=== PATIENT | female | born 1935 | race Caucasian/White ===

== ENCOUNTER 2020-10-15 07:26 | Outpatient (CLI) | payer MEDICARE, SELFPAY ==
--- NOTE | ~2020-10-15 | CT_ITS ---
EXAMINATION: CT abdomen pelvis w con DATE: 10/15/2020 08:15 INDICATION: Inflammatory bowel disease. TECHNIQUE: Computed tomography (CT) of the abdomen and pelvis was performed with 100 mL Omnipaque 350 intravenous contrast. Automated exposure control and iterative reconstruction technique were employe d. The dose-length product was 161.81 mGy-cm. COMPARISON: None. FINDINGS: The visualized portions of the lung bases demonstrate mild atelectasis. A calcified left niecy ng nodule is consistent with old granulomatous disease. No pleural effusion. The heart size is normal . No pericardial effusion. Calcifications in the liver and spleen are consistent with old granulomato us disease. The gallbladder, pancreas, adrenal glands, and kidneys are normal. There is a 4.8 cm cyst in left adnexa. There is wall thickening of the rectosigmoid with gas-filled fistula to the presacra l region. There is a large stool in the colon proximal to the area of rectosigmoid bowel wall thicken ing. There are no dilated loops of bowel. The appendix is not visualized. There are no pathologically enlarged lymph nodes. There is no free intraperitoneal fluid. There is a right hip arthroplasty. The re is severe lumbar spondylosis. IMPRESSION: 1. Wall thickening of the rectosigmoid with gas-filled fistula to the presacral region, likely chroni c diverticulitis. The large volume of stool in the more proximal colon suggests a stricture in the re ctosigmoid. 2. 4.8 cm cyst in the left adnexa, likely benign. Pelvis ultrasound is recommended in one year. Reviewed, dictated and finalized at location B. IMPRESSION: 1. 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 The large volume of stool in the more p roximal colon suggests a stricture in the rectosigmoid. 2. 4.8 cm cyst in the left adnexa, likely benign. Pelvis ultrasound is recommen ded in one year.
[2020-10-15 08:08] LABS: Estimated Glomerular Filt Rate 60
== END 2020-10-15 07:27 | disposition home or self-care (01) ==
PROVIDERS: PCP Internal Medicine; Visit Provider Internal Medicine
DX: K52.9 Noninfective gastroenteritis and colitis, unspecified (principal)
CPT/HCPCS: 74177; Q9967

== ENCOUNTER 2020-11-15 01:31 | Day surgery (SDC) | payer MEDICARE, SELFPAY ==
[2020-11-08 11:08] VITALS: BMI 19.3
--- NOTE | 2020-11-15 11:44 | WPDANESEPPF ---
Anes - Initial Pre Proc Eval Procedure: Operation Date: 11/15/20 13:00 Proposed Procedures p Esophagogastroduodenoscopy & Screening Colonoscopy - Gilbert Hickey MD Date/Time: 11/15/20 11:44 Surgeon: Gilbert Hickey MD Pre Op Diagnosis: abnormal CT, Anemia Patient Data Age: 85 Gender: F Height: 1.5 m Weight: 43.5 kg Allergies Allergy/AdvReac Type Severity Reaction Status Date / Time No Known Allergies Allergy Unknown Verified 11/08/20 11:09 Home Medications Medication Instructions Recorded Confirmed Type aspirin 81 mg tablet,delayed 81 mg PO DAILY 10/25/20 11/08/20 History release bltlyehavgb-vlkegwsajbz-aeutom 500 2 tablet PO DAILY 10/25/20 11/08/20 History mg-400 mg-80 mg tablet vit C 250 mg-vit E 90 mg-zinc 40 1 tablet PO BID 10/25/20 11/08/20 History mg-copper 1 jf-edrzdg-bkonxo capsule Calcium 600 + D(3) 2 cap PO DAILY 11/08/20 11/08/20 History rynhpcgf-zyx-gunq-FA-lutein 1 tablet PO DAILY 11/08/20 11/08/20 History [Centrum [place] Women] Patient hx anesthesia problems: none Family hx anesthesia problems: none PMFSH Past Medical History Medical History (Updated 10/25/20 @ 14:37 by Spring Crocker APN-C) Anemia Diarrhea Family History Family History (Updated 09/01/16 @ 08:34 by DOCTOR UNKNOWN) Mother Acute myocardial infarction Other Cerebrovascular accident Diabetes mellitus Family history of cardiovascular disease Social History Social History Smoking status: Never smoker Alcohol intake: never Substance use: never Substance use type: does not use Living arrangements: alone Spiritual care concerns: No Anes - Eval Final PreProcedure Day of Procedure 11/15/20 11:44 Patient weight: normal Heart: regular rate and rhythm Lungs: clear to auscultation Airway: Mallampati scale class II Neurological: alert and oriented Last oral intake: >/= 8 hours ASA classification: II Emergent: no Anesthetic plan: proceed Anesthesia type and monitoring: general GIVS and standard monitoring Informed Consent: The patient's anesthetic plan and its attendant risks and benefits were discussed with the patient/family/POA. Questions were solicited and answers provided to the satisfaction of the patient/family/POA.
[2020-11-15] MEDS: LACTATED RINGERS 1,000 ML 150 ML IV CONT (12:07)
[2020-11-15 12:10] VITALS: BP 131/65; PULSE 90; RESP 16; TEMP 37.2; O2SAT 99
--- NOTE | 2020-11-15 12:12 | WPDHPUPDATE1 ---
History and Physical Update Update Date/Time: 11/15/20 12:12 History and Physical has been reviewed, including an updated exam of the patient. There are NO changes in the patient's condition. Risks, benefits, and alternatives have been discussed and questions answered. Patient agrees to proceed with procedure.
[2020-11-15] MEDS: BENZOCAINE (*SP) 60 ML SPRAY CAN (HURRICAINE) 1 SPRAY MUCOUS MEM (12:19)
[2020-11-15 12:57] VITALS: BP 112/55; PULSE 72; RESP 20; O2SAT 100
[2020-11-15 13:07] VITALS: BP 115/54; PULSE 70; RESP 14; O2SAT 100
[2020-11-15 13:17] VITALS: BP 138/66; PULSE 77; RESP 24; O2SAT 100
--- NOTE | 2020-11-15 13:49 | SUR.PHASEII ---
pt went to restroom prior to discharge. pt dresssed in the bathroom and iv dc'd once pt brought back to room. discharge teaching done with pt and son. verbalized understanding/
== END 2020-11-15 13:43 | disposition home or self-care (01) ==
PROVIDERS: PCP Internal Medicine; Visit Provider Internal Medicine Gastroenterology
PROC: 0DJ08ZZ Inspection of Upper Intestinal Tract, Via Natural or Artificial Opening Endoscopic (ICD-10-PCS; CPT 43235; principal; 2020-11-15 13:00)
DX: D50.0 Iron deficiency anemia secondary to blood loss (chronic) (principal); K22.10 Ulcer of esophagus without bleeding; K44.9 Diaphragmatic hernia without obstruction or gangrene; K29.50 Unspecified chronic gastritis without bleeding; K51.90 Ulcerative colitis, unspecified, without complications; K57.30 Diverticulosis of large intestine without perforation or abscess without bleeding; K56.699 Other intestinal obstruction unspecified as to partial versus complete obstruction
CPT/HCPCS: 43239; 45380; 45381; 88305; J2704; J7120

== ENCOUNTER 2020-11-19 09:37 | Outpatient (CLI) | payer MEDICARE, SELFPAY ==
[2020-11-19 10:21] LABS: Hematocrit 36.6 % (37.0-47.0); Hemoglobin 11.2 g/dL (12.0-15.0); Mean Corpuscular HGB Conc 30.6 g/dl (32-36); Mean Corpuscular Hemoglobin 25.7 pg (26-34); Mean Corpuscular Volume 84.1 fl (80-100); Mean Platelet Volume 9.3 fl (7.4-10.4); Platelet Count Result 303 k/mm3 (150-375); Red Blood Count 4.35 M/mm3 (4.2-5.4); Red Cell Distribution Width 17.1 % (11.5-14.5); White Blood Count 9.5 K/mm3 (4.5-10.0)
[2020-11-19 11:08] LABS: Alanine Aminotransferase 24 U/L (4-35); Albumin Level 3.5 g/dL (3.5-5.1); Alkaline Phosphatase 122 U/L (38-126); Anion Gap 5 mmol/L (8-16); Aspartate Amino Transferase 39 U/L (14-36); Bilirubin,Total 0.5 mg/dL (0.2-1.3); Blood Urea Nitrogen 7 mg/dL (7-17); CRP 4.2 mg/dL (<1.0); Calcium 8.4 mg/dL (8.4-10.2); Carbon Dioxide 37 mmol/L (22-30); Chloride 98 mmol/L (98-107); Estimated Glomerular Filt Rate > 60; Glucose 99 mg/dL (65-110); Potassium 2.7 mmol/L (3.4-5.0); Sodium 140 mmol/L (137-145)
[2020-11-19 11:45] LABS: Erythrocyte Sedimentation Rate 39 mm/hr (0-20)
== END 2020-11-19 09:38 | disposition home or self-care (01) ==
LOC: ANHLAB 09:48
PROVIDERS: PCP Internal Medicine; Visit Provider Internal Medicine Gastroenterology
DX: R93.3 Abnormal findings on diagnostic imaging of other parts of digestive tract (principal); K56.699 Other intestinal obstruction unspecified as to partial versus complete obstruction; R19.7 Diarrhea, unspecified; K51.90 Ulcerative colitis, unspecified, without complications
CPT/HCPCS: 36415; 80053; 85027; 85652; 86140

== ENCOUNTER 2020-11-19 18:38 | Emergency (ER) | payer MEDICARE, SELFPAY ==
[2020-11-19 19:03] VITALS: BP 141/70; PULSE 98; RESP 18; TEMP 37.3; O2SAT 100
[2020-11-19 21:00] LABS: Potassium 2.9 mmol/L (3.4-5.0)
--- NOTE | 2020-11-19 22:02 | ED.RECABL ---
HPI - Recheck/Abnormal Lab/Rx General Chief Complaint: Recheck/Abnormal Lab/Rx Stated Complaint: here for iv potassium Time Seen by Provider: 11/19/20 21:56 Source: patient Mode of arrival: ambulatory Limitations: no limitations History of Present Illness HPI narrative: Patient is an 85-year-old female sent by her doctor due to low potassium level. Patient's son states that her doctor told her that she needed potassium. Patient is asymptomatic at this time but states that she does have diarrhea which is nothing new it is due to her colitis and has a machine splitter that she follows up with. Patient denies any chest pain, shortness of breath, abdominal pain, nausea, vomiting, urinary symptoms, fever or chills Related Data Home Medications Medication Instructions Recorded Confirmed aspirin 81 mg tablet,delayed 81 mg PO DAILY 10/25/20 11/19/20 release ichezrhsyvf-urvwdaliiun-mioaah 500 2 tablet PO DAILY 10/25/20 11/19/20 mg-400 mg-80 mg tablet vit C 250 mg-vit E 90 mg-zinc 40 1 tablet PO BID 10/25/20 11/19/20 mg-copper 1 hc-buizhj-sypklx capsule Calcium 600 + D(3) 2 cap PO DAILY 11/08/20 11/19/20 vgnunejj-jjr-swqk-FA-lutein 1 tablet PO DAILY 11/08/20 11/19/20 [Centrum [place] Women] Allergies Allergy/AdvReac Type Severity Reaction Status Date / Time No Known Allergies Allergy Unknown Verified 11/19/20 22:07 Review of Systems Review of Systems: All systems reviewed & are unremarkable except as noted in HPI and below Constitutional: Constitutional: Denies body ache(s), Denies chills, Denies excessive sweating, Denies fatigue, Denies fever(s), Denies headache(s), Denies lethargy, Denies malaise, Denies weakness and Denies weight loss Eyes: Eyes: Denies blurry vision, Denies change in vision and Denies loss of vision ENT: Denies dizziness, Denies ear discharge, Denies headache(s), Denies lip swelling, Denies epistaxis, Denies nasal congestion, Denies neck pain, Denies throat swelling and Denies tongue swelling Cardiovascular: Cardiovascular: Denies chest pain, Denies chest pain at rest, Denies chest pain with activity, Denies diaphoresis, Denies rapid heart rate, Denies edema, Denies irregular heart rhythm, Denies lightheadedness, Denies palpitations, Denies dyspnea and Denies dyspnea on exertion Respiratory: Respiratory: Denies chest congestion, Denies cough, Denies hemoptysis, Denies dyspnea and Denies dyspnea on exertion Gastrointestinal: Gastrointestinal: Denies abdominal pain, Denies melena, Denies hematochezia, Denies diarrhea, Denies nausea, Denies vomiting and Denies hematemesis Musculoskeletal: Musculoskeletal: Denies abnormal gait, Denies deformity, Denies joint swelling, Denies limited range of motion, Denies neck pain and Denies numbness Neurologic: Denies Abnormal speech present, Denies abnormal gait, Denies confusion, Denies dizziness, Denies headache(s), Denies focal weakness, Denies loss of vision, Denies numbness, Denies Other visual disturbances, Denies Sensory deficit (Neuro) and Denies weakness Psychiatric: Psychiatric: Denies confusion, Denies depression, Denies auditory hallucinations, Denies homicidal ideation and Denies suicidal ideation Endocrine: Endocrine: Denies cold intolerance, Denies excessive sweating, Denies fatigue, Denies heat intolerance and Denies palpitations Hematologic/Lymphatic: Hematologic/Lymphatic: Denies easy bleeding and Denies easy bruising Allergic/Immunologic: Allergic/Immunologic: Denies lip swelling, Denies throat swelling and Denies tongue swelling PMFSH Past Medical History Medical History Abnormal CT scan, sigmoid colon Anemia Diarrhea 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
[2020-11-19 22:03] VITALS: BP 151/70; PULSE 88; RESP 20; O2SAT 97
[2020-11-19] MEDS: POTASSIUM CHLORIDE 20 MEQ PACKET (FOR LIQUID) 40 MEQ PO (22:38)
[2020-11-19 23:06] VITALS: BP 157/70; PULSE 87; RESP 18; O2SAT 99
== END 2020-11-19 23:10 | disposition home or self-care (01) ==
PROVIDERS: Emergency Medicine; Emergency Provider Emergency Medicine; PCP Internal Medicine
DX: E87.6 Hypokalemia (principal); Z79.82 Long term (current) use of aspirin; Z86.2 Personal history of diseases of the blood and blood-forming organs and certain disorders involving the immune mechanism
CPT/HCPCS: 36415; 80053; 84132; 85027; 85652; 86140; 99283; A9270

== ENCOUNTER 2021-01-06 08:08 | Outpatient (CLI) | payer MEDICARE, SELFPAY ==
--- NOTE | ~2021-01-06 | XR_ITS ---
BARIUM ENEMA-AIR CONTRAST INDICATION: Intestinal obstruction. TECHNIQUE: Examination of the colon utilizing air-contrast barium enema technique. COMPARISON: CT dated 10/15/2020 FINDINGS: Examination is limited due to retrograde obstruction to flow of contrast at the sigmoid col on. There is narrowing of the sigmoid colon with possible fistula formation, suspicious for neoplasm. Abnormal accumulation of contrast along the posterior superior margin of the sigmoid colon extending towards the sacrum, suspicious for fistula. IMPRESSION: 1:Limited study due to obstruction of retrograde flow of contrast. There is irregular narrowing of th e sigmoid colon, suspicious for neoplasm. There is abnormal extraluminal accumulation of contrast dis sylvia to the narrowing, suspicious for fistula. The more proximal colon is not evaluated. Reviewed, dictated and finalized at location A. T DISTILLER IMPRESSION: 1:Limited study due to obstruction of retrograde flow of contrast. There is irr egular narrowing of the sigmoid colon, suspicious for neoplasm. There is abnorm al extraluminal accumulation of contrast distal to the narrowing, suspicious fo r fistula. The more proximal colon is not evaluated.
== END 2021-01-06 08:09 | disposition home or self-care (01) ==
LOC: ANHIMG 08:09
PROVIDERS: PCP Internal Medicine; Visit Provider Surgery
DX: K56.699 Other intestinal obstruction unspecified as to partial versus complete obstruction (principal); K51.90 Ulcerative colitis, unspecified, without complications
CPT/HCPCS: 74280

== ENCOUNTER 2021-02-24 18:40 | Inpatient (IN) | payer MEDICARE, SELFPAY ==
--- NOTE | ~2021-02-24 | XR_ITS ---
EXAMINATION: XR chest PICC line DATE: 02/25/2021 10:19 INDICATION: Central line placement. TECHNIQUE: A single frontal view of the chest was obtained. COMPARISON: Chest single view at 4:56 AM FINDINGS: There is mild scarring at the lung apices. There is a diffuse interstitial pattern in the l ungs. Calcified left lung nodules are consistent with old granulomatous disease. There are airspace o pacities in the mid and lower lung zones with a perihilar and left basilar predominance. There are sm all pleural effusions. No pneumothorax. The heart size is normal. The endotracheal tube tip is 2.6 cm above the martínez. The nasogastric tube tip is beyond the inferior margin of the radiograph, but at l east to the stomach. A left upper extremity peripherally inserted central venous catheter (PICC) is seen with tip at the superior cavoatrial junction. Surgical surgical drains overlie the abdomen. Left -sided retroperitoneal gas is again seen. IMPRESSION: 1. PICC tip at superior cavoatrial junction. 2. Diffuse lung disease with worsening at left lung base, consistent with mild pulmonary edema and at electasis versus pneumonia. Reviewed, dictated and finalized at location A. ENTARY EDUCATION TEACHER IMPRESSION: 1. PICC tip at superior cavoatrial junction. 2. Diffuse lung disease with worsening at left lung base, consistent with mild pulmonary edema and atelectasis versus pneumonia.
--- NOTE | ~2021-02-24 | XR_ITS ---
EXAMINATION: XR chest 1V portable EXAM DATE: 02/27/2021 06:08 INDICATION: Diffuse lung disease. TECHNIQUE: Portable AP frontal chest x-ray was obtained. Comparison is made to prior examination from 02/26/2021. FINDINGS: Previously seen left-sided PICC line no longer identified. Layering pleural effusions diffi cult to quantify. Adjacent atelectasis and superimposed edema or pneumonia. There is no pneumothorax suspected. The cardiomediastinal silhouette is prominent but magnified on this AP technique. The bone s are osteopenic. There are bony degenerative changes. IMPRESSION: 1. Layering pleural effusions and adjacent acute airspace disease unchanged. Reviewed, dictated and finalized at location A. ASE AND INSECT CONTROL BOSS
--- NOTE | ~2021-02-24 | CT_ITS ---
EXAMINATION: CT abdomen pelvis w con INDICATION: Left lower quadrant pain, history of ulcerative colitis TECHNIQUE: Computed tomographic images of the abdomen and pelvis were obtained after the administrati on of 100 cc of Omnipaque 350 intravenous contrast. The dose-length product (DLP) was 211.91 mGy-cm. Automated exposure control and iterative reconstruction technique were employed. COMPARISON: 10/15/2020 FINDINGS: Minimal dependent atelectasis is present in the lung bases. The heart size is normal. Punct ate calcifications in otherwise normal appearing liver and spleen likely represent healed granulomato us disease. The gallbladder is distended. The adrenal glands are unremarkable. There is a 7 mm cystic lesion in the body of the pancreas. The kidneys are unremarkable. Again noted is a 4.6 cm cystic les ion of the right adnexa. There is wall thickening of the rectosigmoid colon with a gas-filled fistula to the presacral region again seen. There has been interval development of an approximately 7.6 x 5.7 cm left retroperitoneal abscess which at least partially involves the left iliopsoas muscle. Gas tracks superiorly along the iliopsoas muscle and under the left hemidiaphragm as well as inferiorly into the left proximal thigh as well as into the lateral aspect of the left pelvis. There are changes of right total hip arthropl asty. Severe lumbar spondylosis is noted. IMPRESSION: 1. Left retroperitoneal abscess involving the iliopsoas muscle and tracking into the lateral aspect o f the left pelvis. Coexisting fecal contamination is a consideration. Surgical evaluation is recommen ded. 2. 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 These findings and recommendations were discussed with Dr. Gurpreet Palencia MD in the Emergency Dep artment at 0022 hours on 02/25/2021. 3. Cystic lesion in the body of the pancreas. The differential diagnosis includes pseudocyst, intradu ctal papillary mucinous neoplasm (IPMN), mucinous cystic neoplasm (MCN), and the less common serous c ystadenoma and neuroendocrine tumor. Correlate for history of pancreatitis. Follow-up pancreas protoc ol CT or MRI in two years is recommended. Reviewed, dictated and finalized at location F. IFIED FAMILY MEDIATOR IMPRESSION: 1. Left retroperitoneal abscess involving the iliopsoas muscle and tracking int o the lateral aspect of the left pelvis. Coexisting fecal contamination is a co nsideration. Surgical evaluation is recommended. 2. 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 These findings and recommendations were discussed with Violet Dia in the Emergency Department at 0022 hours on 02/25/2021. 3. Cystic lesion in the body of the pancreas. The differential diagnosis includ es pseudocyst, intraductal papillary mucinous neoplasm (IPMN), mucinous cystic neoplasm (MCN), and the less common serous cystadenoma and neuroendocrine tumor . Correlate for history of pancreatitis. Follow-up pancreas protocol CT or MRI in two years is recommended.
--- NOTE | ~2021-02-24 | US_ITS ---
EXAMINATION: US renal BI DATE: 02/28/2021 16:21 INDICATION: Elevated creatinine TECHNIQUE: Multiple ultrasound grayscale images of the kidneys were obtained. COMPARISON: CT abdomen and pelvis dated 02/24/2021 FINDINGS: The right kidney measures 9.1 x 3.8 x 3.1 cm. The left kidney measures 8.9 x 3.7 x 3.9 cm. The kidney s demonstrate normal echogenicity. There is no hydronephrosis in either kidney. No stones identified . The bladder is normal. IMPRESSION: 1. Normal kidneys without hydronephrosis. Reviewed, dictated and finalized at location B. STOP ATTACHER
--- NOTE | ~2021-02-24 | XR_ITS ---
EXAMINATION: XR chest 1V portable EXAM DATE: 03/09/2021 12:00 INDICATION: Shortness of breath. TECHNIQUE: Portable AP frontal chest x-ray was obtained. Comparison is made to prior examination from 03/06/2021. FINDINGS: Small to moderate bilateral subpulmonic pleural effusions with adjacent atelectasis, mild i mprovement compared to prior studies. Lungs are otherwise hyperinflated. No pneumothorax. Mild cardio megaly. There are mild bony degenerative changes. IMPRESSION: Improving small to moderate subpulmonic pleural effusions and adjacent atelectasis. Reviewed, dictated and finalized at location A. ATOR COATING FURNACE IMPRESSION: Improving small to moderate subpulmonic pleural effusions and adjac ent atelectasis.
--- NOTE | ~2021-02-24 | XR_ITS ---
XR chest 1V portable DATE: 03/01/2021 06:11 INDICATION: Intubation TECHNIQUE: Portable AP chest on 03/01/2021 at 0535 hours COMPARISON: 03/17/2021 portable AP chest at 0505 hours FINDINGS: No endotracheal tube is evident. There is persistent pulmonary vascular congestion, moderate bilateral pleural effusions and bilateral central and particularly lower lung zone infiltrates with left retrocardiac lower lobe air bronchogr ams. Diffuse osteopenia. IMPRESSION: Persistent congestive changes and bilateral pulmonary infiltrates involving particularly the lower lobes, bilateral pleural effusions; little interval change since 02/28/2021. Congestive changes are suspected. Pneumonia is not excluded. Reviewed, dictated and finalized at location A. ING BOAT MATE IMPRESSION: Persistent congestive changes and bilateral pulmonary infiltrates i nvolving particularly the lower lobes, bilateral pleural effusions; little inte rval change since 02/28/2021. Congestive changes are suspected. Pneumonia is not excluded.
--- NOTE | ~2021-02-24 | XR_ITS ---
XR chest 1V portable DATE: 02/28/2021 06:21 INDICATION: Intubation. Diffuse lung disease. TECHNIQUE: Portable upright AP chest on 02/28/2021 at 0505 hours COMPARISON: 02/27/2021 portable AP chest at 0510 hours FINDINGS: ET tube is not visualized within the field of view which extends up to T1. No central lines are noted. Cardiomegaly, aortic calcification, pulmonary vascular congestion and redistribution and suggestion o f bilateral mild pleural effusions in addition to some infiltrates in the central and lower lung zone s, suggesting congestive heart failure and pulmonary edema. Pneumonia is not excluded. Diffuse osteopenia. IMPRESSION: Congestive changes, with suggestion of mild improvement since 02/27/2021 Reviewed, dictated and finalized at location A. TOBACCO BULKER IMPRESSION: Congestive changes, with suggestion of mild improvement since 022
--- NOTE | ~2021-02-24 | XR_ITS ---
EXAMINATION: XR chest ET placement DATE: 02/25/2021 05:51 INDICATION: Intubation. TECHNIQUE: A single frontal view of the chest was obtained. COMPARISON: CT abdomen and pelvis 02/24/2021 FINDINGS: There is a diffuse interstitial pattern in the lungs. There is mild scarring at the lung ap ices. Calcified left lung nodules are consistent with old granulomatous disease. There are airspace o pacities in all right lung zones and left mid and lower lung zones. No pleural effusion or pneumothor ax. The heart size is normal. Endotracheal tube tip is 2.6 cm above the martínez. The nasogastric tube tip is beyond the inferior margin of the radiograph, but at least to the stomach. Again seen is gas i n the left retroperitoneum. IMPRESSION: 1. Diffuse lung disease, consistent with pulmonary edema versus pneumonia. 2. Left-sided retroperitoneal gas again seen. Reviewed, dictated and finalized at location A. ISSIONS COORDINATOR
--- NOTE | ~2021-02-24 | CT_ITS ---
EXAMINATION: CT guide absc cath placement DATE: 03/02/2021 14:18 INDICATION: Left abdominal abscess. TECHNIQUE: The procedure including the risks, benefits, and alternatives was discussed with the patie nt. Risks discussed included bleeding and infection. The patient understood the risks and benefits an d agreed to proceed. The skin overlying the abdomen was prepped and draped in usual sterile fashion. Anesthetic was administered with 1% lidocaine subcutaneously. An 18 gauge trochar needle was inserte d into the left abdominal abscess with CT guidance. The needle was exchanged over a wire for 6 Chilean , 8 Chilean, and 10 Chilean dilators and then for a 12 Chilean pigtail catheter. The catheter was stitch ed to the skin, and a sterile dressing was applied. The mA was adjusted according to patient size. It erative reconstruction technique was employed. The dose-length product was 181.15 mGy-cm. There were no immediate complications. FINDINGS: CT images demonstrate the catheter within the left abdominal abscess. 10 mL fluid was aspir ated for testing. IMPRESSION: 1. Successful CT-guided left abdominal abscess drainage. 2. 10 mL opaque red-barrera fluid was sent for aerobic and anaerobic cultures. Reviewed, dictated and finalized at location A. WARE PROJECT LEAD
--- NOTE | ~2021-02-24 | XR_ITS ---
EXAMINATION: XR chest 1V portable DATE: 02/26/2021 07:11 INDICATION: Diffuse lung disease. TECHNIQUE: A single frontal view of the chest was obtained. COMPARISON: Chest single view 02/25/2021, CT abdomen and pelvis 02/24/2021 FINDINGS: The patient is rotated to her right. There is mild scarring at the lung apices. A calcified left lung nodule and calcified left hilar lymph nodes are consistent with old granulomatous disease. There is a diffuse interstitial pattern in the lungs. There are airspace opacities in the mid and lo wer lung zones with a perihilar and basilar predominance. There are small pleural effusions. No pneum othorax. The heart size is normal. A left upper extremity peripherally inserted central venous cathet er (PICC) is seen with tip at the superior cavoatrial junction. The nasogastric tube tip is beyond th e inferior margin of the radiograph, but at least to the stomach. A surgical drain overlies right abd omen. IMPRESSION: 1. Stable diffuse lung disease, likely a combination of pulmonary edema and either lower lung atelect asis or pneumonia. 2. Small pleural effusions. Reviewed, dictated and finalized at location A. TENANCE GROUNDMAN IMPRESSION: 1. Stable diffuse lung disease, likely a combination of pulmonary edema and eit her lower lung atelectasis or pneumonia. 2. Small pleural effusions.
--- NOTE | ~2021-02-24 | XR_ITS ---
EXAMINATION: XR chest 1V portable INDICATION: Increased oxygen needs TECHNIQUE: Portable AP chest at 1648 hours COMPARISON: 03/01/2021 FINDINGS: Small pleural effusions persist with slight decrease. There are persistent opacities throug hout all lung zones without significant change. No pneumothorax is identified. The cardiomediastinal silhouette is stable. IMPRESSION: 1. Diffuse lung disease, consistent with pneumonia and/or pulmonary edema and/or atelectasis. 2. Small pleural effusions with slight decrease. Reviewed, dictated and finalized at location F. NIC LAB WORKER IMPRESSION: 1. Diffuse lung disease, consistent with pneumonia and/or pulmonary edema and/o r atelectasis. 2. Small pleural effusions with slight decrease.
--- NOTE | ~2021-02-24 | CT_ITS ---
EXAMINATION: CT abdomen pelvis wo con DATE: 03/01/2021 11:34 INDICATION: Perforated sigmoid colon post end colostomy and Toth's formation. TECHNIQUE: Computed tomography (CT) of the abdomen and pelvis was performed without intravenous contr ast. Automated exposure control and iterative reconstruction technique were employed. The dose-length product was 238.67 mGy-cm. COMPARISON: 02/24/2021 FINDINGS: Small left and incompletely visualized small to moderate right pleural effusions with collapse of the bilateral lower lobes. No evident pneumonia or pulmonary edema. 7 mm right upper lobe nodule. Heart size is normal. No pericardial effusion. Thoracic aorta is normal in caliber. Dependently layering hi gh attenuation consistent with vicariously excreted contrast in the dependent aspect of the otherwise normal gallbladder. Liver, pancreas, bilateral adrenal glands and kidneys are normal. Splenic calcif ications consistent with old granulomatous disease. Postoperative changes of prior partial colectomy with suture line along the end of a Toth's pouch in the pelvis and with a left lower quadrant and ostomy. The cecum appears to remain in the right low er quadrant however the course of the more distal remaining colon is unable to be distinguished from the small bowel loops. No dilated loops of bowel to suggest obstruction. Surgical drain within the de ep pelvis. A subjective decrease in size of a mixed attenuation gas and fluid collection at the left iliopsoas muscle. This includes a poorly defined approximately 3.3 x 3.1 x 2.2 cm region of increased attenuation suggesting hematoma. There also appears to be a small amount of more homogeneous intrape ritoneal fluid at the left paracolic gutter. No free intraperitoneal gas. Mederos catheter in the bladd er. Partially visualized right total hip arthroplasty. Moderate left hip osteoarthritis with subarticular cystic change at the anterior acetabulum. Severe lumbar spondylosis with 8 mm anterolisthesis L4 on L5 and 6 mm anterolisthesis L5 on S1. Additional severe lower thoracic spondylosis with 3 to 4 mm ret rolisthesis T9 and T10, T10 and T11 and T11 and T12. Chronic anterior wedging, mild at T8 and minimal at T9-T11. Extensive body wall edema most prominent at the flanks and posterior to the lumbar spine and sacrum. IMPRESSION: 1. Postoperative change of interval partial colectomy with Toth's pouch and left lower quadrant en d ostomy, likely colostomy although the small bowel and remaining large bowel are unable to be clearl y distinguished. 2. Subjective decreased in size suggesting interval surgical decompression of a region of small amoun t of gas and mixed attenuation fluid within the left iliopsoas muscle which was previously concerning for abscess and likely also including small amount of hemorrhage accounting for the region of increa sed attenuation. 3. Small amount of likely free fluid extending along the likely colectomy bed at the left paracolic g utter. 4. Small left and dntwc-va-cuvdajss right pleural effusions with collapse of the bilateral lower lobe s. Reviewed, dictated and finalized at location B. SCREW MAN IMPRESSION: 1. Postoperative change of interval partial colectomy with Toth's pouch and left lower quadrant end ostomy, likely colostomy although the small bowel and r emaining large bowel are unable to be clearly distinguished. 2. Subjective decreased in size suggesting interval surgical decompression of a region of small amount of gas and mixed attenuation fluid within the left ilio psoas muscle which was previously concerning for abscess and likely also includ ing small amount of hemorrhage accounting for the region of increased attenuati on. 3. Small amount of likely free fluid extending along the like
[2021-02-24 19:11] VITALS: BP 148/69; PULSE 62; RESP 16; TEMP 37.1; O2SAT 96
[2021-02-24] MEDS: ONDANSETRON INJ 4 MG/2 ML VIAL IV PUSH (22:52)
[2021-02-24 22:57] VITALS: BP 74/46; PULSE 111; RESP 18; O2SAT 98
[2021-02-24 23:03] LABS: Basophils Percent Auto 0.1 % (0.2-1.2); Eosinophils Absolute Auto 0.1 K/mm3 (0-0.3); Eosinophils Percent Auto 0.3 % (0-4.4); Hematocrit 29.9 % (37.0-47.0); Hemoglobin 9.9 g/dL (12.0-15.0); Immature Granulocyte Absolute 1.83 K/mm3 (0.00-0.031); Immature Granulocyte Percent A 5.7 % (0-0.5); Lymphocytes Absolute Auto 0.64 K/mm3 (0.9-3.2); Mean Corpuscular HGB Conc 33.1 g/dl (32-36); Mean Corpuscular Hemoglobin 27.5 pg (26-34); Mean Corpuscular Volume 83.1 fl (80-100); Mean Platelet Volume 9.7 fl (7.4-10.4); Monocytes Absolute Auto 0.3 K/mm3 (0.1-0.6); Neutrophils Percent Auto 90.9 % (45.5-73.1); Platelet Count Result 333 k/mm3 (150-375); Red Cell Distribution Width 14.7 % (11.5-14.5); White Blood Count 31.9 K/mm3 (4.5-10.0)
[2021-02-24 23:32] LABS: Alanine Aminotransferase 43 U/L (4-35); Albumin Level 3.2 g/dL (3.5-5.1); Alkaline Phosphatase 344 U/L (38-126); Anion Gap 15 mmol/L (8-16); Aspartate Amino Transferase 112 U/L (14-36); Blood Urea Nitrogen 28 mg/dL (7-17); Calcium 8.6 mg/dL (8.4-10.2); Carbon Dioxide 16 mmol/L (22-30); Chloride 101 mmol/L (98-107); Estimated Glomerular Filt Rate 39; Glucose 158 mg/dL (65-110); Lipase 87 U/L (23-300); Potassium 4.2 mmol/L (3.4-5.0); Sodium 132 mmol/L (137-145)
[2021-02-25] VITALS (31 sets, daily range): BP systolic 76–124; BP diastolic 30–55; PULSE 72–105; RESP 14–27; TEMP 36.2–36.7; O2SAT 90–100; BMI 22.1; BMI 22.7
--- NOTE | 2021-02-25 00:31 | ED.ABDPAIN ---
HPI - Abdominal Pain General Chief Complaint: Abdominal Pain Stated Complaint: left groin pain Time Seen by Provider: 02/24/21 22:33 History of Present Illness HPI narrative: Patient is an 86-year-old female who presents ER with pain in her left groin. She been having some lower abdominal/suprapubic discomfort over the last 3 to 4 days. She contacted her PCP who wrote a prescription for Bactrim DS to cover a possible UTI. Patient has history of ulcerative colitis and has known colonic fistula and stricture. She is taking mesalamine. She is being followed by Dr. Macdonald and Dr. Mendoza. Patient has been incontinent of stool. Son notes patient had some blood in her stool earlier in the day. Related Data Home Medications Medication Instructions Recorded Confirmed nydbxuocsji-epnxxqlptma-imfhra 500 2 tablet PO DAILY 10/25/20 02/25/21 mg-400 mg-80 mg tablet jityzlgb-aqo-mnpk-FA-lutein 1 tablet PO DAILY 11/08/20 02/25/21 [Centrum Silver Women] aspirin [Adult Aspirin] 81 mg PO DAILY 02/25/21 02/25/21 ergocalciferol (vitamin D2) 1,250 mcg PO WEEKLY 02/25/21 02/25/21 Allergies Allergy/AdvReac Type Severity Reaction Status Date / Time No Known Allergies Allergy Unknown Verified 02/24/21 19:15 Review of Systems Review of Systems: All systems reviewed & are unremarkable except as noted in HPI and below Constitutional: Constitutional: Denies chills, Reports fatigue, Denies fever(s) and Reports weakness ENT: Denies nasal congestion and Denies sore throat Gastrointestinal: Gastrointestinal: Reports abdominal pain, Reports diarrhea, Denies nausea and Denies vomiting Genitourinary: Genitourinary: Denies nocturia, Denies dysuria and Denies flank pain [facility] Past Medical History Medical History Abnormal CT scan, sigmoid colon Anemia Diarrhea Erosive esophagitis Hypokalemia 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 HEAD: Normocephalic, atraumatic. EYES: PERRL and EOMI. ENT: Mucous membranes moist. CHEST: Clear to auscultation. No respiratory distress. HEART: Tachycardic and regular. Normal peripheral pulses. ABDOMEN: Soft, nontender, nondistended, normal active bowel sounds, heme-negative stool on ARMEN. EXTREMITIES: Normal range of motion. No edema. SKIN: Warm, dry, no rash. NEURO: Alert and oriented x3. PSYCH: Normal mood and affect. Course Reevaluation(s) Reevaluation #1: I have been on the phone with both radiology and general surgery. I had a long discussion with the patient and her son about the risks and benefits of surgery. They fully understand that no surgery equals 100% chance of for the patient. After discussing with the surgeon they have been educated that she has a 50% chance of with the surgery, she would end up with a permanent colostomy bag, she would have multiple drains, and if she made it out of the hospital would likely be in a intermediate/rehabilitation to start. After this education they have opted to have the surgery. The household appliance mechanic has been contacted. The OR team is being called in. Patient's blood pressure is in the mid 80s. We will continue to fluid bolus the patient. Zosyn has been ordered for antibiotic coverage. Date: 02/25/21 Time: 01:03 Vital Signs Vital signs: Vital Signs Temperature 98.8 F 02/24/21 19:11 Pulse Rate 62 02/24/21 19:11 Respiratory Rate 16 02/24/21 19:11 Blood Pressure 148/69 H
--- NOTE | 2021-02-25 01:36 | PM.IMHP ---
H&P: HPI History of Present Illness Date/Time: 02/25/21 01:36 Pt is a 86 y/o F presenting to ED c/o worsening lower abd/suprapubic pain c radiation to L groin. Pt reports sx persistent for last few days and no improvement despite being started on oral abx. Pt also reports decreased appetite and increased weakness although she reports no N/V and normal bowel fxn. Pt c known UC and stricture in distal sigmoid, also known fistula to presacral space. Pt seen emergently in ED due to HD instability, sepsis. Chief Complaint: colonic perforation, sepsis Review of Systems Constitutional: Constitutional: Reports anorexia, Reports chills, Reports fatigue, Reports fever(s), Denies increased appetite, Reports lethargy, Reports malaise, Reports poor appetite, Reports weakness, Denies weight gain and Denies weight loss Eyes: Eyes: Reports no additional eye complaints ENT: Reports system reviewed and no additional complaints, except as documented Cardiovascular: Cardiovascular: Reports no additional cardiovascular complaints Respiratory: Respiratory: Reports no additional respiratory complaints Gastrointestinal: Gastrointestinal: Reports as per HPI, Reports abdominal pain and Reports bloating Genitourinary: Genitourinary: Reports no additional female genitourinary complaints Musculoskeletal: Musculoskeletal: Reports no additional musculoskeletal complaints Integumentary/Breasts: Skin/Breast: Reports system reviewed and no additional complaints, except as docu Neurologic: Reports system reviewed and no additional complaints, except as documented Psychiatric: Psychiatric: Reports no additional psychiatric complaints Endocrine: Endocrine: Reports no additional endocrine complaints Hematologic/Lymphatic: Hematologic/Lymphatic: Reports no additional hematologic/lymphatic complaints Allergic/Immunologic: Allergic/Immunologic: Reports no additional allergic/immunologic complaints [facility] Past Medical History Medical History Abnormal CT scan, sigmoid colon Anemia Diarrhea Erosive esophagitis Hypokalemia 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 disease Social History Social History Alcohol intake: never Substance use: never Substance use type: does not use Spiritual care concerns: No Comments pt denies any previous abdominal surgeries Meds Home Medications and Allergies Home Medications Medication Instructions Recorded Confirmed Type aspirin 81 mg tablet,delayed 81 mg PO DAILY 10/25/20 11/19/20 History release zweufzpjuep-tzlxrivqsvi-aegcbo 500 2 tablet PO DAILY 10/25/20 11/19/20 History mg-400 mg-80 mg tablet vit C 250 mg-vit E 90 mg-zinc 40 1 tablet PO BID 10/25/20 11/19/20 History mg-copper 1 wn-axywjx-gkjhfu capsule Calcium 600 + D(3) 2 cap PO DAILY 11/08/20 11/19/20 History vkiqwoem-nch-wzmv-FA-lutein 1 tablet PO DAILY 11/08/20 11/19/20 History [Centrum Silver Women] omeprazole 20 mg capsule,delayed 20 mg PO BID #60 cap 11/15/20 11/19/20 Rx release mesalamine 1.2 gram tablet,delayed 3.6 g PO DAILY 30 Days #90 tablet 11/18/20 11/19/20 Rx release potassium chloride [K-Tab] 20 meq PO DAILY #3 tablet 11/19/20 Rx Allergies Allergy/AdvReac Type Severity Reaction Status Date / Time No Known Allergies Allergy Unknown Verified 02/24/21 19:15 Vital Signs Vital Signs - 24 hr 02/24/21 19:11 02/24/21 22:57 02/25/21 00:12 Temperature 37.1 C Pulse Rate 62 111 H 105 H Respiratory Rate 16 18 Blood Pressure 148/69 H 74/46 L 83/48 L Pulse Oximetry 96 98 02/25/21 01:15 Temperature Pulse Rate 98 Respiratory Rate Blood Pressure 101/46 L Pulse Ox
--- NOTE | 2021-02-25 01:55 | WPDANESEPP ---
Anes - Eval Pre Procedure Procedure: Operation Date: 02/25/21 02:30 Proposed Procedures p Exploratory Laparotomy, Pos Bowel Resec - Domi West MD Date/Time: 02/25/21 01:55 Pre Op Diagnosis: left groin pain Patient Data Age: 86 Gender: F Height: 1.47 m Weight: 39.01 kg Last Vital Signs Temp 37.1 C 02/24/21 19:11 Pulse 72 02/25/21 01:44 Resp 18 02/25/21 01:44 BP 76/43 L 02/25/21 01:44 Pulse Ox 96 02/25/21 01:44 Allergies Allergy/AdvReac Type Severity Reaction Status Date / Time No Known Allergies Allergy Unknown Verified 02/24/21 19:15 Home Medications Medication Instructions Recorded Confirmed Type aspirin 81 mg tablet,delayed 81 mg PO DAILY 10/25/20 11/19/20 History release qlydafxvifw-fwlfhpeprii-hbekhc 500 2 tablet PO DAILY 10/25/20 11/19/20 History mg-400 mg-80 mg tablet vit C 250 mg-vit E 90 mg-zinc 40 1 tablet PO BID 10/25/20 11/19/20 History mg-copper 1 rn-yqasnu-quulkq capsule Calcium 600 + D(3) 2 cap PO DAILY 11/08/20 11/19/20 History zunwwhwk-kws-dpeh-FA-lutein 1 tablet PO DAILY 11/08/20 11/19/20 History [Centrum Silver Women] omeprazole 20 mg capsule,delayed 20 mg PO BID #60 cap 11/15/20 11/19/20 Rx release mesalamine 1.2 gram tablet,delayed 3.6 g PO DAILY 30 Days #90 tablet 11/18/20 11/19/20 Rx release potassium chloride [K-Tab] 20 meq PO DAILY #3 tablet 11/19/20 Rx Laboratory Tests 02/24/21 02/24/21 02/24/21 22:49 22:49 22:58 WBC 31.9 K/mm3 H K/mm3 (4.5-10.0) RBC 3.60 M/mm3 L M/mm3 (4.2-5.4) Hgb 9.9 g/dL L g/dL (12.0-15.0) Hct 29.9 % L % (37.0-47.0) MCV 83.1 fl fl (80-100) MCH 27.5 pg pg (26-34) MCHC 33.1 g/dl g/dl (32-36) RDW 14.7 % H % (11.5-14.5) Plt Count 333 k/mm3 k/mm3 (150-375) MPV 9.7 fl fl (7.4-10.4) Immature Gran % (Auto) 5.7 % H % (0-0.5) Neut % (Auto) 90.9 % H % (45.5-73.1) Lymph % (Auto) 2.0 % L % (18.3-44.2) [place] % (Auto) 1.0 % L % (2.6-8.5) Eos % (Auto) 0.3 % % (0-4.4) Baso % (Auto) 0.1 % L % (0.2-1.2) Lymph # (Auto) 0.64 K/mm3 L K/mm3 (0.9-3.2) [place] # (Auto) 0.3 K/mm3 K/mm3 (0.1-0.6) Eos # (Auto) 0.1 K/mm3 K/mm3 (0-0.3) Baso # (Auto) 0.0 K/mm3 K/mm3 (0.0-0.1) Abs Immat Gran (auto) 1.83 K/mm3 H K/mm3 (0.00-0.031) Absolute Neuts (auto) 29.0 K/mm3 H K/mm3 (1.3-6.7) Absolute Nucleated RBC 0.0 K/mm3 K/mm3 (0.0-0.012) Nucleated RBC % 0.0 % % (0.0-0.2) Sodium 132 mmol/L L mmol/L (137-145) Potassium 4.2 mmol/L mmol/L (3.4-5.0) Chloride 101 mmol/L mmol/L (98-107) Carbon Dioxide 16 mmol/L L mmol/L (22-30) Anion Gap 15 mmol/L mmol/L (8-16) BUN 28 mg/dL H D mg/dL (7-17) Creatinine 1.30 mg/dL H mg/dL (0.7-1.0) Estim Creat Clear Calc Not Reportable Estimated GFR 39 L (59 - ) Glucose 158 mg/dL H mg/dL (65-110) Lactic Acid 4.0 mmol/L H mmol/L (0.7-2.1) Calcium 8.6 mg/dL mg/dL (8.4-10.2) Total Bilirubin 1.0 mg/dL mg/dL (0.2-1.3) AST 112 U/L H U/L (14-36) ALT 43 U/L H U/L (4-35) Alkaline Phosphatase 344 U/L H U/L (38-126) Total Protein 6.0 g/dL L g/dL (6.3-8.2) Albumin 3.2 g/dL L g/dL (3.5-5.1) Lipase 87 U/L U/L (23-300) Patient hx anesthesia problems: none Family hx anesthesia problems: none Results Review: All pre-operative results and documents have been reviewed as part of the pre-operative evaluation. [facility] Past Medical History Medical History Abnormal CT scan, sigmoid colon Anemia Diarrhea Erosive esophagitis Hypokalemia Stricture of colon determined by endoscop
--- NOTE | 2021-02-25 02:02 | WPDANESEFPP ---
Anes - Eval Final PreProcedure Day of Procedure 02/25/21 02:02 Patient weight: thin Heart: regular rate and rhythm Lungs: clear to auscultation Airway: Mallampati scale class II Neurological: alert and oriented Last oral intake: >/= 8 hours ASA classification: III Emergent: yes Anesthetic plan: proceed Anesthesia type and monitoring: general ETT and standard monitoring Other findings: potential a-line and central line Results Review: All pre-operative results and documents have been reviewed as part of the pre-operative evaluation. Informed Consent: The patient's anesthetic plan and its attendant risks and benefits were discussed with the patient/family/POA. Questions were solicited and answers provided to the satisfaction of the patient/family/POA.
[2021-02-25 02:24] LABS: Reflex Lactic Acid Yes or No Add Lactic
--- NOTE | 2021-02-25 04:03 | W.PM.PROC2 ---
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 Imaging was confirmatory of perforation and large abscess in retroperitoneum Findings perforation of distal sigmoid colon into presacral space/retroperitoneum with large retroperitoneal abscess, colovesical fistula Description of Procedure The patient was taken to the operating room and placed in the supine position. After adequate induction of general anesthesia, the patient was prepped and draped in normal sterile fashion. A Mederos was placed and there was noted to be feculent material in the urine. A time-out was then done to verify the patient's identity, as well as the procedure being performed. I began by making a generous midline incision, this was carried down into the peritoneal cavity. Upon entering the peritoneum, there was a moderate amount of feculent fluid encountered. I began my dissection by taking down the adhesions of the small intestine to the pelvis. The small intestine was noted to be unremarkable. I was able to visualize the cecum, which was also noted to be unremarkable. The transverse colon was also examined and noted to be normal. Upon examining the left colon, there was noted to be dense adhesion of the distal sigmoid colon, upper rectum. Upon dissecting in this area, there was noted be a colovesical fistula anteriorly. I was able to take this down sharply area on the side of the colon. The tract to the bladder was noted to be small. I closed this small defect with an interrupted 3-0 Vicryl stitch. I then continued my dissection of the sigmoid colon and in the same area there was noted to be stricture. Just distal to the stricture was an area of perforation. The perforation was largely posterior and into a presacral fistula. I was able to finally dissect this area off the presacral space. Then was able to gain access distal to the perforation. I created a mesenteric window at this area of distal sigmoid colon and transected the colon with a contour staple. I did dominguez the rectal stump with 1 PDS suture. I then took down the mesenteric attachments with the LigaSure device. I then transected the sigmoid colon proximally with a 75 SCARLETT stapler. This area of transection was approximately 10 cm from the stricture. The specimen was then sent to pathology for further review. I then gained access into the retroperitoneal space and a large abscess was encountered. I subsequently drained the abscess. There was noted to be a moderate amount of feculent material within the abscess. I then prepared the proximal sigmoid colon for ostomy. Given the patient's body habitus, I did mobilize the splenic flexure to gain length for ostomy creation. Once this was done, the anticipated ostomy site was noted to easily reach and be tension-free. I then created a ostomy site in the left mid abdomen. This was done by taking a disc of skin and subcutaneous tissue and opening of the fascia both anterior and posterior to the rectus muscle. The proximal colon was then brought through this site. I then left a 15 American ASTRID drain coming out through the right lower quadrant in the presacral space. The abdomen was then copiously washed out and no other pathology was encountered. I then closed the fascia with an 0 looped PDS suture. The skin was closed with skin stapl
--- NOTE | 2021-02-25 04:15 | ADMGEN ---
This patient, Eli Duarte, was admitted to Intensive Care Unit-9. Patient/family oriented to hospital policies and general routines including ID bracelet, bed and alarms, visiting hours, pain management, procedures, bathroom and other care routines, personal items, smoking policy, room service/diet, and visiting hours. Information on how to activate the Rapid Response Team has been discussed. Patient/Family are encouraged to report perceived risks to care and to ask questions if they do not understand what they are told or what they should do. brought from or on vent
[2021-02-25] MEDS: SODIUM CHLORIDE 0.9% IV 1,000 ML 100 ML IV CONT (05:44)
[2021-02-25 06:39] LABS: Alveolar/Arterial O2 Gradient 187.8 mmHg; Base Excess ABG -13.1 mEq/l (+/-2.0); Carboxyhemoglobin 0.4 % THb (0-2.0); Fractional Inspired Oxygen 50 %; HCO3 ABG 16.2 mEq/l (22.0-26.0); Methemoglobin ABG 0.3 %THb (0-1.5); Oxygen Content ABG 11.8 %vol (16.0-22.0); Oxygen Saturation ABG 95.6 % (95.0-100.0); Oxyhemoglobin 93.4 % THb (90.0-100.0); PCO2 ABG 55.1 mmHg (35.0-45.0); PO2 ABG 106.7 mmHg (80.0-100.0); PO2 FiO2 Ratio Arterial Blood 2.13 %; Reduced Hemoglobin 5.9 %THb (0-5.0); Total Hemoglobin 8.8 g/dL (12.0-18.0)
[2021-02-25 06:41] LABS: Modified Allen's Test Unable to perform; Site Drawn RIGHT RADIAL; pH ABG 7.087 (7.350-7.450)
[2021-02-25 06:42] LABS: Arterial Blood Gas PEEP 5 cmH2O; Arterial Blood Gas Tidal Volume 300 ml; Arterial Blood Gas Vent Mode CMV; Arterial Blood Gas Ventilator rate 16 /MIN; Device VENTILATOR
[2021-02-25] MEDS: ENOXAPARIN 30 MG/0.3 ML SYRINGE SUB-Q (08:26)
[2021-02-25] MEDS: PANTOPRAZOLE 40 MG TABLET PO (08:26)
[2021-02-25 08:47] LABS: Lactic Acid 4.1 mmol/L (0.7-2.1)
[2021-02-25 08:54] LABS: Add Urine Microscopic? YES; Appearance Urine Cloudy (Clear); Bacteria Urine Trace /hpf; Bilirubin Urine Negative (Negative); Blood Urine 3+ (Negative); Color Urine Yellow (Yellow); Glucose Urine UA Negative (Negative); Ketones Urine Negative (Negative); Leukocyte Esterase Ur 2+ LEU/UL (Negative); Mucus Urine Rare /lpf; Nitrate Urine Negative (Negative); Protein Urine 2+ mg/dL (Negative); RBC Urine >75 /hpf (0-2); Squamous Epithelial Cell Urine Rare /hpf (Few); Urobilinogen Urine Negative mg/dL (<2.0); WBC Clumps Urine Present /HPF; WBC Urine 51-75 /hpf
[2021-02-25] MEDS: SODIUM BICARBONATE 8.4% 50 MEQ/50 ML SYRINGE 100 MEQ IV PUSH (08:59)
[2021-02-25] MEDS: hetaSTARCH 6%/NACL 500 ML 250 ML IV CONT (09:00)
[2021-02-25 09:03] LABS: Specific Grav Ur 1.034 (1.001-1.035)
[2021-02-25 09:22] LABS: Phosphorus 6.2 mg/dL (2.5-4.5)
[2021-02-25] MEDS: FENTANYL 2,500MCG/NS250ML(*CRX 2,500 MCG/250 ML BAG IV CONT (09:22)
[2021-02-25] MEDS: LIDOCAINE HCL 1% PF INJ 5 ML VIAL INFILTRATE (09:30)
[2021-02-25 09:37] LABS: Alanine Aminotransferase 83 U/L (4-35); Albumin Level 2.1 g/dL (3.5-5.1); Alkaline Phosphatase 180 U/L (38-126); Anion Gap 12 mmol/L (8-16); Aspartate Amino Transferase 269 U/L (14-36); Bilirubin,Total 0.5 mg/dL (0.2-1.3); Blood Urea Nitrogen 25 mg/dL (7-17); Calcium 7.4 mg/dL (8.4-10.2); Carbon Dioxide 15 mmol/L (22-30); Chloride 109 mmol/L (98-107); Estimated Glomerular Filt Rate 47; Glucose 235 mg/dL (65-110); Magnesium 2.2 mg/dL (1.6-2.3); Potassium 4.8 mmol/L (3.4-5.0); Sodium 136 mmol/L (137-145)
[2021-02-25 09:50] LABS: Creatine Kinase 4369 U/L (30-135)
[2021-02-25 10:13] LABS: Hemoglobin 8.3 g/dL (12.0-15.0); Mean Corpuscular HGB Conc 31.9 g/dl (32-36); Mean Corpuscular Hemoglobin 27.5 pg (26-34); Mean Corpuscular Volume 86.1 fl (80-100); Mean Platelet Volume 9.9 fl (7.4-10.4); Platelet Count Result 354 k/mm3 (150-375); Red Blood Count 3.02 M/mm3 (4.2-5.4); Red Cell Distribution Width 14.8 % (11.5-14.5); White Blood Count 40.4 K/mm3 (4.5-10.0)
[2021-02-25] MEDS: MINERAL OIL/WHITE PETROLATUM OINTMENT 1 APPLIC EACH EYE ×2 (10:19→22:26)
[2021-02-25 10:33] LABS: Band Neutrophils Percent 11 % (0-6); Lymphocytes Absolute Manual 1.61 K/mm3 (1.1-4.5); Monocytes Percent Manual 1 % (3-9); Neutrophils Absolute Manual 38.38 K/mm3 (1.7-7.2); Neutrophils Percent Manual 84 % (46-73); Total Cells Counted 100
[2021-02-25 10:34] LABS: Hypochromasia 1+ (NORMAL)
[2021-02-25] MEDS: SODIUM BICARBONATE 8.4% 150 MEQ in DEXTROSE 5% 1,000 ML 950 ML 100 MEQ IV CONT ×2 (10:39→22:26)
[2021-02-25] MEDS: fentaNYL CITRATE INJ (*CRX) 100 MCG/2 ML VIAL 25 MCG IV PUSH (10:51)
[2021-02-25 10:53] LABS: Alveolar/Arterial O2 Gradient 135.9 mmHg; Fractional Inspired Oxygen 40 %; Oxygen Content ABG 11.6 %vol (16.0-22.0); Oxygen Saturation ABG 98.5 % (95.0-100.0); Oxyhemoglobin 96.4 % THb (90.0-100.0); PCO2 ABG 30.6 mmHg (35.0-45.0); PO2 ABG 114.1 mmHg (80.0-100.0); PO2 FiO2 Ratio Arterial Blood 2.85 %; Total Hemoglobin 8.4 g/dL (12.0-18.0); pH ABG 7.493 (7.350-7.450)
[2021-02-25 10:55] LABS: Site Drawn ARTLINE
[2021-02-25 10:56] LABS: Arterial Blood Gas PEEP 5 cmH2O; Arterial Blood Gas Vent Mode CMV; Arterial Blood Gas Ventilator rate 20 /MIN; Device VENTILATOR
[2021-02-25 10:57] LABS: Arterial Blood Gas Tidal Volume 330 ml
--- NOTE | 2021-02-25 11:22 | WPDCNINT ---
Assessment and Plan Assessment and plan (1) Acute respiratory failure: Code(s): J96.00 - Acute respiratory failure, unspecified whether with hypoxia or hypercapnia Status: Acute Assessment and Plan: Acute respiratory failure likely related to postoperative. -initial ABGs show significant respiratory and metabolic acidosis -ventilator was adjusted with repeat ABGs much improved. -placed patient on pressure support ventilation 09/30, will evaluate for extubation. (2) Colon perforation: Code(s): K63.1 - Perforation of intestine (nontraumatic) Status: Acute Assessment and Plan: 02/25/2021 status post ex lap with extensive lysis of adhesions, takedown of colovesical and colosacral fistula, sigmoid colon resection, repair of colovesical fistula, history of retroperitoneal abscess, mobilization of splenic flexure and creation of end colostomy -surgery following the patient -switched IV fluids to bicarb infusion -continue Zosyn -pain control with p.r.n. fentanyl (3) Intra-abdominal abscess: Code(s): K65.1 - Peritoneal abscess Status: Acute Assessment and Plan: As above (4) Sepsis: Code(s): A41.9 - Sepsis, unspecified organism Status: Acute Assessment and Plan: Blood pressures have been borderline, patient has received 3 L in the OR -will give additional Hespan this morning and started on albumin 6 hours -patient is acidotic, was given 2 amps of bicarb and started on bicarb infusion -will give additional IV fluid bolus, and started on pressors affect are maintain mean arterial pressures > 65 mmHg -continue Zosyn -cultures have obtained (5) DVT prophylaxis: Code(s): Z29.9 - Encounter for prophylactic measures, unspecified Status: Acute Assessment and Plan: Lovenox Additional Plan Code status: Full code Critical care time spent: 44 minutes This dictation may have been done utilizing a voice recognition system. Attempts have been made to correct errors. However, there may be uncorrected grammatical, spelling, and recognition errors present. Due to a high probability of clinically significant, life threatening deterioration, the patient required my highest level of preparedness to intervene emergently and I personally spent this critical care time directly and personally managing the patient. This critical care time included obtaining a history; examining the patient; pulse oximetry; ordering and review of studies; arranging urgent treatment with development of a management plan; evaluation of patient's response to treatment; frequent reassessment; and discussions with other providers. It was exclusive of separately billable procedures and treating other patients and teaching time. Please see Assessment and Plan section and the rest of the note for further information on patient assessment and treatment Input Output Clerk Consult Note Consult date: 02/25/21 Time Seen: 06:56 Reason for consult: Postop respiratory failure, status post ex lap with extensive lysis of adhesions, takedown of colovesical and colosacral fistula, sigmoid colon resection, repair of colovesical fistula, history of retroperitoneal abscess, mobilization of splenic flexure and creation of end colostomy HPI: Eli Duarte is a 86 year old female with significant past medical history of ulcerative colitis, colonic stricture, erosive esophagitis, hypokalemia anemia, history of diarrhea presented the ED on 02/25/2021 in the early hours with complains of lower abdominal/suprapubic pain with radiation to left groin. Patient reported that her symptoms are persistent for the last few days with no improvement even after being started on oral antibiotics. Patient reports that she has decreased appetite and increased weakness though she did not report any nausea, vomiting. She had normal bowel function. CT scan of the abdomen and pelvis in the ER showed 1. Left retroperitoneal abscess involving the i
[2021-02-25] MEDS: LACTATED RINGERS 500 ML 999 ML IV CONT (11:48)
[2021-02-25] MEDS: ALBUMIN HUMAN 25% 25 GM/100 ML 100 ML IVPB ×2 (11:49→17:09)
--- NOTE | 2021-02-25 12:08 | PC.NURSE ---
Fentanyl gtt. Paused at 1120 for ventilator weaning trial per MD orders.
[2021-02-25] MEDS: NOREPINEPHRINE 8 MG/D5W 250 ML 8 MG/250 ML BAG 9.38 MG IV CONT (12:59)
[2021-02-25 13:15] LABS: Alveolar/Arterial O2 Gradient 92.7 mmHg; Base Excess ABG -1.8 mEq/l (+/-2.0); Fractional Inspired Oxygen 40 %; HCO3 ABG 20.6 mEq/l (22.0-26.0); Oxygen Content ABG 8.7 %vol (16.0-22.0); Oxygen Saturation ABG 99.3 % (95.0-100.0); Oxyhemoglobin 96.8 % THb (90.0-100.0); PCO2 ABG 25.2 mmHg (35.0-45.0); PO2 ABG 163.5 mmHg (80.0-100.0); PO2 FiO2 Ratio Arterial Blood 4.09 %
[2021-02-25 13:17] LABS: Device VENTILATOR; Site Drawn ARTLINE; Total Hemoglobin 6.1 g/dL (12.0-18.0); pH ABG 7.531 (7.350-7.450)
[2021-02-25 13:19] LABS: Arterial Blood Gas PEEP 5 cmH2O; Arterial Blood Gas Pressure Support 8 cmH2O; Arterial Blood Gas Vent Mode SPONTANEOUS
[2021-02-25 13:31] LABS: Mean Corpuscular Hemoglobin 27.4 pg (26-34); Mean Platelet Volume 9.6 fl (7.4-10.4); Platelet Count Result 229 k/mm3 (150-375); Red Blood Count 2.23 M/mm3 (4.2-5.4); Red Cell Distribution Width 14.7 % (11.5-14.5); White Blood Count 24.3 K/mm3 (4.5-10.0)
[2021-02-25 13:53] LABS: Hemoglobin 6.1 g/dL (12.0-15.0)
[2021-02-25 13:54] LABS: Hematocrit 18.5 % (37.0-47.0)
[2021-02-25] MEDS: CENTRAL LINE FLUSH 10 ML IV PUSH ×2 (14:44→22:27)
[2021-02-25 14:53] LABS: INR 1.6
[2021-02-25 14:54] LABS: Partial Thromboplastin Time 43.4 SECONDS (22.3-36.8)
[2021-02-25] MEDS: SODIUM CHLORIDE 0.9% IV 250 ML 30 ML IV CONT ×2 (17:03→20:00)
[2021-02-25] MEDS: PANTOPRAZOLE SODIUM IV 40 MG VIAL IV PUSH (22:26)
[2021-02-26] VITALS (30 sets, daily range): BP systolic 84–129; BP diastolic 34–70; PULSE 91–119; RESP 9–33; TEMP 36.3–36.8; O2SAT 86–97
[2021-02-26] MEDS: ALBUMIN HUMAN 25% 25 GM/100 ML 100 ML IVPB ×4 (00:10→17:59)
[2021-02-26 00:55] LABS: Hematocrit 27.2 % (37.0-47.0); Hemoglobin 9.3 g/dL (12.0-15.0)
[2021-02-26] MEDS: NOREPINEPHRINE 8 MG/D5W 250 ML 8 MG/250 ML BAG 20.63 MG IV CONT (01:43)
[2021-02-26] MEDS: CENTRAL LINE FLUSH 10 ML IV PUSH (06:08)
[2021-02-26 06:30] LABS: Hematocrit 25.8 % (37.0-47.0); Hemoglobin 8.8 g/dL (12.0-15.0); Mean Corpuscular HGB Conc 34.1 g/dl (32-36); Mean Corpuscular Hemoglobin 28.3 pg (26-34); Mean Platelet Volume 9.7 fl (7.4-10.4); Platelet Count Result 205 k/mm3 (150-375); Red Blood Count 3.11 M/mm3 (4.2-5.4); Red Cell Distribution Width 14.7 % (11.5-14.5)
[2021-02-26 06:42] LABS: INR 1.4; Prothrombin Time 16.8 Seconds (11.1-14.7)
[2021-02-26 06:45] LABS: Alanine Aminotransferase 76 U/L (4-35); Albumin Level 3.1 g/dL (3.5-5.1); Alkaline Phosphatase 100 U/L (38-126); Anion Gap 7 mmol/L (8-16); Aspartate Amino Transferase 202 U/L (14-36); Bilirubin,Total 0.7 mg/dL (0.2-1.3); Blood Urea Nitrogen 23 mg/dL (7-17); Calcium 7.1 mg/dL (8.4-10.2); Carbon Dioxide 30 mmol/L (22-30); Chloride 101 mmol/L (98-107); Estimated Glomerular Filt Rate 53; Glucose 229 mg/dL (65-110); Phosphorus 2.4 mg/dL (2.5-4.5); Potassium 3.2 mmol/L (3.4-5.0); Sodium 138 mmol/L (137-145)
[2021-02-26 06:49] LABS: Lactic Acid Reflex 2.4 mmol/L (0.7-2.1)
[2021-02-26 06:53] LABS: Prealbumin 6.5 mg/dL (17.6-36.0)
[2021-02-26 07:14] LABS: Band Neutrophils Percent 6 % (0-6); Hypochromasia 2+ (NORMAL); Lymphocytes Absolute Manual 1.26 K/mm3 (1.1-4.5); Neutrophils Absolute Manual 16.74 K/mm3 (1.7-7.2); Neutrophils Percent Manual 87 % (46-73); Platelet Estimate Adequate (Adequate); Total Cells Counted 100
[2021-02-26 07:19] LABS: Alveolar/Arterial O2 Gradient 184.6 mmHg; Base Excess ABG 1.4 mEq/l (+/-2.0); Carboxyhemoglobin 0.4 % THb (0-2.0); Fractional Inspired Oxygen 40 %; HCO3 ABG 23.9 mEq/l (22.0-26.0); Methemoglobin ABG 0.3 %THb (0-1.5); Oxygen Content ABG 10.9 %vol (16.0-22.0); Oxygen Saturation ABG 95.4 % (95.0-100.0); Oxyhemoglobin 91.6 % THb (90.0-100.0); PCO2 ABG 29.2 mmHg (35.0-45.0); PO2 FiO2 Ratio Arterial Blood 1.67 %; Reduced Hemoglobin 7.7 %THb (0-5.0); Total Hemoglobin 8.4 g/dL (12.0-18.0)
[2021-02-26 07:21] LABS: Device NASAL CANNULA; Site Drawn ARTLINE
--- NOTE | 2021-02-26 07:50 | WPDANESPN ---
Anes - Prog Note Post-Op Date/Time: 02/26/21 07:50 Cardiovascular status: other Respiratory status: other Airway patency: other Mental status: other Post-Op hydration status: other Vital Signs: Last Vital Signs Temp 36.7 C 02/26/21 06:30 Pulse 94 02/26/21 06:30 Resp 27 H 02/26/21 06:30 BP 97/38 L 02/26/21 06:30 Pulse Ox 92 02/26/21 06:30 Pain Score (VAS): na I/O: Intake & Output 02/25/21 02/25/21 02/26/21 15:59 23:59 07:59 Intake Total 1455 2030 845 Output Total 685 570 Balance 1455 1345 275 Laboratory Tests 02/26/21 06:24 02/26/21 06:24 02/25/21 02/25/21 02/25/21 08:14 08:14 08:35 WBC RBC Hgb Hct MCV MCH MCHC RDW Plt Count MPV Immature Gran % (Auto) Neut % (Auto) Lymph % (Auto) Churchill % (Auto) Eos % (Auto) Baso % (Auto) Lymph # (Auto) Churchill # (Auto) Eos # (Auto) Baso # (Auto) Abs Immat Gran (auto) Absolute Neuts (auto) Absolute Nucleated RBC Total Counted Neutrophils % (Manual) Band Neutrophils % Lymphocytes % (Manual) Monocytes % (Manual) Nucleated RBC % Abs Neuts (Manual) Abs Lymphs (Manual) Abs Monocytes (Manual) Platelet Estimate Hypochromasia PT INR APTT Puncture Site ABG pH ABG pCO2 ABG pO2 ABG PO2/FiO2 Ratio ABG HCO3 ABG O2 Saturation ABG O2 Content ABG Base Excess A-a Gradient Oxyhemoglobin Carboxyhemoglobin Methemoglobin Reduced Hemoglobin Total Hemoglobin O2 Delivery Device O2 Liters/Min Minute Volume Vent Rate Vent Mode FiO2 Tidal Volume PEEP Peak Inspir Pressure Pressure Support Sodium 136 L Potassium 4.8 Chloride 109 H Carbon Dioxide 15 L Anion Gap 12 BUN 25 H Creatinine 1.10 H Estim Creat Clear Calc Not Reportable Estimated GFR 47 L Glucose 235 H Lactic Acid 4.1 H* Calcium 7.4 L Phosphorus Magnesium 2.2 Total Bilirubin 0.5 AST 269 H ALT 83 H Alkaline Phosphatase 180 H Total Creatine Kinase 4369 H Total Protein 4.0 L Albumin 2.1 L Prealbumin Urine Color Yellow Urine Appearance Cloudy H Urine pH 5.0 Ur Specific Herod 1.034 Urine Protein 2+ H Urine Glucose (UA) Negative Urine Ketones Negative Ur Blood (Man) 3+ H Urine Nitrate Negative Urine Bilirubin Negative Urine Urobilinogen Negative Leukocyte Esterase Rfl 2+ H Urine RBC >75 H Urine WBC 51-75 H Urine WBC Clumps Present H Ur Squamous Epith Cells Rare Urine Bacteria Trace Urine Mucus Rare Blood Type Antibody Screen Crossmatch 02/25/21 02/25/21 02/25/21 08:57 09:06 10:36 WBC 40.4 H RBC 3.02 L Hgb 8.3 L Hct 26.0 L MCV 86.1 MCH 27.5 MCHC 31.9 L RDW 14.8 H Plt Count 354 MPV 9.9 Immature Gran % (Auto) Not Reportable Neut % (Auto) Not Reportable Lymph % (Auto) Not Reportable Churchill % (Auto) Not Reportable Eos % (Auto) Not Reportable Baso % (Auto) Not Reportable Lymph # (Auto) Not Reportable Churchill # (Auto) Not Reportable Eos # (Auto) Not Reportable Baso # (Auto) Not Reportable Abs Immat Gran (auto) Not Reportable Absolute Neuts (auto) Not Reportable Absolute Nucleated RBC Not Reportable Total Counted 100 Neutrophils % (Manual) 84 H Band Neutrophils % 11 H Lymphocytes % (Manual) 4.0 L Monocytes % (Manual) 1 L Nucleated RBC % Not Reportable Abs Neuts (Manual) 38.38 H Abs Lymphs (Manual) 1.61 Abs Monocytes (Manual) 0.40 Platelet Estimate Slightly increased Hypochromasia 1+ PT INR APTT Puncture Site Artline ABG pH 7.493 H ABG pCO2 30.6 L ABG pO2 114.1 H ABG PO2/FiO2 Ratio 2.85 ABG HCO3 23.0 ABG O2 Saturation 98.5 ABG O2 Content 11.6 L ABG Base Excess 0.0 A-a Gradient 135.9 Oxyhemoglobin 96.4 Carbo
[2021-02-26] MEDS: FUROSEMIDE INJ 40 MG/4 ML VIAL 20 MG IV PUSH ×2 (09:22→12:41)
[2021-02-26] MEDS: PANTOPRAZOLE SODIUM IV 40 MG VIAL IV PUSH ×2 (09:22→20:36)
[2021-02-26 09:28] LABS: Reflex Lactic Acid Yes or No Add Lactic
[2021-02-26] MEDS: KCL 40 MEQ/WATER 100 ML 100 ML 25 ML IVPB (09:45)
[2021-02-26] MEDS: CALCIUM GLUC 2,000 MG/NS 100ML 2,000 MG/100 ML BAG 100 MG IVPB (09:45)
--- NOTE | 2021-02-26 10:27 | PM.PNGS ---
Progress Note: A&P Assessment and Plan (1) Colon perforation: Onset Date: ~01/2021 Code(s): K63.1 - Perforation of intestine (nontraumatic) Status: Acute Assessment and Plan: Postop day #1. Status post Tamara's procedure. Patient progressing well. Required 2 units of pRBCs and two units of fresh frozen plasma last evening but bleeding seems to be settled at this time. We also held the patient's Lovenox after she received some yesterday morning. Will hold again today after discussion with Dr. Johnson. Patient having very little out her NG tube so will start clamping routine on that and see if she can tolerate some liquids for 2 hours out of every 4. Pre-albumin quite low at 6 today. We will discuss with Dr. Johnson about possible TPN if there is adequate IV access. (pt has a Picc, but all lumens may be in use). Patient down to only 2 mics on the Levophed having been at 10 prior to the transfusions yesterday. Continuing IV antibiotics with Zosyn for her sepsis. Ostomy seems to be pink and looks like it may be starting to have a little output. Patient does have some bowel sounds. ASTRID drain is serosanguineous in nature and nurses need to pay attention and empty it appropriately as it was completely full when I entered the room today. (2) Anemia: Qualifiers: Anemia type: iron deficiency Iron deficiency anemia type: unspecified iron deficiency Qualified Code(s): D50.9 - Iron deficiency anemia, unspecified Code(s): D64.9 - Anemia, unspecified Status: Acute (3) DVT prophylaxis: Code(s): Z29.9 - Encounter for prophylactic measures, unspecified Status: Acute (4) Sepsis: Code(s): A41.9 - Sepsis, unspecified organism Status: Acute (5) Intra-abdominal abscess: Code(s): K65.1 - Peritoneal abscess Status: Acute (6) Erosive esophagitis: Code(s): K22.10 - Ulcer of esophagus without bleeding Status: Acute (7) Ulcerative colitis: Code(s): K51.90 - Ulcerative colitis, unspecified, without complications Status: Acute Subjective Subjective Date/Time Seen: 02/26/21 10:27 Post Op day: 1 Patient reports: no new complaints, feels better and pain is less Interval history: Patient is sitting up in bed on 2 L of oxygen and answering questions for her nurse. She is also asking questions appropriately regarding her ostomy. Review of Systems Review of Systems: All systems reviewed & are unremarkable except as noted in HPI and below Constitutional: Constitutional: Reports as per HPI, Denies chills and Denies fever(s) Cardiovascular: Cardiovascular: Denies chest pain and Denies dyspnea Respiratory: Respiratory: Reports no additional respiratory complaints and Denies dyspnea Gastrointestinal: Gastrointestinal: Reports as per HPI and Denies bloating Musculoskeletal: Musculoskeletal: Reports no additional musculoskeletal complaints Exam Const: General: cooperative, comfortable, alert and awake Orientation/consciousness: patient oriented x3 HENMT: Head: normal to inspection Mouth: Yes dry mucous membranes Eyes: Sclera: sclerae normal Pupils: Equal, round and reactive pupils present Neck: Neck: normal visual inspection and no JVD Chest: Chest palpation & inspection: normal inspection of the chest Resp: Effort & Inspection: normal respiratory effort Auscultation: diminished lung sounds (At bases bilateral) bilateral Cardio: Jugular venous distension: no JVD Rate: regular rate GI: Inspection: incision (Clean and dry with eugenia intact. Mild serosanguineous drainage on gauze) Other: Dressing on midline incision changed with nurse today. We will switch to folded thin 4x4s and some tape just medial to the site of her ostomy. Ostomy bag seems to be well adhered at this time. Ostomy pink, viable and perhaps with a small amount of liquid stool coming from it this morning Urinary Catheter: Urinary Catheter: patent and d
[2021-02-26 10:49] LABS: Lactic Acid 2.2 mmol/L (0.7-2.1)
--- NOTE | 2021-02-26 12:28 | PC.NURSE ---
at 1200, patient found taking non-rebreather off and trying to pull out her nasogastric tube. Patient safety re-educated to patient.
--- NOTE | 2021-02-26 13:29 | PC.NURSE ---
At 1315 patient found with blood on gown. She is alert only to self at this time. Patient removed one peripheral IV access, PICC line, NG tube, and non-rebreather. Patient was found trying to pull out arterial line. Physician notified and new orders placed. Patient reoriented and safety education given.
--- NOTE | 2021-02-26 13:38 | WPDINTPN ---
Progress Note: A&P Assessment and Plan (1) Acute respiratory failure: Code(s): J96.00 - Acute respiratory failure, unspecified whether with hypoxia or hypercapnia Status: Acute Assessment and Plan: Acute respiratory failure likely related to postoperative. 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 fentanyl (3) Intra-abdominal abscess: Code(s): K65.1 - Peritoneal abscess Status: Acute Assessment and Plan: As above (4) Sepsis: Code(s): A41.9 - Sepsis, unspecified organism Status: Acute Assessment and Plan: Blood pressures have been borderline, patient has received 3 L in the OR -patient is received adequate amount of IV fluids since admission, packed RBCs and FFP. -lactic acid is improved -WBC count is improving -will discontinue bicarb infusion 02/26/21 -continue Zosyn (02/25) -02/25/2021: Blood cultures negative x2, preliminary result -02/25/2021: Urine culture pending (5) DVT prophylaxis: Code(s): Z29.9 - Encounter for prophylactic measures, unspecified Status: Acute Assessment and Plan: Hold Lovenox for today, discussed with surgery, if blood counts are stable on 02/27/2019 to will restart Lovenox Additional Plan Discuss with surgery Code status: Full code Critical care time spent: 32 minutes This dictation may have been done utilizing a voice recognition system. Attempts have been made to correct errors. However, there may be uncorrected grammatical, spelling, and recognition errors present. Due to a high probability of clinically significant, life threatening deterioration, the patient required my highest level of preparedness to intervene emergently and I personally spent this critical care time directly and personally managing the patient. This critical care time included obtaining a history; examining the patient; pulse oximetry; ordering and review of studies; arranging urgent treatment with development of a management plan; evaluation of patient's response to treatment; frequent reassessment; and discussions with other providers. It was exclusive of separately billable procedures and treating other patients and teaching time. 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 Patient remains on Levophed at 2 mcg/min. Urine output has been adequate, patient received 2 units of packed RBCs and 2 units of FFP on 02/25. Lactic acid is 2.4 this morning, LFTs trending down, creatinine has improved to 1.0. CBC counts at trending down. Hemoglobin is stable at 8.8. INR is 1.4. ASTRID drain with serosanguineous drainage. Patient denies any shortness of breath, chest pain, nausea, vo
[2021-02-26] MEDS: KCL 20 MEQ/SW 100 ML 100 ML 50 MEQ IVPB (14:16)
[2021-02-26 18:32] LABS: Hematocrit 26.9 % (37.0-47.0); Hemoglobin 9.1 g/dL (12.0-15.0)
[2021-02-26] MEDS: dexmedeTOMIDine 400 MCG/100 ML 400 MCG/100 ML BAG 5.31 MCG IV CONT (20:34)
[2021-02-27] VITALS (17 sets, daily range): BP systolic 96–148; BP diastolic 39–82; PULSE 80–102; RESP 17–34; TEMP 36.4–36.6; O2SAT 91–98
[2021-02-27] MEDS: ALBUMIN HUMAN 25% 25 GM/100 ML 100 ML IVPB ×2 (00:51→06:08)
[2021-02-27 04:16] LABS: Basophils Absolute Auto 0.1 K/mm3 (0.0-0.1); Basophils Percent Auto 0.7 % (0.2-1.2); Hematocrit 24.7 % (37.0-47.0); Hemoglobin 8.2 g/dL (12.0-15.0); Immature Granulocyte Absolute 0.26 K/mm3 (0.00-0.031); Immature Granulocyte Percent A 1.7 % (0-0.5); Lymphocytes Absolute Auto 1.18 K/mm3 (0.9-3.2); Lymphocytes Percent Auto 7.7 % (18.3-44.2); Mean Corpuscular HGB Conc 33.2 g/dl (32-36); Mean Corpuscular Hemoglobin 28.2 pg (26-34); Mean Corpuscular Volume 84.9 fl (80-100); Mean Platelet Volume 10.1 fl (7.4-10.4); Monocytes Absolute Auto 0.3 K/mm3 (0.1-0.6); Monocytes Percent Auto 1.6 % (2.6-8.5); Neutrophils Absolute Auto 13.5 K/mm3 (1.3-6.7); Neutrophils Percent Auto 88.3 % (45.5-73.1); Platelet Count Result 136 k/mm3 (150-375); Red Blood Count 2.91 M/mm3 (4.2-5.4); White Blood Count 15.3 K/mm3 (4.5-10.0)
[2021-02-27 04:30] LABS: Alanine Aminotransferase 87 U/L (4-35); Albumin Level 3.9 g/dL (3.5-5.1); Alkaline Phosphatase 164 U/L (38-126); Anion Gap 17 mmol/L (8-16); Aspartate Amino Transferase 188 U/L (14-36); Bilirubin,Total 1.3 mg/dL (0.2-1.3); Blood Urea Nitrogen 33 mg/dL (7-17); Calcium 8.2 mg/dL (8.4-10.2); Carbon Dioxide 23 mmol/L (22-30); Chloride 101 mmol/L (98-107); Estimated Glomerular Filt Rate 31; Glucose 177 mg/dL (65-110); Potassium 4.1 mmol/L (3.4-5.0); Sodium 141 mmol/L (137-145)
[2021-02-27 04:46] LABS: Hypochromasia 1+ (NORMAL); Platelet Estimate Adequate (Adequate)
[2021-02-27] MEDS: PANTOPRAZOLE SODIUM IV 40 MG VIAL IV PUSH ×2 (08:21→22:53)
[2021-02-27] MEDS: BUMETANIDE INJ 1 MG/4 ML VIAL IV PUSH (09:09)
[2021-02-27 09:22] LABS: Alveolar/Arterial O2 Gradient 605.2 mmHg; Base Excess ABG 0.1 mEq/l (+/-2.0); Fractional Inspired Oxygen 100 %; HCO3 ABG 22.5 mEq/l (22.0-26.0); Oxyhemoglobin 93.5 % THb (90.0-100.0); PO2 ABG 79.8 mmHg (80.0-100.0); Total Hemoglobin 8.3 g/dL (12.0-18.0)
[2021-02-27 09:23] LABS: Device NON-REBREATHER MASK; Modified Allen's Test Pass; Site Drawn LEFT RADIAL; pH ABG 7.523 (7.350-7.450)
--- NOTE | 2021-02-27 11:19 | PM.PNGS ---
Progress Note: A&P Assessment and Plan (1) Colon perforation: Onset Date: ~01/2021 Code(s): K63.1 - Perforation of intestine (nontraumatic) Status: Acute Assessment and Plan: Postop day #2. Status post Tamara's procedure. Patient progressing well. Required 2 units of pRBCs and two units of fresh frozen plasma on 02/25, but bleeding seems to be settled at this time. We also held the patient's Lovenox after she received some in AM. Patient off pressors for now on some Precedex because of her confusion last night. Continuing IV antibiotics with Zosyn for her sepsis. Ostomy seems to be pink and looks like it may be starting to have good output. Patient does have some bowel sounds. ASTRID drain is serosanguineous in nature and nurses need to pay attention and empty it appropriately as it was completely full when I entered the room today. (2) Anemia: Qualifiers: Anemia type: iron deficiency Iron deficiency anemia type: unspecified iron deficiency Qualified Code(s): D50.9 - Iron deficiency anemia, unspecified Code(s): D64.9 - Anemia, unspecified Status: Acute Assessment and Plan: Stable at approximately 8.2 today (3) DVT prophylaxis: Code(s): Z29.9 - Encounter for prophylactic measures, unspecified Status: Acute Assessment and Plan: Using SCD hose. (4) Sepsis: Code(s): A41.9 - Sepsis, unspecified organism Status: Acute Assessment and Plan: Seems to be controlled at this time white count back to 15,000 (5) Intra-abdominal abscess: Code(s): K65.1 - Peritoneal abscess Status: Acute Assessment and Plan: Now drained after surgery with serosanguineous not to cloudy drainage from ASTRID on the right. (6) Erosive esophagitis: Code(s): K22.10 - Ulcer of esophagus without bleeding Status: Acute Assessment and Plan: On b.i.d. IV pantoprazole. May change this to oral tomorrow if does well with liquids. (7) Ulcerative colitis: Code(s): K51.90 - Ulcerative colitis, unspecified, without complications Status: Acute Subjective Subjective Date/Time Seen: 02/27/21 11:19 Post Op day: 2 (Status post Tamara's procedure with takedown of colovesical fistula and drainage of abscess) Patient reports: tolerating liquids well, flatus and bowel movement (Significant brown semi solid stool in ostomy bag) Review of Systems Review of Systems: All systems reviewed & are unremarkable except as noted in HPI and below ENT: Reports system reviewed and no additional complaints, except as documented Cardiovascular: Cardiovascular: Reports no additional cardiovascular complaints, Denies chest pain and Denies dyspnea Respiratory: Respiratory: Reports no additional respiratory complaints, Reports no additional respiratory complaints and Denies dyspnea Gastrointestinal: Gastrointestinal: Denies abdominal pain Comments: States that she is very thirsty Genitourinary: Genitourinary: Reports no additional female genitourinary complaints Musculoskeletal: Musculoskeletal: Reports no additional musculoskeletal complaints Integumentary/Breasts: Skin/Breast: Reports system reviewed and no additional complaints, except as docu Neurologic: Reports system reviewed and no additional complaints, except as documented and Reports weakness Psychiatric: Comments: Nurses report that she had some element of Sun-downers yesterday and pulled out her PICC line and NG tube in the evening. Endocrine: Endocrine: Reports no additional endocrine complaints and Reports fatigue Hematologic/Lymphatic: Hematologic/Lymphatic: Reports no additional hematologic/lymphatic complaints Allergic/Immunologic: Allergic/Immunologic: Reports no additional allergic/immunologic complaints Exam Const: General: cooperative, comfortable, alert, awake, acute distress severe, ill appearing and uncomfortable Nutritional Appearance: underweight Orientati
--- NOTE | 2021-02-27 11:29 | WPDINTPN ---
Progress Note: A&P Assessment and Plan (1) Acute respiratory failure: Code(s): J96.00 - Acute respiratory failure, unspecified whether with hypoxia or hypercapnia Status: Acute Assessment and Plan: Acute respiratory failure likely related to postoperative. -extubated on 02/25 -continue stool be on 15 L non-rebreather mask. -chest x-ray shows pulmonary vascular congestion/pleural effusion. Will give additional dose of diuretic. Will also check bladder scan -incentive spirometry -up to chair (2) Colon perforation: Onset Date: ~01/2021 Code(s): K63.1 - Perforation of intestine (nontraumatic) Status: Acute Assessment and Plan: 02/25/2021 status post ex lap with extensive lysis of adhesions, takedown of colovesical and colosacral fistula, sigmoid colon resection, repair of colovesical fistula, history of retroperitoneal abscess, mobilization of splenic flexure and creation of end colostomy -surgery following the patient -continue Zosyn -pain control with p.r.n. fentanyl -patient was started on clear liquid diet per surgery (3) Intra-abdominal abscess: Code(s): K65.1 - Peritoneal abscess Status: Acute Assessment and Plan: As above (4) Sepsis: Code(s): A41.9 - Sepsis, unspecified organism Status: Acute Assessment and Plan: Blood pressures have been borderline, patient has received 3 L in the OR -patient is received adequate amount of IV fluids since admission, packed RBCs and FFP. -lactic acid is improved -WBC count is improving -will discontinue bicarb infusion 02/26/21 -continue Zosyn (02/25) -02/25/2021: Blood cultures negative x2, preliminary result -02/25/2021: Urine culture pending (5) DVT prophylaxis: Code(s): Z29.9 - Encounter for prophylactic measures, unspecified Status: Acute Assessment and Plan: Discussed with surgery, will restart Lovenox today 02/27/2021 Additional Plan Discuss with surgery Code status: Full code Critical care time spent: 32 minutes This dictation may have been done utilizing a voice recognition system. Attempts have been made to correct errors. However, there may be uncorrected grammatical, spelling, and recognition errors present. Due to a high probability of clinically significant, life threatening deterioration, the patient required my highest level of preparedness to intervene emergently and I personally spent this critical care time directly and personally managing the patient. This critical care time included obtaining a history; examining the patient; pulse oximetry; ordering and review of studies; arranging urgent treatment with development of a management plan; evaluation of patient's response to treatment; frequent reassessment; and discussions with other providers. It was exclusive of separately billable procedures and treating other patients and teaching time. Please see Assessment and Plan section and the rest of the note for further information on patient assessment and treatment Subjective Date/time seen: 02/27/21 11:29 Interval history: Reason for consult: 02/25 - Postop respiratory failure, status post ex lap with extensive lysis of adhesions, takedown of colovesical and colosacral fistula, sigmoid colon resection, repair of colovesical fistula, history of retroperitoneal abscess, mobilization of splenic flexure and creation of end colostomy -extubated 02/2502/27/2021: Patient is confused this morning and yesterday and pulled out her NG tube, PICC line, another IV line. Patient was started on Precedex infusion, as more, but she still having some confusion and owning. Urine output has been low, chest x-ray shows more pulmonary edema versus pleural effusion. Patient is off pressors. Currently on 15 L non-rebreather with adequate O2 sats. ABGs for adequate. ASTRID with serosanguineous drainage. Hemoglobin is stable. White blood cell count is trending down. Patient denies any shortne
--- NOTE | 2021-02-27 14:48 | PC.NURSE ---
Patient Bladder scanned for poor urinary output and suspected retention. Mederos catheter in place. Only 35 mls of urine scanned.
[2021-02-28] VITALS (16 sets, daily range): BP systolic 106–139; BP diastolic 44–96; PULSE 85–106; RESP 18–26; TEMP 36.1–36.6; O2SAT 93–99
[2021-02-28 04:49] LABS: Basophils Percent Auto 0.2 % (0.2-1.2); Eosinophils Percent Auto 0.1 % (0-4.4); Hematocrit 24.6 % (37.0-47.0); Hemoglobin 8.1 g/dL (12.0-15.0); Immature Granulocyte Absolute 0.39 K/mm3 (0.00-0.031); Immature Granulocyte Percent A 1.8 % (0-0.5); Immature Platelet Fraction Pct 9.9 % (0.9-11.2); Lymphocytes Absolute Auto 1.49 K/mm3 (0.9-3.2); Mean Corpuscular HGB Conc 32.9 g/dl (32-36); Mean Corpuscular Hemoglobin 27.5 pg (26-34); Mean Corpuscular Volume 83.4 fl (80-100); Mean Platelet Volume 11.5 fl (7.4-10.4); Monocytes Absolute Auto 0.3 K/mm3 (0.1-0.6); Monocytes Percent Auto 1.6 % (2.6-8.5); Neutrophils Absolute Auto 19.1 K/mm3 (1.3-6.7); Neutrophils Percent Auto 89.3 % (45.5-73.1); Platelet Count Result 126 k/mm3 (150-375); Red Blood Count 2.95 M/mm3 (4.2-5.4); Red Cell Distribution Width 15.3 % (11.5-14.5); White Blood Count 21.4 K/mm3 (4.5-10.0)
[2021-02-28 05:50] LABS: Alanine Aminotransferase 132 U/L (4-35); Albumin Level 3.6 g/dL (3.5-5.1); Alkaline Phosphatase 343 U/L (38-126); Anion Gap 13 mmol/L (8-16); Aspartate Amino Transferase 224 U/L (14-36); Bilirubin,Total 1.4 mg/dL (0.2-1.3); Blood Urea Nitrogen 56 mg/dL (7-17); Calcium 8.4 mg/dL (8.4-10.2); Carbon Dioxide 27 mmol/L (22-30); Chloride 101 mmol/L (98-107); Estimated Glomerular Filt Rate 21; Glucose 157 mg/dL (65-110); Magnesium 2.3 mg/dL (1.6-2.3); Phosphorus 3.3 mg/dL (2.5-4.5); Potassium 4.1 mmol/L (3.4-5.0); Sodium 141 mmol/L (137-145)
[2021-02-28] MEDS: PANTOPRAZOLE SODIUM IV 40 MG VIAL IV PUSH ×2 (09:57→20:25)
[2021-02-28] MEDS: ENOXAPARIN 30 MG/0.3 ML SYRINGE SUB-Q (09:57)
--- NOTE | 2021-02-28 12:18 | PCFNICU ---
ICU Rounding Note: Pt current nutrition is Clear liquids. Nutrition recommendation: advancing diet as tolerated Last recorded weight is 50.2 kg. Bowel Motility:colostomy Labs Reviewed:Hgb 8.1, Hct 24.6,BUN 56, Cr 2.2,Mg 1.4 Meds Noted:Protonix, Zosyn, Lovenox Skin: WNL Additional Notes: Patient was extubated on 02/25. Diet order has advanced to clear liquids with ensure surgery BID and tolerating. Recommend advancing diet as tolerated per MD orders. Monitoring: every 3 days.
--- NOTE | 2021-02-28 12:37 | PC.NURSE ---
This patient, Eli Duarte, was received from ICU-9] on 02/28/21 at 1203. Patient/family oriented to unit policies and routines. Report received from LIUDMILA Dejesus @ [phone]
--- NOTE | 2021-02-28 13:33 | WPDINTPN ---
Progress Note: A&P Assessment and Plan (1) Acute respiratory failure: Code(s): J96.00 - Acute respiratory failure, unspecified whether with hypoxia or hypercapnia Status: Acute Assessment and Plan: Acute respiratory failure likely related to postoperative. -extubated on 02/25 -continue stool be on 15 L via nasal cannula -chest x-ray shows pulmonary vascular congestion/pleural effusion. Patient has not been responding to Lasix -incentive spirometry -up to chair (2) Colon perforation: Onset Date: ~01/2021 Code(s): K63.1 - Perforation of intestine (nontraumatic) Status: Acute Assessment and Plan: 02/25/2021 status post ex lap with extensive lysis of adhesions, takedown of colovesical and colosacral fistula, sigmoid colon resection, repair of colovesical fistula, history of retroperitoneal abscess, mobilization of splenic flexure and creation of end colostomy -surgery following the patient -continue Zosyn -pain control with p.r.n. fentanyl -patient was started on clear liquid diet per surgery (3) Intra-abdominal abscess: Code(s): K65.1 - Peritoneal abscess Status: Acute Assessment and Plan: As above (4) Sepsis: Code(s): A41.9 - Sepsis, unspecified organism Status: Acute Assessment and Plan: Blood pressures have been borderline, patient has received 3 L in the OR -patient is received adequate amount of IV fluids since admission, packed RBCs and FFP. -lactic acid is improved -WBC count is improving -will discontinue bicarb infusion 02/26/21 -continue Zosyn (02/25) -02/25/2021: Blood cultures negative x2, preliminary result -02/25/2021: Urine culture pending (5) DVT prophylaxis: Code(s): Z29.9 - Encounter for prophylactic measures, unspecified Status: Acute Assessment and Plan: Discussed with surgery, will restart Lovenox today 02/27/2021 (6) Acute kidney injury: Code(s): N17.9 - Acute kidney failure, unspecified Status: Acute Assessment and Plan: Acute kidney injury likely related to hypotension, shock. -low urine output, worsening creatinine -nephrology has been consulted Additional Plan Discussed with surgery Code status: Full code Critical care time spent: 32 minutes This dictation may have been done utilizing a voice recognition system. Attempts have been made to correct errors. However, there may be uncorrected grammatical, spelling, and recognition errors present. Due to a high probability of clinically significant, life threatening deterioration, the patient required my highest level of preparedness to intervene emergently and I personally spent this critical care time directly and personally managing the patient. This critical care time included obtaining a history; examining the patient; pulse oximetry; ordering and review of studies; arranging urgent treatment with development of a management plan; evaluation of patient's response to treatment; frequent reassessment; and discussions with other providers. It was exclusive of separately billable procedures and treating other patients and teaching time. Please see Assessment and Plan section and the rest of the note for further information on patient assessment and treatment Subjective Date/time seen: 02/28/21 13:33 Interval history: Reason for consult: 02/25 - Postop respiratory failure, status post ex lap with extensive lysis of adhesions, takedown of colovesical and colosacral fistula, sigmoid colon resection, repair of colovesical fistula, history of retroperitoneal abscess, mobilization of splenic flexure and creation of end colostomy -extubated 02/2502/28/2021: Patient is more awake, alert, cooperative. Off Precedex infusion. Remains on 15 L oxygen via nasal cannula. Urine output is low, worsening creatinine. , chest x-ray shows more pulmonary edema versus pleural effusion. Patient is off pressors. ASTRID with serosanguineous drainage. Hemoglob
--- NOTE | 2021-02-28 13:54 | PM.CNNEP ---
Assessment and Plan Assessment and plan (1) Acute kidney injury: Code(s): N17.9 - Acute kidney failure, unspecified Status: Acute Assessment and Plan: Eli has acute kidney injury. Most likely this is related to her low blood pressure, and sepsis. it could be pre renal azotemia because of 3rd spacing due to the GI process , sepsis, low blood pressure.. this could also be ATN. Obstruction is always a possibility. Will check a renal ultrasound. rhabdomyolysis is unlikely but will check a CPK. Allergic interstitial nephritis, and glomerulonephritis are unlikely in this clinical scenario. Will check urine electrolytes, CK, and a renal ultrasound. The patient looks relatively euvolemic. She is taking clear liquids in. Will hold off on hydration for now and see how her creatinine is tomorrow. (2) Sepsis: Code(s): A41.9 - Sepsis, unspecified organism Status: Acute Assessment and Plan: She is on antibiotics blood and urine cultures are negative so far. (3) Colon perforation: Onset Date: ~01/2021 Code(s): K63.1 - Perforation of intestine (nontraumatic) Status: Acute Assessment and Plan: She had surgery (4) Anemia: Qualifiers: Anemia type: iron deficiency Iron deficiency anemia type: unspecified iron deficiency Qualified Code(s): D50.9 - Iron deficiency anemia, unspecified Code(s): D64.9 - Anemia, unspecified Status: Acute Assessment and Plan: hemoglobin seems to be stabilizing. Will follow this along. Consider EPO if it drops any more History of Present Illness Reason for Consult Consult date: 02/28/21 Chief Complaint Chief complaint: left groin pain History of Present Illness Narrative: Eli is a very pleasant 86-year-old lady who has multiple medical problems including vitamin-D deficiency, GERD. She came to the hospital for abdominal pain on . She was found to have a ruptured colon. She was emergently taken to the operating room and had laparotomy. she ended up with a colostomy. She had low blood pressure and septic syndrome. She was quite ill early on in the ICU. She has improved gradually. she was transferred out to the floor today. She is on clear liquid diet right now and tolerating it well. Her creatinine as an outpatient ranges from 0.8 to 1.06. On admission it was 1.3. It improved by the next day to 1.0 but then in the last couple of days it is risen to 1.6 and now 2.2. So renal consultation was requested she did have low blood pressure early on. This has improved. In the emergency room she had a CT scan with contrast. This was done on 02/24 in the evening. She does not take nonsteroidal anti-inflammatory agents at home. She has not had any nephrotoxic medications. Hemodynamically she is improved. Review of Systems Constitutional: Constitutional: Reports no additional constitutional complaints Eyes: Eyes: Reports no additional eye complaints ENT: Reports system reviewed and no additional complaints, except as documented Cardiovascular: Cardiovascular: Reports no additional cardiovascular complaints Respiratory: Respiratory: Reports no additional respiratory complaints Gastrointestinal: Gastrointestinal: Reports no additional gastrointestinal complaints Genitourinary: Genitourinary: Reports no additional female genitourinary complaints Musculoskeletal: Musculoskeletal: Reports no additional musculoskeletal complaints Integumentary/Breasts: Skin/Breast: Reports system reviewed and no additional complaints, except as docu Neurologic: Reports system reviewed and no additional complaints, except as documented Psychiatric: Psychiatric: Reports no additional psychiatric complaints Endocrine: Endocrine: Reports no additional endocrine complaints [facility] Past Medical History Medical History A
[2021-02-28 16:18] LABS: Creatinine Urine 77.4 mg/dL; Total Protein Urine Random 89 mg/dL; Ur Ttl Prot Creatinine Ratio 1.15 mg/mg (0-0.20)
[2021-02-28 16:21] LABS: Sodium Urine Random 15 meq/L
[2021-02-28 17:03] LABS: Creatine Kinase 593 U/L (30-135)
--- NOTE | 2021-02-28 20:11 | PM.PNGS ---
Progress Note: A&P Assessment and Plan (1) Colon perforation: Onset Date: ~01/2021 Code(s): K63.1 - Perforation of intestine (nontraumatic) Status: Acute Assessment and Plan: Postop day #3. Status post Tamara's procedure. Patient progressing fairly well. Required 2 units of pRBCs and two units of fresh frozen plasma on 02/25, but bleeding seems to be settled at this time. (Hb stable at about 8.1 last 2 days). We also held the patient's Lovenox after she received some in [facility] POD #1. Patient off pressors, but for now on some Precedex because of her confusion. Continuing IV antibiotics with Zosyn for her sepsis. ( blood in urine cultures negative so far) Ostomy seems to be pink and looks like it may be starting to have good output. Patient does have some bowel sounds. ASTRID drain is serosanguineous in nature and someone increased over the last 24 hours would expect that. Started the patient on clear liquids yesterday and now will allow them to advance her as nursing sees fit up to a soft diet. Nurse reported to me today that she did drink a surgery Ensure when provided early this morning. (2) Anemia: Qualifiers: Anemia type: iron deficiency Iron deficiency anemia type: unspecified iron deficiency Qualified Code(s): D50.9 - Iron deficiency anemia, unspecified Code(s): D64.9 - Anemia, unspecified Status: Acute Assessment and Plan: Stable at approximately 8.1 today (3) DVT prophylaxis: Code(s): Z29.9 - Encounter for prophylactic measures, unspecified Status: Acute Assessment and Plan: Using SCD hose. Lovenox resumed this morning since to hemoglobin stable. Plt. count down to 126K so will need to watch this and if falls below 100,000 may need testing and to hold Lovenox again. (4) Sepsis: Code(s): A41.9 - Sepsis, unspecified organism Status: Acute Assessment and Plan: Seems to be controlled at this time, but white count back to 21,000 today. 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 This one may still harbor some infection. (5) Intra-abdominal abscess: Code(s): K65.1 - Peritoneal abscess Status: Acute Assessment and Plan: Now drained after surgery with serosanguineous not to cloudy drainage from ASTRID on the right. (6) Erosive esophagitis: Code(s): K22.10 - Ulcer of esophagus without bleeding Status: Acute Assessment and Plan: On b.i.d. IV pantoprazole. May change this to oral tomorrow if does well with liquids. (7) Ulcerative colitis: Code(s): K51.90 - Ulcerative colitis, unspecified, without complications Status: Acute Assessment and Plan: Await path results. Subjective Subjective Date/Time Seen: 02/28/21 20:11 Post Op day: 3 (Status post Tamara's procedure, with drainage of retroperitoneal abscess on the left and takedown of colovesical fistula) Patient reports: no new complaints and feels better Interval history: patient is sitting up in bed when I came in the room. She awakens easily. She answers questions fairly reasonably. She asked for some water while I was in and I washed her take sips with a straw she seemed to be swallowing okay. Patient denies much pain today. Review of Systems Review of Systems: All systems reviewed & are unremarkable except as noted in HPI and below Constitutional: Constitutional: Reports as per HPI, Denies chills, Denies fever(s) and Reports weakness Eyes: Eyes: Reports no additional eye complaints Gastrointestinal: Gastrointestinal: Reports as per HPI, Denies abdominal pain and Denies bloating Comments: Comments that she is thirsty. Genitourinary: Genitourinary: Reports no additional female genitourinary complaints Neurologic: Reports as per HPI, Reports numbness ( C
[2021-03-01] VITALS (10 sets, daily range): BP systolic 110–119; BP diastolic 54–90; PULSE 76–106; RESP 16–20; TEMP 36.2–36.9; O2SAT 95–100
[2021-03-01 04:53] LABS: Basophils Absolute Auto 0.2 K/mm3 (0.0-0.1); Basophils Percent Auto 0.6 % (0.2-1.2); Eosinophils Percent Auto 0.1 % (0-4.4); Hematocrit 32.8 % (37.0-47.0); Hemoglobin 10.6 g/dL (12.0-15.0); Immature Granulocyte Absolute 0.72 K/mm3 (0.00-0.031); Immature Granulocyte Percent A 2.4 % (0-0.5); Lymphocytes Absolute Auto 1.97 K/mm3 (0.9-3.2); Lymphocytes Percent Auto 6.7 % (18.3-44.2); Mean Corpuscular HGB Conc 32.3 g/dl (32-36); Mean Corpuscular Volume 86.8 fl (80-100); Monocytes Absolute Auto 0.5 K/mm3 (0.1-0.6); Monocytes Percent Auto 1.6 % (2.6-8.5); Neutrophils Absolute Auto 26.2 K/mm3 (1.3-6.7); Neutrophils Percent Auto 88.6 % (45.5-73.1); Nucleated Red Blood Cells Perc 0.1 % (0.0-0.2); Platelet Count Result 187 k/mm3 (150-375); Red Blood Count 3.78 M/mm3 (4.2-5.4); Red Cell Distribution Width 15.8 % (11.5-14.5); White Blood Count 29.5 K/mm3 (4.5-10.0)
[2021-03-01 05:09] LABS: Alanine Aminotransferase 148 U/L (4-35); Albumin Level 3.3 g/dL (3.5-5.1); Alkaline Phosphatase 378 U/L (38-126); Anion Gap 12 mmol/L (8-16); Aspartate Amino Transferase 194 U/L (14-36); Bilirubin,Total 1.6 mg/dL (0.2-1.3); Blood Urea Nitrogen 64 mg/dL (7-17); Calcium 8.3 mg/dL (8.4-10.2); Carbon Dioxide 25 mmol/L (22-30); Chloride 103 mmol/L (98-107); Estimated Glomerular Filt Rate 22; Glucose 139 mg/dL (65-110); Magnesium 2.4 mg/dL (1.6-2.3); Phosphorus 3.3 mg/dL (2.5-4.5); Potassium 3.4 mmol/L (3.4-5.0); Sodium 140 mmol/L (137-145)
--- NOTE | 2021-03-01 06:55 | PM.PNNEP ---
Progress Note: A&P Assessment and Plan (1) Acute kidney injury: Code(s): N17.9 - Acute kidney failure, unspecified Status: Acute Assessment and Plan: Eli has acute kidney injury. Renal ultrasound is normal Urine electrolytes are pre renal CK is slightly high. Will recheck tomorrow for trending. Most likely this is related to her low blood pressure, and sepsis. Third spacing may be an issue as well (2) Sepsis: Code(s): A41.9 - Sepsis, unspecified organism Status: Acute Assessment and Plan: She is on antibiotics. blood culture grew strep urinary medius and 1/2 bottles. urine cultures are negative so far. (3) Colon perforation: Onset Date: ~01/2021 Code(s): K63.1 - Perforation of intestine (nontraumatic) Status: Acute Assessment and Plan: She had surgery (4) Anemia: Qualifiers: Anemia type: iron deficiency Iron deficiency anemia type: unspecified iron deficiency Qualified Code(s): D50.9 - Iron deficiency anemia, unspecified Code(s): D64.9 - Anemia, unspecified Status: Acute Assessment and Plan: hemoglobin up to 10.6 Subjective Date/time seen: 03/01/21 06:55 Interval history: Eli feels better. She ate better yesterday. No chest pain or shortness of breath. Review of Systems Cardiovascular: Cardiovascular: Reports no additional cardiovascular complaints Respiratory: Respiratory: Reports no additional respiratory complaints Gastrointestinal: Gastrointestinal: Reports no additional gastrointestinal complaints Genitourinary: Genitourinary: Reports no additional female genitourinary complaints Exam Narrative: WDWN in NAD skin no rash head ncat lungs clear cor reg no rub or gallop abd BS+ nontender and soft ext no edema. Objective Data Vital Signs Vital Signs: Vital Signs - 24 hr 02/28/21 08:00 02/28/21 10:00 02/28/21 11:44 Temperature 36.6 C Pulse Rate 86 93 Respiratory Rate 19 26 H Blood Pressure 139/86 117/53 L Pulse Oximetry 93 93 93 02/28/21 11:48 02/28/21 12:00 02/28/21 13:00 Temperature 36.1 C L Pulse Rate 88 90 Respiratory Rate 18 26 H Blood Pressure 133/96 H 106/45 L Pulse Oximetry 93 95 95 02/28/21 14:00 02/28/21 16:00 02/28/21 17:00 Temperature 36.6 C Pulse Rate 86 89 Respiratory Rate 26 H Blood Pressure 112/58 L Pulse Oximetry 97 98 02/28/21 18:00 02/28/21 20:00 02/28/21 22:00 Temperature 36.5 C Pulse Rate 87 88 85 Respiratory Rate 22 H Blood Pressure 106/52 L Pulse Oximetry 98 03/01/21 00:00 03/01/21 02:00 03/01/21 04:00 Temperature 36.5 C 36.6 C Pulse Rate 106 H 83 85 Respiratory Rate 18 18 Blood Pressure 110/54 L 118/57 L Pulse Oximetry 100 100 03/01/21 06:00 Temperature Pulse Rate 83 Respiratory Rate Blood Pressure Pulse Oximetry Intake/Output Intake/Output: Intake & Output 02/26/21 02/27/21 02/28/21 03/01/21 23:59 23:59 23:59 23:59 Intake Total 1325 710 970 400 Output Total 1160 900 610 830 Balance 165 -190 360 -430 Meds/Results Medications: Active Medications Generic Name Dose Route Start Last Admin Trade Name Freq PRN Reason Stop Dose Admin Enoxaparin Sodium 30 mg 02/25/21 09:00 02/28/21 09:57 Enoxaparin 30 Mg/0.3 Ml Syringe SUB-Q 30 mg DAILY LIVIER Administration Fentanyl Citrate 25 mcg 02/25/21 05:40 02/25/21 10:51 Fentanyl Citrate Inj (*Crx) 100 Mcg/2 Ml Vial IV PUSH 25 mcg Q4H PRN Administration Pain Rated 7-10 Piperacillin Sod/Tazobactam Sod 2.25 gm in 50 mls @ 100 mls/hr 02/25/21 09:00 03/01/21 02:11 Zosyn 2.25 Gm/D5w 50 Ml IVPB Infused Q8H LIVIER Infusion Norepinephrine Bitartrate 8 mg in 250 mls @ 0 mls/hr 02/25/21 12:40 02/26/21 11:27 Levophed 8 Mg/D5w 250 Ml IV CONT 0 mcg/min .Q0M LIVIER 0 mls/hr Titration Protocol 0 MCG/MIN Naloxone HCl 0.1 mg 02/25/21 04:21 Naloxone Hcl 0.4 Mg/Ml Vial IV
[2021-03-01] MEDS: ENOXAPARIN 30 MG/0.3 ML SYRINGE SUB-Q (08:34)
[2021-03-01] MEDS: PANTOPRAZOLE SODIUM IV 40 MG VIAL IV PUSH ×2 (08:40→20:27)
--- NOTE | 2021-03-01 10:52 | PM.PNGS ---
Progress Note: A&P Assessment and Plan (1) Colon perforation: Onset Date: ~01/2021 Code(s): K63.1 - Perforation of intestine (nontraumatic) Status: Acute Assessment and Plan: clinically looks good, increasing leukocytosis, will repeat CT today, cont IV abx Subjective Subjective Date/Time Seen: 03/01/21 10:52 feels ok, no pain, still slightly confused, edil full liquids Review of Systems Review of Systems: All systems reviewed & are unremarkable except as noted in HPI and below Exam Const: General: cooperative, comfortable, no acute distress and confusion Orientation/consciousness: oriented to person and oriented to place Resp: Effort & Inspection: normal respiratory effort Auscultation: diminished lung sounds Cardio: Rate: regular rate Rhythm: regular rhythm GI: Inspection: normal to inspection, distended and incision GI Palp: Yes Soft to palpation, No Tenderness to palpation present (GI), No Guarding due to palpation present (GI) and No Rigid due to palpation Other: incision - C/D/I, ostomy pink/viable +fxn Objective Data Vital Signs Vital Signs: Vital Signs - 24 hr 02/28/21 11:44 02/28/21 11:48 02/28/21 12:00 Temperature 36.1 C L Pulse Rate 88 90 Respiratory Rate 18 26 H Blood Pressure 133/96 H 106/45 L Pulse Oximetry 93 93 95 02/28/21 13:00 02/28/21 14:00 02/28/21 16:00 Temperature 36.6 C Pulse Rate 86 89 Respiratory Rate 26 H Blood Pressure 112/58 L Pulse Oximetry 95 97 02/28/21 17:00 02/28/21 18:00 02/28/21 20:00 Temperature 36.5 C Pulse Rate 87 88 Respiratory Rate 22 H Blood Pressure 106/52 L Pulse Oximetry 98 98 02/28/21 22:00 03/01/21 00:00 03/01/21 02:00 Temperature 36.5 C Pulse Rate 85 106 H 83 Respiratory Rate 18 Blood Pressure 110/54 L Pulse Oximetry 100 03/01/21 04:00 03/01/21 06:00 03/01/21 08:00 Temperature 36.6 C 36.4 C L Pulse Rate 85 83 84 Respiratory Rate 18 20 Blood Pressure 118/57 L 110/58 L Pulse Oximetry 100 97 03/01/21 10:00 Temperature Pulse Rate 87 Respiratory Rate Blood Pressure Pulse Oximetry Intake/Output Intake/Output: Intake & Output 02/26/21 02/27/21 02/28/21 03/01/21 23:59 23:59 23:59 23:59 Intake Total 1325 710 970 400 Output Total 1160 900 610 830 Balance 165 -190 360 -430 Meds/Results Medications: Active Medications Generic Name Dose Route Start Last Admin Trade Name Freq PRN Reason Stop Dose Admin Enoxaparin Sodium 30 mg 02/25/21 09:00 03/01/21 08:34 Enoxaparin 30 Mg/0.3 Ml Syringe SUB-Q 30 mg DAILY LIVIER Administration Fentanyl Citrate 25 mcg 02/25/21 05:40 02/25/21 10:51 Fentanyl Citrate Inj (*Crx) 100 Mcg/2 Ml Vial IV PUSH 25 mcg Q4H PRN Administration Pain Rated 7-10 Piperacillin Sod/Tazobactam Sod 2.25 gm in 50 mls @ 100 mls/hr 02/25/21 09:00 03/01/21 08:40 Zosyn 2.25 Gm/D5w 50 Ml IVPB 100 mls/hr Q8H LIVIER Administration Norepinephrine Bitartrate 8 mg in 250 mls @ 0 mls/hr 02/25/21 12:40 02/26/21 11:27 Levophed 8 Mg/D5w 250 Ml IV CONT 0 mcg/min .Q0M LIVIER 0 mls/hr Titration Protocol 0 MCG/MIN Naloxone HCl 0.1 mg 02/25/21 04:21 Naloxone Hcl 0.4 Mg/Ml Vial IV PUSH Q2M PRN Opiate Reversal Ondansetron HCl 4 mg 02/25/21 04:21 Ondansetron Inj 4 Mg/2 Ml Vial IV PUSH Q4H PRN Nausea And Vomiting Pantoprazole Sodium 40 mg 02/25/21 21:00 03/01/21 08:40 Pantoprazole Sodium Iv 40 Mg Vial IV PUSH 40 mg Q12HR LIVIER Administration Sodium Chloride 10 ml 02/25/21 10:14 Central Line Flush IV PUSH PRN PRN with TPN bag changes Sodium Chloride 20 ml 02/25/21 10:14 Central Line Flush IV PUSH PRN PRN after blood draws Radiology Results: ITS Impressions Abdomen/Pelvis CT 12/31/21 00:15 IMPRESSION: 1. Left retroperitoneal abscess involving the iliopsoas muscle and tracking into the lateral aspect of the left pelvis. Coexisting
--- NOTE | 2021-03-01 13:02 | PC.NURSE ---
This patient, Eli Duarte, was transferred to [[facility]] on 03/01/21 at 1303. Personal belongings sent with patient. Report given to [LIUDMILA Aguero @ [phone] ]. Appropriate documentation sent with patient.
[2021-03-02 05:13] VITALS: BP 110/56; PULSE 72; RESP 16; TEMP 37; O2SAT 94
[2021-03-02 06:34] LABS: Alanine Aminotransferase 111 U/L (4-35); Alkaline Phosphatase 269 U/L (38-126); Anion Gap 10 mmol/L (8-16); Aspartate Amino Transferase 105 U/L (14-36); Bilirubin,Total 1.7 mg/dL (0.2-1.3); Blood Urea Nitrogen 62 mg/dL (7-17); Calcium 8.2 mg/dL (8.4-10.2); Carbon Dioxide 25 mmol/L (22-30); Chloride 105 mmol/L (98-107); Creatine Kinase 277 U/L (30-135); Estimated Glomerular Filt Rate 28; Glucose 133 mg/dL (65-110); Magnesium 2.3 mg/dL (1.6-2.3); Phosphorus 2.9 mg/dL (2.5-4.5); Sodium 140 mmol/L (137-145)
[2021-03-02 06:39] LABS: Basophils Absolute Auto 0.1 K/mm3 (0.0-0.1); Basophils Percent Auto 0.5 % (0.2-1.2); Eosinophils Absolute Auto 0.1 K/mm3 (0-0.3); Eosinophils Percent Auto 0.2 % (0-4.4); Hematocrit 32.9 % (37.0-47.0); Hemoglobin 10.6 g/dL (12.0-15.0); Immature Granulocyte Absolute 1.01 K/mm3 (0.00-0.031); Immature Granulocyte Percent A 3.5 % (0-0.5); Lymphocytes Absolute Auto 2.06 K/mm3 (0.9-3.2); Lymphocytes Percent Auto 7.1 % (18.3-44.2); Mean Corpuscular HGB Conc 32.2 g/dl (32-36); Mean Corpuscular Hemoglobin 27.2 pg (26-34); Mean Corpuscular Volume 84.4 fl (80-100); Mean Platelet Volume 11.3 fl (7.4-10.4); Monocytes Absolute Auto 0.5 K/mm3 (0.1-0.6); Monocytes Percent Auto 1.6 % (2.6-8.5); Neutrophils Absolute Auto 25.2 K/mm3 (1.3-6.7); Neutrophils Percent Auto 87.1 % (45.5-73.1); Nucleated Red Blood Cells Perc 0.1 % (0.0-0.2); Platelet Count Result 180 k/mm3 (150-375); Red Cell Distribution Width 15.8 % (11.5-14.5); White Blood Count 28.9 K/mm3 (4.5-10.0)
[2021-03-02 08:00] VITALS: BP 120/54; PULSE 85; RESP 20; TEMP 36.2; O2SAT 94
[2021-03-02] MEDS: ENOXAPARIN 30 MG/0.3 ML SYRINGE SUB-Q (08:14)
[2021-03-02] MEDS: PANTOPRAZOLE SODIUM IV 40 MG VIAL IV PUSH ×2 (08:14→20:42)
--- NOTE | 2021-03-02 10:03 | PM.PNGS ---
Progress Note: A&P Assessment and Plan (1) Colon perforation: Onset Date: ~01/2021 Code(s): K63.1 - Perforation of intestine (nontraumatic) Status: Acute Assessment and Plan: CT reviewed c radiology, will setup for perc drain of L lower fluid collection, cont IV abx, encourage po, OOB/IS, will send stool for CDiff, ?perez out Subjective Subjective Date/Time Seen: 03/02/21 10:03 feels ok, poor appetite, no pain Review of Systems Review of Systems: All systems reviewed & are unremarkable except as noted in HPI and below Exam Const: General: cooperative, comfortable, no acute distress, ill appearing and tired appearing Orientation/consciousness: oriented to person and oriented to place Resp: Effort & Inspection: normal respiratory effort Auscultation: diminished lung sounds Cardio: Rate: regular rate Rhythm: regular rhythm GI: Inspection: normal to inspection, non-distended and incision GI Palp: Yes Soft to palpation, No Tenderness to palpation present (GI), No Guarding due to palpation present (GI) and No Rigid due to palpation Other: ostomy - pink/viable, liquid stool Objective Data Vital Signs Vital Signs: Vital Signs - 24 hr 03/01/21 15:14 03/01/21 17:20 03/01/21 20:00 Temperature 36.9 C Pulse Rate 84 Respiratory Rate 18 Blood Pressure 113/55 L Pulse Oximetry 95 98 03/01/21 22:57 03/02/21 05:13 Temperature 36.2 C L 37.0 C Pulse Rate 76 72 Respiratory Rate 16 16 Blood Pressure 119/90 110/56 L Pulse Oximetry 97 94 Intake/Output Intake/Output: Intake & Output 02/27/21 02/28/21 03/01/21 03/02/21 23:59 23:59 23:59 23:59 Intake Total 710 970 860 290 Output Total 303 843 5683 600 Balance -190 360 -520 -310 Meds/Results Medications: Active Medications Generic Name Dose Route Start Last Admin Trade Name Freq PRN Reason Stop Dose Admin Acetaminophen 650 mg 03/02/21 08:36 Acetaminophen 325 Mg Tablet PO Q6H PRN Mild Pain (1-3) or Fever Hydrocodone Bitart/Acetaminophen 1 tab 03/02/21 08:36 Hydrocodone/Acetaminophen (*Crx) 5-325 Mg Tablet PO Q4H PRN Pain Rated 4-6 Hydrocodone Bitart/Acetaminophen 1 tab 03/02/21 08:36 Hydrocodone/Acetaminophen (*Crx) 10-325 Mg Tablet PO Q4H PRN Pain Rated 7-10 Enoxaparin Sodium 30 mg 02/25/21 09:00 03/02/21 08:14 Enoxaparin 30 Mg/0.3 Ml Syringe SUB-Q 30 mg DAILY LIVIER Administration Piperacillin Sod/Tazobactam Sod 2.25 gm in 50 mls @ 100 mls/hr 02/25/21 09:00 03/02/21 08:15 Zosyn 2.25 Gm/D5w 50 Ml IVPB 100 mls/hr Q8H LIVIER Administration Naloxone HCl 0.1 mg 02/25/21 04:21 Naloxone Hcl 0.4 Mg/Ml Vial IV PUSH Q2M PRN Opiate Reversal Ondansetron HCl 4 mg 02/25/21 04:21 Ondansetron Inj 4 Mg/2 Ml Vial IV PUSH Q4H PRN Nausea And Vomiting Pantoprazole Sodium 40 mg 02/25/21 21:00 03/02/21 08:14 Pantoprazole Sodium Iv 40 Mg Vial IV PUSH 40 mg Q12HR LIVIER Administration Sodium Chloride 10 ml 02/25/21 10:14 Central Line Flush IV PUSH PRN PRN with TPN bag changes Sodium Chloride 20 ml 02/25/21 10:14 Central Line Flush IV PUSH PRN PRN after blood draws Radiology Results: ITS Impressions Renal Ultrasound 02/28/21 16:22 IMPRESSION: 1. Normal kidneys without hydronephrosis. Chest X-Ray 03/01/21 08:11 IMPRESSION: Persistent congestive changes and bilateral pulmonary infiltrates involving particularly the lower lobes, bilateral pleural effusions; little interval change since 02/28/2021. Congestive changes are suspected. Pneumonia is not excluded. Abdomen/Pelvis CT 03/01/21 11:38 IMPRESSION: 1. 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 2. Subjective decreased in size suggesting interval surgical decompressio
[2021-03-02 10:43] LABS: INR 2.3; Prothrombin Time 24.9 Seconds (11.1-14.7)
[2021-03-02] MEDS: POTASSIUM CHLORIDE INJ 40 MEQ in SODIUM CHLORIDE 0.9% IV 500 ML 130 MEQ IVPB (11:37)
[2021-03-02 12:00] VITALS: BP 120/54; PULSE 85; RESP 24; TEMP 36.3; O2SAT 92
[2021-03-02 14:25] VITALS: BP 110/56; PULSE 72; RESP 16; O2SAT 94
--- NOTE | 2021-03-02 18:44 | PM.PNNEP ---
Progress Note: A&P Assessment and Plan (1) Acute kidney injury: Code(s): N17.9 - Acute kidney failure, unspecified Status: Acute Assessment and Plan: Eli has acute kidney injury. Renal ultrasound is normal Urine electrolytes are pre renal CK is slightly high. Will recheck tomorrow for trending. Most likely this is related to her low blood pressure, and sepsis. Third spacing may be an issue as well creatinine is better today. (2) Sepsis: Code(s): A41.9 - Sepsis, unspecified organism Status: Acute Assessment and Plan: She is on antibiotics. blood culture grew strep and lactobacillus in 1/2 bottles. urine culture Is negative still has leukocytosis but slightly better than yesterday On Zosyn. (3) Colon perforation: Onset Date: ~01/2021 Code(s): K63.1 - Perforation of intestine (nontraumatic) Status: Acute Assessment and Plan: She had surgery (4) Anemia: Qualifiers: Anemia type: iron deficiency Iron deficiency anemia type: unspecified iron deficiency Qualified Code(s): D50.9 - Iron deficiency anemia, unspecified Code(s): D64.9 - Anemia, unspecified Status: Acute Assessment and Plan: hemoglobin up to 10.6 Subjective Date/time seen: 03/02/21 18:44 Interval history: Eli feels better. She ate better yesterday. No chest pain or shortness of breath. Exam Narrative: WDWN in NAD skin no rash Or subcu nodules head ncat lungs clear cor reg no rub or gallop abd BS+ nontender and soft, postop. ext no edema Or cyanosis. Objective Data Vital Signs Vital Signs: Vital Signs - 24 hr 03/01/21 20:00 03/01/21 22:57 03/02/21 05:13 Temperature 36.2 C L 37.0 C Pulse Rate 76 72 Respiratory Rate 16 16 Blood Pressure 119/90 110/56 L Pulse Oximetry 98 97 94 03/02/21 08:00 03/02/21 12:00 03/02/21 14:25 Temperature 36.2 C L 36.3 C L Pulse Rate 85 85 72 Respiratory Rate 20 24 H 16 Blood Pressure 120/54 L 120/54 L 110/56 L Pulse Oximetry 94 92 94 Intake/Output Intake/Output: Intake & Output 02/27/21 02/28/21 03/01/21 03/02/21 23:59 23:59 23:59 23:59 Intake Total 710 970 860 980 Output Total 560 466 0918 1390 Balance -190 360 520 -410 Meds/Results Medications: Active Medications Generic Name Dose Route Start Last Admin Trade Name Freq PRN Reason Stop Dose Admin Acetaminophen 650 mg 03/02/21 08:36 Acetaminophen 325 Mg Tablet PO Q6H PRN Mild Pain (1-3) or Fever Hydrocodone Bitart/Acetaminophen 1 tab 03/02/21 08:36 Hydrocodone/Acetaminophen (*Crx) 5-325 Mg Tablet PO Q4H PRN Pain Rated 4-6 Hydrocodone Bitart/Acetaminophen 1 tab 03/02/21 08:36 Hydrocodone/Acetaminophen (*Crx) 10-325 Mg Tablet PO Q4H PRN Pain Rated 7-10 Enoxaparin Sodium 30 mg 02/25/21 09:00 03/02/21 08:14 Enoxaparin 30 Mg/0.3 Ml Syringe SUB-Q 30 mg DAILY LIVIER Administration Piperacillin Sod/Tazobactam Sod 2.25 gm in 50 mls @ 100 mls/hr 02/25/21 09:00 03/02/21 18:12 Zosyn 2.25 Gm/D5w 50 Ml IVPB Infused Q8H LIVIER Infusion Naloxone HCl 0.1 mg 02/25/21 04:21 Naloxone Hcl 0.4 Mg/Ml Vial IV PUSH Q2M PRN Opiate Reversal Ondansetron HCl 4 mg 02/25/21 04:21 Ondansetron Inj 4 Mg/2 Ml Vial IV PUSH Q4H PRN Nausea And Vomiting Pantoprazole Sodium 40 mg 02/25/21 21:00 03/02/21 08:14 Pantoprazole Sodium Iv 40 Mg Vial IV PUSH 40 mg Q12HR LIVIER Administration Sodium Chloride 10 ml 02/25/21 10:14 Central Line Flush IV PUSH PRN PRN with TPN bag changes Sodium Chloride 20 ml 02/25/21 10:14 Central Line Flush IV PUSH PRN PRN after blood draws Radiology Results: ITS Impressions Renal Ultrasound 02/28/21 16:22 IMPRESSION: 1. Normal kidneys without hydronephrosis. Chest X-Ray 03/01/21 08:11 IMPRESSION: Persistent congestive changes and bilateral pulmonary i
[2021-03-02 20:00] VITALS: O2SAT 94
[2021-03-02 21:00] VITALS: BP 124/57; PULSE 91; RESP 20; TEMP 36.4; O2SAT 94
[2021-03-03 05:06] VITALS: BP 112/54; PULSE 84; RESP 16; O2SAT 96
[2021-03-03 06:47] LABS: Basophils Absolute Auto 0.1 K/mm3 (0.0-0.1); Basophils Percent Auto 0.4 % (0.2-1.2); Eosinophils Absolute Auto 0.1 K/mm3 (0-0.3); Eosinophils Percent Auto 0.3 % (0-4.4); Hematocrit 32.5 % (37.0-47.0); Hemoglobin 10.7 g/dL (12.0-15.0); Immature Granulocyte Absolute 0.69 K/mm3 (0.00-0.031); Immature Granulocyte Percent A 2.6 % (0-0.5); Lymphocytes Absolute Auto 1.91 K/mm3 (0.9-3.2); Lymphocytes Percent Auto 7.3 % (18.3-44.2); Mean Corpuscular HGB Conc 32.9 g/dl (32-36); Mean Corpuscular Hemoglobin 27.5 pg (26-34); Mean Corpuscular Volume 83.5 fl (80-100); Mean Platelet Volume 11.6 fl (7.4-10.4); Monocytes Absolute Auto 0.5 K/mm3 (0.1-0.6); Monocytes Percent Auto 1.8 % (2.6-8.5); Neutrophils Percent Auto 87.6 % (45.5-73.1); Platelet Count Result 203 k/mm3 (150-375); Red Blood Count 3.89 M/mm3 (4.2-5.4); Red Cell Distribution Width 15.6 % (11.5-14.5); White Blood Count 26.3 K/mm3 (4.5-10.0)
[2021-03-03 06:57] LABS: Alanine Aminotransferase 76 U/L (4-35); Albumin Level 2.8 g/dL (3.5-5.1); Alkaline Phosphatase 182 U/L (38-126); Anion Gap 8 mmol/L (8-16); Aspartate Amino Transferase 57 U/L (14-36); Bilirubin,Total 1.5 mg/dL (0.2-1.3); Blood Urea Nitrogen 52 mg/dL (7-17); Carbon Dioxide 25 mmol/L (22-30); Chloride 105 mmol/L (98-107); Estimated Glomerular Filt Rate 36; Glucose 134 mg/dL (65-110); Magnesium 2.1 mg/dL (1.6-2.3); Phosphorus 2.7 mg/dL (2.5-4.5); Potassium 3.4 mmol/L (3.4-5.0); Sodium 138 mmol/L (137-145)
[2021-03-03 07:46] LABS: Platelet Estimate Adequate (Adequate)
[2021-03-03 07:47] LABS: Anisocytosis 2+ (NORMAL); Hypochromasia 1+ (NORMAL); Target Cells 1+ (NORMAL); Tear Drop Cells 1+ (NORMAL)
[2021-03-03 08:20] VITALS: O2SAT 97
[2021-03-03] MEDS: ENOXAPARIN 30 MG/0.3 ML SYRINGE SUB-Q (08:48)
[2021-03-03] MEDS: PANTOPRAZOLE SODIUM IV 40 MG VIAL IV PUSH ×2 (08:48→21:00)
--- NOTE | 2021-03-03 11:18 | PM.PNNEP ---
Progress Note: A&P Assessment and Plan (1) Acute kidney injury: Code(s): N17.9 - Acute kidney failure, unspecified Status: Acute Assessment and Plan: Eli has acute kidney injury. Renal ultrasound is normal Urine electrolytes are pre renal CK is slightly high. Will recheck tomorrow for trending. Most likely this is related to her low blood pressure, and sepsis. Third spacing may be an issue as well creatinine continues to improve day by day. (2) Sepsis: Code(s): A41.9 - Sepsis, unspecified organism Status: Acute Assessment and Plan: She is on antibiotics. blood culture grew strep and lactobacillus in 1/2 bottles. urine culture Is negative still has leukocytosis but slightly better again On Zosyn. (3) Colon perforation: Onset Date: ~01/2021 Code(s): K63.1 - Perforation of intestine (nontraumatic) Status: Acute Assessment and Plan: She had surgery (4) Anemia: Qualifiers: Anemia type: iron deficiency Iron deficiency anemia type: unspecified iron deficiency Qualified Code(s): D50.9 - Iron deficiency anemia, unspecified Code(s): D64.9 - Anemia, unspecified Status: Acute Assessment and Plan: hemoglobin up to 10.7 Subjective Date/time seen: 03/03/21 11:18 Interval history: Eli feels better. Tired this morning No chest pain or shortness of breath. Exam Narrative: WDWN in NAD skin no rash Or subcu nodules head ncat lungs clear bilaterally cor reg no rub abd BS+ nontender and soft, postop. ext no edema Objective Data Vital Signs Vital Signs: Vital Signs - 24 hr 03/02/21 12:00 03/02/21 14:25 03/02/21 20:00 Temperature 36.3 C L Pulse Rate 85 72 Respiratory Rate 24 H 16 Blood Pressure 120/54 L 110/56 L Pulse Oximetry 92 94 94 03/02/21 21:00 03/03/21 05:06 03/03/21 08:20 Temperature 36.4 C Pulse Rate 91 84 Respiratory Rate 20 16 Blood Pressure 124/57 L 112/54 L Pulse Oximetry 94 96 97 Intake/Output Intake/Output: Intake & Output 02/28/21 03/01/21 03/02/21 03/03/21 23:59 23:59 23:59 23:59 Intake Total 970 860 980 700 Output Total 610 1380 1390 680 Balance 858 -756 -221 20 Meds/Results Medications: Active Medications Generic Name Dose Route Start Last Admin Trade Name Freq PRN Reason Stop Dose Admin Acetaminophen 650 mg 03/02/21 08:36 Acetaminophen 325 Mg Tablet PO Q6H PRN Mild Pain (1-3) or Fever Hydrocodone Bitart/Acetaminophen 1 tab 03/02/21 08:36 Hydrocodone/Acetaminophen (*Crx) 5-325 Mg Tablet PO Q4H PRN Pain Rated 4-6 Hydrocodone Bitart/Acetaminophen 1 tab 03/02/21 08:36 Hydrocodone/Acetaminophen (*Crx) 10-325 Mg Tablet PO Q4H PRN Pain Rated 7-10 Enoxaparin Sodium 30 mg 02/25/21 09:00 03/03/21 08:48 Enoxaparin 30 Mg/0.3 Ml Syringe SUB-Q 30 mg DAILY LIVIER Administration Piperacillin Sod/Tazobactam Sod 2.25 gm in 50 mls @ 100 mls/hr 02/25/21 09:00 03/03/21 09:18 Zosyn 2.25 Gm/D5w 50 Ml IVPB Infused Q8H LIVIER Infusion Naloxone HCl 0.1 mg 02/25/21 04:21 Naloxone Hcl 0.4 Mg/Ml Vial IV PUSH Q2M PRN Opiate Reversal Ondansetron HCl 4 mg 02/25/21 04:21 Ondansetron Inj 4 Mg/2 Ml Vial IV PUSH Q4H PRN Nausea And Vomiting Pantoprazole Sodium 40 mg 02/25/21 21:00 03/03/21 08:48 Pantoprazole Sodium Iv 40 Mg Vial IV PUSH 40 mg Q12HR LIVIER Administration Sodium Chloride 10 ml 02/25/21 10:14 Central Line Flush IV PUSH PRN PRN with TPN bag changes Sodium Chloride 20 ml 02/25/21 10:14 Central Line Flush IV PUSH PRN PRN after blood draws Radiology Results: ITS Impressions Renal Ultrasound 02/28/21 16:22 IMPRESSION: 1. Normal kidneys without hydronephrosis. Chest X-Ray 03/01/21 08:11 IMPRESSION: Persistent congestive changes and bilateral pulmonary infiltrates involving particula
--- NOTE | 2021-03-03 12:00 | PM.PNGS ---
Progress Note: A&P Assessment and Plan (1) Colon perforation: Onset Date: ~01/2021 Code(s): K63.1 - Perforation of intestine (nontraumatic) Status: Acute Assessment and Plan: better, cont abx, drains, await CDiff studies, encourage po, OOB/IS, PT/OT, cont to work on dispo, ok to dc perez if ok c nephrology Subjective Subjective Date/Time Seen: 03/03/21 12:00 feels better today, more alert, still weak and poor appetite Review of Systems Review of Systems: All systems reviewed & are unremarkable except as noted in HPI and below Exam Const: General: cooperative, comfortable and no acute distress Nutritional Appearance: malnourished Orientation/consciousness: patient oriented x3 Resp: Effort & Inspection: normal respiratory effort Auscultation: diminished lung sounds Cardio: Rate: regular rate Rhythm: regular rhythm GI: Inspection: normal to inspection, non-distended and incision GI Palp: Yes Soft to palpation, Yes Tenderness to palpation present (GI), No Guarding due to palpation present (GI) and No Rigid due to palpation Other: ostomy - +fxn, ASTRID and LLQ drain c s/s output Objective Data Vital Signs Vital Signs: Vital Signs - 24 hr 03/02/21 14:25 03/02/21 20:00 03/02/21 21:00 Temperature 36.4 C Pulse Rate 72 91 Respiratory Rate 16 20 Blood Pressure 110/56 L 124/57 L Pulse Oximetry 94 94 94 03/03/21 05:06 03/03/21 08:20 Temperature Pulse Rate 84 Respiratory Rate 16 Blood Pressure 112/54 L Pulse Oximetry 96 97 Intake/Output Intake/Output: Intake & Output 02/28/21 03/01/21 03/02/21 03/03/21 23:59 23:59 23:59 23:59 Intake Total 970 860 980 700 Output Total 610 1380 1390 680 Balance 360 -520 -410 20 Meds/Results Medications: Active Medications Generic Name Dose Route Start Last Admin Trade Name Freq PRN Reason Stop Dose Admin Acetaminophen 650 mg 03/02/21 08:36 Acetaminophen 325 Mg Tablet PO Q6H PRN Mild Pain (1-3) or Fever Hydrocodone Bitart/Acetaminophen 1 tab 03/02/21 08:36 Hydrocodone/Acetaminophen (*Crx) 5-325 Mg Tablet PO Q4H PRN Pain Rated 4-6 Hydrocodone Bitart/Acetaminophen 1 tab 03/02/21 08:36 Hydrocodone/Acetaminophen (*Crx) 10-325 Mg Tablet PO Q4H PRN Pain Rated 7-10 Enoxaparin Sodium 30 mg 02/25/21 09:00 03/03/21 08:48 Enoxaparin 30 Mg/0.3 Ml Syringe SUB-Q 30 mg DAILY LIVIER Administration Piperacillin Sod/Tazobactam Sod 2.25 gm in 50 mls @ 100 mls/hr 02/25/21 09:00 03/03/21 09:18 Zosyn 2.25 Gm/D5w 50 Ml IVPB Infused Q8H LIVIER Infusion Naloxone HCl 0.1 mg 02/25/21 04:21 Naloxone Hcl 0.4 Mg/Ml Vial IV PUSH Q2M PRN Opiate Reversal Ondansetron HCl 4 mg 02/25/21 04:21 Ondansetron Inj 4 Mg/2 Ml Vial IV PUSH Q4H PRN Nausea And Vomiting Pantoprazole Sodium 40 mg 02/25/21 21:00 03/03/21 08:48 Pantoprazole Sodium Iv 40 Mg Vial IV PUSH 40 mg Q12HR LIVIER Administration Sodium Chloride 10 ml 02/25/21 10:14 Central Line Flush IV PUSH PRN PRN with TPN bag changes Sodium Chloride 20 ml 02/25/21 10:14 Central Line Flush IV PUSH PRN PRN after blood draws Radiology Results: ITS Impressions Renal Ultrasound 02/28/21 16:22 IMPRESSION: 1. Normal kidneys without hydronephrosis. Chest X-Ray 03/01/21 08:11 IMPRESSION: Persistent congestive changes and bilateral pulmonary infiltrates involving particularly the lower lobes, bilateral pleural effusions; little interval change since 02/28/2021. Congestive changes are suspected. Pneumonia is not excluded. Abdomen/Pelvis CT 03/01/21 11:38 IMPRESSION: 1. 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 2. Subjective decreased in size suggesting interval surgical decompression of a region of
--- NOTE | 2021-03-03 13:04 | PCNFU ---
Nutrition Follow-Up Complete: Inadequate oral intake related to left groin pain as evidence by NPO Goal: Meet nutritional needs Patient is progressing towards goal. We will continue current goal. Pt current nutrition is Low Fiber diet with Ensure Surgery BID. Last recorded weight is 52.5 kg, up from 48 kg on admit. Bowel Motility:colostomy Labs Reviewed:Glu 134, BUN 52, Alb 2.8, Hct 32.5, Hgb 10.7,Cr 1.4 Meds Noted: Lovenox, Protonix, Zosyn Skin: WNL Additional Notes: Patient has advanced to a low fiber diet. Spoke with patient today after breakfast. No appetite. 0% reported today, yesterday 25% of meal. Encouraged the ensure surgery drinks which will provide an additional 330 kcals and 18 gms protein. Agree with diet orders. Monitoring: weight, labs, oral intake every 5 days.
[2021-03-03 15:38] VITALS: BP 101/61; PULSE 87; RESP 18; TEMP 36.9; O2SAT 92
--- NOTE | 2021-03-03 17:00 | PC.NURSE ---
pt had a mepilex to sacrum that had not been changed since the 26 of February. Charge nurse, Adrianne, was notified. No open areas noticed, just maceration. All dressings are changed, dry and labeled.
[2021-03-03 20:00] VITALS: PULSE 87; RESP 18; O2SAT 92
[2021-03-04] VITALS: BP 109/47; PULSE 83; RESP 18; TEMP 36.5; O2SAT 96
[2021-03-04 06:00] LABS: Hematocrit 32.9 % (37.0-47.0); Hemoglobin 10.8 g/dL (12.0-15.0); Mean Corpuscular HGB Conc 32.8 g/dl (32-36); Mean Corpuscular Hemoglobin 28.1 pg (26-34); Mean Corpuscular Volume 85.7 fl (80-100); Mean Platelet Volume 11.5 fl (7.4-10.4); Platelet Count Result 208 k/mm3 (150-375); Red Blood Count 3.84 M/mm3 (4.2-5.4); Red Cell Distribution Width 16.4 % (11.5-14.5); White Blood Count 21.6 K/mm3 (4.5-10.0)
[2021-03-04 06:10] LABS: Alanine Aminotransferase 53 U/L (4-35); Albumin Level 2.6 g/dL (3.5-5.1); Alkaline Phosphatase 143 U/L (38-126); Anion Gap 9 mmol/L (8-16); Aspartate Amino Transferase 39 U/L (14-36); Bilirubin,Total 1.4 mg/dL (0.2-1.3); Blood Urea Nitrogen 43 mg/dL (7-17); Calcium 7.8 mg/dL (8.4-10.2); Carbon Dioxide 24 mmol/L (22-30); Chloride 104 mmol/L (98-107); Estimated Glomerular Filt Rate 39; Glucose 135 mg/dL (65-110); Magnesium 2.1 mg/dL (1.6-2.3); Phosphorus 2.8 mg/dL (2.5-4.5); Sodium 137 mmol/L (137-145)
[2021-03-04 07:26] LABS: Anisocytosis 2+ (NORMAL); Band Neutrophils Percent 1 % (0-6); Hypochromasia 1+ (NORMAL); Lymphocytes Absolute Manual 1.29 K/mm3 (1.1-4.5); Monocytes Absolute Manual 0.21 K/mm3 (0.1-0.90); Monocytes Percent Manual 1 % (3-9); Neutrophils Absolute Manual 20.08 K/mm3 (1.7-7.2); Neutrophils Percent Manual 92 % (46-73); Platelet Estimate Adequate (Adequate); Total Cells Counted 100
[2021-03-04 07:27] LABS: Ovalocytes 1+ (NORMAL); Target Cells 1+ (NORMAL)
[2021-03-04 08:00] VITALS: O2SAT 96
[2021-03-04] MEDS: PANTOPRAZOLE SODIUM IV 40 MG VIAL IV PUSH ×2 (08:39→20:49)
[2021-03-04] MEDS: ENOXAPARIN 30 MG/0.3 ML SYRINGE SUB-Q (08:40)
[2021-03-04 09:28] VITALS: BP 110/46; PULSE 87; RESP 18; TEMP 36.2
--- NOTE | 2021-03-04 10:42 | PM.PNGS ---
Progress Note: A&P Assessment and Plan (1) Colon perforation: Onset Date: ~01/2021 Code(s): K63.1 - Perforation of intestine (nontraumatic) Status: Acute Assessment and Plan: slowly improving, cont drains, abx, encourage po, PT/OT, cont to work on disposition Subjective Subjective Date/Time Seen: 03/04/21 10:42 feels better today, still very weak Review of Systems Review of Systems: All systems reviewed & are unremarkable except as noted in HPI and below Exam Const: General: cooperative, no acute distress and tired appearing Resp: Auscultation: diminished lung sounds Cardio: Rate: regular rate Rhythm: regular rhythm GI: Inspection: normal to inspection, non-distended and incision GI Palp: Yes Soft to palpation, No Tenderness to palpation present (GI), No Guarding due to palpation present (GI) and No Rigid due to palpation Other: ostomy - +fxn, ASTRID and perc drain c mod s/s output Objective Data Vital Signs Vital Signs: Vital Signs - 24 hr 03/03/21 15:38 03/03/21 20:00 03/04/21 00:00 Temperature 36.9 C 36.5 C Pulse Rate 87 87 83 Respiratory Rate 18 18 18 Blood Pressure 101/61 109/47 L Pulse Oximetry 92 92 96 03/04/21 09:28 Temperature 36.2 C L Pulse Rate 87 Respiratory Rate 18 Blood Pressure 110/46 L Pulse Oximetry Intake/Output Intake/Output: Intake & Output 03/01/21 03/02/21 03/03/21 03/04/21 23:59 23:59 23:59 23:59 Intake Total 003 952 3581 570 Output Total 1380 1390 1340 1110 Balance -520 -410 -220 -540 Meds/Results Medications: Active Medications Generic Name Dose Route Start Last Admin Trade Name Freq PRN Reason Stop Dose Admin Acetaminophen 650 mg 03/02/21 08:36 Acetaminophen 325 Mg Tablet PO Q6H PRN Mild Pain (1-3) or Fever Hydrocodone Bitart/Acetaminophen 1 tab 03/02/21 08:36 Hydrocodone/Acetaminophen (*Crx) 5-325 Mg Tablet PO Q4H PRN Pain Rated 4-6 Hydrocodone Bitart/Acetaminophen 1 tab 03/02/21 08:36 Hydrocodone/Acetaminophen (*Crx) 10-325 Mg Tablet PO Q4H PRN Pain Rated 7-10 Enoxaparin Sodium 30 mg 02/25/21 09:00 03/04/21 08:40 Enoxaparin 30 Mg/0.3 Ml Syringe SUB-Q 30 mg DAILY LIVIER Administration Piperacillin Sod/Tazobactam Sod 2.25 gm in 50 mls @ 100 mls/hr 02/25/21 09:00 03/04/21 08:40 Zosyn 2.25 Gm/D5w 50 Ml IVPB 100 mls/hr Q8H LIVIER Administration Naloxone HCl 0.1 mg 02/25/21 04:21 Naloxone Hcl 0.4 Mg/Ml Vial IV PUSH Q2M PRN Opiate Reversal Ondansetron HCl 4 mg 02/25/21 04:21 Ondansetron Inj 4 Mg/2 Ml Vial IV PUSH Q4H PRN Nausea And Vomiting Pantoprazole Sodium 40 mg 02/25/21 21:00 03/04/21 08:39 Pantoprazole Sodium Iv 40 Mg Vial IV PUSH 40 mg Q12HR LIVIER Administration Sodium Chloride 10 ml 02/25/21 10:14 Central Line Flush IV PUSH PRN PRN with TPN bag changes Sodium Chloride 20 ml 02/25/21 10:14 Central Line Flush IV PUSH PRN PRN after blood draws Radiology Results: ITS Impressions Renal Ultrasound 02/28/21 16:22 IMPRESSION: 1. Normal kidneys without hydronephrosis. Chest X-Ray 03/01/21 08:11 IMPRESSION: Persistent congestive changes and bilateral pulmonary infiltrates involving particularly the lower lobes, bilateral pleural effusions; little interval change since 02/28/2021. Congestive changes are suspected. Pneumonia is not excluded. Abdomen/Pelvis CT 03/01/21 11:38 IMPRESSION: 1. 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 2. Subjective decreased in size suggesting interval surgical decompression of a region of small amount of gas and mixed attenuation fluid within the left iliopsoas muscle which was previously concerning for abscess and likely also including small amount of hemorrhage accounting f
[2021-03-04 13:53] VITALS: BMI 10.0
--- NOTE | 2021-03-04 15:18 | PM.PNNEP ---
Progress Note: A&P Assessment and Plan (1) Acute kidney injury: Code(s): N17.9 - Acute kidney failure, unspecified Status: Acute Assessment and Plan: Eli has acute kidney injury. Renal ultrasound is normal Urine electrolytes are pre renal CK is slightly high. Will recheck tomorrow for trending. Most likely this is related to her low blood pressure, and sepsis. Third spacing may be an issue as well creatinine down to 1.3. doing well. Will view from a distance. (2) Sepsis: Code(s): A41.9 - Sepsis, unspecified organism Status: Acute Assessment and Plan: She is on antibiotics. blood culture grew strep and lactobacillus in 1/2 bottles. urine culture Is negative still has leukocytosis but slightly better again On Zosyn. (3) Colon perforation: Onset Date: ~01/2021 Code(s): K63.1 - Perforation of intestine (nontraumatic) Status: Acute Assessment and Plan: She had surgery (4) Anemia: Qualifiers: Anemia type: iron deficiency Iron deficiency anemia type: unspecified iron deficiency Qualified Code(s): D50.9 - Iron deficiency anemia, unspecified Code(s): D64.9 - Anemia, unspecified Status: Acute Assessment and Plan: hemoglobin up to 10.7 Subjective Date/time seen: 03/04/21 15:18 Interval history: alert. weak thirsty. I helped her drink water. Review of Systems Cardiovascular: Cardiovascular: Reports no additional cardiovascular complaints Respiratory: Respiratory: Reports no additional respiratory complaints Gastrointestinal: Gastrointestinal: Reports no additional gastrointestinal complaints Genitourinary: Genitourinary: Reports no additional female genitourinary complaints Exam Narrative: WDWN in NAD skin no rash head ncat lungs clear cor reg no rub abd BS+ nontender and soft colostomy present ext no edema. Objective Data Vital Signs Vital Signs: Vital Signs - 24 hr 03/03/21 15:38 03/03/21 20:00 03/04/21 00:00 Temperature 36.9 C 36.5 C Pulse Rate 87 87 83 Respiratory Rate 18 18 18 Blood Pressure 101/61 109/47 L Pulse Oximetry 92 92 96 03/04/21 08:00 03/04/21 09:28 Temperature 36.2 C L Pulse Rate 87 Respiratory Rate 18 Blood Pressure 110/46 L Pulse Oximetry 96 Intake/Output Intake/Output: Intake & Output 03/01/21 03/02/21 03/03/21 03/04/21 23:59 23:59 23:59 23:59 Intake Total 058 618 9392 740 Output Total 1380 1390 1340 1110 Zdffkyg -520 -410 -220 -370 Meds/Results Medications: Active Medications Generic Name Dose Route Start Last Admin Trade Name Freq PRN Reason Stop Dose Admin Acetaminophen 650 mg 03/02/21 08:36 Acetaminophen 325 Mg Tablet PO Q6H PRN Mild Pain (1-3) or Fever Hydrocodone Bitart/Acetaminophen 1 tab 03/02/21 08:36 Hydrocodone/Acetaminophen (*Crx) 5-325 Mg Tablet PO Q4H PRN Pain Rated 4-6 Hydrocodone Bitart/Acetaminophen 1 tab 03/02/21 08:36 Hydrocodone/Acetaminophen (*Crx) 10-325 Mg Tablet PO Q4H PRN Pain Rated 7-10 Enoxaparin Sodium 30 mg 02/25/21 09:00 03/04/21 08:40 Enoxaparin 30 Mg/0.3 Ml Syringe SUB-Q 30 mg DAILY LIVIER Administration Piperacillin Sod/Tazobactam Sod 2.25 gm in 50 mls @ 100 mls/hr 02/25/21 09:00 03/04/21 09:10 Zosyn 2.25 Gm/D5w 50 Ml IVPB Infused Q8H LIVIER Infusion Naloxone HCl 0.1 mg 02/25/21 04:21 Naloxone Hcl 0.4 Mg/Ml Vial IV PUSH Q2M PRN Opiate Reversal Ondansetron HCl 4 mg 02/25/21 04:21 Ondansetron Inj 4 Mg/2 Ml Vial IV PUSH Q4H PRN Nausea And Vomiting Pantoprazole Sodium 40 mg 02/25/21 21:00 03/04/21 08:39 Pantoprazole Sodium Iv 40 Mg Vial IV PUSH 40 mg Q12HR LIVIER Administration Sodium Chloride 10 ml 02/25/21 10:14 Central Line Flush IV PUSH PRN PRN with TPN bag changes Sodium Chloride 20 ml 02/25/21 10:14 Central Line Flush IV PUSH PRN PRN
--- NOTE | 2021-03-04 15:35 | PC.NURSE ---
Wound photos uploaded to computer, pt has maceration and purple area to buttocks, wound care nurse called and updated
[2021-03-04 16:00] VITALS: BP 126/54; PULSE 78; RESP 18; TEMP 36.8; O2SAT 98
--- NOTE | 2021-03-04 18:27 | PC.NURSE ---
spoke with pt's son and gave him an update on labs and condition
[2021-03-04 20:50] VITALS: O2SAT 98
[2021-03-04 20:52] VITALS: BP 104/41; PULSE 97; RESP 16; TEMP 36.2; O2SAT 98
[2021-03-05] MEDS: ENOXAPARIN 30 MG/0.3 ML SYRINGE SUB-Q (09:18)
[2021-03-05] MEDS: PANTOPRAZOLE SODIUM IV 40 MG VIAL IV PUSH ×2 (09:18→22:35)
--- NOTE | 2021-03-05 09:30 | PM.PNGS ---
Progress Note: A&P Assessment and Plan (1) Colon perforation: Onset Date: ~01/2021 Code(s): K63.1 - Perforation of intestine (nontraumatic) Status: Acute Assessment and Plan: slowly improving, cont to encourage po and supplementation, OOB/IS, PT/OT, await rehab placment Subjective Subjective Date/Time Seen: 03/05/21 09:30 feels better today, still quite weak Review of Systems Review of Systems: All systems reviewed & are unremarkable except as noted in HPI and below Exam Const: General: cooperative, comfortable, no acute distress and ill appearing Orientation/consciousness: oriented to person and oriented to place Resp: Auscultation: diminished lung sounds Cardio: Rate: regular rate Rhythm: regular rhythm GI: Inspection: normal to inspection and incision GI Palp: Yes Soft to palpation, No Tenderness to palpation present (GI), No Guarding due to palpation present (GI) and No Rigid due to palpation Other: ostomy - +fxn, drains s/s output Objective Data Vital Signs Vital Signs: Vital Signs - 24 hr 03/04/21 16:00 03/04/21 20:50 03/04/21 20:52 Temperature 36.8 C 36.2 C L Pulse Rate 78 97 Respiratory Rate 18 16 Blood Pressure 126/54 L 104/41 L Pulse Oximetry 98 98 98 Intake/Output Intake/Output: Intake & Output 03/02/21 03/03/21 03/04/21 03/05/21 23:59 23:59 23:59 23:59 Intake Total 980 1120 790 50 Output Total 1390 1340 1535 360 [facility] -410 -220 -745 -310 Meds/Results Medications: Active Medications Generic Name Dose Route Start Last Admin Trade Name Freq PRN Reason Stop Dose Admin Acetaminophen 650 mg 03/02/21 08:36 Acetaminophen 325 Mg Tablet PO Q6H PRN Mild Pain (1-3) or Fever Hydrocodone Bitart/Acetaminophen 1 tab 03/02/21 08:36 Hydrocodone/Acetaminophen (*Crx) 5-325 Mg Tablet PO Q4H PRN Pain Rated 4-6 Hydrocodone Bitart/Acetaminophen 1 tab 03/02/21 08:36 Hydrocodone/Acetaminophen (*Crx) 10-325 Mg Tablet PO Q4H PRN Pain Rated 7-10 Enoxaparin Sodium 30 mg 02/25/21 09:00 03/05/21 09:18 Enoxaparin 30 Mg/0.3 Ml Syringe SUB-Q 30 mg DAILY LIVIER Administration Piperacillin Sod/Tazobactam Sod 2.25 gm in 50 mls @ 100 mls/hr 02/25/21 09:00 03/05/21 09:18 Zosyn 2.25 Gm/D5w 50 Ml IVPB 100 mls/hr Q8H LIVIER Administration Miconazole Nitrate 1 applic 03/04/21 09:00 03/05/21 09:20 Miconazole 2% Antifungal Ointment 56 Gm TOPICAL 1 applic Q12HR LIVIER Administration Naloxone HCl 0.1 mg 02/25/21 04:21 Naloxone Hcl 0.4 Mg/Ml Vial IV PUSH Q2M PRN Opiate Reversal Ondansetron HCl 4 mg 02/25/21 04:21 Ondansetron Inj 4 Mg/2 Ml Vial IV PUSH Q4H PRN Nausea And Vomiting Pantoprazole Sodium 40 mg 02/25/21 21:00 03/05/21 09:18 Pantoprazole Sodium Iv 40 Mg Vial IV PUSH 40 mg Q12HR LIVIER Administration Sodium Chloride 10 ml 02/25/21 10:14 Central Line Flush IV PUSH PRN PRN with TPN bag changes Sodium Chloride 20 ml 02/25/21 10:14 Central Line Flush IV PUSH PRN PRN after blood draws Radiology Results: ITS Impressions Renal Ultrasound 02/28/21 16:22 IMPRESSION: 1. Normal kidneys without hydronephrosis. Chest X-Ray 03/01/21 08:11 IMPRESSION: Persistent congestive changes and bilateral pulmonary infiltrates involving particularly the lower lobes, bilateral pleural effusions; little interval change since 02/28/2021. Congestive changes are suspected. Pneumonia is not excluded. Abdomen/Pelvis CT 03/01/21 11:38 IMPRESSION: 1. 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 2. Subjective decreased in size suggesting interval surgical decompression of a region of small amount of gas and mixed attenuation fluid within the left iliopsoas muscle which was previously
--- NOTE | 2021-03-05 11:30 | WPDCN ---
Assessment and Plan Assessment and plan (1) Acute respiratory failure: Code(s): J96.00 - Acute respiratory failure, unspecified whether with hypoxia or hypercapnia Status: Acute Assessment and Plan: Resolved acute respiratory failure likely related to postoperative. -extubated on 02/25 -continue stool be on 3 L via nasal cannula -chest x-ray shows pulmonary vascular congestion/pleural effusion. repeat chest x-ray. - encourage incentive spirometry -up to chair (2) Colon perforation: Onset Date: ~01/2021 Code(s): K63.1 - Perforation of intestine (nontraumatic) Status: Acute Assessment and Plan: 02/25/2021 status post ex lap with extensive lysis of adhesions, takedown of colovesical and colosacral fistula, sigmoid colon resection, repair of colovesical fistula, history of retroperitoneal abscess, mobilization of splenic flexure and creation of end colostomy -surgery following the patient -continue Zosyn -pain control with p.r.n. fentanyl -patient was started on clear liquid diet per surgery. - healthy colostomy stoma with stool in bag. (3) Intra-abdominal abscess: Code(s): K65.1 - Peritoneal abscess Status: Acute Assessment and Plan: As above (4) Sepsis: Code(s): A41.9 - Sepsis, unspecified organism Status: Acute Assessment and Plan: Blood pressures have been borderline, patient has received 3 L in the OR -patient is received adequate amount of IV fluids since admission, packed RBCs and FFP. -lactic acid is improved -WBC count is improving -will discontinue bicarb infusion 02/26/21 -continue Zosyn (02/25) -02/25/2021: Blood cultures negative x2, preliminary result -02/25/2021: Urine culture pending - Patient remains hemodynamically stable, soft blood pressure in the 104/41-126/54 range. (5) DVT prophylaxis: Code(s): Z29.9 - Encounter for prophylactic measures, unspecified Status: Acute Assessment and Plan: Discussed with surgery, will restart Lovenox today 02/27/2021 (6) Acute kidney injury: Code(s): N17.9 - Acute kidney failure, unspecified Status: Acute Assessment and Plan: resolving acute kidney injury likely ischemic ATN related to hypotension, shock. - creatinine is improving slowly which is very encouraging with a creatinine of of 1.3 today. Hypokalemia at 3.0 was supplemented. -nephrology has been consulted; Appreciate recommendations. Additional Plan Discussed with surgery Code status: Full code Critical care time spent: 32 minutes This dictation may have been done utilizing a voice recognition system. Attempts have been made to correct errors. However, there may be uncorrected grammatical, spelling, and recognition errors present. 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 On admission she was septic and hemodynamically unstable with a blood pressure of 74/46-83/48. She was diagnosed with sepsis secondary to colonic perforation. She underwent emergent exploratory laparotomy, extensive lysis of adhesions of approximately 45 minutes with takedown of colovesical and colo sacral fistula, sigmoid colon resection, repair of colovesical fistula, drainage of retroperitoneal abscess, mobilization of splenic flexure, creation of end colostomy. She had a very complicated in hospital stay with the development of Postop respiratory failure, status post ex lap with extensive lysis of adhesions, takedown of colovesical and colosacral fistula, sigmoid colon resection, repair of colovesical fistula, history of
[2021-03-05 15:09] VITALS: BP 109/38; PULSE 89; RESP 24; TEMP 36.1; O2SAT 100
[2021-03-05] MEDS: POTASSIUM CHLORIDE INJ 40 MEQ in SODIUM CHLORIDE 0.9% IV 500 ML 130 MEQ IVPB (15:16)
--- NOTE | 2021-03-05 19:48 | PC.NURSE ---
03/05/21--Pip/José for this patient was ended during shift report. MAR documentation supports start and end time 1 minute apart. RN unsure as to why start time was not documented, however, RN did stop completed infusion during bedside shift report.
[2021-03-05 20:19] VITALS: BP 110/48; PULSE 90; RESP 20; TEMP 36.2; O2SAT 99
[2021-03-05 22:42] VITALS: O2SAT 99
[2021-03-06] MEDS: MAGNES & ALUM HYD/SIMETH/DIPHENHYD/LIDOCAINE 119 ML MOUTHWASH BY MOUTH ×5 (00:36→22:21)
[2021-03-06 05:54] VITALS: BP 121/51; PULSE 90; RESP 17; TEMP 36.3; O2SAT 96
[2021-03-06] MEDS: ENOXAPARIN 30 MG/0.3 ML SYRINGE SUB-Q (09:13)
[2021-03-06] MEDS: PANTOPRAZOLE SODIUM IV 40 MG VIAL IV PUSH ×2 (09:14→22:16)
--- NOTE | 2021-03-06 11:56 | PM.PNGS ---
Progress Note: A&P Assessment and Plan (1) Colon perforation: Onset Date: ~01/2021 Code(s): K63.1 - Perforation of intestine (nontraumatic) Status: Acute Assessment and Plan: slowly improving, cont abx, drains, encourage po, OOB, PT/OT, awaiting disposition to rehab Subjective Subjective Date/Time Seen: 03/06/21 11:56 more alert today, feels better Review of Systems Review of Systems: All systems reviewed & are unremarkable except as noted in HPI and below Exam Resp: Auscultation: clear to auscultation bilaterally Cardio: Rate: regular rate Rhythm: regular rhythm GI: Inspection: normal to inspection, non-distended and incision GI Palp: Yes Soft to palpation and No Tenderness to palpation present (GI) Other: ostomy - viable, +fxn Objective Data Vital Signs Vital Signs: Vital Signs - 24 hr 03/05/21 15:09 03/05/21 20:19 03/05/21 22:42 Temperature 36.1 C L 36.2 C L Pulse Rate 89 90 Respiratory Rate 24 H 20 Blood Pressure 109/38 L 110/48 L Pulse Oximetry 100 99 99 03/06/21 05:54 Temperature 36.3 C L Pulse Rate 90 Respiratory Rate 17 Blood Pressure 121/51 L Pulse Oximetry 96 Intake/Output Intake/Output: Intake & Output 03/03/21 03/04/21 03/05/21 03/06/21 23:59 23:59 23:59 23:59 Intake Total 1120 790 550 500 Output Total 1340 1535 640 202 Balance -220 -745 -90 298 Meds/Results Medications: Active Medications Generic Name Dose Route Start Last Admin Trade Name Freq PRN Reason Stop Dose Admin Acetaminophen 650 mg 03/02/21 08:36 Acetaminophen 325 Mg Tablet PO Q6H PRN Mild Pain (1-3) or Fever Hydrocodone Bitart/Acetaminophen 1 tab 03/02/21 08:36 Hydrocodone/Acetaminophen (*Crx) 5-325 Mg Tablet PO Q4H PRN Pain Rated 4-6 Hydrocodone Bitart/Acetaminophen 1 tab 03/02/21 08:36 Hydrocodone/Acetaminophen (*Crx) 10-325 Mg Tablet PO Q4H PRN Pain Rated 7-10 Enoxaparin Sodium 30 mg 02/25/21 09:00 03/06/21 09:13 Enoxaparin 30 Mg/0.3 Ml Syringe SUB-Q 30 mg DAILY LIVIER Administration Piperacillin Sod/Tazobactam Sod 2.25 gm in 50 mls @ 100 mls/hr 02/25/21 09:00 03/06/21 09:31 Zosyn 2.25 Gm/D5w 50 Ml IVPB 100 mls/hr Q8H LIVIER Administration Lidocaine/Diphenhydr/Alum/Mg/Simeth 5 ml 03/06/21 01:00 03/06/21 09:13 Magnes & Alum Hyd/Simeth/Diphenhyd/Lidocaine 119 Ml Mouthwash BY MOUTH 04/05/21 00:59 5 ml Q4HR LIVIER Administration Miconazole Nitrate 1 applic 03/04/21 09:00 03/06/21 09:14 Miconazole 2% Antifungal Ointment 56 Gm TOPICAL 1 applic Q12HR LIVIER Administration Miscellaneous Information 0 each 03/06/21 00:01 Please Renew Piperacillin/José Order If Patient Still Needs XX 04/05/21 00:00 CLARIFY LIVIER Naloxone HCl 0.1 mg 02/25/21 04:21 Naloxone Hcl 0.4 Mg/Ml Vial IV PUSH Q2M PRN Opiate Reversal Ondansetron HCl 4 mg 02/25/21 04:21 Ondansetron Inj 4 Mg/2 Ml Vial IV PUSH Q4H PRN Nausea And Vomiting Pantoprazole Sodium 40 mg 02/25/21 21:00 03/06/21 09:14 Pantoprazole Sodium Iv 40 Mg Vial IV PUSH 40 mg Q12HR LIVIER Administration Sodium Chloride 10 ml 02/25/21 10:14 Central Line Flush IV PUSH PRN PRN with TPN bag changes Sodium Chloride 20 ml 02/25/21 10:14 Central Line Flush IV PUSH PRN PRN after blood draws Radiology Results: ITS Impressions Renal Ultrasound 02/28/21 16:22 IMPRESSION: 1. Normal kidneys without hydronephrosis. Chest X-Ray 03/01/21 08:11 IMPRESSION: Persistent congestive changes and bilateral pulmonary infiltrates involving particularly the lower lobes, bilateral pleural effusions; little interval change since 02/28/2021. Congestive changes are suspected. Pneumonia is not excluded. Abdomen/Pelvis CT 03/01/21 11:38 IMPRESSION: 1. Postoperative change of interval partial colectomy with Toth's pouch and left lower quadrant end ostomy, likely colostomy although the small b
--- NOTE | 2021-03-06 14:30 | PM.IMPN ---
Progress Note: A&P Assessment and Plan (1) Acute respiratory failure: Code(s): J96.00 - Acute respiratory failure, unspecified whether with hypoxia or hypercapnia Status: Acute Assessment and Plan: Resolved acute respiratory failure likely related to postoperative. Acute respiratory failure -rapid COVID antigen positive -chest x-ray suggestive of pneumonia versus pulmonary edema. -patient started on droplet isolation. -she required modest oxygen supplementation with 2 L oxygen via nasal cannula. -extubated on 02/25 -continue stool be on 3 L via nasal cannula -chest x-ray shows pulmonary vascular congestion/pleural effusion. repeat chest x-ray. - encourage incentive spirometry -up to chair (2) Colon perforation: Onset Date: ~01/2021 Code(s): K63.1 - Perforation of intestine (nontraumatic) Status: Acute Assessment and Plan: 02/25/2021 status post ex lap with extensive lysis of adhesions, takedown of colovesical and colosacral fistula, sigmoid colon resection, repair of colovesical fistula, history of retroperitoneal abscess, mobilization of splenic flexure and creation of end colostomy -surgery following the patient -continue Zosyn -pain control with p.r.n. fentanyl -patient was started on clear liquid diet per surgery. - healthy colostomy stoma with stool in bag. (3) Intra-abdominal abscess: Code(s): K65.1 - Peritoneal abscess Status: Acute Assessment and Plan: As above (4) Sepsis: Code(s): A41.9 - Sepsis, unspecified organism Status: Acute Assessment and Plan: Blood pressures have been borderline, patient has received 3 L in the OR -patient is received adequate amount of IV fluids since admission, packed RBCs and FFP. -lactic acid is improved -WBC count is improving -will discontinue bicarb infusion 02/26/21 -continue Zosyn (02/25) -02/25/2021: Blood cultures negative x2, preliminary result -02/25/2021: Urine culture pending - Patient remains hemodynamically stable, soft blood pressure in the 104/41-126/54 range. (5) DVT prophylaxis: Code(s): Z29.9 - Encounter for prophylactic measures, unspecified Status: Acute Assessment and Plan: Discussed with surgery, will restart Lovenox today 02/27/2021 (6) Acute kidney injury: Code(s): N17.9 - Acute kidney failure, unspecified Status: Acute Assessment and Plan: resolving acute kidney injury likely ischemic ATN related to hypotension, shock. - creatinine is improving slowly which is very encouraging with a creatinine of of 1.3 today. Hypokalemia at 3.0 was supplemented. -nephrology has been consulted; Appreciate recommendations. Additional Plan Discussed with surgery Code status: Full code Critical care time spent: 32 minutes This dictation may have been done utilizing a voice recognition system. Attempts have been made to correct errors. However, there may be uncorrected grammatical, spelling, and recognition errors present. Subjective Date/time seen: 03/06/21 14:30 S: Patient seen and examined at the bedside. She is sleepy and lethargic. Later during the day she became hypoxic. COVID PCR was positive. Review of Systems Review of Systems: All systems reviewed & are unremarkable except as noted in HPI and below ROS unobtainable: Yes unobtainable due to endotracheal tube Constitutional: Constitutional: Reports as per HPI, Reports fatigue, Reports poor appetite, Reports weakness and Reports weight loss Eyes: Eyes: Reports as per HPI, Reports no additional eye complaints and Denies blurry vision ENT: Reports system reviewed and no additional complaints, except as documented, Reports as per HPI and Denies epistaxis Cardiovascular: Cardiovascular: Reports as per HPI, Reports no additional cardiovascular complaints, Reports acrocyanosis, Denies chest pain, Denies chest pain at rest and Denies dyspnea Respiratory: Respiratory: Reports as per HPI, Re
[2021-03-06 15:00] VITALS: BP 127/52; PULSE 79; RESP 18; O2SAT 84
--- NOTE | 2021-03-06 15:21 | PC.NURSE ---
Addendum entered by Jacki Palmer RN 03/06/21 16:02: 1530: Called Dr. West at ths time, aware of patient decreased oxygen level and bluish fingers, stated to call hospitals and to order a chest x ray. 15:[address] Forde at this time, aware of patient low oxygen level that measures at 85% and fingers are bluish, stated to recheck O2 in 20 minutes and to apply warm blanket. Original Note: 1502: Vital signs were taken at this time. Patient fingers are blue and clammy and oxygen level measures at 80-85% on 4L. Rechecked oxygen several times no change. Encourage patient to take deep breath, no change in oxygen level.
[2021-03-06 16:53] LABS: Hematocrit 36.1 % (37.0-47.0); Hemoglobin 11.3 g/dL (12.0-15.0); Mean Corpuscular HGB Conc 31.3 g/dl (32-36); Mean Corpuscular Hemoglobin 28.1 pg (26-34); Mean Corpuscular Volume 89.8 fl (80-100); Mean Platelet Volume 11.2 fl (7.4-10.4); Platelet Count Result 211 k/mm3 (150-375); Red Blood Count 4.02 M/mm3 (4.2-5.4); Red Cell Distribution Width 18.7 % (11.5-14.5); White Blood Count 20.1 K/mm3 (4.5-10.0)
[2021-03-06 17:03] LABS: Anion Gap 9 mmol/L (8-16); Blood Urea Nitrogen 34 mg/dL (7-17); Calcium 8.3 mg/dL (8.4-10.2); Carbon Dioxide 22 mmol/L (22-30); Chloride 110 mmol/L (98-107); Estimated Glomerular Filt Rate 43; Glucose 133 mg/dL (65-110); Potassium 4.1 mmol/L (3.4-5.0); Sodium 141 mmol/L (137-145)
[2021-03-06 17:14] LABS: Alveolar/Arterial O2 Gradient 47.5 mmHg; Base Excess ABG 0.5 mEq/l (+/-2.0); Fractional Inspired Oxygen 24 %; HCO3 ABG 23.2 mEq/l (22.0-26.0); Oxygen Saturation ABG 97.3 % (95.0-100.0); Oxyhemoglobin 95.5 % THb (90.0-100.0); PCO2 ABG 30.9 mmHg (35.0-45.0); PO2 ABG 86.9 mmHg (80.0-100.0); PO2 FiO2 Ratio Arterial Blood 3.62 %; Total Hemoglobin 11.1 g/dL (12.0-18.0); pH ABG 7.493 (7.350-7.450)
[2021-03-06 17:15] LABS: Device NASAL CANNULA; Modified Allen's Test Pass; Site Drawn RIGHT RADIAL
[2021-03-06 17:27] LABS: EDCOVIDSCREEN Positive (Negative)
[2021-03-06 18:31] LABS: Band Neutrophils Percent 4 % (0-6); Monocytes Percent Manual 6 % (3-9); Neutrophils Absolute Manual 17.68 K/mm3 (1.7-7.2); Neutrophils Percent Manual 84 % (46-73); Total Cells Counted 100
[2021-03-06 18:32] LABS: Anisocytosis 2+ (NORMAL); Hypochromasia 1+ (NORMAL); Platelet Estimate Adequate (Adequate)
[2021-03-06] MEDS: SODIUM CHLORIDE 0.9% IV 1,000 ML 25 ML IV CONT (22:20)
[2021-03-06 22:21] VITALS: O2SAT 99
[2021-03-07 00:36] LABS: Influenza Control Positive
[2021-03-07] MEDS: MAGNES & ALUM HYD/SIMETH/DIPHENHYD/LIDOCAINE 119 ML MOUTHWASH BY MOUTH ×6 (01:17→20:56)
[2021-03-07 04:00] VITALS: BP 108/44; PULSE 74; RESP 16; TEMP 36.9; O2SAT 100
[2021-03-07 08:00] VITALS: BP 137/100; PULSE 81; RESP 16; TEMP 35.9; O2SAT 100; O2SAT 90
--- NOTE | 2021-03-07 10:06 | PM.PNGS ---
Progress Note: A&P Assessment and Plan (1) Colon perforation: Onset Date: ~01/2021 Code(s): K63.1 - Perforation of intestine (nontraumatic) Status: Acute Assessment and Plan: stable, cont drain, abx, encourage diet (2) COVID: Code(s): U07.1 - COVID-19 Status: Acute Assessment and Plan: supportive care, isolation precautions Subjective Subjective Date/Time Seen: 03/07/21 10:00 events noted, appreciate hospitalist input and help, feels ok this am Review of Systems Review of Systems: All systems reviewed & are unremarkable except as noted in HPI and below Exam Const: General: cooperative, comfortable and no acute distress Resp: Effort & Inspection: normal respiratory effort Auscultation: diminished lung sounds Cardio: Rate: regular rate Rhythm: regular rhythm GI: Inspection: normal to inspection GI Palp: Yes Soft to palpation, No Tenderness to palpation present (GI), No Guarding due to palpation present (GI) and No Rigid due to palpation Other: ostomy - +fxn Objective Data Vital Signs Vital Signs: Vital Signs - 24 hr 03/06/21 15:00 03/06/21 22:21 03/07/21 04:00 Temperature 36.9 C Pulse Rate 79 74 Respiratory Rate 18 16 Blood Pressure 127/52 L 108/44 L Pulse Oximetry 84 L 99 100 03/07/21 08:00 Temperature 35.9 C L Pulse Rate 81 Respiratory Rate 16 Blood Pressure 137/100 H Pulse Oximetry 90 Intake/Output Intake/Output: Intake & Output 03/04/21 03/05/21 03/06/21 03/07/21 23:59 23:59 23:59 23:59 Intake Total 790 550 550 Output Total 1535 640 482 Balance -745 -90 68 Meds/Results Medications: Active Medications Generic Name Dose Route Start Last Admin Trade Name Freq PRN Reason Stop Dose Admin Acetaminophen 650 mg 03/02/21 08:36 Acetaminophen 325 Mg Tablet PO Q6H PRN Mild Pain (1-3) or Fever Hydrocodone Bitart/Acetaminophen 1 tab 03/02/21 08:36 Hydrocodone/Acetaminophen (*Crx) 5-325 Mg Tablet PO Q4H PRN Pain Rated 4-6 Hydrocodone Bitart/Acetaminophen 1 tab 03/02/21 08:36 Hydrocodone/Acetaminophen (*Crx) 10-325 Mg Tablet PO Q4H PRN Pain Rated 7-10 Enoxaparin Sodium 30 mg 02/25/21 09:00 03/06/21 09:13 Enoxaparin 30 Mg/0.3 Ml Syringe SUB-Q 30 mg DAILY LIVIER Administration Sodium Chloride 1,000 mls @ 25 mls/hr 03/06/21 20:45 03/06/21 22:20 Normal Saline Iv IV CONT 25 mls/hr .Q24H LIVIER Administration Piperacillin Sod/Tazobactam Sod 2.25 gm in 50 mls @ 100 mls/hr 03/07/21 10:00 Zosyn 2.25 Gm/D5w 50 Ml IVPB 03/11/21 09:59 Q8H LIVIER Lidocaine/Diphenhydr/Alum/Mg/Simeth 5 ml 03/06/21 01:00 03/07/21 04:18 Magnes & Alum Hyd/Simeth/Diphenhyd/Lidocaine 119 Ml Mouthwash BY MOUTH 04/05/21 00:59 5 ml Q4HR LIVIER Administration Miconazole Nitrate 1 applic 03/04/21 09:00 03/06/21 22:16 Miconazole 2% Antifungal Ointment 56 Gm TOPICAL 1 applic Q12HR LIVIER Administration Naloxone HCl 0.1 mg 02/25/21 04:21 Naloxone Hcl 0.4 Mg/Ml Vial IV PUSH Q2M PRN Opiate Reversal Ondansetron HCl 4 mg 02/25/21 04:21 Ondansetron Inj 4 Mg/2 Ml Vial IV PUSH Q4H PRN Nausea And Vomiting Pantoprazole Sodium 40 mg 02/25/21 21:00 03/06/21 22:16 Pantoprazole Sodium Iv 40 Mg Vial IV PUSH 40 mg Q12HR LIVIER Administration Sodium Chloride 10 ml 02/25/21 10:14 Central Line Flush IV PUSH PRN PRN with TPN bag changes Sodium Chloride 20 ml 02/25/21 10:14 Central Line Flush IV PUSH PRN PRN after blood draws Radiology Results: ITS Impressions Renal Ultrasound 02/28/21 16:22 IMPRESSION: 1. Normal kidneys without hydronephrosis. Abdomen/Pelvis CT 03/01/21 11:38 IMPRESSION: 1. 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 2. Subjecti
[2021-03-07] MEDS: PANTOPRAZOLE SODIUM IV 40 MG VIAL IV PUSH ×2 (10:11→21:03)
[2021-03-07] MEDS: ENOXAPARIN 30 MG/0.3 ML SYRINGE SUB-Q (10:14)
--- NOTE | 2021-03-07 10:51 | PM.IMPN ---
Progress Note: A&P Assessment and Plan (1) Acute respiratory failure: Code(s): J96.00 - Acute respiratory failure, unspecified whether with hypoxia or hypercapnia Status: Acute Assessment and Plan: Resolved acute respiratory failure likely related to postoperative. -extubated on 02/25 -continue stool be on 3 L via nasal cannula -chest x-ray shows pulmonary vascular congestion/pleural effusion. repeat chest x-ray. - encourage incentive spirometry -up to chair (2) Colon perforation: Onset Date: ~01/2021 Code(s): K63.1 - Perforation of intestine (nontraumatic) Status: Acute Assessment and Plan: 02/25/2021 status post ex lap with extensive lysis of adhesions, takedown of colovesical and colosacral fistula, sigmoid colon resection, repair of colovesical fistula, history of retroperitoneal abscess, mobilization of splenic flexure and creation of end colostomy -surgery following the patient -continue Zosyn -pain control with p.r.n. fentanyl -patient was started on clear liquid diet per surgery. - healthy colostomy stoma with stool in bag. (3) Intra-abdominal abscess: Code(s): K65.1 - Peritoneal abscess Status: Acute Assessment and Plan: As above (4) Sepsis: Code(s): A41.9 - Sepsis, unspecified organism Status: Acute Assessment and Plan: Blood pressures have been borderline, patient has received 3 L in the OR -patient is received adequate amount of IV fluids since admission, packed RBCs and FFP. -lactic acid is improved -WBC count is improving -will discontinue bicarb infusion 02/26/21 -continue Zosyn (02/25) -02/25/2021: Blood cultures negative x2, preliminary result -02/25/2021: Urine culture pending - Patient remains hemodynamically stable, soft blood pressure in the 104/41-126/54 range. (5) DVT prophylaxis: Code(s): Z29.9 - Encounter for prophylactic measures, unspecified Status: Acute Assessment and Plan: Discussed with surgery, will restart Lovenox today 02/27/2021 (6) Acute kidney injury: Code(s): N17.9 - Acute kidney failure, unspecified Status: Acute Assessment and Plan: resolving acute kidney injury likely ischemic ATN related to hypotension, shock. - creatinine is improving slowly which is very encouraging with a creatinine of of 1.3 today. Hypokalemia at 3.0 was supplemented. -nephrology has been consulted; Appreciate recommendations. Additional Plan 03/07/2021 Will continue current treatment with antibiotics, abdominal drain. Continue to use oxygen as needed. Increase activity and diet. Monitor CBC and electrolytes. Subjective Date/time seen: 03/07/21 10:51 Patient was seen during the morning rounds today. Feeling much better today. Mild shortness of breath no chest pain. Decreased abdominal pain, nausea, no vomiting. Mood stable Review of Systems Review of Systems: All systems reviewed & are unremarkable except as noted in HPI and below ROS unobtainable: Yes unobtainable due to endotracheal tube Constitutional: Constitutional: Reports as per HPI, Reports fatigue, Reports poor appetite, Reports weakness and Reports weight loss Eyes: Eyes: Reports as per HPI, Reports no additional eye complaints and Denies blurry vision ENT: Reports system reviewed and no additional complaints, except as documented, Reports as per HPI and Denies epistaxis Cardiovascular: Cardiovascular: Reports as per HPI, Reports no additional cardiovascular complaints, Reports acrocyanosis, Denies chest pain, Denies chest pain at rest and Denies dyspnea Respiratory: Respiratory: Reports as per HPI, Reports no additional respiratory complaints and Denies dyspnea Gastrointestinal: Gastrointestinal: Reports as per HPI and Reports no additional gastrointestinal complaints Genitourinary: Genitourinary: Reports no additional female genitourinary complaints and Reports as per HPI Musculoskeletal: Musculoskeletal: Reports n
[2021-03-07 12:00] VITALS: BP 129/81; PULSE 89; RESP 16; TEMP 36.6; O2SAT 90
[2021-03-07 14:24] LABS: Basophils Absolute Auto 0.1 K/mm3 (0.0-0.1); Basophils Percent Auto 0.3 % (0.2-1.2); Eosinophils Absolute Auto 0.1 K/mm3 (0-0.3); Eosinophils Percent Auto 0.5 % (0-4.4); Hematocrit 33.1 % (37.0-47.0); Hemoglobin 10.4 g/dL (12.0-15.0); Immature Granulocyte Absolute 0.14 K/mm3 (0.00-0.031); Immature Granulocyte Percent A 0.8 % (0-0.5); Lymphocytes Absolute Auto 1.54 K/mm3 (0.9-3.2); Mean Corpuscular HGB Conc 31.4 g/dl (32-36); Mean Corpuscular Hemoglobin 27.9 pg (26-34); Mean Corpuscular Volume 88.7 fl (80-100); Monocytes Absolute Auto 0.6 K/mm3 (0.1-0.6); Monocytes Percent Auto 3.6 % (2.6-8.5); Neutrophils Absolute Auto 14.7 K/mm3 (1.3-6.7); Neutrophils Percent Auto 85.8 % (45.5-73.1); Platelet Count Result 308 k/mm3 (150-375); Red Blood Count 3.73 M/mm3 (4.2-5.4); White Blood Count 17.1 K/mm3 (4.5-10.0)
[2021-03-07 14:36] LABS: Anion Gap 11 mmol/L (8-16); Blood Urea Nitrogen 31 mg/dL (7-17); Calcium 8.1 mg/dL (8.4-10.2); Carbon Dioxide 22 mmol/L (22-30); Chloride 109 mmol/L (98-107); Estimated Glomerular Filt Rate 43; Glucose 116 mg/dL (65-110); Potassium 3.3 mmol/L (3.4-5.0); Sodium 142 mmol/L (137-145)
[2021-03-07 15:58] VITALS: BP 115/47; PULSE 83; RESP 16; TEMP 36.6; O2SAT 98
[2021-03-07 20:00] VITALS: BP 118/42; PULSE 78; RESP 18; TEMP 36.9; O2SAT 100
[2021-03-08] VITALS: BP 119/52; PULSE 77; RESP 18; TEMP 36.6; O2SAT 97
[2021-03-08] MEDS: MAGNES & ALUM HYD/SIMETH/DIPHENHYD/LIDOCAINE 119 ML MOUTHWASH BY MOUTH ×4 (02:04→20:08)
[2021-03-08 04:00] VITALS: BP 113/48; PULSE 69; RESP 16; TEMP 36.9; O2SAT 96
[2021-03-08 08:00] VITALS: BP 122/57; PULSE 80; RESP 18; TEMP 36.4; O2SAT 96
[2021-03-08] MEDS: ENOXAPARIN 30 MG/0.3 ML SYRINGE SUB-Q (08:52)
[2021-03-08] MEDS: PANTOPRAZOLE SODIUM IV 40 MG VIAL IV PUSH ×2 (08:52→20:08)
[2021-03-08 09:01] LABS: Basophils Absolute Auto 0.1 K/mm3 (0.0-0.1); Basophils Percent Auto 0.6 % (0.2-1.2); Eosinophils Absolute Auto 0.1 K/mm3 (0-0.3); Eosinophils Percent Auto 0.6 % (0-4.4); Hematocrit 36.5 % (37.0-47.0); Immature Granulocyte Absolute 0.09 K/mm3 (0.00-0.031); Immature Granulocyte Percent A 0.7 % (0-0.5); Lymphocytes Absolute Auto 1.26 K/mm3 (0.9-3.2); Lymphocytes Percent Auto 10.2 % (18.3-44.2); Mean Corpuscular HGB Conc 30.1 g/dl (32-36); Mean Corpuscular Hemoglobin 28.4 pg (26-34); Mean Corpuscular Volume 94.1 fl (80-100); Mean Platelet Volume 10.4 fl (7.4-10.4); Monocytes Absolute Auto 0.6 K/mm3 (0.1-0.6); Monocytes Percent Auto 5.2 % (2.6-8.5); Neutrophils Absolute Auto 10.2 K/mm3 (1.3-6.7); Neutrophils Percent Auto 82.7 % (45.5-73.1); Platelet Count Result 269 k/mm3 (150-375); Red Blood Count 3.88 M/mm3 (4.2-5.4); Red Cell Distribution Width 19.7 % (11.5-14.5); White Blood Count 12.4 K/mm3 (4.5-10.0)
[2021-03-08 09:13] LABS: Anion Gap 11 mmol/L (8-16); Blood Urea Nitrogen 27 mg/dL (7-17); Carbon Dioxide 20 mmol/L (22-30); Chloride 112 mmol/L (98-107); Estimated Glomerular Filt Rate 47; Glucose 116 mg/dL (65-110); Potassium 3.2 mmol/L (3.4-5.0); Sodium 143 mmol/L (137-145)
--- NOTE | 2021-03-08 10:04 | PM.PNGS ---
Progress Note: A&P Assessment and Plan (1) Colon perforation: Onset Date: ~01/2021 Code(s): K63.1 - Perforation of intestine (nontraumatic) Status: Acute Assessment and Plan: stable, cont drain/abx, encourage OOB/IS, encourage po (2) COVID: Code(s): U07.1 - COVID-19 Status: Acute Assessment and Plan: supportive care Subjective Subjective Date/Time Seen: 03/08/21 10:04 no acute issues overnight, still quite weak Review of Systems Review of Systems: All systems reviewed & are unremarkable except as noted in HPI and below Exam Const: General: cooperative, comfortable, no acute distress and ill appearing Orientation/consciousness: patient oriented x3 Resp: Effort & Inspection: normal respiratory effort Auscultation: diminished lung sounds Cardio: Rate: regular rate Rhythm: regular rhythm GI: Inspection: normal to inspection, non-distended and incision GI Palp: Yes Soft to palpation, No Tenderness to palpation present (GI), No Guarding due to palpation present (GI) and No Rigid due to palpation Other: incision C/D/I, drain and ASTRID s/s output, ostomy +output Objective Data Vital Signs Vital Signs: Vital Signs - 24 hr 03/07/21 12:00 03/07/21 15:58 03/07/21 20:00 Temperature 36.6 C 36.6 C 36.9 C Pulse Rate 89 83 78 Respiratory Rate 16 16 18 Blood Pressure 129/81 115/47 L 118/42 L Pulse Oximetry 90 98 100 03/08/21 00:00 03/08/21 04:00 Temperature 36.6 C 36.9 C Pulse Rate 77 69 Respiratory Rate 18 16 Blood Pressure 119/52 L 113/48 L Pulse Oximetry 97 96 Intake/Output Intake/Output: Intake & Output 03/05/21 03/06/21 03/07/21 03/08/21 23:59 23:59 23:59 23:59 Intake Total 550 550 200 300 Output Total 640 482 590 Balance -90 68 -390 300 Meds/Results Medications: Active Medications Generic Name Dose Route Start Last Admin Trade Name Freq PRN Reason Stop Dose Admin Acetaminophen 650 mg 03/02/21 08:36 Acetaminophen 325 Mg Tablet PO Q6H PRN Mild Pain (1-3) or Fever Hydrocodone Bitart/Acetaminophen 1 tab 03/02/21 08:36 Hydrocodone/Acetaminophen (*Crx) 5-325 Mg Tablet PO Q4H PRN Pain Rated 4-6 Hydrocodone Bitart/Acetaminophen 1 tab 03/02/21 08:36 Hydrocodone/Acetaminophen (*Crx) 10-325 Mg Tablet PO Q4H PRN Pain Rated 7-10 Enoxaparin Sodium 30 mg 02/25/21 09:00 03/08/21 08:52 Enoxaparin 30 Mg/0.3 Ml Syringe SUB-Q 30 mg DAILY LIVIER Administration Sodium Chloride 1,000 mls @ 25 mls/hr 03/06/21 20:45 03/06/21 22:20 Normal Saline Iv IV CONT 25 mls/hr .Q24H LIVIER Administration Piperacillin Sod/Tazobactam Sod 2.25 gm in 50 mls @ 100 mls/hr 03/07/21 10:00 03/08/21 09:00 Zosyn 2.25 Gm/D5w 50 Ml IVPB 03/11/21 09:59 100 mls/hr Q8H LIVIER Administration Lidocaine/Diphenhydr/Alum/Mg/Simeth 5 ml 03/06/21 01:00 03/08/21 08:59 Magnes & Alum Hyd/Simeth/Diphenhyd/Lidocaine 119 Ml Mouthwash BY MOUTH 04/05/21 00:59 Not Given Q4HR LIVIER Miconazole Nitrate 1 applic 03/04/21 09:00 03/08/21 08:52 Miconazole 2% Antifungal Ointment 56 Gm TOPICAL 1 applic Q12HR LIVIER Administration Naloxone HCl 0.1 mg 02/25/21 04:21 Naloxone Hcl 0.4 Mg/Ml Vial IV PUSH Q2M PRN Opiate Reversal Ondansetron HCl 4 mg 02/25/21 04:21 Ondansetron Inj 4 Mg/2 Ml Vial IV PUSH Q4H PRN Nausea And Vomiting Pantoprazole Sodium 40 mg 02/25/21 21:00 03/08/21 08:52 Pantoprazole Sodium Iv 40 Mg Vial IV PUSH 40 mg Q12HR LIVIER Administration Sodium Chloride 10 ml 02/25/21 10:14 Central Line Flush IV PUSH PRN PRN with TPN bag changes Sodium Chloride 20 ml 02/25/21 10:14 Central Line Flush IV PUSH PRN PRN after blood draws Radiology Results: ITS Impressions Renal Ultrasound 02/28/21 16:22 IMPRESSION: 1. Normal kidneys without hydronephrosis. Abdomen/Pelvis CT 03/01/21 11:38 IMPRESSION: 1. Postoperative change of interval
--- NOTE | 2021-03-08 10:33 | PCNFU ---
Nutrition Follow-Up Complete: Inadequate oral intake related to left groin pain as evidenced by NPO goal: Meet nutritional needs Patient has little progress towards goal. We will continue current goal. Pt current nutrition is Low fiber with Frozen Nutritional Treat and Ensure Surgery BID. Last recorded weight is 51.5 kg, up from 48 kg on admit. Bowel Motility:colostomy Labs Reviewed: Glu 116, Cr 1.2,BUN 31, K 3.3,Hct 33..1,Hgb 10.4 Meds Noted:Lovenox, Protonix, Zosyn Skin: WNL Additional Notes: Spoke with nursing today due to COVID precautions. Patient continues to have poor po intake. Discussed appetite stimulant, Megace. PO intake is encouraged. Diet supplements: Frozen Nutritional Treat (300 kcals/9 gms protein) and Ensure Surgery (330 kcals/18 gms protein. Agree with diet orders. Monitoring: Will monitor every 3 days.
[2021-03-08 12:00] VITALS: BP 116/50; PULSE 89; RESP 18; TEMP 36.8; O2SAT 100
--- NOTE | 2021-03-08 12:59 | PM.IMPN ---
Progress Note: A&P Assessment and Plan (1) Acute respiratory failure: Code(s): J96.00 - Acute respiratory failure, unspecified whether with hypoxia or hypercapnia Status: Acute Assessment and Plan: Acute respiratory failure -rapid COVID antigen positive -chest x-ray suggestive of pneumonia versus pulmonary edema. -patient started on droplet isolation. -she required modest oxygen supplementation with 2 L oxygen via nasal cannula. -extubated on 02/25 -chest x-ray shows pulmonary vascular congestion/pleural effusion. - encourage incentive spirometry -will give IV Lasix (2) Colon perforation: Onset Date: ~01/2021 Code(s): K63.1 - Perforation of intestine (nontraumatic) Status: Acute Assessment and Plan: 02/25/2021 status post ex lap with extensive lysis of adhesions, takedown of colovesical and colosacral fistula, sigmoid colon resection, repair of colovesical fistula, history of retroperitoneal abscess, mobilization of splenic flexure and creation of end colostomy -surgery following the patient -continue Zosyn -pain control with p.r.n. fentanyl -patient was started on clear liquid diet per surgery. - healthy colostomy stoma with stool in bag. (3) Intra-abdominal abscess: Code(s): K65.1 - Peritoneal abscess Status: Acute Assessment and Plan: As above (4) Sepsis: Code(s): A41.9 - Sepsis, unspecified organism Status: Acute Assessment and Plan: Associated with septic shock status post treatment in ICU with pressor Blood pressures have been borderline, patient has received 3 L in the OR -lactic acid is improved -WBC count is improving - discontinue bicarb infusion 02/26/21 -continue Zosyn (02/25) -02/25/2021: Blood cultures negative x2, preliminary result -02/25/2021: Urine culture pending -volume overload diuresis as tolerated (5) DVT prophylaxis: Code(s): Z29.9 - Encounter for prophylactic measures, unspecified Status: Acute Assessment and Plan: Discussed with surgery, will restart Lovenox today 02/27/2021 (6) Acute kidney injury: Code(s): N17.9 - Acute kidney failure, unspecified Status: Acute Assessment and Plan: resolving acute kidney injury likely ischemic ATN related to hypotension, shock. - creatinine is improving slowly . -nephrology has been consulted; Appreciate recommendations. Improved (7) Ulcerative colitis: Code(s): K51.90 - Ulcerative colitis, unspecified, without complications Status: Acute Assessment and Plan: Home medication is on hold (8) Anemia: Qualifiers: Anemia type: iron deficiency Iron deficiency anemia type: unspecified iron deficiency Qualified Code(s): D50.9 - Iron deficiency anemia, unspecified Code(s): D64.9 - Anemia, unspecified Status: Acute Assessment and Plan: Monitor transfuse if hemoglobin below 7 (9) COVID-19: Code(s): U07.1 - COVID-19 Status: Acute Assessment and Plan: Repeat COVID-19 test will consider remdisever r Subjective Date/time seen: 03/08/21 12:59 Interval history: Eli Duarte is a 86 year old lady with previously diagnosed ulcerative colitis, 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 On admission she was septic and hemodynamically unstable with a blood pressure of 74/46-83/48. She was diagnosed with sepsis secondary to colonic perforation. She underwent emergent exploratory laparotomy, extensive lysis of adhesions of approximately 45 minutes with takedown of colovesical and colo sacral fistula, sigmoid colon resection, repair of colovesical fistula, drainage of retroperitoneal abscess, mobilization of splenic flexure, creation of end colostomy. She had a very complicated in hospital stay with the development of Postop respiratory failure, status post ex lap with extensive lysi
[2021-03-08 13:53] LABS: SARS-CoV-2 RNA PCR Negative
[2021-03-08] MEDS: POTASSIUM CHLORIDE INJ 40 MEQ in SODIUM CHLORIDE 0.9% IV 500 ML 130 MEQ IVPB (14:19)
[2021-03-08 16:00] VITALS: BP 106/47; PULSE 84; RESP 16; TEMP 37; O2SAT 100
[2021-03-08] MEDS: PANTOPRAZOLE 40 MG TABLET PO (17:27)
[2021-03-08] MEDS: FUROSEMIDE INJ 40 MG/4 ML VIAL 20 MG IV PUSH (17:27)
[2021-03-08 20:00] VITALS: BP 108/44; PULSE 82; PULSE 84; RESP 16; TEMP 37.1; O2SAT 100
--- NOTE | 2021-03-08 20:04 | PC.NURSE ---
Reported to MD Barnhart purple discoloration on bilateral fingers, stated this finding was not new, and reported, mucous like discharge from perez site, N.o UA with C&s, instructed to change out perez and provide good perineal area then collect sample with re-insertion of new perez.
[2021-03-08] MEDS: SODIUM CHLORIDE 0.9% IV 1,000 ML 25 ML IV CONT (21:46)
[2021-03-08 23:35] LABS: Add Urine Microscopic? YES; Appearance Urine Cloudy (Clear); Bacteria Urine 3+ /hpf; Bilirubin Urine Negative (Negative); Blood Urine 3+ (Negative); Color Urine Yellow (Yellow); Glucose Urine UA Negative (Negative); Ketones Urine Negative (Negative); Leukocyte Esterase Ur 3+ LEU/UL (NEGATIVE); Mucus Urine Rare /lpf; Nitrate Urine Negative (Negative); Protein Urine 1+ mg/dL (Negative); RBC Urine 21-50 /hpf (0-2); Specific Grav Ur 1.012 (1.001-1.035); Urobilinogen Urine Negative mg/dL (<2.0); WBC Clumps Urine Present /HPF; WBC Urine >75 /hpf (0-3)
[2021-03-09] VITALS: BP 110/48; PULSE 78; RESP 18; TEMP 36.8; O2SAT 100
[2021-03-09] MEDS: MAGNES & ALUM HYD/SIMETH/DIPHENHYD/LIDOCAINE 119 ML MOUTHWASH BY MOUTH ×6 (01:08→22:31)
[2021-03-09] MEDS: FLUCONAZOLE 100 MG TABLET PO (01:08)
[2021-03-09 04:00] VITALS: BP 104/52; PULSE 84; RESP 18; TEMP 36.8; O2SAT 100
[2021-03-09 07:36] LABS: Basophils Absolute Auto 0.1 K/mm3 (0.0-0.1); Basophils Percent Auto 0.5 % (0.2-1.2); Eosinophils Absolute Auto 0.1 K/mm3 (0-0.3); Eosinophils Percent Auto 0.9 % (0-4.4); Hematocrit 32.2 % (37.0-47.0); Immature Granulocyte Absolute 0.08 K/mm3 (0.00-0.031); Immature Granulocyte Percent A 0.8 % (0-0.5); Lymphocytes Absolute Auto 1.32 K/mm3 (0.9-3.2); Lymphocytes Percent Auto 13.4 % (18.3-44.2); Mean Corpuscular HGB Conc 31.1 g/dl (32-36); Mean Corpuscular Hemoglobin 27.9 pg (26-34); Mean Corpuscular Volume 89.7 fl (80-100); Mean Platelet Volume 10.7 fl (7.4-10.4); Monocytes Absolute Auto 0.8 K/mm3 (0.1-0.6); Monocytes Percent Auto 7.7 % (2.6-8.5); Neutrophils Absolute Auto 7.6 K/mm3 (1.3-6.7); Neutrophils Percent Auto 76.7 % (45.5-73.1); Platelet Count Result 284 k/mm3 (150-375); Red Blood Count 3.59 M/mm3 (4.2-5.4); Red Cell Distribution Width 19.7 % (11.5-14.5); White Blood Count 9.9 K/mm3 (4.5-10.0)
[2021-03-09 08:04] LABS: Anion Gap 9 mmol/L (8-16); Blood Urea Nitrogen 24 mg/dL (7-17); Calcium 7.9 mg/dL (8.4-10.2); Carbon Dioxide 21 mmol/L (22-30); Chloride 113 mmol/L (98-107); Estimated Glomerular Filt Rate 43; Glucose 136 mg/dL (65-110); Potassium 3.4 mmol/L (3.4-5.0); Sodium 143 mmol/L (137-145)
--- NOTE | 2021-03-09 08:05 | PCOTNOTE ---
Attempted OT tx this AM. Patient refused treatment this session due to being too tired. Agreeable to try later today.
[2021-03-09 08:55] VITALS: O2SAT 100
[2021-03-09] MEDS: PANTOPRAZOLE 40 MG TABLET PO ×2 (10:07→18:23)
[2021-03-09] MEDS: ASPIRIN 81 MG CHEWABLE TABLET PO (10:07)
[2021-03-09] MEDS: ENOXAPARIN 30 MG/0.3 ML SYRINGE SUB-Q (10:08)
[2021-03-09] MEDS: MEGESTROL ACETATE (*CHEMO) ORAL SUSP 40 MG/ML SYR 800 MG PO (10:08)
--- NOTE | 2021-03-09 11:03 | PM.IMPN ---
Progress Note: A&P Assessment and Plan (1) Acute respiratory failure: Code(s): J96.00 - Acute respiratory failure, unspecified whether with hypoxia or hypercapnia Status: Acute Assessment and Plan: Acute respiratory failure -rapid COVID antigen positive confirmatory test was negative DC isolation -chest x-ray suggestive of pneumonia versus pulmonary edema. -she required modest oxygen supplementation with 2 L oxygen via nasal cannula. -extubated on 02/25 -chest x-ray shows pulmonary vascular congestion/pleural effusion. - encourage incentive spirometry -status post IV Lasix daily evaluation (2) Colon perforation: Onset Date: ~01/2021 Code(s): K63.1 - Perforation of intestine (nontraumatic) Status: Acute Assessment and Plan: 02/25/2021 status post ex lap with extensive lysis of adhesions, takedown of colovesical and colosacral fistula, sigmoid colon resection, repair of colovesical fistula, history of retroperitoneal abscess, mobilization of splenic flexure and creation of end colostomy -surgery following the patient -continue Zosyn -pain control with p.r.n. fentanyl -patient was started on clear liquid diet per surgery. - healthy colostomy stoma with stool in bag. (3) Intra-abdominal abscess: Code(s): K65.1 - Peritoneal abscess Status: Acute Assessment and Plan: As above (4) Sepsis: Code(s): A41.9 - Sepsis, unspecified organism Status: Acute Assessment and Plan: Associated with septic shock status post treatment in ICU with pressor Blood pressures have been borderline, patient has received 3 L in the OR -lactic acid is improved -WBC count is improving - discontinue bicarb infusion 02/26/21 -continue Zosyn (02/25) -02/25/2021: Blood cultures negative x2, preliminary result -02/25/2021: Urine culture pending -volume overload diuresis as tolerated (5) DVT prophylaxis: Code(s): Z29.9 - Encounter for prophylactic measures, unspecified Status: Acute Assessment and Plan: Discussed with surgery, will restart Lovenox today 02/27/2021 (6) Acute kidney injury: Code(s): N17.9 - Acute kidney failure, unspecified Status: Acute Assessment and Plan: resolving acute kidney injury likely ischemic ATN related to hypotension, shock. - creatinine is improving slowly . -nephrology has been consulted; Appreciate recommendations. Daily CMP (7) Ulcerative colitis: Code(s): K51.90 - Ulcerative colitis, unspecified, without complications Status: Acute Assessment and Plan: Home medication is on hold (8) Anemia: Qualifiers: Anemia type: iron deficiency Iron deficiency anemia type: unspecified iron deficiency Qualified Code(s): D50.9 - Iron deficiency anemia, unspecified Code(s): D64.9 - Anemia, unspecified Status: Acute Assessment and Plan: Monitor transfuse if hemoglobin below 7 (9) COVID-19: Code(s): U07.1 - COVID-19 Status: Acute Assessment and Plan: COVID 19 infection was ruled out with negative PCR test Subjective Date/time seen: 03/09/21 11:03 Interval history: Eli Duarte is a 86 year old lady with previously diagnosed ulcerative colitis, 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 On admission she was septic and hemodynamically unstable with a blood pressure of 74/46-83/48. She was diagnosed with sepsis secondary to colonic perforation. She underwent emergent exploratory laparotomy, extensive lysis of adhesions of approximately 45 minutes with takedown of colovesical and colo sacral fistula, sigmoid colon resection, repair of colovesical fistula, drainage of retroperitoneal abscess, mobilization of splenic flexure, creation of end colostomy. She had a very complicated in hospital stay with the development of Postop respiratory failure, status
--- NOTE | 2021-03-09 11:31 | PM.PNGS ---
Progress Note: A&P Assessment and Plan (1) Colon perforation: Onset Date: ~01/2021 Code(s): K63.1 - Perforation of intestine (nontraumatic) Status: Acute Assessment and Plan: slowly improving, cont PT/OT, encourage po, awaiting disposition, will remove eugenia/drain prior to dc Subjective Subjective Date/Time Seen: 03/09/21 11:31 feels better today, more energy Review of Systems Review of Systems: All systems reviewed & are unremarkable except as noted in HPI and below Exam Const: General: cooperative, comfortable, no acute distress and ill appearing Resp: Auscultation: clear to auscultation bilaterally Cardio: Rate: regular rate Rhythm: regular rhythm GI: Inspection: normal to inspection, non-distended and incision GI Palp: Yes Soft to palpation and No Tenderness to palpation present (GI) Other: ostomy - C/D/I Objective Data Vital Signs Vital Signs: Vital Signs - 24 hr 03/08/21 12:00 03/08/21 16:00 03/08/21 20:00 Temperature 36.8 C 37.0 C 37.1 C Pulse Rate 89 84 82 Respiratory Rate 18 16 16 Blood Pressure 116/50 L 106/47 L 108/44 L Pulse Oximetry 100 100 100 03/09/21 00:00 03/09/21 04:00 Temperature 36.8 C 36.8 C Pulse Rate 78 84 Respiratory Rate 18 18 Blood Pressure 110/48 L 104/52 L Pulse Oximetry 100 100 Intake/Output Intake/Output: Intake & Output 03/06/21 03/07/21 03/08/21 03/09/21 23:59 23:59 23:59 23:59 Intake Total 808 852 8260 300 Output Total 482 590 100 300 Balance 68 -390 1480 0 Meds/Results Medications: Active Medications Generic Name Dose Route Start Last Admin Trade Name Freq PRN Reason Stop Dose Admin Acetaminophen 650 mg 03/02/21 08:36 Acetaminophen 325 Mg Tablet PO Q6H PRN Mild Pain (1-3) or Fever Hydrocodone Bitart/Acetaminophen 1 tab 03/02/21 08:36 Hydrocodone/Acetaminophen (*Crx) 5-325 Mg Tablet PO Q4H PRN Pain Rated 4-6 Hydrocodone Bitart/Acetaminophen 1 tab 03/02/21 08:36 Hydrocodone/Acetaminophen (*Crx) 10-325 Mg Tablet PO Q4H PRN Pain Rated 7-10 Aspirin 81 mg 03/09/21 09:00 03/09/21 10:07 Aspirin 81 Mg Chewable Tablet PO 81 mg DAILY LIVIER Administration Enoxaparin Sodium 30 mg 02/25/21 09:00 03/09/21 10:08 Enoxaparin 30 Mg/0.3 Ml Syringe SUB-Q 30 mg DAILY LIVIER Administration Sodium Chloride 1,000 mls @ 25 mls/hr 03/06/21 20:45 03/08/21 21:46 Normal Saline Iv IV CONT 25 mls/hr .Q24H LIVIER Administration Piperacillin Sod/Tazobactam Sod 2.25 gm in 50 mls @ 100 mls/hr 03/07/21 10:00 03/09/21 10:09 Zosyn 2.25 Gm/D5w 50 Ml IVPB 03/11/21 09:59 100 mls/hr Q8H LIVIER Administration Lidocaine/Diphenhydr/Alum/Mg/Simeth 5 ml 03/06/21 01:00 03/09/21 10:08 Magnes & Alum Hyd/Simeth/Diphenhyd/Lidocaine 119 Ml Mouthwash BY MOUTH 04/05/21 00:59 5 ml Q4HR LIVIER Administration Megestrol Acetate 800 mg 03/09/21 09:00 03/09/21 10:08 Megestrol Acetate (*Chemo) Oral Susp 40 Mg/Ml Syr PO 800 mg QAM LIVIER Administration Miconazole Nitrate 1 applic 03/04/21 09:00 03/09/21 10:08 Miconazole 2% Antifungal Ointment 56 Gm TOPICAL 1 applic Q12HR LIVIER Administration Naloxone HCl 0.1 mg 02/25/21 04:21 Naloxone Hcl 0.4 Mg/Ml Vial IV PUSH Q2M PRN Opiate Reversal Nystatin 1 applic 03/08/21 23:30 03/09/21 10:07 Nystatin 100,000 Units/Gm Powder 15 Gm Bottle TOPICAL 1 applic Q12HR LIVIER Administration Ondansetron HCl 4 mg 02/25/21 04:21 Ondansetron Inj 4 Mg/2 Ml Vial IV PUSH Q4H PRN Nausea And Vomiting Pantoprazole Sodium 40 mg 03/08/21 17:00 03/09/21 10:07 Pantoprazole 40 Mg Tablet PO 40 mg BID LIVIER Administration Sodium Chloride 10 ml 02/25/21 10:14 Central Line Flush IV PUSH PRN PRN with TPN bag changes Sodium Chloride 20 ml 02/25/21 10:14 Central Line Flush IV PUSH PRN PRN after blood draws Radiology Results: ITS Impressions Renal Ultrasound 02/28/21
[2021-03-09 14:00] VITALS: BP 128/56; PULSE 89; RESP 16; TEMP 36.2; O2SAT 100
--- NOTE | 2021-03-09 14:13 | PCOTNOTE ---
Attempted to see patient this date for occupational therapy, patient declined OT services this date stated I just cant today, please come back tomorrow.
[2021-03-09 20:00] VITALS: PULSE 88; RESP 16; O2SAT 95
[2021-03-09 21:29] VITALS: BP 106/40; PULSE 88; RESP 16; TEMP 36.8; O2SAT 95
[2021-03-10 02:00] VITALS: BP 102/51; PULSE 82; RESP 16; TEMP 36.7; O2SAT 99
[2021-03-10] MEDS: MAGNES & ALUM HYD/SIMETH/DIPHENHYD/LIDOCAINE 119 ML MOUTHWASH BY MOUTH ×5 (05:35→20:07)
[2021-03-10 06:00] VITALS: BP 99/59; PULSE 88; RESP 16; TEMP 36.3; O2SAT 100
[2021-03-10 07:09] LABS: Basophils Absolute Auto 0.1 K/mm3 (0.0-0.1); Basophils Percent Auto 0.6 % (0.2-1.2); Eosinophils Absolute Auto 0.1 K/mm3 (0-0.3); Eosinophils Percent Auto 1.2 % (0-4.4); Hematocrit 36.6 % (37.0-47.0); Hemoglobin 11.1 g/dL (12.0-15.0); Immature Granulocyte Absolute 0.05 K/mm3 (0.00-0.031); Immature Granulocyte Percent A 0.5 % (0-0.5); Immature Platelet Fraction Pct 5.4 % (0.9-11.2); Lymphocytes Absolute Auto 1.41 K/mm3 (0.9-3.2); Lymphocytes Percent Auto 14.4 % (18.3-44.2); Mean Corpuscular HGB Conc 30.3 g/dl (32-36); Mean Corpuscular Hemoglobin 28.1 pg (26-34); Mean Corpuscular Volume 92.7 fl (80-100); Mean Platelet Volume 11.3 fl (7.4-10.4); Monocytes Absolute Auto 0.7 K/mm3 (0.1-0.6); Monocytes Percent Auto 7.5 % (2.6-8.5); Neutrophils Absolute Auto 7.4 K/mm3 (1.3-6.7); Neutrophils Percent Auto 75.8 % (45.5-73.1); Platelet Count Result 223 k/mm3 (150-375); Red Blood Count 3.95 M/mm3 (4.2-5.4); Red Cell Distribution Width 19.9 % (11.5-14.5); White Blood Count 9.8 K/mm3 (4.5-10.0)
[2021-03-10 07:19] LABS: Anion Gap 5 mmol/L (8-16); Blood Urea Nitrogen 21 mg/dL (7-17); Calcium 8.3 mg/dL (8.4-10.2); Carbon Dioxide 22 mmol/L (22-30); Chloride 112 mmol/L (98-107); Estimated Glomerular Filt Rate 53; Glucose 132 mg/dL (65-110); Potassium 3.4 mmol/L (3.4-5.0); Sodium 139 mmol/L (137-145)
[2021-03-10] MEDS: MEGESTROL ACETATE (*CHEMO) ORAL SUSP 40 MG/ML SYR 800 MG PO (07:48)
[2021-03-10] MEDS: ASPIRIN 81 MG CHEWABLE TABLET PO (07:49)
[2021-03-10] MEDS: PANTOPRAZOLE 40 MG TABLET PO ×2 (07:49→17:09)
[2021-03-10] MEDS: ENOXAPARIN 30 MG/0.3 ML SYRINGE SUB-Q (07:49)
[2021-03-10 08:00] VITALS: PULSE 88; RESP 16; O2SAT 100
--- NOTE | 2021-03-10 11:17 | PM.IMPN ---
Progress Note: A&P Assessment and Plan (1) Acute respiratory failure: Code(s): J96.00 - Acute respiratory failure, unspecified whether with hypoxia or hypercapnia Status: Acute Assessment and Plan: Acute respiratory failure -rapid COVID antigen positive confirmatory test was negative DC isolation -chest x-ray suggestive of pneumonia versus pulmonary edema. -she required modest oxygen supplementation with 2 L oxygen via nasal cannula. -extubated on 02/25 -chest x-ray shows pulmonary vascular congestion/pleural effusion. - encourage incentive spirometry -status post IV Lasix daily evaluation -repeat chest x-ray today (2) Colon perforation: Onset Date: ~01/2021 Code(s): K63.1 - Perforation of intestine (nontraumatic) Status: Acute Assessment and Plan: 02/25/2021 status post ex lap with extensive lysis of adhesions, takedown of colovesical and colosacral fistula, sigmoid colon resection, repair of colovesical fistula, history of retroperitoneal abscess, mobilization of splenic flexure and creation of end colostomy -surgery following the patient -continue Zosyn until -pain control with p.r.n. fentanyl -patient was started on clear liquid diet per surgery. - healthy colostomy stoma with stool in bag. (3) Intra-abdominal abscess: Code(s): K65.1 - Peritoneal abscess Status: Acute Assessment and Plan: As above plan to remove stable and drain before discharge (4) Sepsis: Code(s): A41.9 - Sepsis, unspecified organism Status: Acute Assessment and Plan: Associated with septic shock status post treatment in ICU with pressor Blood pressures have been borderline, patient has received 3 L in the OR -lactic acid is improved -WBC count is improving - discontinue bicarb infusion 02/26/21 -continue Zosyn (02/25) -02/25/2021: Blood cultures negative x2, preliminary result -02/25/2021: Urine culture pending -volume overload diuresis as tolerated (5) DVT prophylaxis: Code(s): Z29.9 - Encounter for prophylactic measures, unspecified Status: Acute Assessment and Plan: Discussed with surgery, will restart Lovenox today 02/27/2021 (6) Acute kidney injury: Code(s): N17.9 - Acute kidney failure, unspecified Status: Acute Assessment and Plan: resolving acute kidney injury likely ischemic ATN related to hypotension, shock. - creatinine is improving slowly . -nephrology has been consulted; Appreciate recommendations. Daily CMP (7) Ulcerative colitis: Code(s): K51.90 - Ulcerative colitis, unspecified, without complications Status: Acute Assessment and Plan: Home medication is on hold (8) Anemia: Qualifiers: Anemia type: iron deficiency Iron deficiency anemia type: unspecified iron deficiency Qualified Code(s): D50.9 - Iron deficiency anemia, unspecified Code(s): D64.9 - Anemia, unspecified Status: Acute Assessment and Plan: Monitor transfuse if hemoglobin below 7 (9) COVID-19: Code(s): U07.1 - COVID-19 Status: Acute Assessment and Plan: COVID 19 infection was ruled out with negative PCR test Subjective Date/time seen: 03/10/21 11:17 Interval history: Eli Duarte is a 86 year old lady with previously diagnosed ulcerative colitis, 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 On admission she was septic and hemodynamically unstable with a blood pressure of 74/46-83/48. She was diagnosed with sepsis secondary to colonic perforation. She underwent emergent exploratory laparotomy, extensive lysis of adhesions of approximately 45 minutes with takedown of colovesical and colo sacral fistula, sigmoid colon resection, repair of colovesical fistula, drainage of retroperitoneal abscess, mobilization of splenic flexure, creation of end colostomy. She had a very compli
--- NOTE | 2021-03-10 11:23 | PM.PNGS ---
Progress Note: A&P Assessment and Plan (1) Colon perforation: Onset Date: ~01/2021 Code(s): K63.1 - Perforation of intestine (nontraumatic) Status: Acute Assessment and Plan: Continues to slowly improve, although poor oral intake and she is deconditioned. Continue PT/OT - CC planning for SNF on discharge. +ostomy functioning well. Continue to encourage oral intake and supplements. Plan to remove eugenia/drains prior to discharge. Discussed with care coordination - plan for d/c to SNF possibly tomorrow. Okay from our standpoint to discharge the patient once placement is set up. Additional Plan I have discussed the patient's case and plan of care with Dr. West. Subjective Subjective Date/Time Seen: 03/10/21 11:15 Patient reports: no new complaints and afebrile Interval history: Patient seen and examined. She denies abdominal pain, nausea, vomiting, or respiratory complaints. She has not gotten out of bed yet this morning. She reports still requiring assist for getting up to chair. She is still not eating well with a poor appetite. It appears she refused all three meals yesterday. +ostomy output. Review of Systems Review of Systems: All systems reviewed & are unremarkable except as noted in HPI and below Constitutional: Constitutional: Denies chills and Denies fever(s) Exam Const: General: no acute distress, alert, awake and ill appearing Nutritional Appearance: malnourished and underweight Orientation/consciousness: patient oriented x3 Resp: Effort & Inspection: normal respiratory effort Auscultation: clear to auscultation bilaterally Cardio: Rate: regular rate Rhythm: regular rhythm GI: Inspection: non-distended, incision (with cloudy serosanguineous drainage from bottom of incision, no erythema) and other (ASTRID with scant serous drainage) GI Palp: Yes Soft to palpation, No Tenderness to palpation present (GI) and No Guarding due to palpation present (GI) Auscultation: normal bowel sounds Other: LLQ perc drain with barrera purulent drainage (about 100 cc in bag) +ostomy with barrera liquid stool, stoma pink and moist Urinary Catheter: Urinary Catheter: patent and draining and urine clear Neuro: General: patient oriented x3 Extrem: General: normal to inspection, no pedal edema and no calf tenderness Psych: Thought process: Normal thought process present Insight: Fair insight present (Psych) Judgement: Fair judgement present (Psych) Objective Data Vital Signs Vital Signs: Vital Signs - 24 hr 03/09/21 14:00 03/09/21 20:00 03/09/21 21:29 Temperature 97.1 F L 98.3 F Pulse Rate 89 88 88 Respiratory Rate 16 16 16 Blood Pressure 128/56 L 106/40 L Pulse Oximetry 100 95 95 03/10/21 02:00 03/10/21 06:00 03/10/21 08:00 Temperature 98.1 F 97.4 F L Pulse Rate 82 88 88 Respiratory Rate 16 16 16 Blood Pressure 102/51 L 99/59 L Pulse Oximetry 99 100 100 Intake/Output Intake/Output: Intake & Output 03/07/21 03/08/21 03/09/21 03/10/21 23:59 23:59 23:59 23:59 Intake Total 200 1580 550 250 Output Total 590 100 695 350 Balance -390 1480 -145 -100 Meds/Results Medications: Active Medications Generic Name Dose Route Start Last Admin Trade Name Freq PRN Reason Stop Dose Admin Acetaminophen 650 mg 03/02/21 08:36 Acetaminophen 325 Mg Tablet PO Q6H PRN Mild Pain (1-3) or Fever Hydrocodone Bitart/Acetaminophen 1 tab 03/02/21 08:36 Hydrocodone/Acetaminophen (*Crx) 5-325 Mg Tablet PO Q4H PRN Pain Rated 4-6 Hydrocodone Bitart/Acetaminophen 1 tab 03/02/21 08:36 Hydrocodone/Acetaminophen (*Crx) 10-325 Mg Tablet PO Q4H PRN Pain Rated 7-10 Aspirin 81 mg 03/09/21 09:00 03/10/21 07:49 Aspirin 81 Mg Chewable Tablet PO 81 mg DAILY LIVIER Administration Enoxaparin Sodium 30 mg 02/25/21 09:00 03/10/21 07:49 Enoxaparin 30 Mg/0.3 Ml Syringe SUB-Q 30 mg DAILY LIVIER Administration Furosemide 20 mg 03/10/21 11:15 Furosemide
[2021-03-10] MEDS: FUROSEMIDE INJ 40 MG/4 ML VIAL 20 MG IV PUSH (12:45)
[2021-03-10 14:00] VITALS: BP 100/58; PULSE 90; RESP 16; TEMP 35.5; O2SAT 98
--- NOTE | 2021-03-10 14:26 | PCPTNOTE ---
Patient refused treatment this session. Patient reported she is too sleepy.
[2021-03-10] MEDS: SODIUM CHLORIDE 0.9% IV 1,000 ML 25 ML IV CONT (16:00)
--- NOTE | 2021-03-10 17:23 | PC.NURSE ---
bobby drain 25 ml output, hemovac 50 ml
--- NOTE | 2021-03-10 18:23 | PC.NURSE ---
100ml output bobby drain and 100 ml output hemovac, purulent drainage around both drains, notifying surgeon. MD Urbina informed as well.
--- NOTE | 2021-03-10 18:27 | PC.NURSE ---
Bela Dacosta for general surgery informed of purulent drainage around both drains.
--- NOTE | 2021-03-10 18:28 | PC.NURSE ---
Clear cloudy drainage for ASTRID drainage and hemovac continues chocolate milky drainage.
[2021-03-10 22:08] VITALS: BP 108/43; PULSE 92; RESP 16; TEMP 36.7; O2SAT 100
[2021-03-11] MEDS: MAGNES & ALUM HYD/SIMETH/DIPHENHYD/LIDOCAINE 119 ML MOUTHWASH BY MOUTH ×6 (02:43→20:04)
[2021-03-11 05:52] VITALS: BP 99/46; PULSE 96; RESP 14; TEMP 36.8; O2SAT 100
[2021-03-11 08:00] VITALS: O2SAT 97
[2021-03-11 08:11] LABS: Basophils Absolute Auto 0.1 K/mm3 (0.0-0.1); Basophils Percent Auto 0.5 % (0.2-1.2); Eosinophils Absolute Auto 0.2 K/mm3 (0-0.3); Eosinophils Percent Auto 1.7 % (0-4.4); Hematocrit 35.2 % (37.0-47.0); Hemoglobin 10.8 g/dL (12.0-15.0); Immature Granulocyte Absolute 0.06 K/mm3 (0.00-0.031); Immature Granulocyte Percent A 0.6 % (0-0.5); Lymphocytes Absolute Auto 1.74 K/mm3 (0.9-3.2); Mean Corpuscular HGB Conc 30.7 g/dl (32-36); Mean Corpuscular Hemoglobin 27.8 pg (26-34); Mean Corpuscular Volume 90.5 fl (80-100); Mean Platelet Volume 10.6 fl (7.4-10.4); Monocytes Absolute Auto 0.8 K/mm3 (0.1-0.6); Monocytes Percent Auto 8.3 % (2.6-8.5); Neutrophils Absolute Auto 6.9 K/mm3 (1.3-6.7); Neutrophils Percent Auto 70.9 % (45.5-73.1); Platelet Count Result 247 k/mm3 (150-375); Red Blood Count 3.89 M/mm3 (4.2-5.4); Red Cell Distribution Width 19.9 % (11.5-14.5); White Blood Count 9.7 K/mm3 (4.5-10.0)
[2021-03-11 08:28] LABS: Anion Gap 8 mmol/L (8-16); Blood Urea Nitrogen 16 mg/dL (7-17); Calcium 7.9 mg/dL (8.4-10.2); Carbon Dioxide 23 mmol/L (22-30); Chloride 109 mmol/L (98-107); Estimated Glomerular Filt Rate 53; Glucose 133 mg/dL (65-110); Sodium 140 mmol/L (137-145)
[2021-03-11] MEDS: MEGESTROL ACETATE (*CHEMO) ORAL SUSP 40 MG/ML SYR 800 MG PO (09:17)
[2021-03-11] MEDS: ENOXAPARIN 30 MG/0.3 ML SYRINGE SUB-Q (09:18)
[2021-03-11] MEDS: PANTOPRAZOLE 40 MG TABLET PO ×2 (09:18→17:39)
[2021-03-11] MEDS: ASPIRIN 81 MG CHEWABLE TABLET PO (09:18)
--- NOTE | 2021-03-11 09:28 | PM.PNGS ---
Progress Note: A&P Assessment and Plan (1) Colon perforation: Onset Date: ~01/2021 Code(s): K63.1 - Perforation of intestine (nontraumatic) Status: Acute Assessment and Plan: stable, drains removed, WBC normal, will stop abx, PT/OT, encourage po, hope to transfer to rehab soon Subjective Subjective Date/Time Seen: 03/11/21 09:28 feels ok, still quite weak, trying to eat more Review of Systems Review of Systems: All systems reviewed & are unremarkable except as noted in HPI and below Exam Const: General: cooperative, comfortable, no acute distress and ill appearing Orientation/consciousness: patient oriented x3 Resp: Auscultation: diminished lung sounds Cardio: Rate: regular rate Rhythm: regular rhythm GI: Inspection: normal to inspection GI Palp: Yes Soft to palpation, No Tenderness to palpation present (GI), No Guarding due to palpation present (GI) and No Rigid due to palpation Other: incision C/D/I, drains c minimal output, eugenia and drains removed, ostomy - viable, +output Objective Data Vital Signs Vital Signs: Vital Signs - 24 hr 03/10/21 14:00 03/10/21 22:08 03/11/21 05:52 Temperature 35.5 C L 36.7 C 36.8 C Pulse Rate 90 92 96 Respiratory Rate 16 16 14 Blood Pressure 100/58 L 108/43 L 99/46 L Pulse Oximetry 98 100 100 Intake/Output Intake/Output: Intake & Output 03/08/21 03/09/21 03/10/21 03/11/21 23:59 23:59 23:59 23:59 Intake Total 1308 226 4372 290 Output Total 275 695 825 850 Balance 1305 -145 875 -560 Meds/Results Medications: Active Medications Generic Name Dose Route Start Last Admin Trade Name Freq PRN Reason Stop Dose Admin Acetaminophen 650 mg 03/02/21 08:36 Acetaminophen 325 Mg Tablet PO Q6H PRN Mild Pain (1-3) or Fever Hydrocodone Bitart/Acetaminophen 1 tab 03/02/21 08:36 Hydrocodone/Acetaminophen (*Crx) 5-325 Mg Tablet PO Q4H PRN Pain Rated 4-6 Hydrocodone Bitart/Acetaminophen 1 tab 03/02/21 08:36 Hydrocodone/Acetaminophen (*Crx) 10-325 Mg Tablet PO Q4H PRN Pain Rated 7-10 Aspirin 81 mg 03/09/21 09:00 03/11/21 09:18 Aspirin 81 Mg Chewable Tablet PO 81 mg DAILY LIVIER Administration Enoxaparin Sodium 30 mg 02/25/21 09:00 03/11/21 09:18 Enoxaparin 30 Mg/0.3 Ml Syringe SUB-Q 30 mg DAILY LIVIER Administration Sodium Chloride 1,000 mls @ 25 mls/hr 03/06/21 20:45 03/10/21 16:00 Normal Saline Iv IV CONT 25 mls/hr .Q24H LIVIER Administration Piperacillin Sod/Tazobactam Sod 2.25 gm in 50 mls @ 100 mls/hr 03/07/21 10:00 03/11/21 03:11 Zosyn 2.25 Gm/D5w 50 Ml IVPB 03/11/21 09:59 Infused Q8H LIVIER Infusion Lidocaine/Diphenhydr/Alum/Mg/Simeth 5 ml 03/06/21 01:00 03/11/21 09:24 Magnes & Alum Hyd/Simeth/Diphenhyd/Lidocaine 119 Ml Mouthwash BY MOUTH 04/05/21 00:59 5 ml Q4HR LIVIER Administration Megestrol Acetate 800 mg 03/09/21 09:00 03/11/21 09:17 Megestrol Acetate (*Chemo) Oral Susp 40 Mg/Ml Syr PO 800 mg QAM LIVIER Administration Miconazole Nitrate 1 applic 03/04/21 09:00 03/11/21 09:25 Miconazole 2% Antifungal Ointment 56 Gm TOPICAL 1 applic Q12HR LIVIER Administration Miscellaneous Information 0 each 03/11/21 00:01 Shannon Orders Will Auto 03/12 XX 04/10/21 00:00 CLARIFY LIVIER Naloxone HCl 0.1 mg 02/25/21 04:21 Naloxone Hcl 0.4 Mg/Ml Vial IV PUSH Q2M PRN Opiate Reversal Nystatin 1 applic 03/08/21 23:30 03/11/21 09:25 Nystatin 100,000 Units/Gm Powder 15 Gm Bottle TOPICAL 1 applic Q12HR LIVIER Administration Ondansetron HCl 4 mg 02/25/21 04:21 Ondansetron Inj 4 Mg/2 Ml Vial IV PUSH Q4H PRN Nausea And Vomiting Pantoprazole Sodium 40 mg 03/08/21 17:00 03/11/21 09:18 Pantoprazole 40 Mg Tablet PO 40 mg BID LIVIER Administration Sodium Chloride 10 ml 02/25/21 10:14 Central Line Flush IV PUSH PRN PRN with TPN bag changes Sodium Chloride 20 ml 02/25/21 10:14 Ce
--- NOTE | 2021-03-11 10:42 | PM.IMPN ---
Progress Note: A&P Assessment and Plan (1) Acute respiratory failure: Code(s): J96.00 - Acute respiratory failure, unspecified whether with hypoxia or hypercapnia Status: Acute Assessment and Plan: Acute respiratory failure -rapid COVID antigen positive confirmatory test was negative DC isolation -chest x-ray suggestive of pneumonia versus pulmonary edema. -she required modest oxygen supplementation with 2 L oxygen via nasal cannula. -extubated on 02/25 -chest x-ray shows pulmonary vascular congestion/pleural effusion. - encourage incentive spirometry -status post IV Lasix daily evaluation patient had episode of hypotension today hold Lasix today and give IV albumin -repeat chest x-ray today (2) Colon perforation: Onset Date: ~01/2021 Code(s): K63.1 - Perforation of intestine (nontraumatic) Status: Acute Assessment and Plan: 02/25/2021 status post ex lap with extensive lysis of adhesions, takedown of colovesical and colosacral fistula, sigmoid colon resection, repair of colovesical fistula, history of retroperitoneal abscess, mobilization of splenic flexure and creation of end colostomy -surgery following the patient -completed 14 days of IV Zosyn check procalcitonin -pain control with p.r.n. fentanyl -patient was started on clear liquid diet per surgery. - healthy colostomy stoma with stool in bag. (3) Intra-abdominal abscess: Code(s): K65.1 - Peritoneal abscess Status: Acute Assessment and Plan: As above plan to remove stable and drain before discharge (4) Sepsis: Code(s): A41.9 - Sepsis, unspecified organism Status: Acute Assessment and Plan: Associated with septic shock status post treatment in ICU with pressor Blood pressures have been borderline, patient has received 3 L in the OR -lactic acid is improved -WBC count is improving - discontinue bicarb infusion 02/26/21 -continue Zosyn (02/25) -02/25/2021: Blood cultures negative x2, preliminary result -02/25/2021: Urine culture pending -volume overload diuresis as tolerated (5) DVT prophylaxis: Code(s): Z29.9 - Encounter for prophylactic measures, unspecified Status: Acute Assessment and Plan: Discussed with surgery, will restart Lovenox today 02/27/2021 (6) Acute kidney injury: Code(s): N17.9 - Acute kidney failure, unspecified Status: Acute Assessment and Plan: resolving acute kidney injury likely ischemic ATN related to hypotension, shock. - creatinine is improving slowly . -nephrology has been consulted; Appreciate recommendations. Daily CMP (7) Ulcerative colitis: Code(s): K51.90 - Ulcerative colitis, unspecified, without complications Status: Acute Assessment and Plan: Home medication is on hold (8) Anemia: Qualifiers: Anemia type: iron deficiency Iron deficiency anemia type: unspecified iron deficiency Qualified Code(s): D50.9 - Iron deficiency anemia, unspecified Code(s): D64.9 - Anemia, unspecified Status: Acute Assessment and Plan: Monitor transfuse if hemoglobin below 7 (9) COVID-19: Code(s): U07.1 - COVID-19 Status: Acute Assessment and Plan: COVID 19 infection was ruled out with negative PCR test Subjective Date/time seen: 03/11/21 10:42 Interval history: Eli Duarte is a 86 year old lady with previously diagnosed ulcerative colitis, 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 On admission she was septic and hemodynamically unstable with a blood pressure of 74/46-83/48. She was diagnosed with sepsis secondary to colonic perforation. She underwent emergent exploratory laparotomy, extensive lysis of adhesions of approximately 45 minutes with takedown of colovesical and colo sacral fistula, sigmoid colon resection, repair of colovesical fistula, drainage of r
[2021-03-11 12:13] LABS: Procalcitonin 1.2 ng/mL
[2021-03-11] MEDS: POTASSIUM CHLORIDE 20 MEQ TABLET 40 MEQ PO ×2 (13:42→17:43)
[2021-03-11 14:00] VITALS: BP 105/57; PULSE 92; RESP 16; TEMP 36.3; O2SAT 97
--- NOTE | 2021-03-11 15:01 | PCNFU ---
Nutrition Follow-Up Complete: Inadequate oral intake related to left groin pain as evidencd by NPO Goal: Meet nutritional needs Pt is slowly progressing towards goal Pt current nutrition is soft/low fiber diet and dietary supplement Last recorded weight is 51.6 kg. Bowel Motility: +colostomy output 03/08/21 Labs Reviewed: hgb 10.8, hct 35.2, Cl 109, K 3.0, GFR 53, Glu 133, Ca 7.9 Meds Noted: lovenox, megace, protonix, kcl Skin: left buttock pressure ulcer - deep tissue Additional Notes: Unable to visit with pt due to follow covid precautions. Spoke to nursing who reports that pt hasn't been eating very much due to fungal infection in her mouth that makes it difficult for her to eat. Nursing reports that pt is unable to tolerate hot foods. Per EMR, pt is on soft/low fiber diet and dietary supplement of frozen nutritional treat BID providing an additional 300kcal and 9g of protein. Per EMR, reported intake is 0% x3, 10%, 5%, and 25% x2. RDN increased dietary supplement of frozen nutritional treat from BID to TID w/meals and added orders for ensure compact BID providing an additional 220kcal and 9g of protein to increase caloric intake. Requested that diet office make sure the ensure compact is chilled so pt will be able to tolerate it. Diet office has been notified and agrees with orders. Agree with diet order at this time. Will continue to follow. Will monitor labs, wt, medications, and reported intake every 3 days
[2021-03-11] MEDS: ALBUMIN HUMAN 25% 25 GM/100 ML 100 ML IVPB (17:38)
[2021-03-11 20:00] VITALS: PULSE 92; RESP 16; O2SAT 97
[2021-03-11] MEDS: SODIUM CHLORIDE 0.9% IV 1,000 ML 25 ML IV CONT ×2 (20:04→20:05)
[2021-03-11 22:00] VITALS: BP 100/44; PULSE 96; RESP 20; TEMP 36.6; O2SAT 97
[2021-03-12] MEDS: SODIUM CHLORIDE 0.9% IV 1,000 ML 25 ML IV CONT ×2 (00:46→20:36)
[2021-03-12] MEDS: MAGNES & ALUM HYD/SIMETH/DIPHENHYD/LIDOCAINE 119 ML MOUTHWASH BY MOUTH ×6 (00:48→20:36)
[2021-03-12 07:20] LABS: Basophils Percent Auto 0.4 % (0.2-1.2); Eosinophils Absolute Auto 0.2 K/mm3 (0-0.3); Eosinophils Percent Auto 1.7 % (0-4.4); Hematocrit 32.3 % (37.0-47.0); Immature Granulocyte Absolute 0.05 K/mm3 (0.00-0.031); Immature Granulocyte Percent A 0.5 % (0-0.5); Lymphocytes Absolute Auto 1.59 K/mm3 (0.9-3.2); Lymphocytes Percent Auto 16.7 % (18.3-44.2); Mean Corpuscular Hemoglobin 28.2 pg (26-34); Mean Corpuscular Volume 91.2 fl (80-100); Mean Platelet Volume 10.8 fl (7.4-10.4); Monocytes Absolute Auto 0.7 K/mm3 (0.1-0.6); Monocytes Percent Auto 7.6 % (2.6-8.5); Neutrophils Absolute Auto 6.9 K/mm3 (1.3-6.7); Neutrophils Percent Auto 73.1 % (45.5-73.1); Platelet Count Result 209 k/mm3 (150-375); Red Blood Count 3.54 M/mm3 (4.2-5.4); Red Cell Distribution Width 19.5 % (11.5-14.5); White Blood Count 9.5 K/mm3 (4.5-10.0)
[2021-03-12 07:27] LABS: Anion Gap 6 mmol/L (8-16); Blood Urea Nitrogen 14 mg/dL (7-17); Carbon Dioxide 24 mmol/L (22-30); Chloride 109 mmol/L (98-107); Estimated Glomerular Filt Rate 59; Glucose 115 mg/dL (65-110); Potassium 3.1 mmol/L (3.4-5.0); Sodium 139 mmol/L (137-145)
[2021-03-12 08:00] VITALS: PULSE 92; RESP 16; O2SAT 95
[2021-03-12] MEDS: ENOXAPARIN 30 MG/0.3 ML SYRINGE SUB-Q (08:39)
[2021-03-12] MEDS: PANTOPRAZOLE 40 MG TABLET PO ×2 (08:39→16:30)
[2021-03-12] MEDS: MEGESTROL ACETATE (*CHEMO) ORAL SUSP 40 MG/ML SYR 800 MG PO (08:39)
[2021-03-12] MEDS: ASPIRIN 81 MG CHEWABLE TABLET PO (08:39)
--- NOTE | 2021-03-12 09:23 | PM.IMPN ---
Progress Note: A&P Assessment and Plan (1) Acute respiratory failure: Code(s): J96.00 - Acute respiratory failure, unspecified whether with hypoxia or hypercapnia Status: Acute Assessment and Plan: Acute respiratory failure -rapid COVID antigen positive confirmatory test was negative DC isolation -chest x-ray suggestive of pneumonia versus pulmonary edema. -she required modest oxygen supplementation with 2 L oxygen via nasal cannula. -extubated on 02/25 -chest x-ray shows pulmonary vascular congestion/pleural effusion. - encourage incentive spirometry -status post IV Lasix daily evaluation patient had episode of hypotension today hold Lasix today -reviewed chest x-ray (2) Colon perforation: Onset Date: ~01/2021 Code(s): K63.1 - Perforation of intestine (nontraumatic) Status: Acute Assessment and Plan: 02/25/2021 status post ex lap with extensive lysis of adhesions, takedown of colovesical and colosacral fistula, sigmoid colon resection, repair of colovesical fistula, history of retroperitoneal abscess, mobilization of splenic flexure and creation of end colostomy -surgery following the patient -completed 14 days of IV Zosyn check procalcitonin -pain control with p.r.n. fentanyl - diet per surgery. (3) Intra-abdominal abscess: Code(s): K65.1 - Peritoneal abscess Status: Acute Assessment and Plan: As above plan to remove stable and drain before discharge (4) Sepsis: Code(s): A41.9 - Sepsis, unspecified organism Status: Acute Assessment and Plan: Associated with septic shock status post treatment in ICU with pressor Blood pressures have been borderline, patient has received 3 L in the OR -lactic acid is improved -WBC count is improving - discontinue bicarb infusion 02/26/21 -continue Zosyn (02/25) -02/25/2021: Blood cultures negative x2, preliminary result -02/25/2021: Urine culture pending -volume overload diuresis as tolerated daily evaluation (5) DVT prophylaxis: Code(s): Z29.9 - Encounter for prophylactic measures, unspecified Status: Acute Assessment and Plan: Discussed with surgery, will restart Lovenox today 02/27/2021 (6) Acute kidney injury: Code(s): N17.9 - Acute kidney failure, unspecified Status: Acute Assessment and Plan: resolving acute kidney injury likely ischemic ATN related to hypotension, shock. - creatinine is improving slowly . -nephrology has been consulted; Appreciate recommendations. Daily CMP (7) Ulcerative colitis: Code(s): K51.90 - Ulcerative colitis, unspecified, without complications Status: Acute Assessment and Plan: Home medication is on hold (8) Anemia: Qualifiers: Anemia type: iron deficiency Iron deficiency anemia type: unspecified iron deficiency Qualified Code(s): D50.9 - Iron deficiency anemia, unspecified Code(s): D64.9 - Anemia, unspecified Status: Acute Assessment and Plan: Monitor transfuse if hemoglobin below 7 (9) COVID-19: Code(s): U07.1 - COVID-19 Status: Acute Assessment and Plan: COVID 19 infection was ruled out with negative PCR test Subjective Date/time seen: 03/12/21 09:23 Interval history: Eli Duarte is a 86 year old lady with previously diagnosed ulcerative colitis, 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 On admission she was septic and hemodynamically unstable with a blood pressure of 74/46-83/48. She was diagnosed with sepsis secondary to colonic perforation. She underwent emergent exploratory laparotomy, extensive lysis of adhesions of approximately 45 minutes with takedown of colovesical and colo sacral fistula, sigmoid colon resection, repair of colovesical fistula, drainage of retroperitoneal abscess, mobilization of splenic flexure, creation of end colostomy.
[2021-03-12 10:00] VITALS: BP 131/50; PULSE 92; RESP 16; TEMP 37.2; O2SAT 95
[2021-03-12] MEDS: POTASSIUM CHLORIDE 20 MEQ TABLET 40 MEQ PO (10:05)
--- NOTE | 2021-03-12 10:29 | PC.NURSE ---
3.1 K reported this morning to MD Mc, N.o 40 meq po once.
--- NOTE | 2021-03-12 13:45 | PCOTNOTE ---
Patient declined treatment this date due to pain and fatigue.
[2021-03-12 14:00] VITALS: BP 103/42; PULSE 102; RESP 14; TEMP 37.7; O2SAT 96
--- NOTE | 2021-03-12 14:02 | PCPTNOTE ---
Attempted to see patient for Physical Therapy session this afternoon; patient declined at this time stating she was in pain. Patient declined supine exercises and bed mobility at this time.
[2021-03-12 18:00] VITALS: BP 105/47; PULSE 100; RESP 18; TEMP 37.3; O2SAT 98
[2021-03-12 20:00] VITALS: PULSE 108; RESP 14; O2SAT 99
[2021-03-12 20:58] VITALS: BP 113/41; PULSE 108; RESP 14; TEMP 37.2; O2SAT 99
[2021-03-13] VITALS: BP 107/43; PULSE 110; RESP 16; TEMP 36.8; O2SAT 97
[2021-03-13 04:00] VITALS: BP 113/50; PULSE 104; RESP 16; TEMP 37.1; O2SAT 98
[2021-03-13] MEDS: MAGNES & ALUM HYD/SIMETH/DIPHENHYD/LIDOCAINE 119 ML MOUTHWASH BY MOUTH ×6 (05:02→20:14)
[2021-03-13 06:46] LABS: Basophils Absolute Auto 0.1 K/mm3 (0.0-0.1); Basophils Percent Auto 0.6 % (0.2-1.2); Eosinophils Absolute Auto 0.2 K/mm3 (0-0.3); Eosinophils Percent Auto 2.1 % (0-4.4); Hematocrit 34.1 % (37.0-47.0); Hemoglobin 10.6 g/dL (12.0-15.0); Immature Granulocyte Absolute 0.07 K/mm3 (0.00-0.031); Immature Granulocyte Percent A 0.6 % (0-0.5); Lymphocytes Absolute Auto 1.76 K/mm3 (0.9-3.2); Lymphocytes Percent Auto 16.3 % (18.3-44.2); Mean Corpuscular HGB Conc 31.1 g/dl (32-36); Mean Corpuscular Hemoglobin 28.6 pg (26-34); Mean Corpuscular Volume 91.9 fl (80-100); Mean Platelet Volume 10.6 fl (7.4-10.4); Monocytes Absolute Auto 0.7 K/mm3 (0.1-0.6); Monocytes Percent Auto 6.2 % (2.6-8.5); Neutrophils Percent Auto 74.2 % (45.5-73.1); Platelet Count Result 178 k/mm3 (150-375); Red Blood Count 3.71 M/mm3 (4.2-5.4); Red Cell Distribution Width 19.9 % (11.5-14.5); White Blood Count 10.8 K/mm3 (4.5-10.0)
[2021-03-13 07:01] LABS: Anion Gap 6 mmol/L (8-16); Blood Urea Nitrogen 14 mg/dL (7-17); Calcium 8.2 mg/dL (8.4-10.2); Carbon Dioxide 23 mmol/L (22-30); Chloride 110 mmol/L (98-107); Estimated Glomerular Filt Rate 53; Glucose 113 mg/dL (65-110); Sodium 139 mmol/L (137-145)
[2021-03-13] MEDS: MEGESTROL ACETATE (*CHEMO) ORAL SUSP 40 MG/ML SYR 800 MG PO (07:43)
[2021-03-13] MEDS: PANTOPRAZOLE 40 MG TABLET PO ×2 (07:43→18:26)
[2021-03-13] MEDS: ASPIRIN 81 MG CHEWABLE TABLET PO (07:43)
[2021-03-13] MEDS: ENOXAPARIN 30 MG/0.3 ML SYRINGE SUB-Q (07:43)
[2021-03-13 08:00] VITALS: BP 122/51; PULSE 101; RESP 18; TEMP 36.6; O2SAT 98
--- NOTE | 2021-03-13 09:05 | PM.IMPN ---
Progress Note: A&P Assessment and Plan (1) Acute respiratory failure: Code(s): J96.00 - Acute respiratory failure, unspecified whether with hypoxia or hypercapnia Status: Acute Assessment and Plan: Acute respiratory failure -rapid COVID antigen positive confirmatory test was negative DC isolation -chest x-ray suggestive of pneumonia versus pulmonary edema. -she required modest oxygen supplementation with 2 L oxygen via nasal cannula. -extubated on 02/25 -chest x-ray shows pulmonary vascular congestion/pleural effusion. - encourage incentive spirometry -status post IV Lasix daily evaluation currently off IV Lasix -reviewed chest x-ray (2) Colon perforation: Onset Date: ~01/2021 Code(s): K63.1 - Perforation of intestine (nontraumatic) Status: Acute Assessment and Plan: 02/25/2021 status post ex lap with extensive lysis of adhesions, takedown of colovesical and colosacral fistula, sigmoid colon resection, repair of colovesical fistula, history of retroperitoneal abscess, mobilization of splenic flexure and creation of end colostomy -surgery following the patient -completed 14 days of IV Zosyn check procalcitonin -pain control with p.r.n. fentanyl - diet per surgery. (3) Intra-abdominal abscess: Code(s): K65.1 - Peritoneal abscess Status: Acute Assessment and Plan: As above plan to remove stable and drain before discharge (4) Sepsis: Code(s): A41.9 - Sepsis, unspecified organism Status: Acute Assessment and Plan: Associated with septic shock status post treatment in ICU with pressor Blood pressures have been borderline, patient has received 3 L in the OR -lactic acid is improved -WBC count is improving - discontinue bicarb infusion 02/26/21 -continue Zosyn (02/25) -02/25/2021: Blood cultures negative x2, preliminary result -02/25/2021: Urine culture pending -volume overload diuresis as tolerated daily evaluation -procalcitonin 03/12/2021 is 1.2 repeat procalcitonin level today (5) DVT prophylaxis: Code(s): Z29.9 - Encounter for prophylactic measures, unspecified Status: Acute Assessment and Plan: Discussed with surgery, will restart Lovenox today 02/27/2021 (6) Acute kidney injury: Code(s): N17.9 - Acute kidney failure, unspecified Status: Acute Assessment and Plan: resolving acute kidney injury likely ischemic ATN related to hypotension, shock. - creatinine is improving slowly . -nephrology has been consulted; Appreciate recommendations. Daily CMP (7) Ulcerative colitis: Code(s): K51.90 - Ulcerative colitis, unspecified, without complications Status: Acute Assessment and Plan: Home medication is on hold (8) Anemia: Qualifiers: Anemia type: iron deficiency Iron deficiency anemia type: unspecified iron deficiency Qualified Code(s): D50.9 - Iron deficiency anemia, unspecified Code(s): D64.9 - Anemia, unspecified Status: Acute Assessment and Plan: Monitor transfuse if hemoglobin below 7 (9) COVID-19: Code(s): U07.1 - COVID-19 Status: Acute Assessment and Plan: COVID 19 infection was ruled out with negative PCR test Subjective Date/time seen: 03/13/21 09:05 Interval history: Eli Duarte is a 86 year old lady with previously diagnosed ulcerative colitis, 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 On admission she was septic and hemodynamically unstable with a blood pressure of 74/46-83/48. She was diagnosed with sepsis secondary to colonic perforation. She underwent emergent exploratory laparotomy, extensive lysis of adhesions of approximately 45 minutes with takedown of colovesical and colo sacral fistula, sigmoid colon resection, repair of colovesical fistula, drainage of retroperitoneal abscess, mobilization of splenic flex
[2021-03-13 10:14] LABS: Procalcitonin 0.7 ng/mL
--- NOTE | 2021-03-13 10:55 | PCPTNOTE ---
Patient refused treatment this session due to feeling crummy . Patient requested therapy to return tomorrow.
--- NOTE | 2021-03-13 10:56 | PCOTNOTE ---
Patient refused treatment this session due to [pain and fatigue with pt stating Not today...maybe tomorrow. Pt was educated on the purpose and benefits of continued therapy with participation however, pt refused again. Will continue per poc duration/frequency tomorrow. ]
[2021-03-13 12:00] VITALS: BP 118/55; PULSE 111; RESP 18; TEMP 36.5; O2SAT 98
--- NOTE | 2021-03-13 12:17 | PM.PNGS ---
Progress Note: A&P Assessment and Plan (1) Colon perforation: Onset Date: ~01/2021 Code(s): K63.1 - Perforation of intestine (nontraumatic) Status: Acute Assessment and Plan: has made amazing progress. Tolerating oral intake and colostomy working well. Will need to continue bandaging and watch lower aspect of incision. Awaiting transfer for snf. (2) Ulcerative colitis: Qualifiers: Ulcerative colitis location: unspecified ulcerative colitis location Digestive disease complication type: unspecified complication Qualified Code(s): K51.919 - Ulcerative colitis, unspecified with unspecified complications Code(s): K51.90 - Ulcerative colitis, unspecified, without complications Status: Chronic (3) Intra-abdominal abscess: Code(s): K65.1 - Peritoneal abscess Status: Acute Assessment and Plan: Resolved Subjective Subjective Date/Time Seen: 03/13/21 12:17 Patient reports: no new complaints, tolerating a regular diet and afebrile Review of Systems Review of Systems: All systems reviewed & are unremarkable except as noted in HPI and below (HPI) Exam GI: Inspection: incision ( greenish drainage bottom of incision, otherwise looks good) and other ( colostomy working well) GI Palp: Yes Soft to palpation and No Tenderness to palpation present (GI) Objective Data Vital Signs Vital Signs: Vital Signs - 24 hr 03/12/21 14:00 03/12/21 18:00 03/12/21 20:00 Temperature 37.7 C H 37.3 C Pulse Rate 102 H 100 108 H Respiratory Rate 14 18 14 Blood Pressure 103/42 L 105/47 L Pulse Oximetry 96 98 99 03/12/21 20:58 03/13/21 00:00 03/13/21 04:00 Temperature 37.2 C 36.8 C 37.1 C Pulse Rate 108 H 110 H 104 H Respiratory Rate 14 16 16 Blood Pressure 113/41 L 107/43 L 113/50 L Pulse Oximetry 99 97 98 03/13/21 08:00 Temperature 36.6 C Pulse Rate 101 H Respiratory Rate 18 Blood Pressure 122/51 L Pulse Oximetry 98 Intake/Output Intake/Output: Intake & Output 03/10/21 03/11/21 03/12/21 03/13/21 23:59 23:59 23:59 23:59 Intake Total 1700 2770 3040 420 Output Total 825 850 650 50 Balance 875 1920 2390 370 Meds/Results Medications: Active Medications Generic Name Dose Route Start Last Admin Trade Name Freq PRN Reason Stop Dose Admin Acetaminophen 650 mg 03/02/21 08:36 Acetaminophen 325 Mg Tablet PO Q6H PRN Mild Pain (1-3) or Fever Aspirin 81 mg 03/09/21 09:00 03/13/21 07:43 Aspirin 81 Mg Chewable Tablet PO 81 mg DAILY LIVIER Administration Enoxaparin Sodium 30 mg 02/25/21 09:00 03/13/21 07:43 Enoxaparin 30 Mg/0.3 Ml Syringe SUB-Q 30 mg DAILY LIVIER Administration Sodium Chloride 1,000 mls @ 25 mls/hr 03/06/21 20:45 03/12/21 20:36 Normal Saline Iv IV CONT 25 mls/hr .Q24H LIVIER Administration Lidocaine/Diphenhydr/Alum/Mg/Simeth 5 ml 03/06/21 01:00 03/13/21 07:44 Magnes & Alum Hyd/Simeth/Diphenhyd/Lidocaine 119 Ml Mouthwash BY MOUTH 04/05/21 00:59 5 ml Q4HR LIVIER Administration Megestrol Acetate 800 mg 03/09/21 09:00 03/13/21 07:43 Megestrol Acetate (*Chemo) Oral Susp 40 Mg/Ml Syr PO 800 mg QAM LIVIER Administration Miconazole Nitrate 1 applic 03/04/21 09:00 03/13/21 07:44 Miconazole 2% Antifungal Ointment 56 Gm TOPICAL 1 applic Q12HR LIVIER Administration Miscellaneous Information 0 each 03/11/21 00:01 [place] Orders Will Auto 03/12 XX 04/10/21 00:00 CLARIFY LIVIER Naloxone HCl 0.1 mg 02/25/21 04:21 Naloxone Hcl 0.4 Mg/Ml Vial IV PUSH Q2M PRN Opiate Reversal Nystatin 1 applic 03/08/21 23:30 03/13/21 07:47 Nystatin 100,000 Units/Gm Powder 15 Gm Bottle TOPICAL 1 applic Q12HR LIVIER Administration Ondansetron HCl 4 mg 02/25/21 04:21 Ondansetron Inj 4 Mg/2 Ml Vial IV PUSH Q4H PRN Nausea And Vomiting Pantoprazole Sodium 40 mg 03/08/21 17:00 03/13/21 07:43 Pantoprazole 40 Mg Tablet PO 40 mg BID [facility] A
[2021-03-13 16:00] VITALS: BP 102/52; PULSE 117; RESP 20; TEMP 36.3; O2SAT 97
[2021-03-13 20:00] VITALS: BP 104/41; PULSE 62; RESP 20; TEMP 36.7; O2SAT 98
[2021-03-13] MEDS: SODIUM CHLORIDE 0.9% IV 1,000 ML 25 ML IV CONT (23:46)
[2021-03-14] VITALS: BP 107/48; PULSE 108; RESP 18; TEMP 37.1; O2SAT 97
[2021-03-14] MEDS: MAGNES & ALUM HYD/SIMETH/DIPHENHYD/LIDOCAINE 119 ML MOUTHWASH BY MOUTH ×4 (00:41→13:20)
[2021-03-14 04:00] VITALS: BP 102/51; PULSE 95; RESP 18; TEMP 36.5; O2SAT 97
[2021-03-14 06:57] LABS: Hematocrit 33.6 % (37.0-47.0); Hemoglobin 10.2 g/dL (12.0-15.0); Immature Platelet Fraction Pct 7.7 % (0.9-11.2); Mean Corpuscular HGB Conc 30.4 g/dl (32-36); Mean Corpuscular Volume 92.3 fl (80-100); Mean Platelet Volume 11.3 fl (7.4-10.4); Platelet Count Result 149 k/mm3 (150-375); Red Blood Count 3.64 M/mm3 (4.2-5.4); Red Cell Distribution Width 19.8 % (11.5-14.5); White Blood Count 11.8 K/mm3 (4.5-10.0)
[2021-03-14 07:49] LABS: Anion Gap 7 mmol/L (8-16); Blood Urea Nitrogen 16 mg/dL (7-17); Calcium 8.1 mg/dL (8.4-10.2); Carbon Dioxide 20 mmol/L (22-30); Chloride 109 mmol/L (98-107); Estimated Glomerular Filt Rate 53; Glucose 98 mg/dL (65-110); Sodium 136 mmol/L (137-145)
[2021-03-14 08:00] VITALS: BP 103/44; PULSE 109; RESP 19; TEMP 36.8; O2SAT 98
[2021-03-14 08:38] LABS: Band Neutrophils Percent 31 % (0-6); Eosinophils Absolute Manual 0.23 K/mm3 (0.02-0.5); Eosinophils Percent Manual 2 % (0-4); Lymphocytes Absolute Manual 0.59 K/mm3 (1.1-4.5); Monocytes Percent Manual 6 % (3-9); Neutrophils Absolute Manual 10.26 K/mm3 (1.7-7.2); Neutrophils Percent Manual 56 % (46-73); Total Cells Counted 100
[2021-03-14 08:39] LABS: Atypical Lymphocytes Present; Hypochromasia 1+ (NORMAL); Platelet Estimate Adequate (Adequate)
[2021-03-14] MEDS: MEGESTROL ACETATE (*CHEMO) ORAL SUSP 40 MG/ML SYR 800 MG PO (08:53)
[2021-03-14] MEDS: ENOXAPARIN 30 MG/0.3 ML SYRINGE SUB-Q (08:54)
[2021-03-14] MEDS: PANTOPRAZOLE 40 MG TABLET PO (08:54)
[2021-03-14] MEDS: ASPIRIN 81 MG CHEWABLE TABLET PO (08:54)
--- NOTE | 2021-03-14 10:12 | PM.DS ---
DS: Admitting Diagnosis Discharge Date 03/14/2021 Admitting Diagnosis Abdominal pain DS: Discharge Diagnosis Discharge Diagnosis (1) Acute respiratory failure: Code(s): J96.00 - Acute respiratory failure, unspecified whether with hypoxia or hypercapnia Status: Acute Assessment and Plan: Acute respiratory failure -rapid COVID antigen positive confirmatory test was negative DC isolation -chest x-ray suggestive of pneumonia versus pulmonary edema. Patient will be discharged on oral antibiotics -she required modest oxygen supplementation with 2 L oxygen via nasal cannula. -extubated on 02/25 -chest x-ray shows pulmonary vascular congestion/pleural effusion. - encourage incentive spirometry -status post IV Lasix daily evaluation currently off IV Lasix -reviewed chest x-ray repeat chest x-ray in 4 weeks (2) Colon perforation: Onset Date: ~01/2021 Code(s): K63.1 - Perforation of intestine (nontraumatic) Status: Acute Assessment and Plan: 02/25/2021 status post ex lap with extensive lysis of adhesions, takedown of colovesical and colosacral fistula, sigmoid colon resection, repair of colovesical fistula, history of retroperitoneal abscess, mobilization of splenic flexure and creation of end colostomy -surgery following the patient -completed 14 days of IV Zosyn -pain control with p.r.n. fentanyl - diet per surgery. -follow-up with surgery in 1 week (3) Intra-abdominal abscess: Code(s): K65.1 - Peritoneal abscess Status: Acute Assessment and Plan: As above plan to remove stable and drain before discharge completed course of IV antibiotic Follow-up with surgery in 1 week (4) Sepsis: Code(s): A41.9 - Sepsis, unspecified organism Status: Acute Assessment and Plan: Associated with septic shock status post treatment in ICU with pressor Blood pressures have been borderline, patient has received 3 L in the OR -lactic acid is improved -WBC count is improving - discontinue bicarb infusion 02/26/21 -continue Zosyn (02/25) -02/25/2021: Blood cultures negative x2, preliminary result -02/25/2021: Urine culture pending -volume overload diuresis as tolerated daily evaluation -resolved (5) DVT prophylaxis: Code(s): Z29.9 - Encounter for prophylactic measures, unspecified Status: Acute Assessment and Plan: SCD (6) Acute kidney injury: Code(s): N17.9 - Acute kidney failure, unspecified Status: Acute Assessment and Plan: resolving acute kidney injury likely ischemic ATN related to hypotension, shock. - creatinine is improving slowly . -nephrology has been consulted; Appreciate recommendations. Daily CMP (7) Ulcerative colitis: Qualifiers: Ulcerative colitis location: unspecified ulcerative colitis location Digestive disease complication type: unspecified complication Qualified Code(s): K51.919 - Ulcerative colitis, unspecified with unspecified complications Code(s): K51.90 - Ulcerative colitis, unspecified, without complications Status: Chronic Assessment and Plan: Home medication is on hold (8) Anemia: Qualifiers: Anemia type: iron deficiency Iron deficiency anemia type: unspecified iron deficiency Qualified Code(s): D50.9 - Iron deficiency anemia, unspecified Code(s): D64.9 - Anemia, unspecified Status: Acute Assessment and Plan: Monitor transfuse if hemoglobin below 7 (9) COVID-19: Code(s): U07.1 - COVID-19 Status: Acute Assessment and Plan: COVID 19 infection was ruled out with negative PCR test DS: Summary Hospital Course Hospital Course: Eli Duarte is a 86 year old lady with previously diagnosed ulcerative colitis, 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 On admission she was septic and hemodynamically unst
[2021-03-14 11:28] LABS: EDCOVIDSCREEN Negative (Negative)
[2021-03-14 12:00] VITALS: BP 99/46; PULSE 118; RESP 18; TEMP 37.1; O2SAT 98
== END 2021-03-14 13:40 | DRG 853 ==
LOC: ANHED 02-25 04:14 → ANHSURGERY 02-25 04:14 → ANHICU 02-25 04:14 → ANHSURGERY 02-25 04:50 → ANHICU 02-25 07:24 → ANH3MEDSUR 03-14 10:12 → ANH3MED 03-15 11:40 → ANH3MEDSUR 03-15 11:40 → ANHICU 03-15 11:40 → ANHIMU 03-15 11:40
PROVIDERS: Internal Medicine; Internal Medicine Nephrology; Surgery; Admitting Provider Surgery; Emergency Provider Emergency Medicine; PCP Internal Medicine; Visit Provider Internal Medicine
PROC: 0DN80ZZ Release Small Intestine, Open Approach (ICD-10-PCS; CPT 49000; principal; 2021-02-25 02:30)
DX: A41.9 Sepsis, unspecified organism (principal); R65.21 Severe sepsis with septic shock; K68.19 Other retroperitoneal abscess; K63.1 Perforation of intestine (nontraumatic); J95.821 Acute postprocedural respiratory failure; N17.0 Acute kidney failure with tubular necrosis; J18.9 Pneumonia, unspecified organism; J81.0 Acute pulmonary edema; K51.914 Ulcerative colitis, unspecified with abscess; N32.1 Vesicointestinal fistula; K51.813 Other ulcerative colitis with fistula; E46 Unspecified protein-calorie malnutrition; D64.9 Anemia, unspecified; E87.6 Hypokalemia; Z20.822 Contact with and (suspected) exposure to COVID-19; K66.0 Peritoneal adhesions (postprocedural) (postinfection); B95.4 Other streptococcus as the cause of diseases classified elsewhere; B96.89 Other specified bacterial agents as the cause of diseases classified elsewhere; K21.9 Gastro-esophageal reflux disease without esophagitis; E55.9 Vitamin D deficiency, unspecified; Z68.23 Body mass index [BMI] 23.0-23.9, adult
CPT/HCPCS: 36415; 36430; 36569; 36600; 71045; 74176; 74177; 75989; 76775; 80048; 80053; 81001; 82375; 82550; 82570; 82805; 83050; 83605; 83690; 83735; 84100; 84134; 84145; 84156; 84300; 85014; 85018; 85025; 85027; 85055; 85610; 85730; 86850; 86900; 86901; 86920; 87015; 87040; 87045; 87070; 87075; 87076; 87077; 87086; 87205; 87272; 87426; 87427; 87804; 88307; 94002; 94003; 96361; 96365; 96375; 97110; 97162; 97165; 97530; 97535; 99285; A9270; C1729; C1751; C1769; C9113; C9803; J0610; J1100; J1650; J1940; J2370; J2405; J2543; J2704; J3010; J3480; J7030; J7040; J7050; J7070; J7120; P9016; P9017; P9047; Q9967; U0003; U0005

== ENCOUNTER 2021-03-19 18:34 | Inpatient (IN) | payer MEDICARE, SELFPAY ==
--- NOTE | ~2021-03-19 | CT_ITS ---
EXAMINATION: 1. CT guide absc cath placement 2. CT guide absc cath placement DATE: 03/21/2021 14:00 INDICATION: Abdominal abscesses. TECHNIQUE: The procedure including the risks, benefits, and alternatives was discussed with the patie nt. Risks discussed included bleeding and infection. The patient understood the risks and benefits an d agreed to proceed. The skin overlying the abdomen was prepped and draped in usual sterile fashion. Anesthetic was administered with 1% lidocaine subcutaneously. An 18 gauge trochar needle was inserte d into the left iliopsoas abscess with CT guidance. The needle was exchanged over a wire for 6 Salvadorean , 8 Salvadorean, 10 Salvadorean, and 12 Salvadorean dilators and then for a 12 Salvadorean pigtail catheter. An 18 gauge trochar needle was inserted into the pelvic abscess with CT guidance. The needle was exch anged over a wire for 6 Salvadorean and 8 Salvadorean dilators and then for an 8.5 Salvadorean pigtail catheter. The catheters were stitched to the skin, and sterile dressings were applied. The mA was adjusted accordi ng to patient size. Iterative reconstruction technique was employed. The dose-length product was 423. 84 mGy-cm. There were no immediate complications. FINDINGS: CT images demonstrate the catheter within the left iliopsoas abscess. 10 mL fluid was aspir ated for testing. CT images demonstrate the catheter within the pelvic abscess. IMPRESSION: 1. Successful CT-guided left iliopsoas abscess drainage. 2. 10 mL barrera, opaque fluid was sent for aerobic and anaerobic cultures. 2. Successful CT-guided left pelvic abscess drainage. Reviewed, dictated and finalized at location A. DINATOR INTEGRATED MARKETING IMPRESSION: 1. Successful CT-guided left iliopsoas abscess drainage. 2. 10 mL barrera, opaque fluid was sent for aerobic and anaerobic cultures. 2. Successful CT-guided left pelvic abscess drainage.
--- NOTE | ~2021-03-19 | CT_ITS ---
EXAMINATION: CT abdomen pelvis w con INDICATION: Increased drainage at the drain site TECHNIQUE: Computed tomographic images of the abdomen and pelvis were obtained after the administrati on of 100 cc of Omnipaque 350 intravenous contrast. The dose-length product (DLP) was 323.27 mGy-cm. Automated exposure control and iterative reconstruction technique were employed. COMPARISON: 03/01/2021, 02/24/2021 FINDINGS: There are bkgpt-bd-jrpksyyc sized pleural effusions. The heart size is normal. There is dep endent atelectasis of the lungs. The liver, adrenal glands, and kidneys are unremarkable. Again noted is a 7 mm cystic lesion in the body of the pancreas. The gallbladder is decompressed but otherwise u nremarkable in appearance. There is a diverting colostomy in the left lower quadrant. There is a larg e abscess in the left pericolic gutter which also involves the left iliopsoas muscle and tracks into the proximal left thigh anteriorly and into the medial left pelvis which has increased in size since the comparison examination. Largest axial dimension is 10.6 cm. The abscess spans at least 21 cm in c raniocaudal dimension. The bladder is decompressed by Mederos catheter. There are changes of right tota l hip arthroplasty. Severe lumbar spondylosis is noted. IMPRESSION: 1. Large abscess involving the left iliopsoas muscle and left pericolic gutter which tracks into the medial left pelvis and left proximal thigh with interval increase in size. 2. Moderate-sized pleural effusions. Reviewed, dictated and finalized at location F. SPECIALIST
--- NOTE | ~2021-03-19 | CT_ITS ---
EXAMINATION: CT abdomen pelvis w con EXAM DATE: 03/28/2021 18:30 INDICATION: Intraabdominal abscess, perc drain x 2. TECHNIQUE: Spiral CT of the abdomen and pelvis was performed following intravenous injection of 100 m L Omnipaque 350. Axial, coronal and sagittal images of the abdomen and pelvis were reviewed. The do se-length product (DLP) for this examination was 260.97 mGy-cm. The exposure was tailored according to patient size (auto mA exposure control), and iterative reconstruction (ASIR) was used as additiona l dose reduction technique. Comparison is made to prior examination from 03/19/2021. FINDINGS: Probable sigmoidectomy. There is large left sided pelvic abscess, portion which involves th e iliopsoas muscle, with mild interval improvement in size. There are left lower quadrant pigtail cat heters, the lower one more anteriorly positioned below the colostomy, and the higher one with lateral entry, deeper in position. Both pigtail catheters appear to be well positioned, however there is sti ll large amount of fluid surrounding them. Generalized anasarca, mesenteric fat stranding. No gross free intraperitoneal air. Liver, spleen, adr enal glands, pancreas, gallbladder are unremarkable. No hydronephrosis, kidneys enhance symmetrically . Mederos catheter within collapsed bladder. Uterus is unremarkable. There is right hip replacement. Small to moderate bilateral pleural effusions with adjacent bibasilar segmental atelectasis. Advanced lower lumbar spondylosis. Advanced lower thoracic spondylosis. Grade 2 anterolisthesis L4 on L5 and L5 on S1 without spondylolysis. IMPRESSION: 1. Large left- sided pelvic, iliopsoas abscess with mild improvement in abscess volume, but still la rge amount of fluid surrounding pigtail catheters. 2. Small to moderate pleural effusions, adjacent segmental atelectasis. 3. Anasarca. Reviewed, dictated and finalized at location G. NG BIN OPERATOR IMPRESSION: 1. Large left- sided pelvic, iliopsoas abscess with mild improvement in absces s volume, but still large amount of fluid surrounding pigtail catheters. 2. Small to moderate pleural effusions, adjacent segmental atelectasis. 3. Anasarca.
--- NOTE | ~2021-03-19 | US_ITS ---
US venous doppler [facility] DATE: 03/24/2021 17:37 INDICATION: Lower extremity edema TECHNIQUE: Real-time and color flow imaging and Doppler analysis of the bilateral lower extremity vei ns COMPARISON: None FINDINGS: There is spontaneous and phasic flow and normal augmentation and color flow signal and norm al compression of the deep veins of the lower extremities. The greater saphenous veins are patent. IMPRESSION: No evidence of deep venous thrombosis of the lower extremities Reviewed, dictated and finalized at Location A. Reviewed, dictated and finalized at location A. ER SERVICE ATTENDANT
--- NOTE | ~2021-03-19 | CT_ITS ---
EXAMINATION: CT abdomen pelvis wo con DATE: 04/04/2021 10:42 INDICATION: Psoas abscess TECHNIQUE: Computed tomography (CT) of the abdomen and pelvis was performed without intravenous contr ast. Automated exposure control and iterative reconstruction technique were employed. The dose-length product was 187.25 mGy-cm. COMPARISON: CT dated 03/28/2021 FINDINGS: Decrease in size of small bilateral pleural effusions. Mild compressive atelectasis at the bilateral lung bases. Calcified nodule at the left lower lobe consistent with old granulomatous disease. Heart size is normal. No pericardial effusion. Multiple hepatic and splenic calcifications consistent with old granulomatous disease. There are couple small calcific densities within the decompressed gallblad jennifer consistent with cholelithiasis. Pancreas, bilateral adrenal glands and kidneys again seen is a la rge multiloculated abscess extending along the left paracolic gutter into the left hemipelvis which i nvolves the left iliopsoas muscle. No interval change in position of a couple percutaneous abscess dr sandra. The more cephalad catheter remains positioned within the gas and fluid collection at the inferi or paracolic gutter which appears mildly decreased in size compared with the prior study. The more in ferior catheter is positioned within the anterior extraperitoneal space just cephalad to the left pub ic body which does not appear significantly changed since the prior study. There is an additional sma ll gas and fluid containing collection measuring approximately 5.8 cm craniocaudally in the presacral space and measuring 3 cm left to right and 8 mm AP. Small amount of gas is seen tracking along a fis tulous tract from a loop of gas-filled likely small bowel best appreciated on axial series 3, images 82-55. The location of the fluid collection would not be amenable to percutaneous drainage. Postopera tive change of a prior left lower quadrant and colostomy and Toth's pouch formation. No dilated estela wel to suggest obstruction right total hip arthroplasty. Severe lumbar spondylosis. Bladder and uteru s are unremarkable. There is a mottled appearance to the bone at the anterior aspect of S1-S3 along w ith some periosteal reaction consistent with likely chronic osteomyelitis related to the overlying pr esacral abscess. IMPRESSION: 1. Couple percutaneous abscess drains remain within a multiloculated gas and fluid collection consist ent with abscess extending along the left iliopsoas muscle from the inferior left paracolic gutter in to the extraperitoneal space of the anterior pelvis. There is been slight decrease in size of the cep halad portion of the collection. 2. Additional small gas and fluid containing abscess in the presacral space with periostitis and fisher ge to the underlying sacrum consistent with chronic osteomyelitis. There appears be a communicating f istula between this abscess and an adjacent loop of small bowel. 3. Decrease in size of small bilateral pleural effusions. Reviewed, dictated and finalized at location A. TH PSYCHOLOGIST IMPRESSION: 1. Couple percutaneous abscess drains remain within a multiloculated gas and fl uid collection consistent with abscess extending along the left iliopsoas muscl e from the inferior left paracolic gutter into the extraperitoneal space of the anterior pelvis. There is been slight decrease in size of the cephalad portion of the collection. 2. Additional small gas and fluid containing abscess in the presacral space wit h periostitis and change to the underlying sacrum consistent with chronic osteo myelitis. There appears be a communicating fistula between this abscess and an adjacent loop of small bowel. 3. Decrease in size of small bilateral pleural effusions.
--- NOTE | ~2021-03-19 | XR_ITS ---
XR chest 2V DATE: 03/24/2021 17:39 INDICATION: Hypoxia. Shortness of breath. TECHNIQUE: AP and lateral views COMPARISON: 03/09/2021 portable AP chest FINDINGS: There are moderate bilateral pleural effusions and bibasilar infiltrates and/or atelectasis . Cardiomegaly. Pulmonary vascularity appears within normal limits. Diffuse osteopenia. IMPRESSION: Moderate bilateral pleural effusions and bilateral lower lung infiltrate and/or atelectas is; little interval change since 03/09/2021 Reviewed, dictated and finalized at location A. ANICAL AND AUTO BODY CAR CHECKER IMPRESSION: Moderate bilateral pleural effusions and bilateral lower lung infil trate and/or atelectasis; little interval change since 03/09/2021
[2021-03-19 18:35] VITALS: BP 142/100; PULSE 73; RESP 16; TEMP 36.8; O2SAT 97
--- NOTE | 2021-03-19 19:16 | ED.GENADULT ---
HPI - General Adult General Chief complaint: Unspecified Stated complaint: leaking drain - post op Time Seen by Provider: 03/19/21 19:02 History of Present Illness HPI narrative: Patient 86-year-old female who presents the emergency department with chief complaint of drainage from left upper quadrant. The patient reports that she recently had an emergency surgery had a diverting colostomy and had a drain in her abdominal wall. Patient states the drain was removed and she has been doing well and over the last couple of days has noticed skin where the drain site was has become progressively more red and she started having drainage from the site where the drain was. Describes drainage as a yellowish colored patient denies pain denies fever states that otherwise she feels well Related Data Home Medications Medication Instructions Recorded Confirmed [id number] 500 2 tablet PO DAILY 10/25/20 02/25/21 mg-400 mg-80 mg tablet Centrum Silver Women 1 tablet PO DAILY 11/08/20 02/25/21 aspirin 81 mg PO DAILY 02/25/21 02/25/21 ergocalciferol (vitamin D2) 1,250 mcg PO WEEKLY 02/25/21 02/25/21 Allergies Allergy/AdvReac Type Severity Reaction Status Date / Time No Known Allergies Allergy Unknown Verified 02/24/21 19:15 Review of Systems Review of Systems: A 10 system review of systems was completed on the patient and is negative except for what is stated in the HPI. Nursing and ancillary documentation was reviewed. [facility] Past Medical History Medical History Abnormal CT scan, sigmoid colon Anemia Diarrhea Erosive esophagitis Hypokalemia 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 disease Social History Social History Smoking status: Never smoker Alcohol intake: never Substance use: never Substance use type: does not use Spiritual care concerns: No Exam Narrative: GENERAL: Well-appearing, well-nourished, and in no acute distress. HEAD: Normocephalic, atraumatic. EYES: PERRLA and EOMI. ENT: Nares clear, no rhinorrhea or epistaxis. Mucous membranes moist. NECK: Supple. CHEST: Clear to auscultation. No respiratory distress. HEART: Regular rate and rhythm. No murmur heard. Normal peripheral pulses. ABDOMEN: Soft, nontender, nondistended, normal active bowel sounds. There is a diverting colostomy present EXTREMITIES: Normal range of motion. No edema. SKIN: Warm, dry, there is redness in the left upper and left lower quadrant. There is a small site where the drain was that is had yellowish drainage from it. NEURO: No focal deficits. Alert and oriented x3. PSYCH: Normal mood and affect. Course Vital Signs Vital signs: Vital Signs Temperature 36.8 C 03/19/21 18:35 Pulse Rate 73 03/19/21 18:35 Respiratory Rate 16 03/19/21 18:35 Blood Pressure 142/100 H 03/19/21 18:35 Pulse Oximetry 97 03/19/21 18:35 Temperature 36.8 C 03/19/21 18:35 Pulse Rate 73 03/19/21 18:35 Respiratory Rate 16 03/19/21 18:35 Blood Pressure 142/100 H 03/19/21 18:35 Pulse Oximetry 97 03/19/21 18:35 Medical Decision Making Vital Signs Vital Signs: Vital Signs Temperature 36.8 C 03/19/21 18:35 Pulse Rate 73 03/19/21 18:35 Respiratory Rate 16 03/19/21 18:35 Blood Pressure 142/100 H 03/19/21 18:35 Pulse Oximetry 97 03/19/21 18:35 Temperature 36.8 C 03/19/21 18:35 Pulse Rate 73 03/19/21 18:35 Respiratory Rate 16 03/19/21 18:35 Blood Pressure 142/100 H 03/19/21 18:35 Pulse Oximetry 97 03/19/21 18:35 Lab Data Result diagrams: 03/19/21 19:44 03/19/21 19:44 Labs: L
[2021-03-19 20:10] LABS: Hematocrit 32.9 % (37.0-47.0); Hemoglobin 10.5 g/dL (12.0-15.0); Mean Corpuscular HGB Conc 31.9 g/dl (32-36); Mean Corpuscular Hemoglobin 27.5 pg (26-34); Mean Corpuscular Volume 86.1 fl (80-100); Platelet Count Result 304 k/mm3 (150-375); Red Blood Count 3.82 M/mm3 (4.2-5.4); Red Cell Distribution Width 19.2 % (11.5-14.5); White Blood Count 14.4 K/mm3 (4.5-10.0)
[2021-03-19 20:25] LABS: Lactic Acid Reflex 1.6 mmol/L (0.7-2.1); Magnesium 1.8 mg/dL (1.6-2.3)
[2021-03-19 20:26] LABS: Alanine Aminotransferase 16 U/L (4-35); Albumin Level 2.6 g/dL (3.5-5.1); Alkaline Phosphatase 102 U/L (38-126); Anion Gap 6 mmol/L (8-16); Aspartate Amino Transferase 28 U/L (14-36); Bilirubin,Total 0.9 mg/dL (0.2-1.3); Blood Urea Nitrogen 16 mg/dL (7-17); Calcium 8.7 mg/dL (8.4-10.2); Carbon Dioxide 23 mmol/L (22-30); Chloride 107 mmol/L (98-107); Estimated Glomerular Filt Rate 59; Glucose 126 mg/dL (65-110); Lipase 76 U/L (23-300); Potassium 3.5 mmol/L (3.4-5.0); Sodium 136 mmol/L (137-145)
[2021-03-19 20:29] LABS: Add Urine Microscopic? YES; Appearance Urine Turbid (Clear); Bacteria Urine 3+ /hpf; Bilirubin Urine Negative (Negative); Blood Urine 1+ (Negative); Color Urine Yellow (Yellow); Glucose Urine UA Negative (Negative); Ketones Urine Negative (Negative); Leukocyte Esterase Ur 2+ LEU/UL (Negative); Nitrate Urine Negative (Negative); Protein Urine 2+ mg/dL (Negative); RBC Urine >75 /hpf (0-2); Specific Grav Ur 1.021 (1.001-1.035); Squamous Epithelial Cell Urine Moderate /hpf (Few); Urobilinogen Urine Negative mg/dL (<2.0); WBC Urine >75 /hpf
[2021-03-19 20:50] LABS: Band Neutrophils Percent 17 % (0-6); Eosinophils Absolute Manual 0.57 K/mm3 (0.02-0.5); Eosinophils Percent Manual 4 % (0-4); Lymphocytes Absolute Manual 1.87 K/mm3 (1.1-4.5); Monocytes Absolute Manual 0.14 K/mm3 (0.1-0.90); Monocytes Percent Manual 1 % (3-9); Neutrophils Percent Manual 65 % (46-73); Total Cells Counted 100
[2021-03-19 20:51] LABS: Anisocytosis 2+ (NORMAL); Platelet Estimate Adequate (Adequate)
[2021-03-19 21:34] VITALS: BP 104/53; PULSE 100; RESP 18
--- NOTE | 2021-03-19 21:49 | PM.IMHP ---
H&P: HPI History of Present Illness Date/Time: 03/19/21 21:49 Chief Complaint: Purulent drainage Narrative: This is an 86-year-old female with past medical history significant for ulcerative colitis patient underwent exploratory laparotomy with extensive lysis of adhesions with takedown of colovesical and colo sacral fistula, sigmoid colon resection, repair of colovesical fistula, drainage of retroperitoneal abscess, mobilization of splenic flexure and creation of end colostomy, postop period was complicated with septic shock patient required ventilator support but successfully wean off ventilator support and sent to rehabilitation center. Patient comes back today after he was noted that she was draining purulent material from her left lower quadrant drain ostomy. Patient has not been able to eat due to mouth ulcers and has not been able to ambulate either due to generalized weakness and deconditioning. Preliminary workup was significant for CT of abdomen and pelvis with large intra-abdominal abscess along the left iliopsoas muscle. Patient has been admitted for further evaluation management and treatment. A urinalysis was significant for numerous wbc's, chest x-ray showed bilateral pleural effusion. Review of Systems Review of Systems: Mouth ulcers, poor appetite, deconditioning ,weight loss, purulent drainage, from drain ostomy. Constitutional: Constitutional: Denies chills, Reports fever(s), Reports poor appetite, Reports weakness and Reports weight loss Eyes: Eyes: Denies change in vision ENT: Denies dysphagia, Denies nasal congestion, Denies nasal discharge, Denies nasal obstruction and Denies odynophagia Cardiovascular: Cardiovascular: Reports pedal edema, Denies irregular heart rhythm, Reports leg edema, Denies lightheadedness, Denies radiating jaw, neck or arm pain, Denies palpitations, Denies dyspnea, Denies dyspnea on exertion and Denies orthopnea Respiratory: Respiratory: Denies cough and Denies dyspnea Gastrointestinal: Gastrointestinal: Denies abdominal pain, Denies nausea and Denies vomiting Comments: Mouth ulcers Genitourinary: Genitourinary: Denies dysuria Musculoskeletal: Musculoskeletal: Reports muscle weakness Integumentary/Breasts: Skin/Breast: Reports erythema (Left lower quadrant) Neurologic: Denies focal weakness and Denies Sensory deficit (Neuro) Psychiatric: Psychiatric: Reports no additional psychiatric complaints and Reports as per HPI Endocrine: Endocrine: Denies cold intolerance, Denies heat intolerance, Denies polyphagia, Denies polydipsia and Denies palpitations Hematologic/Lymphatic: Hematologic/Lymphatic: Reports no additional hematologic/lymphatic complaints and Reports as per HPI Allergic/Immunologic: Allergic/Immunologic: Reports no additional allergic/immunologic complaints and Reports as per HPI PMF Past Medical History Medical History Abnormal CT scan, sigmoid colon Anemia Diarrhea Erosive esophagitis Hypokalemia 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 disease Social History Social History Smoking status: Never smoker Alcohol intake: never Substance use: never Substance use type: does not use Spiritual care concerns: No Meds Home Medications and Allergies Home Medications Medication Instructions Recorded Confirmed Type lqfiomtrorf-qmqmnddwemz-iylgsr 500 2 tablet PO DAILY 10/25/20 03/20/21 History mg-400 mg-80 mg tablet Centrum Silver Women 1 tablet PO DAILY 11/08/20 03/20/21 History omeprazole 20 mg capsule,delayed 20 mg PO BID #60 cap 11/15/20 03/20/21 Rx release aspirin 81 mg PO DAILY
[2021-03-19] MEDS: SODIUM CHLORIDE 0.9% IV 1,000 ML 125 ML IV CONT (22:21)
[2021-03-19 23:06] LABS: SARS-CoV-2 RNA PCR Negative
--- NOTE | 2021-03-20 00:28 | PC.NURSE ---
coccyx area red area 8x8cm with open sore white 1x1cm with clear drainage, right foot on heal 1cm round black spot
[2021-03-20 01:27] VITALS: BP 112/52; PULSE 94; RESP 18
[2021-03-20] MEDS: MAGNES & ALUM HYD/SIMETH/DIPHENHYD/LIDOCAINE 119 ML MOUTHWASH BY MOUTH ×5 (05:39→20:54)
[2021-03-20 06:00] VITALS: BP 104/40; PULSE 100; RESP 25; TEMP 36.6; O2SAT 100
[2021-03-20 06:26] LABS: Glucose Point of Care 108 mg/dl (65-105)
[2021-03-20 07:07] LABS: Hematocrit 29.5 % (37.0-47.0); Hemoglobin 9.4 g/dL (12.0-15.0); Mean Corpuscular HGB Conc 31.9 g/dl (32-36); Mean Corpuscular Hemoglobin 27.8 pg (26-34); Mean Corpuscular Volume 87.3 fl (80-100); Mean Platelet Volume 10.2 fl (7.4-10.4); Platelet Count Result 278 k/mm3 (150-375); Red Blood Count 3.38 M/mm3 (4.2-5.4); Red Cell Distribution Width 19.4 % (11.5-14.5); White Blood Count 13.8 K/mm3 (4.5-10.0)
[2021-03-20 07:20] LABS: Alanine Aminotransferase 12 U/L (4-35); Alkaline Phosphatase 90 U/L (38-126); Anion Gap 8 mmol/L (8-16); Aspartate Amino Transferase 18 U/L (14-36); Bilirubin,Total 0.7 mg/dL (0.2-1.3); Blood Urea Nitrogen 14 mg/dL (7-17); Calcium 7.9 mg/dL (8.4-10.2); Carbon Dioxide 19 mmol/L (22-30); Chloride 109 mmol/L (98-107); Estimated Glomerular Filt Rate 59; Glucose 119 mg/dL (65-110); Magnesium 1.8 mg/dL (1.6-2.3); Partial Thromboplastin Time 29.4 SECONDS (22.3-36.8); Potassium 3.1 mmol/L (3.4-5.0); Sodium 136 mmol/L (137-145)
[2021-03-20 08:18] LABS: Band Neutrophils Percent 17 % (0-6); Basophils Absolute Manual 0.13 K/mm3 (0.0-0.1); Basophils Percent Manual 1 % (0-1); Eosinophils Absolute Manual 0.41 K/mm3 (0.02-0.5); Eosinophils Percent Manual 3 % (0-4); Lymphocytes Absolute Manual 0.96 K/mm3 (1.1-4.5); Monocytes Absolute Manual 0.13 K/mm3 (0.1-0.90); Monocytes Percent Manual 1 % (3-9); Neutrophils Absolute Manual 12.14 K/mm3 (1.7-7.2); Neutrophils Percent Manual 71 % (46-73); Platelet Estimate Adequate (Adequate); Total Cells Counted 100
[2021-03-20 08:19] LABS: Ovalocytes 1+ (NORMAL)
[2021-03-20 08:20] LABS: Acanthocytes 1+ (NORMAL); Crenated RBC 1+ (NORMAL); Target Cells 1+ (NORMAL)
[2021-03-20] MEDS: DEXTROSE 10% 1,000 ML 50 ML IV CONT (08:34)
[2021-03-20] MEDS: KCL 40 MEQ/D5/0.9% SOD CHL 1,000 ML 100 ML IV CONT ×2 (08:37→22:38)
[2021-03-20 11:05] LABS: Magnesium 1.9 mg/dL (1.6-2.3)
[2021-03-20 11:07] LABS: Anion Gap 8 mmol/L (8-16); Blood Urea Nitrogen 13 mg/dL (7-17); Calcium 7.8 mg/dL (8.4-10.2); Carbon Dioxide 18 mmol/L (22-30); Chloride 110 mmol/L (98-107); Estimated Glomerular Filt Rate 53; Glucose 107 mg/dL (65-110); Potassium 3.2 mmol/L (3.4-5.0); Sodium 136 mmol/L (137-145)
[2021-03-20 12:15] LABS: Glucose Point of Care 127 mg/dl (65-105)
--- NOTE | 2021-03-20 12:31 | PM.IMPN ---
Progress Note: A&P Assessment and Plan (1) Postoperative intra-abdominal abscess: Code(s): T81.43XA - Infection following a procedure, organ and space surgical site, initial encounter Status: Acute Assessment and Plan: Continue Zosyn and Vancomycin NPO with IV fluids Surgical consult Clinically improved Possible CT-guided catheter drainage 03/21 (2) Urinary tract infection: Qualifiers: Urinary tract infection type: site unspecified Hematuria presence: without hematuria Qualified Code(s): N39.0 - Urinary tract infection, site not specified Code(s): N39.0 - Urinary tract infection, site not specified Status: Acute Assessment and Plan: Continue Zosyn and Vancomycin Await cultures (3) Severe muscle deconditioning: Code(s): R29.898 - Other symptoms and signs involving the musculoskeletal system Status: Acute Assessment and Plan: Due to acute illness PT OT when clinically stable For precautions Around the clock turning schedule Subjective Date/time seen: 03/20/21 12:31 Interval history: Admitted 03/19 with abdominal pain and found to have left psoas abscess. 03/20 visit. Feeling better. Hungry and thirsty. Denied pain and shortness of breath. Admits to fatigue and generalized weakness. Review of Systems Review of Systems: All systems reviewed & are unremarkable except as noted in HPI and below Exam Narrative: HEENT: PERRL, sclerae nonicteric, pharyngeal mucosa pink and intact NECK: No JVD CHEST: Clear to auscultation. Normal effort. HEART: NL S1/S2, regular, no murmur ABDOMEN: BS+, soft, nontender, no mass, no bruits EXTREMITIES: No cyanosis, edema, or clubbing NEUROLOGIC: CN intact and symmetric to inspection. MUSCULOSKELETAL: Tone and strength symmetric. PSYCH: Alert. Oriented to person, place, and time. Objective Data Vital Signs Vital Signs: Vital Signs - 24 hr 03/19/21 18:35 03/19/21 21:34 03/20/21 01:27 Temperature 98.2 F Pulse Rate 73 100 94 Respiratory Rate 16 18 18 Blood Pressure 142/100 H 104/53 L 112/52 L Pulse Oximetry 97 03/20/21 06:00 Temperature 97.9 F Pulse Rate 100 Respiratory Rate 25 H Blood Pressure 104/40 L Pulse Oximetry 100 Intake/Output Intake/Output: Intake & Output 01/03/18/21 03/19/21 03/20/21 23:59 23:59 23:59 23:59 Intake Total 50 1900 Balance 50 1900 Meds/Results Medications: Active Medications Generic Name Dose Route Start Last Admin Trade Name Freq PRN Reason Stop Dose Admin Piperacillin/Tazobactam/Dextrose 3.375 gm in 50 mls @ 100 mls/hr 03/20/21 06:00 03/20/21 07:00 Zosyn 3.375 Gm/D5w 50ml Pm IVPB Infused Q6H LIVIER Infusion Vancomycin HCl 750 mg in 250 mls @ 250 mls/hr 03/21/21 11:00 Vancomycin 750 Mg/D5w 250 Ml IVPB Q36H LIVIER Dextrose 1,000 mls @ 50 mls/hr 03/20/21 02:52 03/20/21 08:34 Dextrose 10% IV CONT 50 mls/hr .Q20H PRN Administration if PN is interrupted Thiamine HCl 65 mg/ Folic Acid 1,012.85 mls @ 100 mls/hr 03/20/21 02:52 03/20/21 11:23 1 mg/ Multivitamins 5 ml/ IV CONT 03/20/21 12:59 Infused Multivitamins 5 ml/ Magnesium .Q10H8M ONE Infusion Sulfate 1 gm/ Sodium Chloride Amino Acids/Electrolytes/Dextrose 2,000 mls @ 80 mls/hr 03/20/21 12:00 Clinimix E 4.25%/5% Solution IV CONT .Q24H LIVIER Protocol Fat Emulsion Intravenous 250 mls @ 20.833 mls/hr 03/20/21 12:00 Lipids 20% IVPB Q24H LIVIER Potassium Chloride/Dextrose/Sod Cl 1,000 mls @ 100 mls/hr 03/20/21 08:00 03/20/21 08:37 Kcl 40 Meq/D5ns IV CONT 0 mls/hr .Q10H LIVIER Infusion Lidocaine/Diphenhydr/Alum/Mg/Simeth 5 ml 03/20/21 05:00 03/20/21 08:34 Magnes & Alum Hyd/Simeth/Diphenhyd/Lidocaine 119 Ml Mouthwash BY MOUTH 04/19/21 04:59 5 ml Q4HR LIVIER Administration Morphine Sulfate 4 mg 03/19/21 21:27 Morphine Sulfate (*Crx) 4 Mg/Ml Inj IV PUSH Q2H PRN Pain Rated 7-10 Ondansetron HCl 4 mg 03/19
[2021-03-20] MEDS: FAT EMULSIONS IV 20% 250 ML 20.83 ML IVPB (12:46)
[2021-03-20] MEDS: AMINO ACIDS 4.25%/D5W/LYTES/CA 2,000 ML 80 ML IV CONT (12:46)
--- NOTE | 2021-03-20 13:12 | PM.CNGS ---
Assessment and Plan Assessment and plan (1) Postoperative intra-abdominal abscess: Code(s): T81.43XA - Infection following a procedure, organ and space surgical site, initial encounter Status: Acute Assessment and Plan: I have reviewed the CT. Patient does have a small wound opening from the previous drain that does have some purulent drainage. The CT does not show significant subcutaneous portion of this abscess and most of it appears intra-abdominal and into the left iliopsoas. Will plan to have Radiology placed drain tomorrow. She may have clear liquids today and then will place NPO after midnight. Continue broad-spectrum IV antibiotics. (2) Status post Tamara's procedure: Code(s): Z93.3 - Colostomy status Status: Acute History of Present Illness Consult details Consult date: 03/20/21 Reason for consult: other (Intra-abdominal abscess) Requesting physician: Tremaine Drew MD Narrative: this is an 86-year-old who presented to the emergency last night with swelling and drainage the left lateral abdomen. She recently underwent Tamara's procedure for sigmoid stricture with perforation. She had a large psoas abscess at that time and a drain was placed in this region. The drain had been removed and she was discharged on 03/14/2021. Patient denies any pain currently and would like some water. Her ostomy has been functioning. She has not been having any fevers. 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 disease Social History Social History Smoking status: Never smoker Alcohol intake: never Substance use: never Substance use type: does not use Spiritual care concerns: No Meds Home Medications and Allergies Home Medications Medication Instructions Recorded Confirmed Type jmnjkvardbd-boogbzfkwqc-miizky 500 2 tablet PO DAILY 10/25/20 03/20/21 History mg-400 mg-80 mg tablet Centrum Silver Women 1 tablet PO DAILY 11/08/20 03/20/21 History omeprazole 20 mg capsule,delayed 20 mg PO BID #60 cap 11/15/20 03/20/21 Rx release aspirin 81 mg PO DAILY 02/25/21 03/20/21 History ergocalciferol (vitamin D2) 1,250 mcg PO DAILY 02/25/21 03/20/21 History Lactobacillus acidophilus 1,000 mmu cells PO DAILY #30 tablet 03/14/21 03/20/21 Rx acetaminophen [Mapap 650 mg PO Q6H PRN #10 tablet 03/14/21 03/20/21 Rx (acetaminophen)] nystatin 1 applic TOPICAL Q12HR 5 Days g 03/14/21 03/20/21 Rx magnesium hydroxide [Milk of 30 ml PO HS PRN 03/20/21 03/20/21 History Magnesia] mesalamine 3.6 g PO DAILY 03/20/21 03/20/21 History silver sulfadiazine 1 applic TOPICAL DAILY 03/20/21 03/20/21 History Allergies Allergy/AdvReac Type Severity Reaction Status Date / Time No Known Allergies Allergy Unknown Verified 03/20/21 02:27 Vital Signs Vital Signs - 24 hr 03/19/21 18:35 03/19/21 21:34 03/20/21 01:27 Temperature 36.8 C Pulse Rate 73 100 94 Respiratory Rate 16 18 18 Blood Pressure 142/100 H 104/53 L 112/52 L Pulse Oximetry 97 03/20/21 06:00 Temperature 36.6 C Pulse Rate 100 Respiratory Rate 25 H Blood Pressure 104/40 L Pulse Oximetry 100 Exam Co
[2021-03-20 13:39] LABS: Transferrin < 80 mg/dL (206-381)
[2021-03-20 13:39] LABS: Transferrin < 80 mg/dL (206-381)
[2021-03-20 14:00] VITALS: BP 102/42; PULSE 106; RESP 18; TEMP 37; O2SAT 100
[2021-03-20 20:54] VITALS: RESP 18; O2SAT 100
[2021-03-20 22:25] VITALS: BP 104/42; PULSE 106; RESP 18; TEMP 36.4; O2SAT 100
[2021-03-21] MEDS: MAGNES & ALUM HYD/SIMETH/DIPHENHYD/LIDOCAINE 119 ML MOUTHWASH BY MOUTH ×5 (00:42→20:33)
[2021-03-21 00:56] LABS: Glucose Point of Care 198 mg/dl (65-105)
[2021-03-21 05:25] VITALS: BP 100/42; PULSE 88; RESP 18; TEMP 36.2; O2SAT 100
[2021-03-21 06:44] LABS: Glucose Point of Care 150 mg/dl (65-105)
[2021-03-21 08:30] VITALS: O2SAT 98
--- NOTE | 2021-03-21 09:34 | PCOTNOTE ---
Attempted to see pt. for evaluation. Pt. potentially having procedure to have drain replace. Pt. will be more appropriate for evaluation after procedure.
--- NOTE | 2021-03-21 09:48 | PCWOUND ---
WOCN NOTE ordered ostomy supplies for bedside.
[2021-03-21 11:55] LABS: Glucose Point of Care 127 mg/dl (65-105)
--- NOTE | 2021-03-21 12:02 | PM.PNGS ---
Progress Note: A&P Assessment and Plan (1) Postoperative intra-abdominal abscess: Code(s): T81.43XA - Infection following a procedure, organ and space surgical site, initial encounter Status: Acute Assessment and Plan: Plan for CT-guided drainage of intra-abdominal abscess today in Radiology. Continue broad-spectrum IV antibiotics. Today's labs pending when patient was seen. Okay to place back on a diet after drain is placed. 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 Additional Plan I have discussed the plan of care with Dr. Mendoza. Subjective Subjective Date/Time Seen: 03/21/21 10:02 Patient reports: no new complaints and afebrile Interval history: Chart reviewed. Patient seen and examined. She was sleeping upon entering the room and woke up easily to her name. She is alert and oriented x 3. She has no complaints at this time and appears comfortable. She denies abdominal pain or nausea, and is actually asking to eat/drink but is currently NPO for the percutaneous drain placement. She does report that the left side of her abdomen is tender to touch but is not painful without palpation. Review of Systems Review of Systems: All systems reviewed & are unremarkable except as noted in HPI and below Exam Const: General: no acute distress Orientation/consciousness: patient oriented x3 Resp: Effort & Inspection: normal respiratory effort Auscultation: clear to auscultation bilaterally Cardio: Rate: regular rate Rhythm: regular rhythm GI: Inspection: non-distended and incision (midline incision healing with tiny superficial wound at bottom) GI Palp: Yes Soft to palpation, Yes Tenderness to palpation present (GI) (left lateral abdomen where erythema and induration is located), No Guarding due to palpation present (GI), No Rebound tenderness present and Yes Other GI palpation findings present (ostomy functioning well with brown stool in bag) Auscultation: normal bowel sounds Other: Erythema and induration in left lateral abdomen above iliac crest. Small wound opening from previous drain site with purulent drainage. Urinary Catheter: Urinary Catheter: patent and draining and urine cloudy (purulent) Neuro: General: moves all extremities and no focal motor deficits Extrem: General: no pedal edema and no calf tenderness Other: Mild erythema and edema of proximal thighs bilaterally Psych: Insight: Fair insight present (Psych) Judgement: Fair judgement present (Psych) Objective Data Vital Signs Vital Signs: Vital Signs - 24 hr 03/20/21 14:00 03/20/21 20:54 03/20/21 22:25 Temperature 98.6 F 97.5 F L Pulse Rate 106 H 106 H Respiratory Rate 18 18 18 Blood Pressure 102/42 L 104/42 L Pulse Oximetry 100 100 100 03/21/21 05:25 03/21/21 08:30 Temperature 97.1 F L Pulse Rate 88 Respiratory Rate 18 Blood Pressure 100/42 L Pulse Oximetry 100 98 Intake/Output Intake/Output: Intake & Output 03/18/21 03/19/21 03/20/21 03/21/21 23:59 23:59 23:59 23:59 Intake Total 50 3440 80 Output Total 625 400 Balance 50 2815 -320 Meds/Results Medications: Active Medications Generic Name Dose Route Start Last Admin Trade Name Freq PRN Reason Stop Dose Admin Piperacillin/Tazobactam/Dextrose 3.375 gm in 50 mls @ 100 mls/hr 03/20/21 06:00 03/21/21 05:54 Zosyn 3.375 Gm/D5w 50ml Pm IVPB Infused Q6H LIVIER Infusion Vancomycin HCl 750 mg in 250 mls @ 250 mls/hr 03/21/21 11:00 Vancomycin 750 Mg/D5w 250 Ml IVPB Q36H LIVIER Potassium Chloride/Dextrose/Sod Cl 1,000 mls @ 100 mls/hr 03/20/21 22:40 03/21/21 05:54 Kcl 40 Meq/D5ns IV CONT 100 mls/hr .Q10H LIVIER Infusion Lidocaine/Diphenhydr/Alum/Mg/Simeth 5 ml 03/20/21 05:00 03/21/21 08:36 Magnes & Alum Hyd/Simeth/Diphenhyd/Lidocaine 119 Ml Mouthwash BY MOUTH 04/19/21 04:59 5 ml Q4HR LIVIER Administrat
[2021-03-21 12:08] LABS: Hematocrit 32.5 % (37.0-47.0); Hemoglobin 9.4 g/dL (12.0-15.0); Mean Corpuscular HGB Conc 28.9 g/dl (32-36); Mean Corpuscular Hemoglobin 27.6 pg (26-34); Mean Corpuscular Volume 95.6 fl (80-100); Mean Platelet Volume 10.7 fl (7.4-10.4); Platelet Count Result 227 k/mm3 (150-375); Red Cell Distribution Width 20.2 % (11.5-14.5); White Blood Count 13.2 K/mm3 (4.5-10.0)
[2021-03-21] MEDS: SILVERGEL (ELTA) 45 ML 1 APPLIC TOPICAL (12:13)
[2021-03-21 12:16] LABS: INR 1.6; Prothrombin Time 18.3 Seconds (11.1-14.7)
[2021-03-21 12:17] LABS: Partial Thromboplastin Time 28.6 SECONDS (22.3-36.8)
[2021-03-21 13:03] LABS: CRP 13.4 mg/dL (<1.0)
[2021-03-21 13:10] VITALS: BMI 23.0
[2021-03-21 13:54] LABS: Band Neutrophils Percent 18 % (0-6); Eosinophils Absolute Manual 1.05 K/mm3 (0.02-0.5); Eosinophils Percent Manual 8 % (0-4); Lymphocytes Absolute Manual 2.11 K/mm3 (1.1-4.5); Monocytes Absolute Manual 0.26 K/mm3 (0.1-0.90); Monocytes Percent Manual 2 % (3-9); Neutrophils Absolute Manual 9.76 K/mm3 (1.7-7.2); Neutrophils Percent Manual 56 % (46-73); Ovalocytes 1+ (NORMAL); Platelet Estimate Adequate (Adequate); Total Cells Counted 100
[2021-03-21] MEDS: KCL 40 MEQ/D5/0.9% SOD CHL 1,000 ML 100 ML IV CONT ×2 (14:49→21:50)
[2021-03-21 16:03] VITALS: BP 100/43; PULSE 95; RESP 18; TEMP 36.1
[2021-03-21 17:16] VITALS: O2SAT 95
--- NOTE | 2021-03-21 18:12 | PM.IMPN ---
Progress Note: A&P Assessment and Plan (1) Postoperative intra-abdominal abscess: Code(s): T81.43XA - Infection following a procedure, organ and space surgical site, initial encounter Status: Acute Assessment and Plan: S/p Tamara's procedure on 02/25/22 complicated by large psoas abscess requiring drainage who presented with increased swelling and drainage of her left lateral abdomen CT abdomen/pelvis on presentation showed large abscess involving the left iliopsoas muscle and left pericolic gutter which tracked to the medial left pelvis and left proximal thigh Appreciate general surgery consultation Continue broad-spectrum antibiotics with Vancomycin and Zosyn Underwent CT-guided abscess catheter placement of the left iliopsoas abscess and left pelvic abscess today Abscess cultures pending WBC mildly elevated and is slowly improving. Patient remains afebrile (2) Urinary tract infection: Qualifiers: Urinary tract infection type: site unspecified Hematuria presence: without hematuria Qualified Code(s): N39.0 - Urinary tract infection, site not specified Code(s): N39.0 - Urinary tract infection, site not specified Status: Acute Assessment and Plan: Ruled out. Urine culture collected on 03/19 with mixed genital ean not indicative of UTI She is asymptomatic She remains on broad-spectrum antibiotics for above problem (3) Severe muscle deconditioning: Code(s): R29.898 - Other symptoms and signs involving the musculoskeletal system Status: Acute Assessment and Plan: Patient is very weak related to her acute illness She will need PT/OT evals once clinically stable Fall precautions implemented Continue turning/repositioning schedule (4) Hypokalemia: Code(s): E87.6 - Hypokalemia Status: Acute Assessment and Plan: Potassium slightly low 3.1-3.2 Potassium levels today are still pending. I have contacted lab Await potassium levels and supplement as needed Monitor BMP Subjective Date/time seen: 03/21/21 18:12 Interval history: Date of Service: 03/21/2021 Eli duarte is 86-year-old female with a history of anemia, erosive esophagitis, hypokalemia, ulcerative colitis, and recent hospital stay for sigmoid colon stricture with colon perforation s/p Tamara's procedure and intra-abdominal abscess who is seen in follow-up for postoperative intra-abdominal abscess. She endorses abdominal pain and fullness. She denies nausea or vomiting. Her biggest complaint is that her mouth is very dry in her throat is sore. Her voice is hoarse. She denies dysphagia and is able to manage her oral secretions. She denies fevers or chills. No shortness of breath, cough, or chest pain. No issues with her ostomy. Reports soreness in her buttocks. Review of Systems Review of Systems: All systems reviewed & are unremarkable except as noted in HPI and below Exam Narrative: Ms. Duarte is a thin, frail 86-year-old female who is lying supine in bed. She appears comfortable and is in NARD. Neuro: awake, alert and oriented x4, speech clear, no focal neuro deficits noted HEENMT: normocephalic, atraumatic, EOMI, sclerae anicteric, voice is hoarse Neck: supple, no lymphadenopathy Respiratory: clear to auscultation bilaterally, nonlabored breathing Cardio: regular rate, regular rhythm with S1-S2 Abdomen: nondistended, hypoactive bowel sounds, abdominal drain in place, left lateral abdominal wall is erythematous, ostomy with loose brown stool Extremities: Proximal thighs are erythematous with 1+ edema, nontender to palpation, bilateral calves without tenderness, no pedal edema, DP pulses 2+ bilaterally Skin: no rashes or lesions, warm and dry Psych: appropriate mood and affect, judgment and insight intact Objective Data Vital Signs Vital Signs: Vital Signs - 24 hr 03/20/21 20:54 03/20/21 22:25 03/21/21 05:25 Temperature 9
[2021-03-21 18:40] LABS: Alanine Aminotransferase 13 U/L (4-35); Alkaline Phosphatase 75 U/L (38-126); Anion Gap 6 mmol/L (8-16); Aspartate Amino Transferase 17 U/L (14-36); Bilirubin,Total 0.8 mg/dL (0.2-1.3); Blood Urea Nitrogen 13 mg/dL (7-17); Calcium 8.1 mg/dL (8.4-10.2); Carbon Dioxide 15 mmol/L (22-30); Chloride 116 mmol/L (98-107); Estimated Glomerular Filt Rate 59; Glucose 137 mg/dL (65-110); Phosphorus 2.9 mg/dL (2.5-4.5); Potassium 3.5 mmol/L (3.4-5.0); Sodium 137 mmol/L (137-145); Triglycerides 135 mg/dL (<150)
[2021-03-21 18:59] LABS: Transferrin < 80 mg/dL (206-381)
[2021-03-21 20:00] VITALS: PULSE 80; RESP 16; O2SAT 96
[2021-03-21 21:28] VITALS: BP 102/42; PULSE 80; RESP 16; TEMP 36.8; O2SAT 96
[2021-03-21 21:37] LABS: Glucose Point of Care 122 mg/dl (65-105)
[2021-03-22] VITALS (8 sets, daily range): BP systolic 96–106; BP diastolic 40–73; PULSE 64–99; RESP 16–24; TEMP 36.4–37.1; O2SAT 90–95
[2021-03-22] MEDS: MAGNES & ALUM HYD/SIMETH/DIPHENHYD/LIDOCAINE 119 ML MOUTHWASH BY MOUTH ×6 (00:17→20:18)
[2021-03-22] MEDS: KCL 40 MEQ/D5/0.9% SOD CHL 1,000 ML 75 ML IV CONT ×2 (09:11→22:40)
--- NOTE | 2021-03-22 09:41 | PCOTNOTE ---
Attempted to see pt. for evaluation. Pt. refused to participate d/t fatigue. Pt. now s/p for procedure of drainage of intra-abdominal abscess
--- NOTE | 2021-03-22 11:11 | PCPTNOTE ---
Patient refused treatment this session due to patient wanting to rest.
[2021-03-22 11:38] LABS: Alanine Aminotransferase 14 U/L (4-35); Alkaline Phosphatase 88 U/L (38-126); Anion Gap 9 mmol/L (8-16); Aspartate Amino Transferase 24 U/L (14-36); Bilirubin,Total 0.8 mg/dL (0.2-1.3); Blood Urea Nitrogen 12 mg/dL (7-17); CRP 12.2 mg/dL (<1.0); Calcium 8.2 mg/dL (8.4-10.2); Carbon Dioxide 16 mmol/L (22-30); Chloride 114 mmol/L (98-107); Estimated Glomerular Filt Rate 53; Glucose 146 mg/dL (65-110); Phosphorus 3.1 mg/dL (2.5-4.5); Sodium 139 mmol/L (137-145)
[2021-03-22 11:54] LABS: Hematocrit 30.3 % (37.0-47.0); Hemoglobin 9.1 g/dL (12.0-15.0); Mean Corpuscular Hemoglobin 27.8 pg (26-34); Mean Corpuscular Volume 92.7 fl (80-100); Mean Platelet Volume 10.3 fl (7.4-10.4); Platelet Count Result 322 k/mm3 (150-375); Red Blood Count 3.27 M/mm3 (4.2-5.4); Red Cell Distribution Width 19.9 % (11.5-14.5); White Blood Count 17.4 K/mm3 (4.5-10.0)
--- NOTE | 2021-03-22 13:11 | PCPTNOTE ---
Patient refused treatment this session. Patient reported she is too tired. Educated patient on the importance of therapy, patient continued to refuse.
--- NOTE | 2021-03-22 14:09 | PM.PNGS ---
Progress Note: A&P Assessment and Plan (1) Postoperative intra-abdominal abscess: Code(s): T81.43XA - Infection following a procedure, organ and space surgical site, initial encounter Status: Acute Assessment and Plan: Perc drain x 2 placed in Radiology yesterday. Drain #1 had just over 400 cc out since being placed and drain #2 did not have any output yesterday (although there is about 50 cc in drainage bag today). Continue to monitor drain output. Continue IV Zosyn. WBC up to 17,000 today, she is afebrile. Repeat labs again tomorrow. Continue clear liquids today. 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 She is significantly deconditioned from her initial hospitalization. Additional Plan I have discussed the plan of care with Dr. Mendoza. Subjective Subjective Date/Time Seen: 03/22/21 11:19 Patient reports: no new complaints, tolerating liquids well (clear liquids) and afebrile Interval history: Patient seen and examined today. She denies any abdominal pain, nausea, or vomiting. She is comfortable and wanting to eat lunch. She had 2 perc drains placed yesterday. No complaints at the time of my exam. Review of Systems Review of Systems: All systems reviewed & are unremarkable except as noted in HPI and below Exam Const: General: no acute distress and alert Orientation/consciousness: patient oriented x3 GI: Inspection: non-distended and incision (midline incision healing with tiny superficial wound at bottom) GI Palp: Yes Soft to palpation, No Tenderness to palpation present (GI), No Guarding due to palpation present (GI) and No Rebound tenderness present Auscultation: normal bowel sounds Other: RLQ perc drain with yellow purulent drainage LLQ perc drain with yellow purulent drainage - dressing dry and intact and covering the previous area of erythema and induration Urinary Catheter: Urinary Catheter: patent and draining and urine cloudy Neuro: General: moves all extremities and no focal motor deficits Extrem: General: normal to inspection and no calf tenderness Other: Mild erythema and edema of proximal thighs bilaterally Psych: Mental Status: mental status grossly normal Insight: Fair insight present (Psych) Judgement: Fair judgement present (Psych) Objective Data Vital Signs Vital Signs: Vital Signs - 24 hr 03/21/21 16:03 03/21/21 17:16 03/21/21 20:00 Temperature 97.0 F L Pulse Rate 95 80 Respiratory Rate 18 16 Blood Pressure 100/43 L Pulse Oximetry 95 96 03/21/21 21:28 03/22/21 02:19 03/22/21 04:32 Temperature 98.3 F 98.5 F Pulse Rate 80 91 Respiratory Rate 16 17 Blood Pressure 102/42 L 100/40 L Pulse Oximetry 96 95 94 03/22/21 08:30 03/22/21 13:02 03/22/21 13:11 Temperature 98.5 F 98.8 F Pulse Rate 99 94 94 Respiratory Rate 24 H 22 H 22 H Blood Pressure 102/44 L 96/73 L Pulse Oximetry 92 90 92 Intake/Output Intake/Output: Intake & Output 03/19/21 03/20/21 03/21/21 03/22/21 23:59 23:59 23:59 23:59 Intake Total 50 3440 2480 1470 Output Total 625 1290 945 Balance 50 2815 1190 525 Meds/Results Medications: Active Medications Generic Name Dose Route Start Last Admin Trade Name Freq PRN Reason Stop Dose Admin Piperacillin/Tazobactam/Dextrose 3.375 gm in 50 mls @ 100 mls/hr 03/20/21 06:00 03/22/21 12:57 Zosyn 3.375 Gm/D5w 50ml Pm IVPB Infused Q6H LIVIER Infusion Vancomycin HCl 750 mg in 250 mls @ 250 mls/hr 03/21/21 11:00 03/21/21 18:17 Vancomycin 750 Mg/D5w 250 Ml IVPB Infused Q36H LIVIER Infusion Potassium Chloride/Dextrose/Sod Cl 1,000 mls @ 75 mls/hr 03/20/21 22:40 03/22/21 09:11 Kcl 40 Meq/D5ns IV CONT 75 mls/hr .[id number] LIVIER Administration Lidocaine/Diphenhydr/Alum/Mg/Simeth 5 ml 03/20/21 05:00
--- NOTE | 2021-03-22 14:54 | PC.NURSE ---
On 03/22/21, the student, Francesca Jeter, provided care and completed [facility] hospital documentation on this patient. I have reviewed the student's documentation and agree with the findings.
--- NOTE | 2021-03-22 15:38 | PM.IMPN ---
Progress Note: A&P Assessment and Plan (1) Postoperative intra-abdominal abscess: Code(s): T81.43XA - Infection following a procedure, organ and space surgical site, initial encounter Status: Acute Assessment and Plan: S/p Tamara's procedure on 02/25/22 complicated by large psoas abscess requiring drainage who presented with increased swelling and drainage of her left lateral abdomen CT abdomen/pelvis on presentation showed large abscess involving the left iliopsoas muscle and left pericolic gutter which tracked to the medial left pelvis and left proximal thigh Appreciate general surgery consultation Continue broad-spectrum antibiotics with Vancomycin and Zosyn Underwent CT-guided abscess catheter placement of the left iliopsoas abscess and left pelvic abscess yesterday Abscess cultures pending WBC mildly elevated. Patient remains afebrile. Recheck labs tomorrow. (2) Urinary tract infection: Qualifiers: Urinary tract infection type: site unspecified Hematuria presence: without hematuria Qualified Code(s): N39.0 - Urinary tract infection, site not specified Code(s): N39.0 - Urinary tract infection, site not specified Status: Acute Assessment and Plan: Ruled out. Urine culture collected on 03/19 with mixed genital ean not indicative of UTI She is asymptomatic She remains on broad-spectrum antibiotics for above problem (3) Severe muscle deconditioning: Code(s): R29.898 - Other symptoms and signs involving the musculoskeletal system Status: Acute Assessment and Plan: Patient is very weak related to her acute illness Refusing PT/OT evals at this time Fall precautions implemented Continue turning/repositioning schedule and encourage participation in PT/OT (4) Hypokalemia: Code(s): E87.6 - Hypokalemia Status: Acute Assessment and Plan: Monitored and replaced as indicated. Resolved. Subjective Date/time seen: 03/22/21 15:38 Interval history: Date of Service: 03/21/2021 Eli duarte is 86-year-old female with a history of anemia, erosive esophagitis, hypokalemia, ulcerative colitis, and recent hospital stay for sigmoid colon stricture with colon perforation s/p Tamara's procedure and intra-abdominal abscess who is seen in follow-up for postoperative intra-abdominal abscess. Pt appears lethargic today. Only complaint is generalized weakness. Denies abd pain, nausea, vomiting, fevers. A/Ox2-3 however this could have been somewhat due to her lethargy. Answers questions appropriately, clear speech. Review of Systems Review of Systems: ROS unobtainable: Yes unobtainable due to mental status Exam Narrative: Ms. Duarte is a thin, frail 86-year-old female who is lying supine in bed. She appears lethargic and mildly ill. Neuro: awake, alert and oriented x2-3, speech clear, no focal neuro deficits noted HEENMT: normocephalic, atraumatic, EOMI, sclerae anicteric, voice is hoarse Neck: supple, no lymphadenopathy Respiratory: clear to auscultation bilaterally, nonlabored breathing Cardio: regular rate, regular rhythm with S1-S2 Abdomen: nondistended, hypoactive bowel sounds, abdominal drain in place, left lateral abdominal wall is erythematous, ostomy with loose brown stool Extremities: Proximal thighs are erythematous with 1+ edema, nontender to palpation, bilateral calves without tenderness, no pedal edema, DP pulses 2+ bilaterally Skin: no rashes or lesions, warm and dry Objective Data Vital Signs Vital Signs: Vital Signs - 24 hr 03/21/21 16:03 03/21/21 17:16 03/21/21 20:00 Temperature 97.0 F L Pulse Rate 95 80 Respiratory Rate 18 16 Blood Pressure 100/43 L Pulse Oximetry 95 96 03/21/21 21:28 03/22/21 02:19 03/22/21 04:32 Temperature 98.3 F 98.5 F Pulse Rate 80 91 Respiratory Rate 16 17 Blood Pressure 102/42 L 100/40 L Pulse Oximetry 96 95 94 03/22/21 08:30 02/27
[2021-03-22] MEDS: ENOXAPARIN 30 MG/0.3 ML SYRINGE SUB-Q (17:17)
[2021-03-22 21:17] LABS: Glucose Point of Care 101 mg/dl (65-105)
[2021-03-22 23:05] LABS: Vancomycin Trough 6.2 ug/mL (10.0-20.0)
[2021-03-23] MEDS: MAGNES & ALUM HYD/SIMETH/DIPHENHYD/LIDOCAINE 119 ML MOUTHWASH BY MOUTH ×6 (02:04→20:58)
[2021-03-23 04:27] VITALS: BP 119/45; PULSE 94; RESP 16; TEMP 36.6; O2SAT 90
[2021-03-23 08:00] VITALS: O2SAT 92
[2021-03-23] MEDS: ENOXAPARIN 30 MG/0.3 ML SYRINGE SUB-Q (08:17)
--- NOTE | 2021-03-23 09:30 | PCOTNOTE ---
Attempted to see patient for OT evaluation this AM. Patient refusing at this time stating she was too tired and too cold to try. She states she wants to work with therapy, but not right now . Educated her on the benefits of therapy, but she continued to decline.
[2021-03-23] MEDS: KCL 40 MEQ/D5/0.9% SOD CHL 1,000 ML 75 ML IV CONT (12:24)
--- NOTE | 2021-03-23 13:42 | PM.IMPN ---
Progress Note: A&P Assessment and Plan (1) Postoperative intra-abdominal abscess: Code(s): T81.43XA - Infection following a procedure, organ and space surgical site, initial encounter Status: Acute Assessment and Plan: S/p Tamara's procedure on 02/25/22 complicated by large psoas abscess requiring drainage who presented with increased swelling and drainage of her left lateral abdomen CT abdomen/pelvis on presentation showed large abscess involving the left iliopsoas muscle and left pericolic gutter which tracked to the medial left pelvis and left proximal thigh Appreciate general surgery consultation Continue broad-spectrum antibiotics with Vancomycin and Zosyn Underwent CT-guided abscess catheter placement of the left iliopsoas abscess and left pelvic abscess on 03/21 Abscess cultures pending WBC with slight increase yesterday. Labs ordered for today but not yet completed. Patient remains afebrile. Continue to monitor labs (2) Urinary tract infection: Qualifiers: Urinary tract infection type: site unspecified Hematuria presence: without hematuria Qualified Code(s): N39.0 - Urinary tract infection, site not specified Code(s): N39.0 - Urinary tract infection, site not specified Status: Acute Assessment and Plan: Ruled out. Urine culture collected on 03/19 with mixed genital ean not indicative of UTI She is asymptomatic She remains on broad-spectrum antibiotics for above problem (3) Severe muscle deconditioning: Code(s): R29.898 - Other symptoms and signs involving the musculoskeletal system Status: Acute Assessment and Plan: Patient is very weak related to her acute illness She refused PT/OT yesterday. Has not had therapy at today but was encouraged to participate Fall precautions implemented Continue turning/repositioning schedule (4) Hypokalemia: Code(s): E87.6 - Hypokalemia Status: Acute Assessment and Plan: Potassium 4.0 yesterday Continue to monitor BMP (5) Lower extremity edema: Code(s): R60.0 - Localized edema Status: Acute Assessment and Plan: Likely related to IV fluids and decreased mobility Will obtain venous Doppler Continue treatment plan as above Elevate extremities Will discuss with surgery regarding discontinuing IV fluids as patient is tolerating oral intake Subjective Date/time seen: 03/23/21 13:42 Interval history: Date of Service: 03/21/2021 Eli duarte is 86-year-old female with a history of anemia, erosive esophagitis, hypokalemia, ulcerative colitis, and recent hospital stay for sigmoid colon stricture with colon perforation s/p Tamara's procedure and intra-abdominal abscess who is seen in follow-up for postoperative intra-abdominal abscess. She feels okay today. She denies abdominal pain. No nausea or vomiting. She was eating spaghetti for lunch. She states this is the 1st time she has gotten to eat and was trying to take it slow. She was really enjoying her lunch and was happy to have the opportunity to eat something. Denies fever or chills. Reports her sore throat has resolved. No shortness breath, cough, or chest pain. No dizziness or lightheadedness. She has not been out of bed. Review of Systems Review of Systems: All systems reviewed & are unremarkable except as noted in HPI and below Exam Narrative: Ms. Duarte is a thin, frail 86-year-old female who is lying supine in bed. She appears comfortable and is in no acute respiratory distress. Neuro: awake, alert and oriented x3, speech clear, no focal neuro deficits noted HEENMT: normocephalic, atraumatic, EOMI, sclerae anicteric Neck: supple, no lymphadenopathy Respiratory: clear to auscultation bilaterally, nonlabored breathing Cardio: regular rate, regular rhythm with S1-S2 Abdomen: nondistended, hypoactive bowel sounds, abdominal drain in place, left lateral abdominal wall
--- NOTE | 2021-03-23 14:08 | PCPTNOTE ---
Patient refused treatment this session. Nursing working with patient, RN asked patient if she wanted to work with PT, patient reported not right now.
--- NOTE | 2021-03-23 14:16 | PM.PNGS ---
Progress Note: A&P Assessment and Plan (1) Postoperative intra-abdominal abscess: Code(s): T81.43XA - Infection following a procedure, organ and space surgical site, initial encounter Status: Acute Assessment and Plan: stable s/p drain, cont abx, ok to slowly ADAT, encourage PT/OT Subjective Subjective Date/Time Seen: 03/23/21 14:16 feels better, reports some chills Review of Systems Review of Systems: All systems reviewed & are unremarkable except as noted in HPI and below Exam Const: General: cooperative, comfortable and no acute distress Orientation/consciousness: patient oriented x3 Resp: Auscultation: clear to auscultation bilaterally Cardio: Rate: regular rate Rhythm: regular rhythm GI: Inspection: normal to inspection and distended GI Palp: Yes Soft to palpation, No Tenderness to palpation present (GI), No Guarding due to palpation present (GI) and No Rigid due to palpation Other: drains x 2 c minimal drainage Objective Data Vital Signs Vital Signs: Vital Signs - 24 hr 03/22/21 19:42 03/22/21 20:00 03/23/21 04:27 Temperature 36.4 C L 36.6 C Pulse Rate 64 64 94 Respiratory Rate 16 16 16 Blood Pressure 106/48 L 119/45 L Pulse Oximetry 91 91 90 03/23/21 08:00 Temperature Pulse Rate Respiratory Rate Blood Pressure Pulse Oximetry 92 Intake/Output Intake/Output: Intake & Output 03/20/21 03/21/21 03/22/21 03/23/21 23:59 23:59 23:59 23:59 Intake Total 3440 2480 2570 5836 Output Total 625 1290 1345 225 Balance 2815 1190 1225 5611 Meds/Results Medications: Active Medications Generic Name Dose Route Start Last Admin Trade Name Freq PRN Reason Stop Dose Admin Enoxaparin Sodium 30 mg 03/22/21 15:40 03/23/21 08:17 Enoxaparin 30 Mg/0.3 Ml Syringe SUB-Q 30 mg DAILY LIVIER Administration Piperacillin/Tazobactam/Dextrose 3.375 gm in 50 mls @ 100 mls/hr 03/20/21 06:00 03/23/21 13:24 Zosyn 3.375 Gm/D5w 50ml Pm IVPB Infused Q6H LIVIER Infusion Potassium Chloride/Dextrose/Sod Cl 1,000 mls @ 75 mls/hr 03/20/21 22:40 03/23/21 12:24 Kcl 40 Meq/D5ns IV CONT 75 mls/hr .[id number] LIVIER Administration Vancomycin HCl 750 mg in 250 mls @ 250 mls/hr 03/23/21 23:00 Vancomycin 750 Mg/D5w 250 Ml IVPB Q24H LIVIER Lidocaine/Diphenhydr/Alum/Mg/Simeth 5 ml 03/20/21 05:00 03/23/21 12:24 Magnes & Alum Hyd/Simeth/Diphenhyd/Lidocaine 119 Ml Mouthwash BY MOUTH 04/19/21 04:59 5 ml Q4HR LIVIER Administration Morphine Sulfate 4 mg 03/19/21 21:27 Morphine Sulfate (*Crx) 4 Mg/Ml Inj IV PUSH Q2H PRN Pain Rated 7-10 Ondansetron HCl 4 mg 03/19/21 21:27 Ondansetron Inj 4 Mg/2 Ml Vial IV PUSH Q4H PRN Nausea Silver Nitrate 1 applic 03/21/21 09:00 03/21/21 12:13 Silvergel (Elta) 45 Ml TOPICAL 1 applic Q72HR LIVIER Administration Radiology Results: ITS Impressions Abdomen/Pelvis CT 03/19/21 21:01 IMPRESSION: 1. Large abscess involving the left iliopsoas muscle and left pericolic gutter which tracks into the medial left pelvis and left proximal thigh with interval increase in size. 2. Moderate-sized pleural effusions. Catheter Placement CT 03/21/21 14:12 IMPRESSION: 1[address] Successful CT-guided left iliopsoas abscess drainage. 2. 10 mL barrera, opaque fluid was sent for aerobic and anaerobic cultures. 2. Successful CT-guided left pelvic abscess drainage. Catheter Placement CT 03/21/21 14:12 IMPRESSION: 1. Successful CT-guided left iliopsoas abscess drainage. 2. 10 mL barrera, opaque fluid was sent for aerobic and anaerobic cultures. 2. Successful CT-guided left pelvic abscess drainage. Labs Labs: Laboratory Results - last 24 hr 03/22/21 03/22/21 19:49 22:13 POC Capillary Glucose 101 Vancomycin Trough 6.2 L Quality VTE Prophylaxis VTE prophylaxis: pharmacologic ordered
[2021-03-23 15:33] VITALS: BP 113/53; PULSE 86; RESP 16; TEMP 36.1
[2021-03-23 15:49] LABS: Hematocrit 30.2 % (37.0-47.0); Hemoglobin 9.5 g/dL (12.0-15.0); Mean Corpuscular HGB Conc 31.5 g/dl (32-36); Mean Corpuscular Hemoglobin 27.9 pg (26-34); Mean Corpuscular Volume 88.6 fl (80-100); Mean Platelet Volume 9.7 fl (7.4-10.4); Platelet Count Result 334 k/mm3 (150-375); Red Blood Count 3.41 M/mm3 (4.2-5.4); Red Cell Distribution Width 19.8 % (11.5-14.5); White Blood Count 19.3 K/mm3 (4.5-10.0)
[2021-03-23 16:08] LABS: Alanine Aminotransferase 13 U/L (4-35); Albumin Level 2.3 g/dL (3.5-5.1); Alkaline Phosphatase 114 U/L (38-126); Anion Gap 5 mmol/L (8-16); Aspartate Amino Transferase 19 U/L (14-36); Blood Urea Nitrogen 13 mg/dL (7-17); Calcium 8.3 mg/dL (8.4-10.2); Carbon Dioxide 18 mmol/L (22-30); Chloride 113 mmol/L (98-107); Estimated Glomerular Filt Rate 39; Glucose 127 mg/dL (65-110); Phosphorus 3.1 mg/dL (2.5-4.5); Potassium 4.9 mmol/L (3.4-5.0); Sodium 136 mmol/L (137-145); Triglycerides 143 mg/dL (<150)
[2021-03-23 16:43] LABS: CRP 12.1 mg/dL (<1.0)
[2021-03-23 20:30] VITALS: BP 119/47; PULSE 102; RESP 16; TEMP 36.2; O2SAT 95
[2021-03-23 20:58] VITALS: RESP 16; O2SAT 95
[2021-03-24] MEDS: MAGNES & ALUM HYD/SIMETH/DIPHENHYD/LIDOCAINE 119 ML MOUTHWASH BY MOUTH ×6 (00:36→22:28)
[2021-03-24] MEDS: KCL 40 MEQ/D5/0.9% SOD CHL 1,000 ML 75 ML IV CONT (03:22)
[2021-03-24 05:50] VITALS: BP 131/67; PULSE 98; RESP 20; TEMP 36.9; O2SAT 92
[2021-03-24 08:00] VITALS: O2SAT 92
[2021-03-24] MEDS: ENOXAPARIN 30 MG/0.3 ML SYRINGE SUB-Q (09:01)
[2021-03-24] MEDS: SILVERGEL (ELTA) 45 ML 1 APPLIC TOPICAL (09:02)
--- NOTE | 2021-03-24 10:02 | PM.PNGS ---
Progress Note: A&P Assessment and Plan (1) Postoperative intra-abdominal abscess: Code(s): T81.43XA - Infection following a procedure, organ and space surgical site, initial encounter Status: Acute Assessment and Plan: Continue to monitor perc drains - output decreasing. Continue IV antibiotics. WBC trending up? Afebrile with no new complaints. Repeat labs tomorrow morning. Continue low fiber diet, add supplements. Encouraged again today for the patient to increase activity, PT/OT Additional Plan I have discussed the plan of care with Dr. West. Subjective Subjective Date/Time Seen: 03/24/21 10:02 Patient reports: no new complaints, tolerating a regular diet and afebrile Interval history: Patient seen and examined this morning. She denies any abdominal pain or other pain at this time. Denies nausea, vomiting, or bloating. She is tolerating her breakfast but has had minimal oral intake. She feels like the food is hard to chew. She agreed to try drinking supplements through the day. +ostomy functioning well. Review of Systems Review of Systems: All systems reviewed & are unremarkable except as noted in HPI and below Constitutional: Constitutional: Denies chills and Denies fever(s) Cardiovascular: Cardiovascular: Reports no additional cardiovascular complaints and Denies chest pain Respiratory: Respiratory: Reports no additional respiratory complaints, Denies cough and Denies dyspnea Gastrointestinal: Gastrointestinal: Reports as per HPI and Reports no additional gastrointestinal complaints Exam Const: General: comfortable, no acute distress and alert Orientation/consciousness: patient oriented x3 Resp: Auscultation: clear to auscultation bilaterally Cardio: Rate: regular rate Rhythm: regular rhythm GI: Inspection: non-distended GI Palp: Yes Soft to palpation, No Tenderness to palpation present (GI), No Guarding due to palpation present (GI) and No Rebound tenderness present Auscultation: normal bowel sounds Other: Perc drain RLQ with yellow clear, serous-appearing drainage Perc drain in LLQ with yellow-green cloudy drainage Urinary Catheter: Urinary Catheter: patent and draining and urine cloudy Skin: General skin exam: normal color Neuro: General: moves all extremities and no focal motor deficits Extrem: Other: Mild erythema and edema of proximal thighs bilaterally Psych: Mental Status: mental status grossly normal Insight: Fair insight present (Psych) Judgement: Fair judgement present (Psych) Objective Data Vital Signs Vital Signs: Vital Signs - 24 hr 03/23/21 15:33 03/23/21 20:30 03/23/21 20:58 Temperature 97.0 F L 97.1 F L Pulse Rate 86 102 H Respiratory Rate 16 16 16 Blood Pressure 113/53 L 119/47 L Pulse Oximetry 95 95 03/24/21 05:50 Temperature 98.4 F Pulse Rate 98 Respiratory Rate 20 Blood Pressure 131/67 Pulse Oximetry 92 Intake/Output Intake/Output: Intake & Output 03/21/21 03/22/21 03/23/21 03/24/21 23:59 23:59 23:59 23:59 Intake Total 2480 2570 6343 1120 Output Total 1290 1345 935 355 Balance 1190 1225 5433 765 Meds/Results Medications: Active Medications Generic Name Dose Route Start Last Admin Trade Name Freq PRN Reason Stop Dose Admin Enoxaparin Sodium 30 mg 03/22/21 15:40 03/24/21 09:01 Enoxaparin 30 Mg/0.3 Ml Syringe SUB-Q 30 mg DAILY LIVIER Administration Vancomycin HCl 750 mg in 250 mls @ 250 mls/hr 03/23/21 23:00 03/23/21 23:28 Vancomycin 750 Mg/D5w 250 Ml IVPB Infused Q24H LIVIER Infusion Micafungin Sodium 100 mg/ 100 mls @ 100 mls/hr 03/24/21 09:00 Sodium Chloride IVPB DAILY LIVIER Ampicillin Sodium/Sulbactam Sodium 1.5 gm in 50 mls @ 100 mls/hr 03/24/21 11:00 Unasyn 1.5 Gm/Ns 50 Ml IVPB Q12HR LIVIER Lidocaine/Diphenhydr/Alum/Mg/Simeth 5 ml 03/20/21 05:00 03/24/21 09:02 Magnes & Alum Hyd/Simeth/Diphenhyd/Lidocaine 119 Ml Mouthwash BY MOUTH 04/19/21 04:59 5 ml Q4HR LIVIER Administrat
[2021-03-24] MEDS: AMPICILLIN SULB 1.5 GM/NS 50ML 1.5 GM/50 ML VIAL IVPB ×2 (11:26→22:28)
[2021-03-24] MEDS: MICAFUNGIN SODIUM 100 MG in SODIUM CHLORIDE 0.9% IV 100 ML IVPB (11:26)
--- NOTE | 2021-03-24 11:56 | PCNFU ---
Nutrition Follow-Up Complete: Increased protein needs as related to wounds as evidenced by Pressure ulcers reported. Goal:Adequate Intake of at least 75% of meals/supplements Pt current nutrition is Low fiber with ensure compact BID. Nutrition recommendation: Aleksey BID for wound healing. Last recorded weight is 56.8 kg up from 50 kg on admit. Bowel Motility: colostomy Labs Reviewed:Glu 127, Na 136, GFR 39, Hct 30.2,Hgb 9.5 Meds Noted: Lovenox, Vancomycin. Skin unstageable-right heel, Stage II-sacrum. Additional Notes: Patient has advanced to a low fiber diet. Oral Intake 20-75% of meals. spoke with patient today, she states she did eat some breakfast today. Diet supplements: Ensure compact TID and Aleksey BID ordered for wound healing. Agree with diet orders. Monitoring: RD will monitor every 5 days.
[2021-03-24 13:11] LABS: Basophils Absolute Auto 0.1 K/mm3 (0.0-0.1); Basophils Percent Auto 0.3 % (0.2-1.2); Eosinophils Absolute Auto 0.8 K/mm3 (0-0.3); Eosinophils Percent Auto 3.9 % (0-4.4); Hematocrit 32.6 % (37.0-47.0); Hemoglobin 9.9 g/dL (12.0-15.0); Immature Granulocyte Absolute 0.51 K/mm3 (0.00-0.031); Immature Granulocyte Percent A 2.4 % (0-0.5); Lymphocytes Absolute Auto 2.64 K/mm3 (0.9-3.2); Lymphocytes Percent Auto 12.6 % (18.3-44.2); Mean Corpuscular HGB Conc 30.4 g/dl (32-36); Mean Corpuscular Hemoglobin 27.7 pg (26-34); Mean Corpuscular Volume 91.1 fl (80-100); Mean Platelet Volume 9.8 fl (7.4-10.4); Monocytes Absolute Auto 0.9 K/mm3 (0.1-0.6); Monocytes Percent Auto 4.4 % (2.6-8.5); Neutrophils Absolute Auto 15.9 K/mm3 (1.3-6.7); Neutrophils Percent Auto 76.4 % (45.5-73.1); Platelet Count Result 361 k/mm3 (150-375); Red Blood Count 3.58 M/mm3 (4.2-5.4); Red Cell Distribution Width 20.1 % (11.5-14.5); White Blood Count 20.9 K/mm3 (4.5-10.0)
[2021-03-24 13:25] LABS: Alanine Aminotransferase 16 U/L (4-35); Albumin Level 2.5 g/dL (3.5-5.1); Alkaline Phosphatase 134 U/L (38-126); Anion Gap 8 mmol/L (8-16); Aspartate Amino Transferase 23 U/L (14-36); Bilirubin,Total 1.2 mg/dL (0.2-1.3); Blood Urea Nitrogen 17 mg/dL (7-17); CRP 8.7 mg/dL (<1.0); Calcium 8.3 mg/dL (8.4-10.2); Carbon Dioxide 15 mmol/L (22-30); Chloride 113 mmol/L (98-107); Estimated Glomerular Filt Rate 36; Glucose 131 mg/dL (65-110); Potassium 5.3 mmol/L (3.4-5.0); Sodium 136 mmol/L (137-145)
[2021-03-24 15:36] VITALS: BP 130/77; PULSE 100; RESP 18; TEMP 36.3
--- NOTE | 2021-03-24 15:58 | P.PNIM_ITS ---
Progress Note: A&P Assessment and Plan (1) Postoperative intra-abdominal abscess: Code(s): T81.43XA - Infection following a procedure, organ and space surgical site, initial encounter Status: Acute Assessment and Plan: S/p Tamara's procedure on 02/25/22 complicated by large psoas abscess requiring drainage who presented with increased swelling and drainage of her left lateral abdomen * CT abdomen/pelvis on presentation showed large abscess involving the left iliopsoas muscle and left pericolic gutter which tracked to the medial left pelvis and left proximal thigh * Appreciate general surgery consultation * Continue broad-spectrum antibiotics with Vancomycin and Unasyn. * Zosyn discontinued due to rising serum creatinine with combination of vancomycin and Zosyn. * Underwent CT-guided abscess catheter placement of the left iliopsoas abscess and left pelvic abscess on 03/21 * Abscess cultures with moderate growth of yeast. I have contacted [facility] for further identification and susceptibility * Initiate micafungin 100 mg daily * Increasing white blood cell count. Patient remains afebrile. Continue to monitor CBC (2) Urinary tract infection: Qualifiers: Urinary tract infection type: site unspecified Hematuria presence: without hematuria Qualified Code(s): N39.0 - Urinary tract infection, site not specified Code(s): N39.0 - Urinary tract infection, site not specified Status: Acute Assessment and Plan: Ruled out. * Urine culture collected on 03/19 with mixed genital ean not indicative of UTI * She is asymptomatic * She remains on broad-spectrum antibiotics for above problem (3) Severe muscle deconditioning: Code(s): R29.898 - Other symptoms and signs involving the musculoskeletal system Status: Acute Assessment and Plan: Patient is very weak related to her acute illness * She had previously refused PT/OT. Encouraged to participate * Fall precautions implemented * Continue turning/repositioning schedule (4) Hypokalemia: Code(s): E87.6 - Hypokalemia Status: Acute Assessment and Plan: Resolved and now potassium levels slightly elevated at 5.3. * Repeat potassium this evening to ensure remaining stable (5) Lower extremity edema: Code(s): R60.0 - Localized edema Status: Acute Assessment and Plan: Likely related to IV fluids and decreased mobility * Will obtain venous Doppler * Continue treatment plan as above * Elevate extremities (6) Hypoxia: Code(s): R09.02 - Hypoxemia Status: Acute Assessment and Plan: Patient on 2 L supplemental O2, etiology for this is unclear is no documented episodes of hypoxia * Spoke with RN about this reports patient was found to be 78% on room air earlier today * Patient asymptomatic. Suspect this is related to inaccurate SpO2 readings from finger pulse oximeter (given discoloration of fingers) * Initiate temporal SpO2 monitoring * Will obtain CXR Subjective Date/time seen: 03/24/21 15:58 Interval history: Date of Service: 03/24/2021 Eli a maicol is 86-year-old female with a history of anemia, erosive esophagitis, hypokalemia, ulcerative colitis, and recent hospital stay for sigmoid colon stricture with colon perforation s/p Tamara's procedure and intra-abdominal abscess who is seen in follow-up for postoperative intra- abdominal abscess. She complains of feeling very cold today. Denies abdominal pain, nausea, vomiting. Tolerating her diet well. She
--- NOTE | 2021-03-24 15:58 | PM.IMPN ---
Progress Note: A&P Assessment and Plan (1) Postoperative intra-abdominal abscess: Code(s): T81.43XA - Infection following a procedure, organ and space surgical site, initial encounter Status: Acute Assessment and Plan: S/p Tamara's procedure on 02/25/22 complicated by large psoas abscess requiring drainage who presented with increased swelling and drainage of her left lateral abdomen CT abdomen/pelvis on presentation showed large abscess involving the left iliopsoas muscle and left pericolic gutter which tracked to the medial left pelvis and left proximal thigh Appreciate general surgery consultation Continue broad-spectrum antibiotics with Vancomycin and Unasyn. Zosyn discontinued due to rising serum creatinine with combination of vancomycin and Zosyn. Underwent CT-guided abscess catheter placement of the left iliopsoas abscess and left pelvic abscess on 03/21 Abscess cultures with moderate growth of yeast. I have contacted [facility] for further identification and susceptibility Initiate micafungin 100 mg daily Increasing white blood cell count. Patient remains afebrile. Continue to monitor CBC (2) Urinary tract infection: Qualifiers: Urinary tract infection type: site unspecified Hematuria presence: without hematuria Qualified Code(s): N39.0 - Urinary tract infection, site not specified Code(s): N39.0 - Urinary tract infection, site not specified Status: Acute Assessment and Plan: Ruled out. Urine culture collected on 03/19 with mixed genital ean not indicative of UTI She is asymptomatic She remains on broad-spectrum antibiotics for above problem (3) Severe muscle deconditioning: Code(s): R29.898 - Other symptoms and signs involving the musculoskeletal system Status: Acute Assessment and Plan: Patient is very weak related to her acute illness She had previously refused PT/OT. Encouraged to participate Fall precautions implemented Continue turning/repositioning schedule (4) Hypokalemia: Code(s): E87.6 - Hypokalemia Status: Acute Assessment and Plan: Resolved and now potassium levels slightly elevated at 5.3. Repeat potassium this evening to ensure remaining stable (5) Lower extremity edema: Code(s): R60.0 - Localized edema Status: Acute Assessment and Plan: Likely related to IV fluids and decreased mobility Will obtain venous Doppler Continue treatment plan as above Elevate extremities (6) Hypoxia: Code(s): R09.02 - Hypoxemia Status: Acute Assessment and Plan: Patient on 2 L supplemental O2, etiology for this is unclear is no documented episodes of hypoxia Spoke with RN about this reports patient was found to be 78% on room air earlier today Patient asymptomatic. Suspect this is related to inaccurate SpO2 readings from finger pulse oximeter (given discoloration of fingers) Initiate temporal SpO2 monitoring Will obtain CXR Subjective Date/time seen: 03/24/21 15:58 Interval history: Date of Service: 03/24/2021 Eli piedra warning is 86-year-old female with a history of anemia, erosive esophagitis, hypokalemia, ulcerative colitis, and recent hospital stay for sigmoid colon stricture with colon perforation s/p Tamara's procedure and intra-abdominal abscess who is seen in follow-up for postoperative intra-abdominal abscess. She complains of feeling very cold today. Denies abdominal pain, nausea, vomiting. Tolerating her diet well. She still has decreased motivation to participate in therapy. Reiterated the importance of this to her and she verbalized understanding. Denies shortness breath, cough, or chest pain. No fevers or chills. Noted to have purplish discoloration of bilateral fingers which patient states has been a chronic issue for many years, states it is nonpainful Review of Systems Review of Systems: All systems reviewed & are unremarkabl
[2021-03-24 18:32] LABS: Potassium 5.5 mmol/L (3.4-5.0)
[2021-03-24 20:12] VITALS: BP 108/54; PULSE 88; RESP 20; TEMP 36.6; O2SAT 92
[2021-03-25] MEDS: MAGNES & ALUM HYD/SIMETH/DIPHENHYD/LIDOCAINE 119 ML MOUTHWASH BY MOUTH ×3 (00:48→21:28)
[2021-03-25 05:10] VITALS: BP 125/61; PULSE 110; RESP 17; TEMP 37.1; O2SAT 100
[2021-03-25 06:52] LABS: Hemoglobin 9.9 g/dL (12.0-15.0); Mean Corpuscular Hemoglobin 27.5 pg (26-34); Mean Corpuscular Volume 91.7 fl (80-100); Mean Platelet Volume 9.8 fl (7.4-10.4); Platelet Count Result 288 k/mm3 (150-375); Red Cell Distribution Width 20.3 % (11.5-14.5); White Blood Count 14.7 K/mm3 (4.5-10.0)
[2021-03-25 07:07] LABS: Potassium 4.9 mmol/L (3.4-5.0)
[2021-03-25 07:27] LABS: Alanine Aminotransferase 15 U/L (4-35); Albumin Level 2.2 g/dL (3.5-5.1); Alkaline Phosphatase 126 U/L (38-126); Anion Gap 6 mmol/L (8-16); Aspartate Amino Transferase 24 U/L (14-36); Bilirubin,Total 0.8 mg/dL (0.2-1.3); Blood Urea Nitrogen 20 mg/dL (7-17); Calcium 8.3 mg/dL (8.4-10.2); Carbon Dioxide 14 mmol/L (22-30); Chloride 113 mmol/L (98-107); Estimated Glomerular Filt Rate 33; Glucose 87 mg/dL (65-110); Phosphorus 3.2 mg/dL (2.5-4.5); Sodium 133 mmol/L (137-145); Triglycerides 149 mg/dL (<150)
[2021-03-25] MEDS: MICAFUNGIN SODIUM 100 MG in SODIUM CHLORIDE 0.9% IV 100 ML IVPB (08:46)
[2021-03-25] MEDS: AMPICILLIN SULB 1.5 GM/NS 50ML 1.5 GM/50 ML VIAL IVPB ×2 (08:46→21:28)
[2021-03-25] MEDS: ENOXAPARIN 30 MG/0.3 ML SYRINGE SUB-Q (08:47)
--- NOTE | 2021-03-25 11:08 | PM.PNGS ---
Progress Note: A&P Assessment and Plan (1) Postoperative intra-abdominal abscess: Code(s): T81.43XA - Infection following a procedure, organ and space surgical site, initial encounter Status: Acute Assessment and Plan: s/p perc drain x 2, exam benign, WBC trending down, cont abx, drains, encourage OOB, PT/OT, po intake, start to work on disposition as she will likely need cont rehab, ?repeat CT early next week Subjective Subjective Date/Time Seen: 03/25/21 11:08 feels pretty good, reports better appetite and energy levels, no abd pain Review of Systems Review of Systems: All systems reviewed & are unremarkable except as noted in HPI and below Exam Const: General: cooperative, comfortable and no acute distress Orientation/consciousness: patient oriented x3 Resp: Auscultation: clear to auscultation bilaterally Cardio: Rate: regular rate Rhythm: regular rhythm GI: Inspection: normal to inspection, non-distended and incision GI Palp: Yes Soft to palpation, No Tenderness to palpation present (GI), No Guarding due to palpation present (GI) and No Rigid due to palpation Other: ostomy - +fxn, drains x 2 c mod serous drainage Objective Data Vital Signs Vital Signs: Vital Signs - 24 hr 03/24/21 15:36 03/24/21 20:12 03/25/21 05:10 Temperature 36.3 C L 36.6 C 37.1 C Pulse Rate 100 88 110 H Respiratory Rate 18 20 17 Blood Pressure 130/77 108/54 L 125/61 Pulse Oximetry 92 100 Intake/Output Intake/Output: Intake & Output 03/22/21 03/23/21 03/24/21 03/25/21 23:59 23:59 23:59 23:59 Intake Total 2570 6376 1980 200 Output Total 1345 935 710 100 Balance 1225 5441 1270 100 Meds/Results Medications: Active Medications Generic Name Dose Route Start Last Admin Trade Name Freq PRN Reason Stop Dose Admin Enoxaparin Sodium 30 mg 03/22/21 15:40 03/25/21 08:47 Enoxaparin 30 Mg/0.3 Ml Syringe SUB-Q 30 mg DAILY LIVIER Administration Vancomycin HCl 750 mg in 250 mls @ 250 mls/hr 03/23/21 23:00 03/24/21 23:30 Vancomycin 750 Mg/D5w 250 Ml IVPB Infused Q24H LIVIER Infusion Micafungin Sodium 100 mg/ 100 mls @ 100 mls/hr 03/24/21 09:00 03/25/21 08:46 Sodium Chloride IVPB 100 mls/hr DAILY LIVIER Administration Ampicillin Sodium/Sulbactam Sodium 1.5 gm in 50 mls @ 100 mls/hr 03/24/21 11:00 03/25/21 08:46 Unasyn 1.5 Gm/Ns 50 Ml IVPB 100 mls/hr Q12HR LIVIER Administration Lidocaine/Diphenhydr/Alum/Mg/Simeth 5 ml 03/20/21 05:00 03/25/21 08:47 Magnes & Alum Hyd/Simeth/Diphenhyd/Lidocaine 119 Ml Mouthwash BY MOUTH 04/19/21 04:59 5 ml Q4HR LIVIER Administration Morphine Sulfate 4 mg 03/19/21 21:27 Morphine Sulfate (*Crx) 4 Mg/Ml Inj IV PUSH Q2H PRN Pain Rated 7-10 Ondansetron HCl 4 mg 03/19/21 21:27 Ondansetron Inj 4 Mg/2 Ml Vial IV PUSH Q4H PRN Nausea Silver Nitrate 1 applic 03/21/21 09:00 03/24/21 09:02 Silvergel (Elta) 45 Ml TOPICAL 1 applic Q72HR LIVIER Administration Radiology Results: ITS Impressions Abdomen/Pelvis CT 03/19/21 21:01 IMPRESSION: 1. Large abscess involving the left iliopsoas muscle and left pericolic gutter which tracks into the medial left pelvis and left proximal thigh with interval increase in size. 2. Moderate-sized pleural effusions. Catheter Placement CT 03/21/21 14:12 IMPRESSION: 1. Successful CT-guided left iliopsoas abscess drainage. 2. 10 mL barrera, opaque fluid was sent for aerobic and anaerobic cultures. 2. Successful CT-guided left pelvic abscess drainage. Catheter Placement CT 03/21/21 14:12 IMPRESSION: 1. Successful CT-guided left iliopsoas abscess drainage. 2. 10 mL barrera, opaque fluid was sent for aerobic and anaerobic cultures. 2. Successful CT-guided left pelvic abscess drainage. Chest X-Ray 03/24/21 18:13 IMPRESSION: Moderate bilateral pleural effusions and bilateral lower lung infiltrate and/or atelectasis; little interval change since 03/09/2021 Bobo
--- NOTE | 2021-03-25 11:40 | P.PNIM_ITS ---
Progress Note: A&P Assessment and Plan (1) Postoperative intra-abdominal abscess: Code(s): T81.43XA - Infection following a procedure, organ and space surgical site, initial encounter Status: Acute Assessment and Plan: S/p Tamara's procedure on 02/25/22 complicated by large psoas abscess requiring drainage who presented with increased swelling and drainage of her left lateral abdomen * CT abdomen/pelvis on presentation showed large abscess involving the left iliopsoas muscle and left pericolic gutter which tracked to the medial left pelvis and left proximal thigh * Gen. Surgery following. * Initially had broad-spectrum antibiotics with Vancomycin and Unasyn. * Zosyn discontinued due to rising serum creatinine with combination of vancomycin and Zosyn. * Underwent CT-guided abscess catheter placement of the left iliopsoas abscess and left pelvic abscess on 03/21 * Abscess cultures with moderate growth of yeast. Initiated micafungin 100 mg daily * Increasing white blood cell count. Patient remains afebrile. Continue to monitor CBC * now on IV vancomycin and micafungin * Drains combined put out about 60 mls yesterday (decreased from previous day), stool ostomy put out about 50 mls * WBC trending down 20.9 yesterday, and 14.7 today. No fevers noted. * Out of bed for meals, PT/OT, I/O's. * Gen. Surgery Dr. West to repeat CT early next week. * Plan for [facility] discharge eventually. (2) Urinary tract infection: Qualifiers: Hematuria presence: without hematuria Urinary tract infection type: site unspecified Qualified Code(s): N39.0 - Urinary tract infection, site not specified Code(s): N39.0 - Urinary tract infection, site not specified Status: Acute Assessment and Plan: Ruled out. * Urine culture collected on 03/19 with mixed genital ean not indicative of UTI * She is asymptomatic * already on IV vancomycin and micafungin (3) Severe muscle deconditioning: Code(s): R29.898 - Other symptoms and signs involving the musculoskeletal system Status: Acute Assessment and Plan: Patient is very weak related to her acute illness * She had previously refused PT/OT. Encouraged to participate * Fall precautions implemented * Continue turning/repositioning schedule * Out of bed for meals, PT/OT, I/O's. * Instructed nursing staff to assist with oral snacks and meals * Plan for [facility] discharge eventually. (4) Hypokalemia: Code(s): E87.6 - Hypokalemia Status: Acute Assessment and Plan: Resolved and now potassium levels slightly elevated at 5.3 , then 5.5, and then 4.9 today. * Repeat potassium in the morning. (5) Lower extremity edema: Code(s): R60.0 - Localized edema Status: Acute Assessment and Plan: Likely related to IV fluids and decreased mobility * 03/24/21 venous Doppler of BLE showed no DVTs * Continue treatment plan as above * Elevate extremities * SCDs and BREEZY hose of BLE * get her OOB for meals (6) Hypoxia: Code(s): R09.02 - Hypoxemia Status: Acute Assessment and Plan: Patient on 2 L supplemental O2, hypoxia noted on . * Patient was found to be 78% on room air earlier in the day on * Patient asymptomatic. Suspect this is related to inaccurate SpO2 readings from finger pulse oximeter (given discoloration of fingers) * Initiated temporal SpO2 monitoring due to possible Raynauds * CXR on 03/24/2021 showed: Moderate bilateral pleural effusions and bilateral lower lung infiltrate and/or atelectasis; l
--- NOTE | 2021-03-25 11:40 | PM.IMPN ---
Progress Note: A&P Assessment and Plan (1) Postoperative intra-abdominal abscess: Code(s): T81.43XA - Infection following a procedure, organ and space surgical site, initial encounter Status: Acute Assessment and Plan: S/p Tamara's procedure on 02/25/22 complicated by large psoas abscess requiring drainage who presented with increased swelling and drainage of her left lateral abdomen CT abdomen/pelvis on presentation showed large abscess involving the left iliopsoas muscle and left pericolic gutter which tracked to the medial left pelvis and left proximal thigh Gen. Surgery following. Initially had broad-spectrum antibiotics with Vancomycin and Unasyn. Zosyn discontinued due to rising serum creatinine with combination of vancomycin and Zosyn. Underwent CT-guided abscess catheter placement of the left iliopsoas abscess and left pelvic abscess on 03/21 Abscess cultures with moderate growth of yeast. Initiated micafungin 100 mg daily Increasing white blood cell count. Patient remains afebrile. Continue to monitor CBC now on IV vancomycin and micafungin Drains combined put out about 60 mls yesterday (decreased from previous day), stool ostomy put out about 50 mls WBC trending down 20.9 yesterday, and 14.7 today. No fevers noted. Out of bed for meals, PT/OT, I/O's. Gen. Surgery Dr. West to repeat CT early next week. Plan for [facility] discharge eventually. (2) Urinary tract infection: Qualifiers: Hematuria presence: without hematuria Urinary tract infection type: site unspecified Qualified Code(s): N39.0 - Urinary tract infection, site not specified Code(s): N39.0 - Urinary tract infection, site not specified Status: Acute Assessment and Plan: Ruled out. Urine culture collected on 03/19 with mixed genital ean not indicative of UTI She is asymptomatic already on IV vancomycin and micafungin (3) Severe muscle deconditioning: Code(s): R29.898 - Other symptoms and signs involving the musculoskeletal system Status: Acute Assessment and Plan: Patient is very weak related to her acute illness She had previously refused PT/OT. Encouraged to participate Fall precautions implemented Continue turning/repositioning schedule Out of bed for meals, PT/OT, I/O's. Instructed nursing staff to assist with oral snacks and meals Plan for [facility] discharge eventually. (4) Hypokalemia: Code(s): E87.6 - Hypokalemia Status: Acute Assessment and Plan: Resolved and now potassium levels slightly elevated at 5.3 , then 5.5, and then 4.9 today. Repeat potassium in the morning. (5) Lower extremity edema: Code(s): R60.0 - Localized edema Status: Acute Assessment and Plan: Likely related to IV fluids and decreased mobility 03/24/21 venous Doppler of BLE showed no DVTs Continue treatment plan as above Elevate extremities SCDs and BREEZY hose of BLE get her OOB for meals (6) Hypoxia: Code(s): R09.02 - Hypoxemia Status: Acute Assessment and Plan: Patient on 2 L supplemental O2, hypoxia noted on . Patient was found to be 78% on room air earlier in the day on Patient asymptomatic. Suspect this is related to inaccurate SpO2 readings from finger pulse oximeter (given discoloration of fingers) Initiated temporal SpO2 monitoring due to possible Raynauds CXR on 03/24/2021 showed: Moderate bilateral pleural effusions and bilateral lower lung infiltrate and/or atelectasis; little interval change since 03/09/2021. already on IV vancomycin and micafungin Subjective Date/time seen: 03/25/21 11:40 Interval history: Eli Duarte is 86-year-old female with a history of anemia, erosive esophagitis, hypokalemia, ulcerative colitis, and recent hospital stay for sigmoid colon stricture with colon perforation s/p Tamara's procedure and intra-abdominal abscess who is seen in follow-up for pos
[2021-03-25 14:00] VITALS: BP 101/64; PULSE 109; RESP 14; TEMP 36.6; O2SAT 100
[2021-03-25 21:34] VITALS: BP 114/59; PULSE 108; RESP 16; TEMP 36.6; O2SAT 100
[2021-03-25 22:58] LABS: Vancomycin Trough 9.1 ug/mL (10.0-20.0)
[2021-03-26] MEDS: MAGNES & ALUM HYD/SIMETH/DIPHENHYD/LIDOCAINE 119 ML MOUTHWASH BY MOUTH ×5 (01:35→21:28)
[2021-03-26 05:07] VITALS: BP 120/59; PULSE 89; RESP 20; TEMP 36.9; O2SAT 92
[2021-03-26 06:18] LABS: Hematocrit 31.5 % (37.0-47.0); Hemoglobin 9.9 g/dL (12.0-15.0); Mean Corpuscular HGB Conc 31.4 g/dl (32-36); Mean Corpuscular Hemoglobin 27.8 pg (26-34); Mean Corpuscular Volume 88.5 fl (80-100); Mean Platelet Volume 9.3 fl (7.4-10.4); Platelet Count Result 306 k/mm3 (150-375); Red Blood Count 3.56 M/mm3 (4.2-5.4); Red Cell Distribution Width 19.9 % (11.5-14.5); White Blood Count 14.9 K/mm3 (4.5-10.0)
[2021-03-26 06:34] LABS: Alanine Aminotransferase 15 U/L (4-35); Albumin Level 2.3 g/dL (3.5-5.1); Alkaline Phosphatase 123 U/L (38-126); Anion Gap 2 mmol/L (8-16); Aspartate Amino Transferase 19 U/L (14-36); Bilirubin,Total 0.7 mg/dL (0.2-1.3); Blood Urea Nitrogen 24 mg/dL (7-17); Calcium 8.4 mg/dL (8.4-10.2); Carbon Dioxide 17 mmol/L (22-30); Chloride 114 mmol/L (98-107); Estimated Glomerular Filt Rate 33; Glucose 111 mg/dL (65-110); Potassium 4.4 mmol/L (3.4-5.0); Sodium 133 mmol/L (137-145)
[2021-03-26] MEDS: MICAFUNGIN SODIUM 100 MG in SODIUM CHLORIDE 0.9% IV 100 ML IVPB (09:42)
[2021-03-26] MEDS: AMPICILLIN SULB 1.5 GM/NS 50ML 1.5 GM/50 ML VIAL IVPB ×2 (09:43→21:28)
[2021-03-26] MEDS: ENOXAPARIN 30 MG/0.3 ML SYRINGE SUB-Q (09:43)
--- NOTE | 2021-03-26 10:29 | PCPTNOTE ---
The patient treatment was not able to be completed on 03/26 due to patient stating she is too tired. Will plan to continue treatment per plan of care.
--- NOTE | 2021-03-26 13:18 | PM.IMPN ---
Progress Note: A&P Assessment and Plan (1) Postoperative intra-abdominal abscess: Code(s): T81.43XA - Infection following a procedure, organ and space surgical site, initial encounter Status: Acute Assessment and Plan: S/p Tamara's procedure on 02/25/22 complicated by large psoas abscess requiring drainage who presented with increased swelling and drainage of her left lateral abdomen CT abdomen/pelvis on presentation showed large abscess involving the left iliopsoas muscle and left pericolic gutter which tracked to the medial left pelvis and left proximal thigh Gen. Surgery following. Initially had broad-spectrum antibiotics with Vancomycin and Unasyn. Zosyn discontinued due to rising serum creatinine with combination of vancomycin and Zosyn. Underwent CT-guided abscess catheter placement of the left iliopsoas abscess and left pelvic abscess on 03/21 Abscess cultures with moderate growth of yeast. Initiated micafungin 100 mg daily Increasing white blood cell count. Patient remains afebrile. Continue to monitor CBC now on IV vancomycin, ampicillin and micafungin WBC 20.9 yesterday, and 14.7-->14.9 today. Afebrile. Out of bed for meals, PT/OT, I/O's Gen. Surgery Dr. West to repeat CT early next week. Plan for [facility] discharge eventually (2) Urinary tract infection: Qualifiers: Urinary tract infection type: site unspecified Hematuria presence: without hematuria Qualified Code(s): N39.0 - Urinary tract infection, site not specified Code(s): N39.0 - Urinary tract infection, site not specified Status: Acute Assessment and Plan: Ruled out. Urine culture collected on 03/19 with mixed genital ean not indicative of UTI She is asymptomatic Antibiotics as above (3) Severe muscle deconditioning: Code(s): R29.898 - Other symptoms and signs involving the musculoskeletal system Status: Acute Assessment and Plan: Patient is very weak related to her acute illness Previously refused PT/OT. Encouraged to participate Fall precautions implemented Continue turning/repositioning schedule Out of bed for meals, PT/OT, I/O's. Instructed nursing staff to assist with oral snacks and meals Plan for [facility] discharge eventually (4) Hypokalemia: Code(s): E87.6 - Hypokalemia Status: Acute Assessment and Plan: Resolved 5.3 , then 5.5, and then 4.9-->4.4 today Monitor (5) Lower extremity edema: Code(s): R60.0 - Localized edema Status: Acute Assessment and Plan: Likely related to IV fluids and decreased mobility 03/24/21 venous Doppler of BLE showed no DVTs Continue treatment plan as above Elevate extremities SCDs and BREEZY hose of BLE OOB for meals (6) Hypoxia: Code(s): R09.02 - Hypoxemia Status: Acute Assessment and Plan: Patient on 2 L supplemental O2, hypoxia noted on . Patient was found to be 78% on room air earlier in the day on Patient asymptomatic. Suspect this is related to inaccurate SpO2 readings from finger pulse oximeter (given discoloration of fingers) Initiated temporal SpO2 monitoring due to possible Raynauds CXR on 03/24/2021 showed: Moderate bilateral pleural effusions and bilateral lower lung infiltrate and/or atelectasis; little interval change since 03/09/2021 Antibiotics as above Additional Plan Code status: FULL DVT Ppx: Subjective Date/time seen: 03/26/21 13:18 Interval history: Pt seen and evaluated; labs, vs, diagnostic results reviewed; pt resting in bed, says she cold; appetite is poor Review of Systems Review of Systems: All systems reviewed & are unremarkable except as noted in HPI and below Exam Narrative: Neuro: awake, alert and oriented x4, speech clear, no focal neuro deficits noted HEENMT: normocephalic, atraumatic, EOMI, sclerae anicteric Neck: supple, no lymphadenopathy Respiratory: clear to auscultation bilaterally, nonlabored breathing Cardio: regular rate, regular
[2021-03-26 14:00] VITALS: BP 128/34; PULSE 106; RESP 16; TEMP 36.6; O2SAT 96
[2021-03-26 21:01] VITALS: BP 110/52; PULSE 104; RESP 16; TEMP 36.5; O2SAT 100
[2021-03-27] MEDS: MAGNES & ALUM HYD/SIMETH/DIPHENHYD/LIDOCAINE 119 ML MOUTHWASH BY MOUTH ×6 (01:25→21:15)
[2021-03-27 06:00] VITALS: BP 114/58; PULSE 93; RESP 16; TEMP 36.8; O2SAT 94
[2021-03-27] MEDS: MICAFUNGIN SODIUM 100 MG in SODIUM CHLORIDE 0.9% IV 100 ML IVPB (08:20)
[2021-03-27] MEDS: AMPICILLIN SULB 1.5 GM/NS 50ML 1.5 GM/50 ML VIAL IVPB ×2 (08:21→20:54)
[2021-03-27] MEDS: SILVERGEL (ELTA) 45 ML 1 APPLIC TOPICAL (08:21)
[2021-03-27] MEDS: ENOXAPARIN 30 MG/0.3 ML SYRINGE SUB-Q (08:21)
--- NOTE | 2021-03-27 10:06 | PM.IMPN ---
Progress Note: A&P Assessment and Plan (1) Postoperative intra-abdominal abscess: Code(s): T81.43XA - Infection following a procedure, organ and space surgical site, initial encounter Status: Acute Assessment and Plan: S/p Tamara's procedure on 02/25/22 complicated by large psoas abscess requiring drainage who presented with increased swelling and drainage of her left lateral abdomen CT abdomen/pelvis on presentation showed large abscess involving the left iliopsoas muscle and left pericolic gutter which tracked to the medial left pelvis and left proximal thigh Gen. Surgery following. Initially had broad-spectrum antibiotics with Vancomycin and Unasyn. Zosyn discontinued due to rising serum creatinine with combination of vancomycin and Zosyn. Underwent CT-guided abscess catheter placement of the left iliopsoas abscess and left pelvic abscess on 03/21 Abscess cultures with moderate growth of yeast. Initiated micafungin 100 mg daily Increasing white blood cell count. Patient remains afebrile. Continue to monitor CBC now on IV vancomycin, ampicillin and micafungin WBC 20.9 yesterday, and 14.7-->14.9 03/26. Afebrile. Out of bed for meals, PT/OT, I/O's Gen. Surgery Dr. West to repeat CT early next week. Plan for [facility] discharge eventually (2) Urinary tract infection: Qualifiers: Urinary tract infection type: site unspecified Hematuria presence: without hematuria Qualified Code(s): N39.0 - Urinary tract infection, site not specified Code(s): N39.0 - Urinary tract infection, site not specified Status: Acute Assessment and Plan: Ruled out. Urine culture collected on 03/19 with mixed genital ean not indicative of UTI She is asymptomatic Antibiotics as above (3) Severe muscle deconditioning: Code(s): R29.898 - Other symptoms and signs involving the musculoskeletal system Status: Acute Assessment and Plan: Patient is very weak related to her acute illness Previously refused PT/OT. Encouraged to participate Fall precautions implemented Continue turning/repositioning schedule Out of bed for meals, PT/OT, I/O's. Instructed nursing staff to assist with oral snacks and meals Plan for SNF discharge eventually (4) Hypokalemia: Code(s): E87.6 - Hypokalemia Status: Acute Assessment and Plan: Resolved 5.3 , then 5.5, and then 4.9-->4.4 03/26 Monitor (5) Lower extremity edema: Code(s): R60.0 - Localized edema Status: Acute Assessment and Plan: Likely related to IV fluids and decreased mobility 03/24/21 venous Doppler of BLE showed no DVTs Continue treatment plan as above Elevate extremities SCDs and BREEZY hose of BLE OOB for meals (6) Hypoxia: Code(s): R09.02 - Hypoxemia Status: Acute Assessment and Plan: Patient on 2 L supplemental O2, hypoxia noted on . Patient was found to be 78% on room air earlier in the day on Patient asymptomatic. Suspect this is related to inaccurate SpO2 readings from finger pulse oximeter (given discoloration of fingers) Initiated temporal SpO2 monitoring due to possible Raynauds CXR on 03/24/2021 showed: Moderate bilateral pleural effusions and bilateral lower lung infiltrate and/or atelectasis; little interval change since 03/09/2021 Antibiotics as above Additional Plan Code status: FULL DVT Ppx: Subjective Date/time seen: 03/27/21 10:06 Interval history: 03/26 Pt seen and evaluated; labs, vs, diagnostic results reviewed; pt resting in bed, says she cold; appetite is poor 03/27 Pt seen and evaluated; no acute events overnight; diet modified to minced and moist; pt has no new complaints Review of Systems Review of Systems: All systems reviewed & are unremarkable except as noted in HPI and below Exam Narrative: Neuro: awake, alert and oriented x4, speech clear, no focal neuro deficits noted HEENMT: normocephalic, atraumatic, EOMI, sclerae anicteric Neck: supple, n
[2021-03-27 11:32] LABS: Hematocrit 33.3 % (37.0-47.0); Hemoglobin 10.4 g/dL (12.0-15.0); Mean Corpuscular HGB Conc 31.2 g/dl (32-36); Mean Corpuscular Hemoglobin 27.4 pg (26-34); Mean Corpuscular Volume 87.6 fl (80-100); Mean Platelet Volume 9.5 fl (7.4-10.4); Platelet Count Result 373 k/mm3 (150-375); Red Cell Distribution Width 20.3 % (11.5-14.5)
[2021-03-27 11:50] LABS: Alanine Aminotransferase 16 U/L (4-35); Albumin Level 2.3 g/dL (3.5-5.1); Alkaline Phosphatase 130 U/L (38-126); Anion Gap 4 mmol/L (8-16); Aspartate Amino Transferase 22 U/L (14-36); Bilirubin,Total 0.6 mg/dL (0.2-1.3); Blood Urea Nitrogen 24 mg/dL (7-17); Calcium 8.6 mg/dL (8.4-10.2); Carbon Dioxide 16 mmol/L (22-30); Chloride 112 mmol/L (98-107); Estimated Glomerular Filt Rate 47; Glucose 125 mg/dL (65-110); Phosphorus 2.9 mg/dL (2.5-4.5); Potassium 4.3 mmol/L (3.4-5.0); Sodium 132 mmol/L (137-145); Triglycerides 192 mg/dL (<150)
[2021-03-27 16:31] VITALS: BP 107/56; PULSE 106; RESP 14; TEMP 36.4
[2021-03-27 20:33] VITALS: BP 108/48; PULSE 110; RESP 16; TEMP 36.9; O2SAT 99
[2021-03-27 20:43] VITALS: RESP 16; O2SAT 99
[2021-03-28] MEDS: MAGNES & ALUM HYD/SIMETH/DIPHENHYD/LIDOCAINE 119 ML MOUTHWASH BY MOUTH ×6 (00:51→21:06)
[2021-03-28 05:01] VITALS: BP 112/46; PULSE 97; RESP 18; TEMP 36.6; O2SAT 96
[2021-03-28 06:14] LABS: Hematocrit 25.8 % (37.0-47.0); Hemoglobin 8.2 g/dL (12.0-15.0); Mean Corpuscular HGB Conc 31.8 g/dl (32-36); Mean Corpuscular Hemoglobin 27.6 pg (26-34); Mean Corpuscular Volume 86.9 fl (80-100); Mean Platelet Volume 9.7 fl (7.4-10.4); Platelet Count Result 287 k/mm3 (150-375); Red Blood Count 2.97 M/mm3 (4.2-5.4); White Blood Count 14.7 K/mm3 (4.5-10.0)
[2021-03-28 06:23] LABS: INR 1.2; Partial Thromboplastin Time 32.2 SECONDS (22.3-36.8); Prothrombin Time 15.1 Seconds (11.1-14.7)
[2021-03-28 06:25] LABS: Alanine Aminotransferase 15 U/L (4-35); Alkaline Phosphatase 102 U/L (38-126); Anion Gap 4 mmol/L (8-16); Aspartate Amino Transferase 22 U/L (14-36); Bilirubin,Total 0.5 mg/dL (0.2-1.3); Blood Urea Nitrogen 16 mg/dL (7-17); Carbon Dioxide 18 mmol/L (22-30); Chloride 110 mmol/L (98-107); Estimated Glomerular Filt Rate 59; Glucose 87 mg/dL (65-110); Magnesium 1.9 mg/dL (1.6-2.3); Potassium 3.6 mmol/L (3.4-5.0); Sodium 132 mmol/L (137-145)
[2021-03-28 06:33] LABS: Transferrin 93 mg/dL (206-381)
[2021-03-28 06:52] LABS: Vancomycin Trough 13.6 ug/mL (10.0-20.0)
[2021-03-28 07:16] LABS: Band Neutrophils Percent 17 % (0-6); Eosinophils Absolute Manual 1.17 K/mm3 (0.02-0.5); Eosinophils Percent Manual 8 % (0-4); Lymphocytes Absolute Manual 2.35 K/mm3 (1.1-4.5); Monocytes Absolute Manual 0.73 K/mm3 (0.1-0.90); Monocytes Percent Manual 5 % (3-9); Neutrophils Absolute Manual 10.43 K/mm3 (1.7-7.2); Neutrophils Percent Manual 54 % (46-73); Total Cells Counted 100
[2021-03-28 07:17] LABS: Macrocytosis 1+ (NORMAL); Platelet Estimate Adequate (Adequate)
[2021-03-28 07:19] LABS: Ovalocytes 1+ (NORMAL)
[2021-03-28] MEDS: MICAFUNGIN SODIUM 100 MG in SODIUM CHLORIDE 0.9% IV 100 ML IVPB (08:19)
[2021-03-28] MEDS: ENOXAPARIN 30 MG/0.3 ML SYRINGE SUB-Q (08:20)
[2021-03-28] MEDS: AMPICILLIN SULB 1.5 GM/NS 50ML 1.5 GM/50 ML VIAL IVPB ×2 (08:21→21:05)
--- NOTE | 2021-03-28 11:07 | PCPTNOTE ---
Patient refused treatment this session due to not feeling too well. Will continue per plan of care.
--- NOTE | 2021-03-28 13:12 | PM.PNGS ---
Progress Note: A&P Assessment and Plan (1) Postoperative intra-abdominal abscess: Code(s): T81.43XA - Infection following a procedure, organ and space surgical site, initial encounter Status: Acute Assessment and Plan: S/p perc drain x 2, continue to monitor output - cultures showed growth of yeast, aroldo. Continue IV micafungin and IV abx. WBC trending down. Tolerating diet, +ostomy functioning well. Will repeat CT abd/pelvis today to reassess. Encouraged to continue working with PT/OT and increasing activity/strength. Additional Plan I have discussed the plan of care with Dr. West. Subjective Subjective Date/Time Seen: 03/28/21 13:12 Patient reports: no new complaints, tolerating a regular diet and afebrile Interval history: Patient seen and examined, appears comfortable. Tolerating her diet and reports it helps to eat softer foods. +ostomy functioning well. No nausea, vomiting, or bloating. No abdominal pain. No complaints at this time. Review of Systems Review of Systems: All systems reviewed & are unremarkable except as noted in HPI and below Exam Const: General: comfortable, no acute distress and alert Orientation/consciousness: patient oriented x3 GI: Inspection: non-distended GI Palp: Yes Soft to palpation, Yes Tenderness to palpation present (GI) (only mild tenderness at perc drain sites), No Guarding due to palpation present (GI) and No Rebound tenderness present Auscultation: normal bowel sounds Other: ostomy functioning well with brown stool in bag, Perc drains x 2 c moderate purulent barrera drainage in RLQ drain and scant amount of serous drainage in LLQ drain Neuro: General: moves all extremities and no focal motor deficits Extrem: Other: Mild erythema and edema of proximal thighs bilaterally Psych: Insight: Fair insight present (Psych) Judgement: Fair judgement present (Psych) Objective Data Vital Signs Vital Signs: Vital Signs - 24 hr 03/27/21 16:31 03/27/21 20:33 03/27/21 20:43 Temperature 97.6 F 98.5 F Pulse Rate 106 H 110 H Respiratory Rate 14 16 16 Blood Pressure 107/56 L 108/48 L Pulse Oximetry 99 99 03/28/21 05:01 Temperature 97.8 F Pulse Rate 97 Respiratory Rate 18 Blood Pressure 112/46 L Pulse Oximetry 96 Intake/Output Intake/Output: Intake & Output 03/25/21 03/26/21 03/27/21 03/28/21 23:59 23:59 23:59 23:59 Intake Total 760 1210 1410 840 Output Total 735 568 475 2573 Balance 25 290 540 -763 Meds/Results Medications: Active Medications Generic Name Dose Route Start Last Admin Trade Name Freq PRN Reason Stop Dose Admin Enoxaparin Sodium 30 mg 03/22/21 15:40 03/28/21 08:20 Enoxaparin 30 Mg/0.3 Ml Syringe SUB-Q 30 mg DAILY LIVIER Administration Micafungin Sodium 100 mg/ 100 mls @ 100 mls/hr 03/24/21 09:00 03/28/21 10:20 Sodium Chloride IVPB Infused DAILY LIVIER Infusion Ampicillin Sodium/Sulbactam Sodium 1.5 gm in 50 mls @ 100 mls/hr 03/24/21 11:00 03/28/21 10:20 Unasyn 1.5 Gm/Ns 50 Ml IVPB Infused Q12HR LIVIER Infusion Vancomycin HCl 750 mg in 250 mls @ 250 mls/hr 03/26/21 00:00 03/28/21 10:20 Vancomycin 750 Mg/D5w 250 Ml IVPB Infused Q18H LIVIER Infusion Lidocaine/Diphenhydr/Alum/Mg/Simeth 5 ml 03/20/21 05:00 03/28/21 12:45 Magnes & Alum Hyd/Simeth/Diphenhyd/Lidocaine 119 Ml Mouthwash BY MOUTH 04/19/21 04:59 5 ml Q4HR LIVIER Administration Morphine Sulfate 4 mg 03/19/21 21:27 Morphine Sulfate (*Crx) 4 Mg/Ml Inj IV PUSH Q2H PRN Pain Rated 7-10 Ondansetron HCl 4 mg 03/19/21 21:27 Ondansetron Inj 4 Mg/2 Ml Vial IV PUSH Q4H PRN Nausea Silver Nitrate 1 applic 03/21/21 09:00 03/27/21 08:21 Silvergel (Elta) 45 Ml TOPICAL 1 applic Q72HR LIVIER Administration Radiology Results: ITS Impressions Abdomen/Pelvis CT 03/19/21 21:01 IMPRESSION: 1. Large abscess involving the left iliopsoas muscle and left pericolic gutter which tracks into the medial left pelvis
--- NOTE | 2021-03-28 13:50 | PCPTNOTE ---
Patient refused treatment this session due to not feeling well this afternoon. Will continue per plan of care.
[2021-03-28 14:36] VITALS: BP 110/48; PULSE 85; RESP 18; TEMP 36.3; O2SAT 99
--- NOTE | 2021-03-28 16:39 | PM.IMPN ---
Progress Note: A&P Assessment and Plan (1) Postoperative intra-abdominal abscess: Code(s): T81.43XA - Infection following a procedure, organ and space surgical site, initial encounter Status: Acute Assessment and Plan: S/p Tamara's procedure on 02/25/22 complicated by large psoas abscess requiring drainage who presented with increased swelling and drainage of her left lateral abdomen CT abdomen/pelvis on presentation showed large abscess involving the left iliopsoas muscle and left pericolic gutter which tracked to the medial left pelvis and left proximal thigh Appreciate general surgery consultation Continue Vancomycin and Unasyn. Abscess cultures with moderate growth of Lexii albicans. Continue micafungin Underwent CT-guided abscess catheter placement of the left iliopsoas abscess and left pelvic abscess on 03/21 WBC trending down (2) Severe muscle deconditioning: Code(s): R29.898 - Other symptoms and signs involving the musculoskeletal system Status: Acute Assessment and Plan: Patient is very weak related to her acute illness She has been refusing PT/OT. Encouraged to participate Fall precautions implemented Continue turning/repositioning schedule (3) Hypokalemia: Code(s): E87.6 - Hypokalemia Status: Acute Assessment and Plan: Resolved. Potassium 3.6 today Continue to monitor BMP (4) Lower extremity edema: Code(s): R60.0 - Localized edema Status: Acute Assessment and Plan: Likely related to IV fluids and decreased mobility Venous Doppler negative for DVT Continue treatment plan as above Elevate extremities (5) Hypoxia: Code(s): R09.02 - Hypoxemia Status: Acute Assessment and Plan: Resolved. Maintaining adequate oxygen saturations on room air Likely due to inaccurate SpO2 readings for finger pulse oximeter and temporal monitoring should be continued Subjective Date/time seen: 03/28/21 16:39 Interval history: Date of Service: 03/28/2021 Eli duarte is 86-year-old female with a history of anemia, erosive esophagitis, hypokalemia, ulcerative colitis, and recent hospital stay for sigmoid colon stricture with colon perforation s/p Tamara's procedure and intra-abdominal abscess who is seen in follow-up for postoperative intra-abdominal abscess. She feels poorly today. When I asked her what is bothering her she stated ?you know what is going on. She denies abdominal pain. No nausea or vomiting. Tolerating her diet. Denies shortness breath, cough, or chest pain. Denies fever or chills. Still reports feeling very weak and having decreased motivation to participate in therapy. Review of Systems Review of Systems: All systems reviewed & are unremarkable except as noted in HPI and below Exam Narrative: Ms. Duarte is a thin, frail 86-year-old female who is lying supine in bed. She appears comfortable and is in no acute respiratory distress. Neuro: awake, alert and oriented x4, speech clear, no focal neuro deficits noted HEENMT: normocephalic, atraumatic, EOMI, sclerae anicteric Neck: supple, no lymphadenopathy Respiratory: clear to auscultation bilaterally, nonlabored breathing Cardio: regular rate, regular rhythm with S1-S2 Abdomen: nondistended, normoactive bowel sounds, abdominal drain in place, ostomy with loose brown stool, nontender to palpation Extremities: Proximal thighs are erythematous with 1+ edema, nontender to palpation, bilateral calves with trace edema, nontender to palpation, DP pulses 2+ bilaterally, able to wiggle toes bilaterally Skin: no rashes or lesions, warm and dry Objective Data Vital Signs Vital Signs: Vital Signs - 24 hr 03/27/21 20:33 03/27/21 20:43 03/28/21 05:01 Temperature 98.5 F 97.8 F Pulse Rate 110 H 97 Respiratory Rate 16 16 18 Blood Pressure 108/48 L 112/46 L Pulse Oximetry 99 99 96 03/28/21 14:36 Temperature 97.3 F L
[2021-03-28 20:17] VITALS: BP 120/56; PULSE 111; RESP 17; TEMP 36.5; O2SAT 97
[2021-03-28 20:57] VITALS: RESP 16; O2SAT 97
[2021-03-29] MEDS: MAGNES & ALUM HYD/SIMETH/DIPHENHYD/LIDOCAINE 119 ML MOUTHWASH BY MOUTH ×6 (00:30→20:28)
[2021-03-29 04:48] VITALS: BP 111/43; PULSE 113; RESP 18; TEMP 36.8; O2SAT 92
[2021-03-29 07:02] LABS: Anion Gap 3 mmol/L (8-16); Blood Urea Nitrogen 13 mg/dL (7-17); Carbon Dioxide 18 mmol/L (22-30); Chloride 108 mmol/L (98-107); Estimated Glomerular Filt Rate > 60; Glucose 97 mg/dL (65-110); Potassium 3.5 mmol/L (3.4-5.0); Sodium 129 mmol/L (137-145); Triglycerides 121 mg/dL (<150)
[2021-03-29 07:56] VITALS: BP 104/58; PULSE 110; RESP 26; TEMP 36.2; O2SAT 100
[2021-03-29] MEDS: AMPICILLIN SULB 1.5 GM/NS 50ML 1.5 GM/50 ML VIAL IVPB ×2 (08:19→21:33)
[2021-03-29] MEDS: MICAFUNGIN SODIUM 100 MG in SODIUM CHLORIDE 0.9% IV 100 ML IVPB (08:19)
[2021-03-29] MEDS: ENOXAPARIN 30 MG/0.3 ML SYRINGE SUB-Q (08:49)
[2021-03-29 09:23] LABS: Hematocrit 27.7 % (37.0-47.0); Hemoglobin 8.9 g/dL (12.0-15.0); Mean Corpuscular HGB Conc 32.1 g/dl (32-36); Mean Corpuscular Hemoglobin 28.4 pg (26-34); Mean Corpuscular Volume 88.5 fl (80-100); Mean Platelet Volume 9.8 fl (7.4-10.4); Platelet Count Result 322 k/mm3 (150-375); Red Blood Count 3.13 M/mm3 (4.2-5.4); Red Cell Distribution Width 20.6 % (11.5-14.5); White Blood Count 18.7 K/mm3 (4.5-10.0)
[2021-03-29] MEDS: FUROSEMIDE 20 MG TABLET PO ×2 (10:15→17:25)
--- NOTE | 2021-03-29 10:53 | PCNFU ---
Nutrition Follow-Up Complete: Increased protein needs as related to wounds as evidenced by Pressure ulcers reported. Goal: Adequate Intake of at leat 75% of meals/supplements Pt. is progressing towards goal. No new goal at this time. Pt current nutrition is low fiber diet with level 5 minced and moist. Last recorded weight is 48.2 kg. Recommend re-weighing patient prior to discharge to track and weight loss/gain. Bowel Motility: + BM 03/28/2021 Labs Reviewed: Na 129, Hgb 8.89, Hct 27.7 Meds Noted: Lovenox, Lasix, Vancomycin Hcl Skin: stage II right lower buttocks, unstageable left buttocks and stage II right lower buttocks pressure injuries Additional Notes: Patient is eating on average 58% of meals. She is receiving Aleksey TID with meals providing an additional 90 calories and 2.5 grams of protein to aid in wound healing. RD will monitor every 3 days.
[2021-03-29 11:21] VITALS: BP 120/60; PULSE 102; RESP 20; TEMP 36.2; O2SAT 100
--- NOTE | 2021-03-29 13:08 | PM.PNGS ---
Progress Note: A&P Assessment and Plan (1) Postoperative intra-abdominal abscess: Code(s): T81.43XA - Infection following a procedure, organ and space surgical site, initial encounter Status: Acute Assessment and Plan: Repeat CT abd/pelvis yesterday still showed a large left-sided pelvic, iliopsoas abscess with a significant amount of drainage remaining around the pigtail catheters. Minimal output from both perc drains yesterday and today. Will initiate routine saline flushes through both perc drains to see if this will help facilitate drainage. Continue IV antibiotics and IV micafungin. Tolerating low fiber diet, ostomy functioning well. Work on strength and increasing activity, PT/OT following but pt continues to refuse therapy. Encouraged participating again today. Nursing also having issues with peripheral vascular access, will ask the vascular access nurse to see the patient regarding placing a PICC line or midline. Additional Plan I have discussed the plan of care with Dr. Mendoza. Subjective Subjective Date/Time Seen: 03/29/21 13:08 Patient reports: no new complaints, tolerating a regular diet and afebrile Interval history: Patient seen and examined today. She denies any abdominal pain, nausea, or vomiting. She is currently eating her lunch and tolerating this well. No other complaints at this time. +ostomy funcitoning well. Minimal output recorded from both perc drains over the past 48 hours. Review of Systems Review of Systems: All systems reviewed & are unremarkable except as noted in HPI and below Exam Const: General: cooperative, no acute distress and alert Orientation/consciousness: patient oriented x3 Resp: Effort & Inspection: normal respiratory effort Auscultation: clear to auscultation bilaterally Cardio: Rate: regular rate Rhythm: regular rhythm GI: Inspection: non-distended GI Palp: Yes Soft to palpation, No Tenderness to palpation present (GI), No Guarding due to palpation present (GI) and No Rebound tenderness present Auscultation: normal bowel sounds Other: ostomy functioning well with brown stool in bag, Perc drains x 2 c scant purulent barrera drainage in RLQ drain and scant amount of serous drainage in tubing of LLQ drain Urinary Catheter: Urinary Catheter: patent and draining Skin: General skin exam: normal color Neuro: General: moves all extremities and no focal motor deficits Extrem: General: no calf tenderness Other: Mild erythema and edema of proximal thighs bilaterally, improving Psych: Insight: Fair insight present (Psych) Judgement: Fair judgement present (Psych) Objective Data Vital Signs Vital Signs: Vital Signs - 24 hr 03/28/21 14:36 03/28/21 20:17 03/28/21 20:57 Temperature 97.3 F L 97.7 F Pulse Rate 85 111 H Respiratory Rate 18 17 16 Blood Pressure 110/48 L 120/56 L Pulse Oximetry 99 97 97 03/29/21 04:48 03/29/21 07:56 03/29/21 11:21 Temperature 98.3 F 97.2 F L 97.2 F L Pulse Rate 113 H 110 H 102 H Respiratory Rate 18 26 H 20 Blood Pressure 111/43 L 104/58 L 120/60 Pulse Oximetry 92 100 100 Intake/Output Intake/Output: Intake & Output 03/26/21 03/27/21 03/28/21 03/29/21 23:59 23:59 23:59 23:59 Intake Total 1210 1410 1230 690 Output Total 101 404 9352 933 Balance 290 540 -1383 -243 Meds/Results Medications: Active Medications Generic Name Dose Route Start Last Admin Trade Name Freq PRN Reason Stop Dose Admin Enoxaparin Sodium 30 mg 03/22/21 15:40 03/29/21 08:49 Enoxaparin 30 Mg/0.3 Ml Syringe SUB-Q 30 mg DAILY LIVIER Administration Furosemide 20 mg 03/29/21 09:00 03/29/21 10:15 Furosemide 20 Mg Tablet PO 20 mg BID LIVIER Administration Micafungin Sodium 100 mg/ 100 mls @ 100 mls/hr 03/24/21 09:00 03/29/21 11:01 Sodium Chloride IVPB Infused DAILY LIVIER Infusion Ampicillin Sodium/Sulbactam Sodium 1.5 gm in 50 mls @ 100 mls/hr 03/24/21 11:00 03/29/21 11:01 Unasyn 1.5 Gm/Ns 50 Ml IVPB Inf
[2021-03-29 14:41] VITALS: BP 110/54; PULSE 95; TEMP 36.4; O2SAT 100
--- NOTE | 2021-03-29 14:59 | PC.NURSE ---
On 03/29/21, the student, Francesca Jeter, provided care and completed [employer] [facility] documentation on this patient. I have reviewed the student's documentation and agree with the findings.
--- NOTE | 2021-03-29 16:16 | PM.IMPN ---
Progress Note: A&P Assessment and Plan (1) Postoperative intra-abdominal abscess: Code(s): T81.43XA - Infection following a procedure, organ and space surgical site, initial encounter Status: Acute Assessment and Plan: S/p Tamara's procedure on 02/25/22 complicated by large psoas abscess requiring drainage who presented with increased swelling and drainage of her left lateral abdomen CT abdomen/pelvis on presentation showed large abscess involving the left iliopsoas muscle and left pericolic gutter which tracked to the medial left pelvis and left proximal thigh Appreciate general surgery consultation Continue Vancomycin and Unasyn. Abscess cultures with moderate growth of Lexii albicans. Continue micafungin Underwent CT-guided abscess catheter placement of the left iliopsoas abscess and left pelvic abscess on 03/21 WBC increased again today Repeat CT a/p 03/28 showed mild improvement in abscess volume with large amount of fluid surrounding pigtail catheters (2) Severe muscle deconditioning: Code(s): R29.898 - Other symptoms and signs involving the musculoskeletal system Status: Acute Assessment and Plan: Patient is very weak related to her acute illness She has been refusing PT/OT. Encouraged to participate Fall precautions implemented Continue turning/repositioning schedule (3) Hypokalemia: Code(s): E87.6 - Hypokalemia Status: Acute Assessment and Plan: Resolved. Potassium 3.5 today Continue to monitor BMP (4) Lower extremity edema: Code(s): R60.0 - Localized edema Status: Acute Assessment and Plan: Likely related to IV fluids and decreased mobility Venous Doppler negative for DVT Continue treatment plan as above Elevate extremities Initiate Lasix 20 mg p.o. b.i.d. (5) Hypoxia: Code(s): R09.02 - Hypoxemia Status: Acute Assessment and Plan: Resolved. Maintaining adequate oxygen saturations on room air Likely due to inaccurate SpO2 readings for finger pulse oximeter and temporal monitoring should be continued Subjective Date/time seen: 03/29/21 16:16 Interval history: Date of Service: 03/29/2021 Eli Duarte is 86-year-old female with a history of anemia, erosive esophagitis, hypokalemia, ulcerative colitis, and recent hospitalization for sigmoid colon stricture with colon perforation s/p Tamara's procedure and intra-abdominal abscess who is seen in follow-up for postoperative intra-abdominal abscess. She feels the same today. Complains of being cold. Participated in OT today. Refused PT yesterday and has not had PT yet today. She denies abdominal pain. No nausea or vomiting. Denies shortness of breath, cough, or chest pain. No issues with her Mederos catheter. Review of Systems Review of Systems: All systems reviewed & are unremarkable except as noted in HPI and below Exam Narrative: Ms. Duarte is a thin, frail 86-year-old female who is lying supine in bed. She appears comfortable and is in no acute respiratory distress. Neuro: awake, alert and oriented x4, speech clear, no focal neuro deficits noted HEENMT: normocephalic, atraumatic, EOMI, sclerae anicteric Neck: supple, no lymphadenopathy Respiratory: clear to auscultation bilaterally, nonlabored breathing Cardio: regular rate, regular rhythm with S1-S2 Abdomen: nondistended, normoactive bowel sounds, abdominal drain in place, ostomy with loose brown stool, nontender to palpation Extremities: Proximal thighs are erythematous with 1+ edema, nontender to palpation, bilateral calves with trace edema, nontender to palpation, DP pulses 2+ bilaterally, able to wiggle toes bilaterally Skin: no rashes or lesions, warm and dry Objective Data Vital Signs Vital Signs: Vital Signs - 24 hr 03/28/21 20:17 03/28/21 20:57 03/29/21 04:48 Temperature 97.7 F 98.3 F Pulse Rate 111 H 113 H Respiratory Rate 17 16 18 Blood
[2021-03-29 21:57] VITALS: O2SAT 95
[2021-03-29 22:00] VITALS: BP 133/47; PULSE 105; RESP 20; TEMP 36.7; O2SAT 94
[2021-03-30] MEDS: MAGNES & ALUM HYD/SIMETH/DIPHENHYD/LIDOCAINE 119 ML MOUTHWASH BY MOUTH ×3 (01:19→08:10)
[2021-03-30 06:00] VITALS: BP 121/45; PULSE 99; RESP 18; TEMP 32.1; O2SAT 97
[2021-03-30 06:01] LABS: Hematocrit 28.7 % (37.0-47.0); Hemoglobin 8.9 g/dL (12.0-15.0); Mean Corpuscular Hemoglobin 27.9 pg (26-34); Mean Platelet Volume 10.4 fl (7.4-10.4); Platelet Count Result 231 k/mm3 (150-375); Red Blood Count 3.19 M/mm3 (4.2-5.4); Red Cell Distribution Width 20.8 % (11.5-14.5); White Blood Count 12.1 K/mm3 (4.5-10.0)
[2021-03-30 06:15] LABS: Anion Gap 2 mmol/L (8-16); Blood Urea Nitrogen 18 mg/dL (7-17); Calcium 7.8 mg/dL (8.4-10.2); Carbon Dioxide 18 mmol/L (22-30); Chloride 108 mmol/L (98-107); Estimated Glomerular Filt Rate 47; Glucose 94 mg/dL (65-110); Potassium 3.6 mmol/L (3.4-5.0); Sodium 128 mmol/L (137-145)
[2021-03-30] MEDS: FUROSEMIDE 20 MG TABLET PO ×2 (08:10→16:40)
[2021-03-30] MEDS: SILVERGEL (ELTA) 45 ML 1 APPLIC TOPICAL (08:10)
[2021-03-30] MEDS: ENOXAPARIN 30 MG/0.3 ML SYRINGE SUB-Q (08:10)
[2021-03-30] MEDS: AMPICILLIN SULB 1.5 GM/NS 50ML 1.5 GM/50 ML VIAL IVPB ×2 (08:12→20:30)
[2021-03-30] MEDS: MICAFUNGIN SODIUM 100 MG in SODIUM CHLORIDE 0.9% IV 100 ML IVPB (08:12)
[2021-03-30 09:07] VITALS: TEMP 36.1
--- NOTE | 2021-03-30 10:17 | PCOTNOTE ---
Attempted to see patient this AM at 10:13, patient declined OT services due to being too tiered , no c/o pain.
[2021-03-30] MEDS: LIDOCAINE HCL 1% PF INJ 5 ML VIAL INFILTRATE (12:10)
--- NOTE | 2021-03-30 13:39 | PM.PNGS ---
Progress Note: A&P Assessment and Plan (1) Postoperative intra-abdominal abscess: Code(s): T81.43XA - Infection following a procedure, organ and space surgical site, initial encounter Status: Acute Assessment and Plan: WBC improved. Continue irrigating drains twice daily. Discussed with nurse and irrigation seems to be going well. Will likely repeat a CT at some point before removing drains, but this can be done as an outpatient if she is otherwise ready for discharge. 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 Tolerating diet. Exam GI: Other: Ostomy functioning. Drains in place with purulent output. Objective Data Vital Signs Vital Signs: Vital Signs - 24 hr 03/29/21 14:41 03/29/21 21:57 03/29/21 22:00 Temperature 36.4 C 36.7 C Pulse Rate 95 105 H Respiratory Rate 20 Blood Pressure 110/54 L 133/47 L Pulse Oximetry 100 95 94 03/30/21 06:00 03/30/21 09:07 Temperature 32.1 C L 36.1 C L Pulse Rate 99 Respiratory Rate 18 Blood Pressure 121/45 L Pulse Oximetry 97 Intake/Output Intake/Output: Intake & Output 03/27/21 03/28/21 03/29/21 03/30/21 23:59 23:59 23:59 23:59 Intake Total 1410 1230 1350 550 Output Total 870 2613 1573 751 Balance 540 -0223 -223 -201 Meds/Results Medications: Active Medications Generic Name Dose Route Start Last Admin Trade Name Freq PRN Reason Stop Dose Admin Enoxaparin Sodium 30 mg 03/22/21 15:40 03/30/21 08:10 Enoxaparin 30 Mg/0.3 Ml Syringe SUB-Q 30 mg DAILY LIVIER Administration Furosemide 20 mg 03/29/21 09:00 03/30/21 08:10 Furosemide 20 Mg Tablet PO 20 mg BID LIVIER Administration Micafungin Sodium 100 mg/ 100 mls @ 100 mls/hr 03/24/21 09:00 03/30/21 10:06 Sodium Chloride IVPB Infused DAILY LIVIER Infusion Ampicillin Sodium/Sulbactam Sodium 1.5 gm in 50 mls @ 100 mls/hr 03/24/21 11:00 03/30/21 10:06 Unasyn 1.5 Gm/Ns 50 Ml IVPB Infused Q12HR LIVIER Infusion Vancomycin HCl 750 mg in 250 mls @ 250 mls/hr 03/26/21 00:00 03/30/21 13:07 Vancomycin 750 Mg/D5w 250 Ml IVPB 100 mls/hr Q18H LIVIER Administration Lidocaine/Diphenhydr/Alum/Mg/Simeth 5 ml 03/30/21 09:06 Magnes & Alum Hyd/Simeth/Diphenhyd/Lidocaine 119 Ml Mouthwash BY MOUTH 04/19/21 04:59 Q4HR PRN Mouth Sore Pain Ondansetron HCl 4 mg 03/19/21 21:27 Ondansetron Inj 4 Mg/2 Ml Vial IV PUSH Q4H PRN Nausea Silver Nitrate 1 applic 03/21/21 09:00 03/30/21 08:10 Silvergel (Elta) 45 Ml TOPICAL 1 applic Q72HR LIVIER Administration Sodium Chloride 10 ml 03/30/21 14:00 Central Line Flush IV PUSH Q8HR LIVIER Sodium Chloride 10 ml 03/30/21 13:14 Central Line Flush IV PUSH PRN PRN with TPN bag changes Sodium Chloride 20 ml 03/30/21 13:14 Central Line Flush IV PUSH PRN PRN after blood draws Radiology Results: ITS Impressions Catheter Placement CT 03/21/21 14:12 IMPRESSION: 1. Successful CT-guided left iliopsoas abscess drainage. 2. 10 mL barrera, opaque fluid was sent for aerobic and anaerobic cultures. 2. Successful CT-guided left pelvic abscess drainage. Catheter Placement CT 03/21/21 14:12 IMPRESSION: 1[address] Successful CT-guided left iliopsoas abscess drainage. 2. 10 mL barrera, opaque fluid was sent for aerobic and anaerobic cultures. 2. Successful CT-guided left pelvic abscess drainage. Chest X-Ray 03/24/21 18:13 IMPRESSION: Moderate bilateral pleural effusions and bilateral lower lung infiltrate and/or atelectasis; little interval change since 03/09/2021 Venous Doppler Study 03/24/21 18:16 IMPRESSION: No evidence of deep venous thrombosis of the lower extremities Abdomen/Pelvis CT 03/28/21 21:36 IMPRESSION: 1. Large left- sided pelvic, iliopsoas abscess with mild improvement in abscess
[2021-03-30] MEDS: CENTRAL LINE FLUSH 10 ML IV PUSH ×2 (13:41→22:50)
[2021-03-30 13:47] VITALS: BP 119/53; PULSE 94; RESP 20; TEMP 35.9; O2SAT 93
--- NOTE | 2021-03-30 16:43 | PM.IMPN ---
Progress Note: A&P Assessment and Plan (1) Postoperative intra-abdominal abscess: Code(s): T81.43XA - Infection following a procedure, organ and space surgical site, initial encounter Status: Acute Assessment and Plan: S/p Tamara's procedure on 02/25/22 complicated by large psoas abscess requiring drainage who presented with increased swelling and drainage of her left lateral abdomen CT abdomen/pelvis on presentation showed large abscess involving the left iliopsoas muscle and left pericolic gutter which tracked to the medial left pelvis and left proximal thigh Appreciate general surgery consultation Continue Vancomycin and Unasyn. Abscess cultures with moderate growth of Lexii albicans. Continue micafungin Underwent CT-guided abscess catheter placement of the left iliopsoas abscess and left pelvic abscess on 03/21 WBC increased again today Repeat CT a/p 03/28 showed mild improvement in abscess volume with large amount of fluid surrounding pigtail catheters Continue irrigating drain (2) Severe muscle deconditioning: Code(s): R29.898 - Other symptoms and signs involving the musculoskeletal system Status: Acute Assessment and Plan: Patient is very weak related to her acute illness She has been refusing PT/OT. Encouraged to participate Fall precautions implemented Continue turning/repositioning schedule She will need SNF prior to discharge. Care coordination following to help arrange placement (3) Hypokalemia: Code(s): E87.6 - Hypokalemia Status: Acute Assessment and Plan: Resolved. Potassium 3.6 today Continue to monitor BMP (4) Lower extremity edema: Code(s): R60.0 - Localized edema Status: Acute Assessment and Plan: Likely related to IV fluids and decreased mobility Venous Doppler negative for DVT Continue treatment plan as above Elevate extremities Initiate Lasix 20 mg p.o. b.i.d. Add albumin with Lasix (5) Hypoxia: Code(s): R09.02 - Hypoxemia Status: Acute Assessment and Plan: Resolved. Maintaining adequate oxygen saturations on room air Likely due to inaccurate SpO2 readings for finger pulse oximeter and temporal monitoring should be continued Subjective Date/time seen: 03/30/21 16:43 Interval history: Date of Service: 03/29/2021 Eli Duarte is 86-year-old female with a history of anemia, erosive esophagitis, hypokalemia, ulcerative colitis, and recent hospitalization for sigmoid colon stricture with colon perforation s/p Tamara's procedure and intra-abdominal abscess who is seen in follow-up for postoperative intra-abdominal abscess. She is doing okay today. Tolerating her diet. Denies abdominal pain. No nausea or vomiting. She states she thinks she had therapy today and participated. I asked her why she had been declining before and she said ?they just, at the wrong times. Discussed her goals of care and she would like to go to rehab and ultimately go back home living alone. She thinks that she will be able to manage this as she had before her surgery. She has no additional concerns. Denies shortness of breath, cough, chest pain. Review of Systems Review of Systems: All systems reviewed & are unremarkable except as noted in HPI and below Exam Narrative: Ms. Duarte is a thin, frail 86-year-old female who is lying supine in bed. She appears comfortable and is in no acute respiratory distress. Neuro: awake, alert and oriented x4, speech clear, no focal neuro deficits noted HEENMT: normocephalic, atraumatic, EOMI, sclerae anicteric Neck: supple, no lymphadenopathy Respiratory: clear to auscultation bilaterally, nonlabored breathing Cardio: regular rate, regular rhythm with S1-S2 Abdomen: nondistended, normoactive bowel sounds, abdominal drain in place, ostomy with loose brown stool, nontender to palpation Extremities: Proximal thighs are erythematous with 1+ samuel
[2021-03-30] MEDS: ALBUMIN HUMAN 25% 12.5 GM/50ML 50 ML IVPB (18:13)
[2021-03-30 22:00] VITALS: BP 133/55; PULSE 105; RESP 18; TEMP 37.8; O2SAT 97
[2021-03-31] MEDS: CENTRAL LINE FLUSH 10 ML IV PUSH ×3 (04:40→21:29)
[2021-03-31 04:46] LABS: Hematocrit 29.2 % (37.0-47.0); Hemoglobin 8.9 g/dL (12.0-15.0); Mean Corpuscular HGB Conc 30.5 g/dl (32-36); Mean Corpuscular Hemoglobin 27.8 pg (26-34); Mean Corpuscular Volume 91.3 fl (80-100); Mean Platelet Volume 9.3 fl (7.4-10.4); Platelet Count Result 288 k/mm3 (150-375); Red Cell Distribution Width 20.4 % (11.5-14.5); White Blood Count 13.9 K/mm3 (4.5-10.0)
[2021-03-31 04:55] LABS: Alanine Aminotransferase 19 U/L (4-35); Albumin Level 2.1 g/dL (3.5-5.1); Alkaline Phosphatase 122 U/L (38-126); Anion Gap 7 mmol/L (8-16); Aspartate Amino Transferase 30 U/L (14-36); Bilirubin,Total 0.5 mg/dL (0.2-1.3); Blood Urea Nitrogen 19 mg/dL (7-17); Calcium 7.9 mg/dL (8.4-10.2); Carbon Dioxide 17 mmol/L (22-30); Chloride 108 mmol/L (98-107); Estimated Glomerular Filt Rate 43; Glucose 102 mg/dL (65-110); Magnesium 1.8 mg/dL (1.6-2.3); Potassium 3.6 mmol/L (3.4-5.0); Sodium 132 mmol/L (137-145); Triglycerides 130 mg/dL (<150)
[2021-03-31 05:18] LABS: Atypical Lymphocytes Present; Band Neutrophils Percent 24 % (0-6); Eosinophils Absolute Manual 0.41 K/mm3 (0.02-0.5); Eosinophils Percent Manual 3 % (0-4); Lymphocytes Absolute Manual 2.22 K/mm3 (1.1-4.5); Monocytes Absolute Manual 0.83 K/mm3 (0.1-0.90); Monocytes Percent Manual 6 % (3-9); Neutrophils Absolute Manual 10.42 K/mm3 (1.7-7.2); Neutrophils Percent Manual 51 % (46-73); Platelet Estimate Adequate (Adequate); Total Cells Counted 100
[2021-03-31] MEDS: ALBUMIN HUMAN 25% 12.5 GM/50ML 50 ML IVPB ×2 (05:38→18:45)
[2021-03-31 06:00] VITALS: BP 143/70; PULSE 103; RESP 18; TEMP 36.6; O2SAT 100
[2021-03-31 08:00] VITALS: BP 112/52; PULSE 80; RESP 19; TEMP 36.1; O2SAT 97
[2021-03-31] MEDS: MICAFUNGIN SODIUM 100 MG in SODIUM CHLORIDE 0.9% IV 100 ML IVPB (08:22)
[2021-03-31] MEDS: AMPICILLIN SULB 1.5 GM/NS 50ML 1.5 GM/50 ML VIAL IVPB ×2 (08:22→20:18)
[2021-03-31] MEDS: FUROSEMIDE 20 MG TABLET PO ×2 (08:22→16:29)
[2021-03-31] MEDS: ENOXAPARIN 30 MG/0.3 ML SYRINGE SUB-Q (08:22)
[2021-03-31 13:39] VITALS: BP 120/52; PULSE 106; RESP 17; TEMP 36.4; O2SAT 95
--- NOTE | 2021-03-31 16:22 | PM.IMPN ---
Progress Note: A&P Assessment and Plan (1) Postoperative intra-abdominal abscess: Code(s): T81.43XA - Infection following a procedure, organ and space surgical site, initial encounter Status: Acute Assessment and Plan: S/p Tamara's procedure on 02/25/22 complicated by large psoas abscess requiring drainage who presented with increased swelling and drainage of her left lateral abdomen CT abdomen/pelvis on presentation showed large abscess involving the left iliopsoas muscle and left pericolic gutter which tracked to the medial left pelvis and left proximal thigh Appreciate general surgery consultation Continue Vancomycin and Unasyn. Abscess cultures with moderate growth of Lexii albicans. Continue micafungin Underwent CT-guided abscess catheter placement of the left iliopsoas abscess and left pelvic abscess on 03/21 WBC fluctuant, mildly elevated Repeat CT a/p 03/28 showed mild improvement in abscess volume with large amount of fluid surrounding pigtail catheters Continue irrigating drain (2) Severe muscle deconditioning: Code(s): R29.898 - Other symptoms and signs involving the musculoskeletal system Status: Acute Assessment and Plan: Patient is very weak related to her acute illness She has been refusing PT/OT. Encouraged to participate Fall precautions implemented Continue turning/repositioning schedule She will need SNF prior to discharge. Care coordination following to help arrange placement (3) Hypokalemia: Code(s): E87.6 - Hypokalemia Status: Acute Assessment and Plan: Resolved. Potassium 3.6 today Continue to monitor BMP (4) Lower extremity edema: Code(s): R60.0 - Localized edema Status: Acute Assessment and Plan: Likely related to IV fluids and decreased mobility Venous Doppler negative for DVT Continue treatment plan as above Elevate extremities Continue Lasix 20 mg p.o. b.i.d. with albumin infusions Hopefully this will improve as patient increases mobility. (5) Hypoxia: Code(s): R09.02 - Hypoxemia Status: Acute Assessment and Plan: Resolved. Maintaining adequate oxygen saturations on room air Likely due to inaccurate SpO2 readings for finger pulse oximeter and temporal monitoring should be continued (6) Acute kidney injury: Code(s): N17.9 - Acute kidney failure, unspecified Status: Acute Assessment and Plan: Serum creatinine slightly Review of prior labs suggest fluctuant baseline around 1.0-1.2 Creatinine trending upwards today, likely due to diuretics Continue to monitor renal function closely Subjective Date/time seen: 03/31/21 16:22 Interval history: Date of Service: 03/31/2021 Eli Duarte is 86-year-old female with a history of anemia, erosive esophagitis, hypokalemia, ulcerative colitis, and recent hospitalization for sigmoid colon stricture with colon perforation s/p Tamara's procedure who is seen in follow-up for postoperative intra-abdominal abscess. She was napping she awoke easily and said that she has had any issues she worked with therapy and would like her exercises in bed. She has still not been out of bed. Denies abdominal pain, nausea, vomiting, fever, or chills. She ate a good lunch today. She denies shortness breath, cough, chest pain, back pain, dizziness, lightheadedness. Review of Systems Review of Systems: All systems reviewed & are unremarkable except as noted in HPI and below Exam Narrative: Ms. Duarte is a thin, frail 86-year-old female who is lying supine in bed. She appears comfortable and is in no acute respiratory distress. Neuro: awake, alert and oriented x4, speech clear, no focal neuro deficits noted HEENMT: normocephalic, atraumatic, EOMI, sclerae anicteric Neck: supple, no lymphadenopathy Respiratory: clear to auscultation bilaterally, nonlabored breathing Cardio: regular rate, regular rhythm wi
--- NOTE | 2021-03-31 16:22 | P.PNIM_ITS ---
Progress Note: A&P Assessment and Plan (1) Postoperative intra-abdominal abscess: Code(s): T81.43XA - Infection following a procedure, organ and space surgical site, initial encounter Status: Acute Assessment and Plan: S/p Tamara's procedure on 02/25/22 complicated by large psoas abscess requiring drainage who presented with increased swelling and drainage of her left lateral abdomen * CT abdomen/pelvis on presentation showed large abscess involving the left iliopsoas muscle and left pericolic gutter which tracked to the medial left pelvis and left proximal thigh * Appreciate general surgery consultation * Continue Vancomycin and Unasyn. * Abscess cultures with moderate growth of Lexii albicans. Continue micafungin * Underwent CT-guided abscess catheter placement of the left iliopsoas abscess and left pelvic abscess on 03/21 * WBC fluctuant, mildly elevated * Repeat CT a/p 03/28 showed mild improvement in abscess volume with large amount of fluid surrounding pigtail catheters * Continue irrigating drain (2) Severe muscle deconditioning: Code(s): R29.898 - Other symptoms and signs involving the musculoskeletal system Status: Acute Assessment and Plan: Patient is very weak related to her acute illness * She has been refusing PT/OT. Encouraged to participate * Fall precautions implemented * Continue turning/repositioning schedule * She will need SNF prior to discharge. Care coordination following to help arrange placement (3) Hypokalemia: Code(s): E87.6 - Hypokalemia Status: Acute Assessment and Plan: Resolved. Potassium 3.6 today * Continue to monitor BMP (4) Lower extremity edema: Code(s): R60.0 - Localized edema Status: Acute Assessment and Plan: Likely related to IV fluids and decreased mobility * Venous Doppler negative for DVT * Continue treatment plan as above * Elevate extremities * Continue Lasix 20 mg p.o. b.i.d. with albumin infusions * Hopefully this will improve as patient increases mobility. (5) Hypoxia: Code(s): R09.02 - Hypoxemia Status: Acute Assessment and Plan: Resolved. * Maintaining adequate oxygen saturations on room air * Likely due to inaccurate SpO2 readings for finger pulse oximeter and temporal monitoring should be continued (6) Acute kidney injury: Code(s): N17.9 - Acute kidney failure, unspecified Status: Acute Assessment and Plan: Serum creatinine slightly * Review of prior labs suggest fluctuant baseline around 1.0-1.2 * Creatinine trending upwards today, likely due to diuretics * Continue to monitor renal function closely Subjective Date/time seen: 03/31/21 16:22 Interval history: Date of Service: 03/31/2021 Eli Duarte is 86-year-old female with a history of anemia, erosive esophagitis, hypokalemia, ulcerative colitis, and recent hospitalization for sigmoid colon stricture with colon perforation s/p Tamara's procedure who is seen in follow-up for postoperative intra-abdominal abscess. She was napping she awoke easily and said that she has had any issues she worked with therapy and would like her exercises in bed. She has still not been out of bed. Denies abdominal pain, nausea, vomiting, fever, or chills. She ate a good lunch today. She denies shortness breath, cough, chest pain, back pain, dizziness, lightheadedness. Review of Systems Review of Systems: All systems reviewed & are unremarkable except as noted in HPI and below
[2021-03-31 22:00] VITALS: BP 128/64; PULSE 86; RESP 16; TEMP 36.2; O2SAT 98
[2021-04-01 00:15] LABS: Vancomycin Trough 17.4 ug/mL (10.0-20.0)
[2021-04-01 05:01] LABS: Hematocrit 29.2 % (37.0-47.0); Hemoglobin 8.9 g/dL (12.0-15.0); Mean Corpuscular HGB Conc 30.5 g/dl (32-36); Mean Corpuscular Hemoglobin 27.5 pg (26-34); Mean Corpuscular Volume 90.1 fl (80-100); Mean Platelet Volume 9.1 fl (7.4-10.4); Platelet Count Result 260 k/mm3 (150-375); Red Blood Count 3.24 M/mm3 (4.2-5.4); Red Cell Distribution Width 20.3 % (11.5-14.5); White Blood Count 11.7 K/mm3 (4.5-10.0)
[2021-04-01 05:19] LABS: Anion Gap 3 mmol/L (8-16); Blood Urea Nitrogen 20 mg/dL (7-17); Calcium 8.1 mg/dL (8.4-10.2); Carbon Dioxide 19 mmol/L (22-30); Chloride 111 mmol/L (98-107); Estimated Glomerular Filt Rate 43; Glucose 102 mg/dL (65-110); Potassium 3.6 mmol/L (3.4-5.0); Sodium 133 mmol/L (137-145)
[2021-04-01 06:00] VITALS: BP 126/51; PULSE 107; RESP 22; TEMP 36.3; O2SAT 98
[2021-04-01] MEDS: ALBUMIN HUMAN 25% 12.5 GM/50ML 50 ML IVPB ×2 (06:13→17:44)
[2021-04-01] MEDS: CENTRAL LINE FLUSH 10 ML IV PUSH ×3 (06:13→21:19)
--- NOTE | 2021-04-01 07:26 | ECG_ITS ---
Measurements Intervals [place] Rate: 104 P: 69 SD: 162 QRS: 78 QRSD: 93 T: 88 QT: 364 QTc: 480 Interpretive Statements SINUS TACHYCARDIA VENTRICULAR BIGEMINY T WAVE ABNORMALITY IN ANTERIOR LEADS- CONSIDER ISCHEMIA BASELINE ARTIFACT- I, AVR, AVL, V1-V2 ABNORMAL ECG Electronically Signed On 04-01-2021 12:08:54 [employer] by Marito Evans D.O.
[2021-04-01] MEDS: AMPICILLIN SULB 1.5 GM/NS 50ML 1.5 GM/50 ML VIAL IVPB ×2 (08:32→21:19)
[2021-04-01] MEDS: ENOXAPARIN 30 MG/0.3 ML SYRINGE SUB-Q (08:32)
[2021-04-01] MEDS: MICAFUNGIN SODIUM 100 MG in SODIUM CHLORIDE 0.9% IV 100 ML IVPB (08:32)
[2021-04-01] MEDS: FUROSEMIDE 20 MG TABLET PO ×2 (08:32→17:44)
--- NOTE | 2021-04-01 11:25 | PCNFU ---
Nutrition Follow-Up Complete: Increased protein needs as related to wounds as evidenced by Pressure ulcers reported. goal: Adequate Intake of at least 75% of meals/supplements Patient is progress towards goal. We will continue current goal. Pt current nutrition is Minced and Moist, Level 5/Low Fiber diet Last recorded weight is 46.1 kg, down from 50 kg on admit. Bowel Motility:colostomy Labs Reviewed:Cr 1.2, GFR 43, Na 133, Hct 29.2, Hgb 8.9 Meds Noted:Lovenox, Vancomycin, Unasyn, Lasix Skin: Stage II right lower buttocks, unstageable left buttocks and stage II right lower buttocks pressure injuries Additional Notes: Patient remains on Minced and Moist Level 5/Low Fiber diet. Spoke with patient at breakfast today. She was eating cream of wheat. Oral Intake fair 10-45% of meals. Diet supplements of ensure compact BID and Aleksey BID being sent for wound healing and increased calorie needs. Agree with diet orders. RD will monitor every 5 days.
--- NOTE | 2021-04-01 11:46 | PM.PNGS ---
Progress Note: A&P Assessment and Plan (1) Postoperative intra-abdominal abscess: Code(s): T81.43XA - Infection following a procedure, organ and space surgical site, initial encounter Status: Acute Assessment and Plan: WBC continues to improved. Continue flushing drains twice daily. Suprapubic drain might be able to be removed in the next few days. Will probably need to re-image before removing both drains to ensure abscess has completely resolved. (2) Status post Tamara's procedure: Code(s): Z93.3 - Colostomy status Status: Acute Subjective Subjective Date/Time Seen: 04/01/21 11:46 Interval history: Occasional LLQ pain. Otherwise doing well. Exam GI: Other: Left pigtail drain with minimal purulent output. Suprapubic pigtail drain with minimal serous output. Objective Data Vital Signs Vital Signs: Vital Signs - 24 hr 03/31/21 13:39 03/31/21 22:00 04/01/21 06:00 Temperature 36.4 C 36.2 C L 36.3 C L Pulse Rate 106 H 86 107 H Respiratory Rate 17 16 22 H Blood Pressure 120/52 L 128/64 126/51 L Pulse Oximetry 95 98 98 Intake/Output Intake/Output: Intake & Output 03/29/21 03/30/21 03/31/21 04/01/21 23:59 23:59 23:59 23:59 Intake Total 1350 1460 760 270 Output Total 1573 1766 415 260 Balance -223 -306 345 10 Meds/Results Medications: Active Medications Generic Name Dose Route Start Last Admin Trade Name Freq PRN Reason Stop Dose Admin Enoxaparin Sodium 30 mg 03/22/21 15:40 04/01/21 08:32 Enoxaparin 30 Mg/0.3 Ml Syringe SUB-Q 30 mg DAILY LIVIER Administration Furosemide 20 mg 03/29/21 09:00 04/01/21 08:32 Furosemide 20 Mg Tablet PO 20 mg BID LIVIER Administration Micafungin Sodium 100 mg/ 100 mls @ 100 mls/hr 03/24/21 09:00 04/01/21 08:32 Sodium Chloride IVPB 100 mls/hr DAILY LIVIER Administration Ampicillin Sodium/Sulbactam Sodium 1.5 gm in 50 mls @ 100 mls/hr 03/24/21 11:00 04/01/21 08:32 Unasyn 1.5 Gm/Ns 50 Ml IVPB 100 mls/hr Q12HR LIVIER Administration Albumin Human 50 mls @ 50 mls/hr 03/30/21 18:00 04/01/21 07:13 Albutein IVPB Infused Q12H LIVIER Infusion Vancomycin HCl 750 mg in 250 mls @ 250 mls/hr 04/01/21 06:00 04/01/21 06:13 Vancomycin 750 Mg/D5w 250 Ml IVPB 200 mls/hr Q24H LIVIER Administration Lidocaine/Diphenhydr/Alum/Mg/Simeth 5 ml 03/30/21 09:06 Magnes & Alum Hyd/Simeth/Diphenhyd/Lidocaine 119 Ml Mouthwash BY MOUTH 04/19/21 04:59 Q4HR PRN Mouth Sore Pain Ondansetron HCl 4 mg 03/19/21 21:27 Ondansetron Inj 4 Mg/2 Ml Vial IV PUSH Q4H PRN Nausea Silver Nitrate 1 applic 03/21/21 09:00 03/30/21 08:10 Silvergel (Elta) 45 Ml TOPICAL 1 applic Q72HR LIVIER Administration Sodium Chloride 10 ml 03/30/21 14:00 04/01/21 06:13 Central Line Flush IV PUSH 10 ml Q8HR LIVIER Administration Sodium Chloride 10 ml 03/30/21 13:14 Central Line Flush IV PUSH PRN PRN with TPN bag changes Sodium Chloride 20 ml 03/30/21 13:14 Central Line Flush IV PUSH PRN PRN after blood draws Radiology Results: ITS Impressions Catheter Placement CT 03/21/21 14:12 IMPRESSION: 1. Successful CT-guided left iliopsoas abscess drainage. 2. 10 mL barrera, opaque fluid was sent for aerobic and anaerobic cultures. 2. Successful CT-guided left pelvic abscess drainage. Catheter Placement CT 03/21/21 14:12 IMPRESSION: 1. Successful CT-guided left iliopsoas abscess drainage. 2. 10 mL barrera, opaque fluid was sent for aerobic and anaerobic cultures. 2. Successful CT-guided left pelvic abscess drainage. Chest X-Ray 03/24/21 18:13 IMPRESSION: Moderate bilateral pleural effusions and bilateral lower lung infiltrate and/or atelectasis; little interval change since 03/09/2021 Venous Doppler Study 03/24/21 18:16 IMPRESSION: No evidence of deep venous thrombosis of the lower extremities Abdomen/Pelvis CT 03/28/21 21:36 IMPRESSION: 1.
[2021-04-01 14:23] VITALS: BP 158/79; PULSE 107; RESP 16; TEMP 36.3; O2SAT 97
--- NOTE | 2021-04-01 15:32 | P.PNIM_ITS ---
Progress Note: A&P Assessment and Plan (1) Postoperative intra-abdominal abscess: Code(s): T81.43XA - Infection following a procedure, organ and space surgical site, initial encounter Status: Acute Assessment and Plan: S/p Tamara's procedure on 02/25/22 complicated by large psoas abscess requiring drainage who presented with increased swelling and drainage of her left lateral abdomen * CT abdomen/pelvis on presentation showed large abscess involving the left iliopsoas muscle and left pericolic gutter which tracked to the medial left pelvis and left proximal thigh * Appreciate general surgery consultation * Continue Vancomycin and Unasyn. * Abscess cultures with moderate growth of Lexii albicans. Continue micafungin * Underwent CT-guided abscess catheter placement of the left iliopsoas abscess and left pelvic abscess on 03/21 * WBC fluctuant, mildly elevated - improved today * Repeat CT a/p 03/28 showed mild improvement in abscess volume with large amount of fluid surrounding pigtail catheters * Continue with drain irrigation (2) Severe muscle deconditioning: Code(s): R29.898 - Other symptoms and signs involving the musculoskeletal system Status: Acute Assessment and Plan: Patient is very weak related to her acute illness * She has been refusing PT/OT. Encouraged to participate * Fall precautions implemented * Continue turning/repositioning schedule * She will need SNF prior to discharge. Care coordination following to help arrange placement (3) Hypokalemia: Code(s): E87.6 - Hypokalemia Status: Acute Assessment and Plan: Resolved. Potassium 3.6 today * Continue to monitor BMP (4) Lower extremity edema: Code(s): R60.0 - Localized edema Status: Acute Assessment and Plan: Likely related to IV fluids and decreased mobility * Venous Doppler negative for DVT * Continue treatment plan as above * Elevate extremities * Continue Lasix 20 mg p.o. b.i.d. with albumin infusions * Hopefully this will improve as patient increases mobility. (5) Hypoxia: Code(s): R09.02 - Hypoxemia Status: Acute Assessment and Plan: Resolved. * Maintaining adequate oxygen saturations on room air * Likely due to inaccurate SpO2 readings for finger pulse oximeter and temporal monitoring should be continued (6) Acute kidney injury: Code(s): N17.9 - Acute kidney failure, unspecified Status: Acute Assessment and Plan: Serum creatinine slightly * Review of prior labs suggest fluctuant baseline around 1.0-1.2 * Creatinine is 1.2 likely due to diuretics * Continue to monitor renal function closely Subjective Date/time seen: 04/01/21 15:32 Interval history: Date of Service: 04/01/2021 Eli Duarte is 86-year-old female with a history of anemia, erosive esophagitis, hypokalemia, ulcerative colitis, and recent hospitalization for sigmoid colon stricture with colon perforation s/p Tamara's procedure who is seen in follow-up for postoperative intra-abdominal abscess. She feels well today. She was a little upset because she did not have any milk on her tray. She stated she was irritated. I apologized and helped her get the rest of her tray set up. She said she was feeling hungry. No abdominal pain. No nausea or vomiting. No fever or chills. Denies dizziness, lightheadedness, weakness. Still not getting out of bed. Review of Systems Review of Systems: All systems reviewed & are unremarkable except as noted in
--- NOTE | 2021-04-01 15:32 | PM.IMPN ---
Progress Note: A&P Assessment and Plan (1) Postoperative intra-abdominal abscess: Code(s): T81.43XA - Infection following a procedure, organ and space surgical site, initial encounter Status: Acute Assessment and Plan: S/p Tamara's procedure on 02/25/22 complicated by large psoas abscess requiring drainage who presented with increased swelling and drainage of her left lateral abdomen CT abdomen/pelvis on presentation showed large abscess involving the left iliopsoas muscle and left pericolic gutter which tracked to the medial left pelvis and left proximal thigh Appreciate general surgery consultation Continue Vancomycin and Unasyn. Abscess cultures with moderate growth of Lexii albicans. Continue micafungin Underwent CT-guided abscess catheter placement of the left iliopsoas abscess and left pelvic abscess on 03/21 WBC fluctuant, mildly elevated - improved today Repeat CT a/p 03/28 showed mild improvement in abscess volume with large amount of fluid surrounding pigtail catheters Continue with drain irrigation (2) Severe muscle deconditioning: Code(s): R29.898 - Other symptoms and signs involving the musculoskeletal system Status: Acute Assessment and Plan: Patient is very weak related to her acute illness She has been refusing PT/OT. Encouraged to participate Fall precautions implemented Continue turning/repositioning schedule She will need SNF prior to discharge. Care coordination following to help arrange placement (3) Hypokalemia: Code(s): E87.6 - Hypokalemia Status: Acute Assessment and Plan: Resolved. Potassium 3.6 today Continue to monitor BMP (4) Lower extremity edema: Code(s): R60.0 - Localized edema Status: Acute Assessment and Plan: Likely related to IV fluids and decreased mobility Venous Doppler negative for DVT Continue treatment plan as above Elevate extremities Continue Lasix 20 mg p.o. b.i.d. with albumin infusions Hopefully this will improve as patient increases mobility. (5) Hypoxia: Code(s): R09.02 - Hypoxemia Status: Acute Assessment and Plan: Resolved. Maintaining adequate oxygen saturations on room air Likely due to inaccurate SpO2 readings for finger pulse oximeter and temporal monitoring should be continued (6) Acute kidney injury: Code(s): N17.9 - Acute kidney failure, unspecified Status: Acute Assessment and Plan: Serum creatinine slightly Review of prior labs suggest fluctuant baseline around 1.0-1.2 Creatinine is 1.2 likely due to diuretics Continue to monitor renal function closely Subjective Date/time seen: 04/01/21 15:32 Interval history: Date of Service: 04/01/2021 Eli Duarte is 86-year-old female with a history of anemia, erosive esophagitis, hypokalemia, ulcerative colitis, and recent hospitalization for sigmoid colon stricture with colon perforation s/p Tamara's procedure who is seen in follow-up for postoperative intra-abdominal abscess. She feels well today. She was a little upset because she did not have any milk on her tray. She stated she was irritated. I apologized and helped her get the rest of her tray set up. She said she was feeling hungry. No abdominal pain. No nausea or vomiting. No fever or chills. Denies dizziness, lightheadedness, weakness. Still not getting out of bed. Review of Systems Review of Systems: All systems reviewed & are unremarkable except as noted in HPI and below Exam Narrative: Ms. Duarte is a thin, frail 86-year-old female who is lying supine in bed. She appears comfortable and is in no acute respiratory distress. Neuro: awake, alert and oriented x4, speech clear, no focal neuro deficits noted HEENMT: normocephalic, atraumatic, EOMI, sclerae anicteric Neck: supple, no lymphadenopathy Respiratory: clear to auscultation bilaterally, nonlabored breathing Cardio: regular rate,
[2021-04-01 21:51] VITALS: BP 122/55; PULSE 115; RESP 16; TEMP 36.3; O2SAT 97
[2021-04-02] MEDS: CENTRAL LINE FLUSH 20 ML IV PUSH (05:39)
[2021-04-02] MEDS: ALBUMIN HUMAN 25% 12.5 GM/50ML 50 ML IVPB (05:39)
[2021-04-02] MEDS: CENTRAL LINE FLUSH 10 ML IV PUSH ×3 (05:39→21:02)
[2021-04-02 06:00] VITALS: BP 106/47; PULSE 116; RESP 16; TEMP 36.2; O2SAT 99
[2021-04-02 06:02] LABS: Hematocrit 27.8 % (37.0-47.0); Hemoglobin 8.7 g/dL (12.0-15.0); Mean Corpuscular HGB Conc 31.3 g/dl (32-36); Mean Corpuscular Hemoglobin 28.2 pg (26-34); Mean Corpuscular Volume 90.3 fl (80-100); Mean Platelet Volume 9.1 fl (7.4-10.4); Platelet Count Result 253 k/mm3 (150-375); Red Blood Count 3.08 M/mm3 (4.2-5.4); Red Cell Distribution Width 20.3 % (11.5-14.5); White Blood Count 12.6 K/mm3 (4.5-10.0)
[2021-04-02 06:12] LABS: Alanine Aminotransferase 15 U/L (4-35); Albumin Level 2.4 g/dL (3.5-5.1); Alkaline Phosphatase 99 U/L (38-126); Anion Gap 7 mmol/L (8-16); Aspartate Amino Transferase 22 U/L (14-36); Bilirubin,Total 0.6 mg/dL (0.2-1.3); Blood Urea Nitrogen 18 mg/dL (7-17); Calcium 8.1 mg/dL (8.4-10.2); Carbon Dioxide 18 mmol/L (22-30); Chloride 109 mmol/L (98-107); Estimated Glomerular Filt Rate 53; Glucose 95 mg/dL (65-110); Potassium 3.1 mmol/L (3.4-5.0); Sodium 134 mmol/L (137-145); Triglycerides 99 mg/dL (<150)
[2021-04-02] MEDS: MICAFUNGIN SODIUM 100 MG in SODIUM CHLORIDE 0.9% IV 100 ML IVPB (08:44)
[2021-04-02] MEDS: FUROSEMIDE 20 MG TABLET PO (08:44)
[2021-04-02] MEDS: AMPICILLIN SULB 1.5 GM/NS 50ML 1.5 GM/50 ML VIAL IVPB ×2 (08:44→21:01)
[2021-04-02] MEDS: ENOXAPARIN 30 MG/0.3 ML SYRINGE SUB-Q (08:44)
[2021-04-02] MEDS: SILVERGEL (ELTA) 45 ML 1 APPLIC TOPICAL (08:53)
--- NOTE | 2021-04-02 13:13 | P.PNIM_ITS ---
Progress Note: A&P Assessment and Plan (1) Postoperative intra-abdominal abscess: Code(s): T81.43XA - Infection following a procedure, organ and space surgical site, initial encounter Status: Acute Assessment and Plan: S/p Tamara's procedure on 02/25/22 complicated by large psoas abscess requiring drainage who presented with increased swelling and drainage of her left lateral abdomen * CT abdomen/pelvis on presentation showed large abscess involving the left iliopsoas muscle and left pericolic gutter which tracked to the medial left pelvis and left proximal thigh * Appreciate general surgery consultation * Continue Vancomycin and Unasyn. * Abscess cultures with moderate growth of Lexii albicans. Continue micafungin * Underwent CT-guided abscess catheter placement of the left iliopsoas abscess and left pelvic abscess on 03/21 * WBC fluctuant, mildly elevated * Repeat CT a/p 03/28 showed mild improvement in abscess volume with large amount of fluid surrounding pigtail catheters * Continue with drain irrigation (2) Severe muscle deconditioning: Code(s): R29.898 - Other symptoms and signs involving the musculoskeletal system Status: Acute Assessment and Plan: Patient is very weak related to her acute illness * She has been refusing PT/OT. Encouraged to participate * Fall precautions implemented * Continue turning/repositioning schedule * She will need SNF prior to discharge. Care coordination following to help arrange placement (3) Hypokalemia: Code(s): E87.6 - Hypokalemia Status: Acute Assessment and Plan: Potassium 3.1 today * Administer KCl 40 mEq p.o. * Continue to monitor BMP (4) Lower extremity edema: Code(s): R60.0 - Localized edema Status: Acute Assessment and Plan: Likely related to IV fluids and decreased mobility. Improved today * Venous Doppler negative for DVT * Continue treatment plan as above * Elevate extremities * Change Lasix to 20 mg p.o. daily. Will stop albumin infusions given overall improvement (5) Hypoxia: Code(s): R09.02 - Hypoxemia Status: Acute Assessment and Plan: Resolved. * Maintaining adequate oxygen saturations on room air * Likely due to inaccurate SpO2 readings for finger pulse oximeter and temporal monitoring should be continued (6) Acute kidney injury: Code(s): N17.9 - Acute kidney failure, unspecified Status: Acute Assessment and Plan: Serum creatinine slightly elevated up to 1.5 * Review of prior labs suggest fluctuant baseline around 1.0-1.2 * Creatinine is 1.0 today * Continue to monitor renal function closely Subjective Date/time seen: 04/02/21 13:13 Interval history: Date of Service: 04/02/2021 Eli Duarte is 86-year-old female with a history of anemia, erosive esophagitis, hypokalemia, ulcerative colitis, and recent hospitalization for sigmoid colon stricture with colon perforation s/p Tamara's procedure who is seen in follow-up for postoperative intra-abdominal abscess. She is doing well today. No changes. Denies abdominal pain. No nausea or vomiting. She has been eating a little better. No additional concerns. No shortness breath, cough, chest pain. Review of Systems Review of Systems: All systems reviewed & are unremarkable except as noted in HPI and below Exam Narrative: Ms. Duarte is a thin, frail 86-year-old female who is lying supine in bed. She appears comfortabl
--- NOTE | 2021-04-02 13:13 | PM.IMPN ---
Progress Note: A&P Assessment and Plan (1) Postoperative intra-abdominal abscess: Code(s): T81.43XA - Infection following a procedure, organ and space surgical site, initial encounter Status: Acute Assessment and Plan: S/p Tamara's procedure on 02/25/22 complicated by large psoas abscess requiring drainage who presented with increased swelling and drainage of her left lateral abdomen CT abdomen/pelvis on presentation showed large abscess involving the left iliopsoas muscle and left pericolic gutter which tracked to the medial left pelvis and left proximal thigh Appreciate general surgery consultation Continue Vancomycin and Unasyn. Abscess cultures with moderate growth of Lexii albicans. Continue micafungin Underwent CT-guided abscess catheter placement of the left iliopsoas abscess and left pelvic abscess on 03/21 WBC fluctuant, mildly elevated Repeat CT a/p 03/28 showed mild improvement in abscess volume with large amount of fluid surrounding pigtail catheters Continue with drain irrigation (2) Severe muscle deconditioning: Code(s): R29.898 - Other symptoms and signs involving the musculoskeletal system Status: Acute Assessment and Plan: Patient is very weak related to her acute illness She has been refusing PT/OT. Encouraged to participate Fall precautions implemented Continue turning/repositioning schedule She will need SNF prior to discharge. Care coordination following to help arrange placement (3) Hypokalemia: Code(s): E87.6 - Hypokalemia Status: Acute Assessment and Plan: Potassium 3.1 today Administer KCl 40 mEq p.o. Continue to monitor BMP (4) Lower extremity edema: Code(s): R60.0 - Localized edema Status: Acute Assessment and Plan: Likely related to IV fluids and decreased mobility. Improved today Venous Doppler negative for DVT Continue treatment plan as above Elevate extremities Change Lasix to 20 mg p.o. daily. Will stop albumin infusions given overall improvement (5) Hypoxia: Code(s): R09.02 - Hypoxemia Status: Acute Assessment and Plan: Resolved. Maintaining adequate oxygen saturations on room air Likely due to inaccurate SpO2 readings for finger pulse oximeter and temporal monitoring should be continued (6) Acute kidney injury: Code(s): N17.9 - Acute kidney failure, unspecified Status: Acute Assessment and Plan: Serum creatinine slightly elevated up to 1.5 Review of prior labs suggest fluctuant baseline around 1.0-1.2 Creatinine is 1.0 today Continue to monitor renal function closely Subjective Date/time seen: 04/02/21 13:13 Interval history: Date of Service: 04/02/2021 Eli Duarte is 86-year-old female with a history of anemia, erosive esophagitis, hypokalemia, ulcerative colitis, and recent hospitalization for sigmoid colon stricture with colon perforation s/p Tamara's procedure who is seen in follow-up for postoperative intra-abdominal abscess. She is doing well today. No changes. Denies abdominal pain. No nausea or vomiting. She has been eating a little better. No additional concerns. No shortness breath, cough, chest pain. Review of Systems Review of Systems: All systems reviewed & are unremarkable except as noted in HPI and below Exam Narrative: Ms. Duarte is a thin, frail 86-year-old female who is lying supine in bed. She appears comfortable and is in no acute respiratory distress. Neuro: awake, alert and oriented x4, speech clear, no focal neuro deficits noted HEENMT: normocephalic, atraumatic, EOMI, sclerae anicteric Neck: supple, no lymphadenopathy Respiratory: clear to auscultation bilaterally, nonlabored breathing Cardio: regular rate, regular rhythm with S1-S2 Abdomen: nondistended, normoactive bowel sounds, abdominal drain in place, ostomy with loose brown stool, nontender to palpation Extremities: L
[2021-04-02 14:00] VITALS: BP 94/60; PULSE 124; RESP 16; TEMP 37.3; O2SAT 100
[2021-04-02] MEDS: POTASSIUM CHLORIDE 20 MEQ TABLET 40 MEQ PO (14:20)
[2021-04-02 16:12] VITALS: O2SAT 95
[2021-04-02 22:00] VITALS: BP 109/50; PULSE 72; RESP 20; TEMP 36.2; O2SAT 100
[2021-04-03] MEDS: CENTRAL LINE FLUSH 10 ML IV PUSH ×3 (05:58→20:23)
[2021-04-03 06:00] VITALS: BP 100/43; PULSE 109; RESP 18; TEMP 36.5; O2SAT 100
[2021-04-03 06:07] LABS: Hematocrit 26.2 % (37.0-47.0); Mean Corpuscular HGB Conc 30.5 g/dl (32-36); Mean Corpuscular Hemoglobin 27.7 pg (26-34); Mean Corpuscular Volume 90.7 fl (80-100); Mean Platelet Volume 9.2 fl (7.4-10.4); Platelet Count Result 242 k/mm3 (150-375); Red Blood Count 2.89 M/mm3 (4.2-5.4); Red Cell Distribution Width 20.3 % (11.5-14.5); White Blood Count 14.2 K/mm3 (4.5-10.0)
[2021-04-03 06:33] LABS: Anion Gap 7 mmol/L (8-16); Blood Urea Nitrogen 20 mg/dL (7-17); Calcium 8.4 mg/dL (8.4-10.2); Carbon Dioxide 19 mmol/L (22-30); Chloride 109 mmol/L (98-107); Estimated Glomerular Filt Rate 47; Glucose 92 mg/dL (65-110); Potassium 3.2 mmol/L (3.4-5.0); Sodium 135 mmol/L (137-145)
[2021-04-03 06:40] LABS: Vancomycin Trough 16.5 ug/mL (10.0-20.0)
[2021-04-03] MEDS: ENOXAPARIN 30 MG/0.3 ML SYRINGE SUB-Q (08:20)
[2021-04-03] MEDS: FUROSEMIDE 20 MG TABLET PO (08:21)
[2021-04-03] MEDS: MICAFUNGIN SODIUM 100 MG in SODIUM CHLORIDE 0.9% IV 100 ML IVPB (08:23)
[2021-04-03] MEDS: AMPICILLIN SULB 1.5 GM/NS 50ML 1.5 GM/50 ML VIAL IVPB ×2 (08:23→20:22)
--- NOTE | 2021-04-03 11:53 | PCOTNOTE ---
Attempted to see pt for occupational therapy tx. Pt was with Physical therapy at this time and is going to be eating lunch afterwards. Will continue per poc duration/frequency tomorrow.
--- NOTE | 2021-04-03 13:58 | P.PNIM_ITS ---
Progress Note: A&P Assessment and Plan (1) Postoperative intra-abdominal abscess: Code(s): T81.43XA - Infection following a procedure, organ and space surgical site, initial encounter Status: Acute Assessment and Plan: S/p Tamara's procedure on 02/25/22 complicated by large psoas abscess requiring drainage who presented with increased swelling and drainage of her left lateral abdomen * CT abdomen/pelvis on presentation showed large abscess involving the left iliopsoas muscle and left pericolic gutter which tracked to the medial left pelvis and left proximal thigh * Appreciate general surgery consultation * Continue Vancomycin and Unasyn. * Blood culture on 02/25/2021 with lactobacillus and Streptococcus * Abscess cultures on 03/02/2021 with Bacteroides fragilis repeat on 03/21/2021 with moderate growth of Lexii albicans. Continue micafungin * Underwent CT-guided abscess catheter placement of the left iliopsoas abscess and left pelvic abscess on 03/21 * WBC fluctuant, mildly elevated * Repeat CT a/p 03/28 showed mild improvement in abscess volume with large amount of fluid surrounding pigtail catheters * Continue with drain irrigationStill has significant output * continue to monitor output and when decreases repeat scan to remove the catheter planned (2) Severe muscle deconditioning: Code(s): R29.898 - Other symptoms and signs involving the musculoskeletal system Status: Acute Assessment and Plan: Patient is very weak related to her acute illness * She has been refusing PT/OT. Encouraged to participate * Fall precautions implemented * Continue turning/repositioning schedule * She will need SNF prior to discharge. Care coordination following to help arrange placement (3) Hypokalemia: Code(s): E87.6 - Hypokalemia Status: Acute Assessment and Plan: replace and monitor * Administer KCl 40 mEq p.o. * Continue to monitor BMP (4) Lower extremity edema: Code(s): R60.0 - Localized edema Status: Acute Assessment and Plan: Likely related to IV fluids and decreased mobility. Improved today * Venous Doppler negative for DVT * Continue treatment plan as above * Elevate extremities * Change Lasix to 20 mg p.o. daily. Will stop albumin infusions given overall improvement (5) Hypoxia: Code(s): R09.02 - Hypoxemia Status: Acute Assessment and Plan: Resolved. * Maintaining adequate oxygen saturations on room air * Likely due to inaccurate SpO2 readings for finger pulse oximeter and temporal monitoring should be continued (6) Acute kidney injury: Code(s): N17.9 - Acute kidney failure, unspecified Status: Acute Assessment and Plan: Serum creatinine slightly elevated up to 1.5 * Review of prior labs suggest fluctuant baseline around 1.0-1.2 * Creatinine is 1.0 today * Continue to monitor renal function closely Additional Plan Code status: FULL DVT Ppx: Lovenox Subjective Date/time seen: 04/03/21 13:58 Interval history: Eli Spivey Warning is 86-year-old female with a history of anemia, erosive esophagitis, hypokalemia, ulcerative colitis, and recent hospitalization for sigmoid colon stricture with colon perforation s/p Tamara's procedure who is seen in follow-up for postoperative intra-abdominal abscess. 04/03/2021 no overnight events. Denies any complaints. No nausea vomiting abdominal pain. Drain from her abdomen is about the same. No fever chills. Denies shortness of breath or chest pain or c
--- NOTE | 2021-04-03 13:58 | PM.IMPN ---
Progress Note: A&P Assessment and Plan (1) Postoperative intra-abdominal abscess: Code(s): T81.43XA - Infection following a procedure, organ and space surgical site, initial encounter Status: Acute Assessment and Plan: S/p Tamara's procedure on 02/25/22 complicated by large psoas abscess requiring drainage who presented with increased swelling and drainage of her left lateral abdomen CT abdomen/pelvis on presentation showed large abscess involving the left iliopsoas muscle and left pericolic gutter which tracked to the medial left pelvis and left proximal thigh Appreciate general surgery consultation Continue Vancomycin and Unasyn. Blood culture on 02/25/2021 with lactobacillus and Streptococcus Abscess cultures on 03/02/2021 with Bacteroides fragilis repeat on 03/21/2021 with moderate growth of Lexii albicans. Continue micafungin Underwent CT-guided abscess catheter placement of the left iliopsoas abscess and left pelvic abscess on 03/21 WBC fluctuant, mildly elevated Repeat CT a/p 03/28 showed mild improvement in abscess volume with large amount of fluid surrounding pigtail catheters Continue with drain irrigationStill has significant output continue to monitor output and when decreases repeat scan to remove the catheter planned (2) Severe muscle deconditioning: Code(s): R29.898 - Other symptoms and signs involving the musculoskeletal system Status: Acute Assessment and Plan: Patient is very weak related to her acute illness She has been refusing PT/OT. Encouraged to participate Fall precautions implemented Continue turning/repositioning schedule She will need SNF prior to discharge. Care coordination following to help arrange placement (3) Hypokalemia: Code(s): E87.6 - Hypokalemia Status: Acute Assessment and Plan: replace and monitor Administer KCl 40 mEq p.o. Continue to monitor BMP (4) Lower extremity edema: Code(s): R60.0 - Localized edema Status: Acute Assessment and Plan: Likely related to IV fluids and decreased mobility. Improved today Venous Doppler negative for DVT Continue treatment plan as above Elevate extremities Change Lasix to 20 mg p.o. daily. Will stop albumin infusions given overall improvement (5) Hypoxia: Code(s): R09.02 - Hypoxemia Status: Acute Assessment and Plan: Resolved. Maintaining adequate oxygen saturations on room air Likely due to inaccurate SpO2 readings for finger pulse oximeter and temporal monitoring should be continued (6) Acute kidney injury: Code(s): N17.9 - Acute kidney failure, unspecified Status: Acute Assessment and Plan: Serum creatinine slightly elevated up to 1.5 Review of prior labs suggest fluctuant baseline around 1.0-1.2 Creatinine is 1.0 today Continue to monitor renal function closely Additional Plan Code status: FULL DVT Ppx: Lovenox Subjective Date/time seen: 04/03/21 13:58 Interval history: Eli Duarte is 86-year-old female with a history of anemia, erosive esophagitis, hypokalemia, ulcerative colitis, and recent hospitalization for sigmoid colon stricture with colon perforation s/p Tamara's procedure who is seen in follow-up for postoperative intra-abdominal abscess. 04/03/2021 no overnight events. Denies any complaints. No nausea vomiting abdominal pain. Drain from her abdomen is about the same. No fever chills. Denies shortness of breath or chest pain or cough. Review of Systems Review of Systems: All systems reviewed & are unremarkable except as noted in HPI and below Exam Narrative: Ms. Duarte is a thin, frail 86-year-old female who is lying supine in bed. She appears comfortable and is in no acute respiratory distress. Neuro: awake, alert and oriented x4, speech clear, no focal neuro deficits noted HEENMT: normocephalic, atraumatic, EOMI, sclerae anicteric Neck: suppl
[2021-04-03 14:00] VITALS: BP 108/56; PULSE 110; RESP 18; TEMP 36.8; O2SAT 100
[2021-04-03] MEDS: POTASSIUM CHLORIDE 20 MEQ PACKET (FOR LIQUID) 40 MEQ PO (14:31)
[2021-04-03 20:00] VITALS: BP 105/47; PULSE 111; RESP 20; TEMP 36.5; O2SAT 100
[2021-04-04] MEDS: CENTRAL LINE FLUSH 10 ML IV PUSH ×3 (04:33→21:01)
[2021-04-04] MEDS: CENTRAL LINE FLUSH 20 ML IV PUSH ×2 (04:33→13:21)
[2021-04-04 05:17] LABS: Hematocrit 25.7 % (37.0-47.0); Hemoglobin 7.9 g/dL (12.0-15.0); Mean Corpuscular HGB Conc 30.7 g/dl (32-36); Mean Corpuscular Hemoglobin 27.8 pg (26-34); Mean Corpuscular Volume 90.5 fl (80-100); Mean Platelet Volume 9.3 fl (7.4-10.4); Platelet Count Result 238 k/mm3 (150-375); Red Blood Count 2.84 M/mm3 (4.2-5.4); Red Cell Distribution Width 20.1 % (11.5-14.5); White Blood Count 14.4 K/mm3 (4.5-10.0)
[2021-04-04 05:29] LABS: INR 1.4; Prothrombin Time 17.1 Seconds (11.1-14.7)
[2021-04-04 05:30] LABS: Partial Thromboplastin Time 33.8 SECONDS (22.3-36.8)
[2021-04-04 05:40] LABS: Estimated Glomerular Filt Rate 39
[2021-04-04 06:54] LABS: Band Neutrophils Percent 15 % (0-6); Eosinophils Absolute Manual 0.43 K/mm3 (0.02-0.5); Eosinophils Percent Manual 3 % (0-4); Monocytes Absolute Manual 0.43 K/mm3 (0.1-0.90); Monocytes Percent Manual 3 % (3-9); Neutrophils Absolute Manual 11.23 K/mm3 (1.7-7.2); Neutrophils Percent Manual 63 % (46-73); Platelet Estimate Adequate (Adequate); Total Cells Counted 100
[2021-04-04 06:56] LABS: Anisocytosis 2+ (NORMAL); Hypochromasia 1+ (NORMAL); Ovalocytes 1+ (NORMAL)
[2021-04-04 08:54] VITALS: BP 110/52; PULSE 98; RESP 20; TEMP 36.7; O2SAT 99
[2021-04-04] MEDS: ENOXAPARIN 30 MG/0.3 ML SYRINGE SUB-Q (09:52)
[2021-04-04] MEDS: MICAFUNGIN SODIUM 100 MG in SODIUM CHLORIDE 0.9% IV 100 ML IVPB (09:52)
[2021-04-04] MEDS: AMPICILLIN SULB 1.5 GM/NS 50ML 1.5 GM/50 ML VIAL IVPB ×2 (09:53→21:00)
--- NOTE | 2021-04-04 10:40 | P.PNIM_ITS ---
Progress Note: A&P Assessment and Plan (1) Postoperative intra-abdominal abscess: Code(s): T81.43XA - Infection following a procedure, organ and space surgical site, initial encounter Status: Acute Assessment and Plan: S/p Tamara's procedure on 02/25/22 complicated by large psoas abscess requiring drainage who presented with increased swelling and drainage of her left lateral abdomen * CT abdomen/pelvis on presentation showed large abscess involving the left iliopsoas muscle and left pericolic gutter which tracked to the medial left pelvis and left proximal thigh * Underwent CT-guided abscess catheter placement of the left iliopsoas abscess and left pelvic abscess on 03/21 * Appreciate general surgery consultation * Continue Vancomycin and Unasyn. * Abscess cultures on 03/21/2021 with moderate growth of Lexii albicans. Continue micafungin * WBC fluctuant, mildly elevated * Repeat CT a/p 03/28 showed mild improvement in abscess volume with large amount of fluid surrounding pigtail catheters * Continue with drain irrigation, still with significant drain output * General surgery planning for repeat CT scan and possible drain removal in the next couple of days (2) Severe muscle deconditioning: Code(s): R29.898 - Other symptoms and signs involving the musculoskeletal system Status: Acute Assessment and Plan: Patient is very weak related to her acute illness * She had been refusing PT/OT earlier in admission. Encouraged to participate. Seems to be improving now * Fall precautions implemented * Continue turning/repositioning schedule * She will need SNF prior to discharge. Care coordination following to help arrange placement (3) Hypokalemia: Code(s): E87.6 - Hypokalemia Status: Acute Assessment and Plan: Potassium is 3.4 today * 10 mEq PO KCl x1 * Continue to monitor BMP (4) Lower extremity edema: Code(s): R60.0 - Localized edema Status: Acute Assessment and Plan: Resolved. Likely related to IV fluids and decreased mobility. * Venous Doppler negative for DVT * Continue treatment plan as above * Elevate extremities * Good response with lasix and albumin infusions. Albumin discontinued 04/02. Will discontinue lasix at this time as patient is euvolemic. Continue to monitor volume status closely. (5) Hypoxia: Code(s): R09.02 - Hypoxemia Status: Acute Assessment and Plan: Resolved. * Maintaining adequate oxygen saturations on room air * Likely due to inaccurate SpO2 readings for finger pulse oximeter and temporal monitoring should be continued (6) Acute kidney injury: Code(s): N17.9 - Acute kidney failure, unspecified Status: Acute Assessment and Plan: Serum creatinine slightly elevated up to 1.5 * Review of prior labs suggest fluctuant baseline around 1.0-1.2 * Creatinine is 1.3 today * Continue to monitor renal function closely Subjective Date/time seen: 04/04/21 10:40 Interval history: Date of Service: 04/04/2021 Eli Duarte is 86-year-old female with a history of anemia, erosive esophagitis, hypokalemia, ulcerative colitis, and recent hospitalization for sigmoid colon stricture with colon perforation s/p Tamara's procedure who is seen in follow-up for postoperative intra-abdominal abscess. She is doing well today. Offers no complaints. Denies abdominal pain. No nausea or vomiting. Appetite seems to be slowly improving. She has also been increasing her acti vity and got up to the matthew
--- NOTE | 2021-04-04 10:40 | PM.IMPN ---
Progress Note: A&P Assessment and Plan (1) Postoperative intra-abdominal abscess: Code(s): T81.43XA - Infection following a procedure, organ and space surgical site, initial encounter Status: Acute Assessment and Plan: S/p Tamara's procedure on 02/25/22 complicated by large psoas abscess requiring drainage who presented with increased swelling and drainage of her left lateral abdomen CT abdomen/pelvis on presentation showed large abscess involving the left iliopsoas muscle and left pericolic gutter which tracked to the medial left pelvis and left proximal thigh Underwent CT-guided abscess catheter placement of the left iliopsoas abscess and left pelvic abscess on 03/21 Appreciate general surgery consultation Continue Vancomycin and Unasyn. Abscess cultures on 03/21/2021 with moderate growth of Lexii albicans. Continue micafungin WBC fluctuant, mildly elevated Repeat CT a/p 03/28 showed mild improvement in abscess volume with large amount of fluid surrounding pigtail catheters Continue with drain irrigation, still with significant drain output General surgery planning for repeat CT scan and possible drain removal in the next couple of days (2) Severe muscle deconditioning: Code(s): R29.898 - Other symptoms and signs involving the musculoskeletal system Status: Acute Assessment and Plan: Patient is very weak related to her acute illness She had been refusing PT/OT earlier in admission. Encouraged to participate. Seems to be improving now Fall precautions implemented Continue turning/repositioning schedule She will need SNF prior to discharge. Care coordination following to help arrange placement (3) Hypokalemia: Code(s): E87.6 - Hypokalemia Status: Acute Assessment and Plan: Potassium is 3.4 today 10 mEq PO KCl x1 Continue to monitor BMP (4) Lower extremity edema: Code(s): R60.0 - Localized edema Status: Acute Assessment and Plan: Resolved. Likely related to IV fluids and decreased mobility. Venous Doppler negative for DVT Continue treatment plan as above Elevate extremities Good response with lasix and albumin infusions. Albumin discontinued /. Will discontinue lasix at this time as patient is euvolemic. Continue to monitor volume status closely. (5) Hypoxia: Code(s): R09.02 - Hypoxemia Status: Acute Assessment and Plan: Resolved. Maintaining adequate oxygen saturations on room air Likely due to inaccurate SpO2 readings for finger pulse oximeter and temporal monitoring should be continued (6) Acute kidney injury: Code(s): N17.9 - Acute kidney failure, unspecified Status: Acute Assessment and Plan: Serum creatinine slightly elevated up to 1.5 Review of prior labs suggest fluctuant baseline around 1.0-1.2 Creatinine is 1.3 today Continue to monitor renal function closely Subjective Date/time seen: 04/04/21 10:40 Interval history: Date of Service: 04/04/2021 Eli Duarte is 86-year-old female with a history of anemia, erosive esophagitis, hypokalemia, ulcerative colitis, and recent hospitalization for sigmoid colon stricture with colon perforation s/p Tamara's procedure who is seen in follow-up for postoperative intra-abdominal abscess. She is doing well today. Offers no complaints. Denies abdominal pain. No nausea or vomiting. Appetite seems to be slowly improving. She has also been increasing her activity and got up to the chair for several hours yesterday. No shortness breath, cough, or chest pain. She does endorse feeling fatigued and weak. Review of Systems Review of Systems: All systems reviewed & are unremarkable except as noted in HPI and below Exam Narrative: Ms. Duarte is a thin, frail 86-year-old female who is lying supine in bed. She appears comfortable and is in no acute respiratory distress. Neuro: awake, alert and oriente
--- NOTE | 2021-04-04 11:08 | PCOTNOTE ---
Attmepted to see patient for occupational therapy this date at 11:05am. Patient declined OT services stating I am just too tiered. I did not sleep well. Increased encouragement and attempted to educate on benefits of OT, patient continued to decline.
[2021-04-04 12:57] LABS: Alanine Aminotransferase 14 U/L (4-35); Albumin Level 2.2 g/dL (3.5-5.1); Alkaline Phosphatase 99 U/L (38-126); Anion Gap 6 mmol/L (8-16); Aspartate Amino Transferase 26 U/L (14-36); Bilirubin,Total 0.7 mg/dL (0.2-1.3); Blood Urea Nitrogen 25 mg/dL (7-17); Calcium 8.4 mg/dL (8.4-10.2); Carbon Dioxide 18 mmol/L (22-30); Chloride 108 mmol/L (98-107); Estimated Glomerular Filt Rate 39; Glucose 88 mg/dL (65-110); Magnesium 1.6 mg/dL (1.6-2.3); Potassium 3.4 mmol/L (3.4-5.0); Sodium 132 mmol/L (137-145)
[2021-04-04 13:28] LABS: Anion Gap 6 mmol/L (8-16); Blood Urea Nitrogen 27 mg/dL (7-17); Calcium 8.6 mg/dL (8.4-10.2); Carbon Dioxide 20 mmol/L (22-30); Chloride 107 mmol/L (98-107); Estimated Glomerular Filt Rate 36; Glucose 115 mg/dL (65-110); Potassium 3.3 mmol/L (3.4-5.0); Sodium 133 mmol/L (137-145)
[2021-04-04 14:18] VITALS: BP 107/45; PULSE 100; RESP 16; TEMP 37; O2SAT 90
[2021-04-04] MEDS: POTASSIUM CHLORIDE 10 MEQ TABLET PO (16:52)
--- NOTE | 2021-04-04 16:56 | PM.PNGS ---
Progress Note: A&P Assessment and Plan (1) Postoperative intra-abdominal abscess: Code(s): T81.43XA - Infection following a procedure, organ and space surgical site, initial encounter Status: Acute Assessment and Plan: WBC improved with slight increase yesterday and today, at 14,000. Perc drain output diminishing. Continue flushing drains twice daily. Repeat CT abd/pelvis today to re-evaluate prior to removing drains. 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 Additional Plan I have discussed the plan of care with Dr. West. Subjective Subjective Date/Time Seen: 04/04/21 10:56 Patient reports: no new complaints, tolerating a regular diet and afebrile Interval history: Patient seen and examined. Nursing reports no acute issues, but they are having to change the dressings around both perc drains due to yellow drainage coming around the perc drain and saturating dressings. Nursing reports no output from perc drains overnight. Nursing also did not think they were flushing the perc drains over the weekend. +ostomy functioning well and bag was changed by nursing today. Review of Systems Review of Systems: All systems reviewed & are unremarkable except as noted in HPI and below Exam Const: General: comfortable, no acute distress and alert Orientation/consciousness: patient oriented x3 Cardio: Rate: regular rate Rhythm: regular rhythm GI: Inspection: non-distended GI Palp: Yes Soft to palpation, Yes Tenderness to palpation present (GI) (only tender at LLQ perc drain site, no other tenderness), No Guarding due to palpation present (GI) and No Rebound tenderness present Auscultation: normal bowel sounds Other: Left pigtail drain with minimal purulent output, dressing with mod amount of yellow purulent drainage (nursing changing at bedside). Suprapubic pigtail drain with minimal serous output. Skin: General skin exam: normal color Neuro: General: moves all extremities and no focal motor deficits Extrem: General: no calf tenderness Other: Mild pitting edema of proximal thighs bilaterally, improving, with nearly resolved erythema Psych: Insight: Fair insight present (Psych) Judgement: Fair judgement present (Psych) Objective Data Vital Signs Vital Signs: Vital Signs - 24 hr 04/03/21 20:00 04/04/21 08:54 04/04/21 14:18 Temperature 97.7 F 98.1 F 98.6 F Pulse Rate 111 H 98 100 Respiratory Rate 20 20 16 Blood Pressure 105/47 L 110/52 L 107/45 L Pulse Oximetry 100 99 90 Intake/Output Intake/Output: Intake & Output 04/01/21 04/02/21 04/03/21 04/04/21 23:59 23:59 23:59 23:59 Intake Total 1470 620 930 500 Output Total 535 180 135 Balance 935 440 795 500 Meds/Results Medications: Active Medications Generic Name Dose Route Start Last Admin Trade Name Freq PRN Reason Stop Dose Admin Enoxaparin Sodium 30 mg 03/22/21 15:40 04/04/21 09:52 Enoxaparin 30 Mg/0.3 Ml Syringe SUB-Q 30 mg DAILY LIVIER Administration Micafungin Sodium 100 mg/ 100 mls @ 100 mls/hr 03/24/21 09:00 04/04/21 10:50 Sodium Chloride IVPB 04/07/21 08:59 Infused DAILY LIVIER Infusion Ampicillin Sodium/Sulbactam Sodium 1.5 gm in 50 mls @ 100 mls/hr 03/24/21 11:00 04/04/21 11:01 Unasyn 1.5 Gm/Ns 50 Ml IVPB 04/07/21 10:59 Infused Q12HR LIVIER Infusion Vancomycin HCl 750 mg in 250 mls @ 250 mls/hr 04/03/21 18:00 04/03/21 18:35 Vancomycin 750 Mg/D5w 250 Ml IVPB Infused Q36H LIVIER Infusion Lidocaine/Diphenhydr/Alum/Mg/Simeth 5 ml 03/30/21 09:06 Magnes & Alum Hyd/Simeth/Diphenhyd/Lidocaine 119 Ml Mouthwash BY MOUTH 04/19/21 04:59 Q4HR PRN Mouth Sore Pain Ondansetron HCl 4 mg 03/19/21 21:27 Ondansetron Inj 4 Mg/2 Ml Vial IV PUSH Q4H PRN Nausea Silver Nitrate 1 applic 03/21/21 09:00 02/05
[2021-04-04 18:10] LABS: Transferrin < 80 mg/dL (206-381)
[2021-04-04 21:01] VITALS: RESP 20; O2SAT 97
[2021-04-04 21:28] VITALS: BP 100/43; PULSE 115; RESP 22; TEMP 36.9; O2SAT 97
[2021-04-05] MEDS: CENTRAL LINE FLUSH 20 ML IV PUSH (05:01)
[2021-04-05] MEDS: CENTRAL LINE FLUSH 10 ML IV PUSH ×3 (05:19→20:23)
[2021-04-05 05:25] LABS: Hematocrit 26.4 % (37.0-47.0); Hemoglobin 8.2 g/dL (12.0-15.0); Mean Corpuscular HGB Conc 31.1 g/dl (32-36); Mean Corpuscular Hemoglobin 28.2 pg (26-34); Mean Corpuscular Volume 90.7 fl (80-100); Mean Platelet Volume 8.8 fl (7.4-10.4); Platelet Count Result 222 k/mm3 (150-375); Red Blood Count 2.91 M/mm3 (4.2-5.4); White Blood Count 15.4 K/mm3 (4.5-10.0)
[2021-04-05 05:33] LABS: Anion Gap 7 mmol/L (8-16); Blood Urea Nitrogen 30 mg/dL (7-17); Calcium 8.5 mg/dL (8.4-10.2); Carbon Dioxide 17 mmol/L (22-30); Chloride 111 mmol/L (98-107); Estimated Glomerular Filt Rate 31; Glucose 93 mg/dL (65-110); Potassium 3.3 mmol/L (3.4-5.0); Sodium 135 mmol/L (137-145)
[2021-04-05 05:38] VITALS: BP 99/46; PULSE 105; RESP 18; TEMP 36.4; O2SAT 100
[2021-04-05 08:19] VITALS: BP 102/59; PULSE 107; RESP 24; TEMP 35.6; O2SAT 91
[2021-04-05] MEDS: ENOXAPARIN 30 MG/0.3 ML SYRINGE SUB-Q (08:32)
[2021-04-05] MEDS: MICAFUNGIN SODIUM 100 MG in SODIUM CHLORIDE 0.9% IV 100 ML IVPB (08:33)
[2021-04-05] MEDS: SILVERGEL (ELTA) 45 ML 1 APPLIC TOPICAL (08:37)
--- NOTE | 2021-04-05 08:57 | P.PNIM_ITS ---
Progress Note: A&P Assessment and Plan (1) Postoperative intra-abdominal abscess: Code(s): T81.43XA - Infection following a procedure, organ and space surgical site, initial encounter Status: Acute Assessment and Plan: S/p Tamara's procedure on 02/25/22 complicated by large psoas abscess requiring drainage who presented with increased swelling and drainage of her left lateral abdomen * CT abdomen/pelvis on presentation showed large abscess involving the left iliopsoas muscle and left pericolic gutter which tracked to the medial left pelvis and left proximal thigh * Underwent CT-guided abscess catheter placement of the left iliopsoas abscess and left pelvic abscess on 03/21 * Appreciate general surgery consultation * Continue Vancomycin and Unasyn. * Abscess cultures on 03/21/2021 with moderate growth of Lexii albicans. 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 * current antibiotic regimen of ampicillin/micafungin/vancomycin which had all been given for more than 10 days would need to be changed and adjusting IV antibiotics as such. SHe will discuss further with Surgeon. * General surgery also added scheduled flushes for the percutaneous drains x2. * Her white count has progressively been going up, from 12.6 now up to 15.4. No fevers evident. * Perc drain output diminishing. Continue flushing drains twice daily. * Repeat CT abd/pelvis at some point to re-evaluate for drain removal. (2) Severe muscle deconditioning: Code(s): R29.898 - Other symptoms and signs involving the musculoskeletal system Status: Acute Assessment and Plan: Patient is very weak related to her acute illness * She had been refusing PT/OT earlier in admission. Encouraged to participate. Seems to be improving now * Fall precautions implemented * Continue turning/repositioning schedule * She will need SNF prior to discharge. Care coordination following to help arrange placement * Will need to continue PT and OT. * due for discharge perhaps tomorrow to long-term facility for rehab, continued monitoring and maintenance of drains, and continued antibiotic therapy. (3) Hypokalemia: Code(s): E87.6 - Hypokalemia Status: Acute Assessment and Plan: Potassium is 3.3 today * Continue to monitor BMP * magnesium was 1.6 yesterday morning, without replenishment. Her heart rate is regular but rapid, at 105-115bpm today, ordered 2 g of IV Mag to be given. Will repeat Mag level in the morning. * Potassium 3.3 today, replenished with 20 p.o.. (4) Lower extremity edema: Code(s): R60.0 - Localized edema Status: Acute Assessment and Plan: Resolved. Likely related to IV fluids and decreased mobility. * Venous Doppler negative for DVT * Continue treatment plan as above * Elevate extremities * Good response with lasix and albumin infusions. Albumin discontinued 2/5. Will discontinue lasix at this time as patient is euvolemic. Continue to monitor volume status closely. (5) Hypoxia: Code(s): R09.02 - Hypoxemia Status: Acute Assessment and Plan: Resolved. * Maintaining adequate oxygen saturations on room air * Likel
--- NOTE | 2021-04-05 08:57 | PM.IMPN ---
Progress Note: A&P Assessment and Plan (1) Postoperative intra-abdominal abscess: Code(s): T81.43XA - Infection following a procedure, organ and space surgical site, initial encounter Status: Acute Assessment and Plan: S/p Tamara's procedure on 02/25/22 complicated by large psoas abscess requiring drainage who presented with increased swelling and drainage of her left lateral abdomen CT abdomen/pelvis on presentation showed large abscess involving the left iliopsoas muscle and left pericolic gutter which tracked to the medial left pelvis and left proximal thigh Underwent CT-guided abscess catheter placement of the left iliopsoas abscess and left pelvic abscess on 03/21 Appreciate general surgery consultation Continue Vancomycin and Unasyn. Abscess cultures on 03/21/2021 with moderate growth of Lexii albicans. 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 current antibiotic regimen of ampicillin/micafungin/vancomycin which had all been given for more than 10 days would need to be changed and adjusting IV antibiotics as such. SHe will discuss further with Surgeon. General surgery also added scheduled flushes for the percutaneous drains x2. Her white count has progressively been going up, from 12.6 now up to 15.4. No fevers evident. Perc drain output diminishing. Continue flushing drains twice daily. Repeat CT abd/pelvis at some point to re-evaluate for drain removal. (2) Severe muscle deconditioning: Code(s): R29.898 - Other symptoms and signs involving the musculoskeletal system Status: Acute Assessment and Plan: Patient is very weak related to her acute illness She had been refusing PT/OT earlier in admission. Encouraged to participate. Seems to be improving now Fall precautions implemented Continue turning/repositioning schedule She will need SNF prior to discharge. Care coordination following to help arrange placement Will need to continue PT and OT. due for discharge perhaps tomorrow to [facility] for [facility], continued monitoring and maintenance of drains, and continued antibiotic therapy. (3) Hypokalemia: Code(s): E87.6 - Hypokalemia Status: Acute Assessment and Plan: Potassium is 3.3 today Continue to monitor BMP magnesium was 1.6 yesterday morning, without replenishment. Her heart rate is regular but rapid, at 105-115bpm today, ordered 2 g of IV Mag to be given. Will repeat Mag level in the morning. Potassium 3.3 today, replenished with 20 p.o.. (4) Lower extremity edema: Code(s): R60.0 - Localized edema Status: Acute Assessment and Plan: Resolved. Likely related to IV fluids and decreased mobility. Venous Doppler negative for DVT Continue treatment plan as above Elevate extremities Good response with lasix and albumin infusions. Albumin discontinued 2/. Will discontinue lasix at this time as patient is euvolemic. Continue to monitor volume status closely. (5) Hypoxia: Code(s): R09.02 - Hypoxemia Status: Acute Assessment and Plan: Resolved. Maintaining adequate oxygen saturations on room air Likely due to inaccurate SpO2 readings for finger pulse oximeter and temporal monitoring should be continued (6) Acute kidney injury: Code(s): N17.9 - Acute kidney failure, unspecified Status: Acute Assessment and Plan: Serum creatinine slightly elevated up to 1.6 Review of prior labs suggest fluctuant baseline around 1.0-1.2 Creatinine is 1.6 today Continue to monitor re
[2021-04-05] MEDS: AMPICILLIN SULB 1.5 GM/NS 50ML 1.5 GM/50 ML VIAL IVPB ×2 (09:00→20:16)
[2021-04-05 12:18] VITALS: BP 106/60; PULSE 106; RESP 22; TEMP 35.7; O2SAT 97
--- NOTE | 2021-04-05 14:27 | PM.PNGS ---
Progress Note: A&P Assessment and Plan (1) Postoperative intra-abdominal abscess: Code(s): T81.43XA - Infection following a procedure, organ and space surgical site, initial encounter Status: Acute Assessment and Plan: WBC at 15,000 today. She is afebrile and unchanged clinically. Perc drain with minimal output. CT scan reviewed, abscess decreasing in size but still fluid collections around the perc drains, with an additional fluid and gas collection in the presacral space with periostitis and change to the underlying sacrum consistent with osteomyelitis. Will continue flushing both perc drains to help facilitate drainage. Continue IV Unasyn and Vancomycin, as well as IV Micafungin. With the new findings on CT suggesting osteomyelitis, we would recommend treating her with 6 weeks of IV antibiotics. Will start working on discharge planning - I spoke with who has verified that [facility] will accept the patient on discharge with the IV antibiotics and Micafungin. We would plan to repeat a CT scan in 2 weeks and adjust accordingly depending on how she is doing clinically. Discussed this also with the Hospitalist. 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 Additional Plan I have discussed the CT finding's, patient's case, and plan of care with Dr. West. Subjective Subjective Date/Time Seen: 04/05/21 14:27 Patient reports: no new complaints, tolerating a regular diet and afebrile Interval history: Patient seen and examined. Nursing reports no acute issues, but they are having to change the dressings around both perc drains due to yellow drainage coming around the perc drain and saturating dressings. Still minimal output from perc drains over the past 24 hours. +ostomy functioning well. Review of Systems Review of Systems: All systems reviewed & are unremarkable except as noted in HPI and below Exam Const: General: no acute distress and alert Orientation/consciousness: patient oriented x3 GI: Inspection: non-distended GI Palp: Yes Soft to palpation, No Tenderness to palpation present (GI) (slight tenderness at LLQ perc drain but no other abd tenderness), No Guarding due to palpation present (GI) and No Rebound tenderness present Auscultation: normal bowel sounds Other: Left pigtail drain with minimal purulent output, dressing with mod amount of yellow purulent drainage (nursing changing at bedside). Suprapubic pigtail drain with minimal serous output. Skin: General skin exam: normal color Neuro: General: moves all extremities and no focal motor deficits Extrem: General: normal to inspection and no clubbing, cyanosis or edema Other: Mild pitting edema of proximal thighs bilaterally, improving, with nearly resolved erythema Psych: Insight: Fair insight present (Psych) Judgement: Fair judgement present (Psych) Objective Data Vital Signs Vital Signs: Vital Signs - 24 hr 04/04/21 21:01 04/04/21 21:28 04/05/21 05:38 Temperature 98.4 F 97.5 F L Pulse Rate 115 H 105 H Respiratory Rate 20 22 H 18 Blood Pressure 100/43 L 99/46 L Pulse Oximetry 97 97 100 04/05/21 08:19 04/05/21 12:18 Temperature 96.0 F L 96.2 F L Pulse Rate 107 H 106 H Respiratory Rate 24 H 22 H Blood Pressure 102/59 L 106/60 Pulse Oximetry 91 97 Intake/Output Intake/Output: Intake & Output 04/02/21 04/03/21 04/04/21 04/05/21 23:59 23:59 23:59 23:59 Intake Total 620 393 578 0955 Output Total 180 135 20 Balance 440 873 894 4564 Meds/Results Medications: Active Medications Generic Name Dose Route Start Last Admin Trade Name Freq PRN Reason Stop Dose Admin Enoxaparin Sodium 30 mg 03/22/21 15:40 04/05/21 08:32 Enoxaparin 30 Mg/0.3 Ml Syringe SUB-Q 30 mg DAILY LIVIER Administration Micafungin Sodium 100 mg/ 10
--- NOTE | 2021-04-05 14:35 | PC.NURSE ---
On 04/05/21, the student, Tosha Poole, provided care and completed [facility] documentation on this patient. I have reviewed the student's documentation and agree with the findings.
--- NOTE | 2021-04-05 15:05 | PCPTNOTE ---
Pt adamantly declined PT session this afternoon. Pt repeatedly states I'm too tired and cold. Pt was provided with max encouragement and education on benefits of PT and importance of participation. Pt continued to decline session on this date.
[2021-04-05 20:05] VITALS: O2SAT 97
[2021-04-05] MEDS: POTASSIUM CHLORIDE 20 MEQ PACKET (FOR LIQUID) PO (20:22)
[2021-04-05] MEDS: MAGNESIUM SULF 2 GM/WATER 50ML 2 GM/50 ML BAG IVPB (20:23)
[2021-04-05] MEDS: SODIUM CHLORIDE 0.9% IV 500 ML 75 ML IV CONT (20:23)
[2021-04-05 22:00] VITALS: BP 101/49; PULSE 109; RESP 18; TEMP 36.7; O2SAT 100
[2021-04-06 06:00] VITALS: BP 110/50; PULSE 102; RESP 18; TEMP 36; O2SAT 100
[2021-04-06] MEDS: CENTRAL LINE FLUSH 10 ML IV PUSH ×3 (06:09→20:47)
[2021-04-06] MEDS: CENTRAL LINE FLUSH 20 ML IV PUSH (06:09)
[2021-04-06 06:33] LABS: Phosphorus 3.6 mg/dL (2.5-4.5)
[2021-04-06] MEDS: AMPICILLIN SULB 1.5 GM/NS 50ML 1.5 GM/50 ML VIAL IVPB (07:53)
[2021-04-06] MEDS: MICAFUNGIN SODIUM 100 MG in SODIUM CHLORIDE 0.9% IV 100 ML IVPB (07:53)
[2021-04-06] MEDS: ENOXAPARIN 30 MG/0.3 ML SYRINGE SUB-Q (07:53)
--- NOTE | 2021-04-06 11:17 | PCNFU ---
Nutrition Follow-Up Complete: Increased protein needs as related to wounds as evidenced by Pressure ulcers reported. Goal: Adequate Intake of at least 75% of meals/supplements Patient is progressing towards goal. We will continue current goal Pt current nutrition is Minced and Moist, Level 5/Low Fiber. Last recorded weight is 41 kg,down from 50 kg on admit. Bowel Motility:colostomy Labs Reviewed:Na 133, K 3.3,GFR 31, Cr 1.6,BUN 30, Hct 26.4,Hgb 8.2 Meds Noted:Lasix, Lovenox, Unasyn. Skin: Stage II-right buttock, Deep Tissue-heel, unstageable-saccum. Additional Notes: Patient remains on a Minced and Moist Level 5/Low fiber diet. Intake today 50% of breakfast. Protein Modulars of Aleksey BID for wound healing, providing an additional 90 kcals and 2.5 gms protein. Diet supplement of Ensure compact TID providing 220 kcals and 9 gms protein. 100% of diet supplement drank today. Agree with diet orders. RD will monitor every 5 days.
[2021-04-06 12:19] VITALS: BP 106/48; PULSE 104; RESP 16; TEMP 35.8; O2SAT 97
--- NOTE | 2021-04-06 13:52 | PM.PNGS ---
Progress Note: A&P Assessment and Plan (1) Postoperative intra-abdominal abscess: Code(s): T81.43XA - Infection following a procedure, organ and space surgical site, initial encounter Status: Acute Assessment and Plan: Labs not drawn on my exam. Nursing calling lab. Awaiting lab results today for possible discharge. Okay from our standpoint to discharge the patient is labs look good and she is medically stable to be discharged to the SNF. Would recommend a total of 6 weeks of IV Unasyn (day 14) and IV Vancomycin (day 19), as well as continuing the IV Micafungin (day 14) until at least her follow-up with Dr. West and then further adjustments can be recommended at that time. She should follow-up with Dr. West in 2 weeks. Will plan to have a repeat CT scan and repeat labs at that time as well. Continue flushing perc drains. 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 Additional Plan I have discussed the patient's case and plan of care with Dr. West. Subjective Subjective Date/Time Seen: 04/06/21 10:52 Patient reports: no new complaints and afebrile Interval history: Patient seen and examined today. She has no specific complaints. Still tolerating her diet. No specific pain at the time of my exam. Review of Systems Review of Systems: All systems reviewed & are unremarkable except as noted in HPI and below Exam Const: General: comfortable, no acute distress and alert Orientation/consciousness: patient oriented x3 Resp: Effort & Inspection: normal respiratory effort Auscultation: clear to auscultation bilaterally Cardio: Rate: regular rate Rhythm: regular rhythm GI: Inspection: non-distended GI Palp: Yes Soft to palpation, No Tenderness to palpation present (GI), No Guarding due to palpation present (GI) and No Rebound tenderness present Auscultation: normal bowel sounds Other: Left pigtail drain with minimal purulent output, dressing with mod amount of yellow purulent drainage. Suprapubic pigtail drain with minimal serous output. +ostomy functioning well, stoma pink and moist Neuro: General: moves all extremities and no focal motor deficits Extrem: General: no calf tenderness bilaterally Other: Mild pitting edema of proximal thighs bilaterally, improving, with nearly resolved erythema Psych: Insight: Fair insight present (Psych) Judgement: Fair judgement present (Psych) Objective Data Vital Signs Vital Signs: Vital Signs - 24 hr 04/05/21 20:05 04/05/21 22:00 04/06/21 06:00 Temperature 98.1 F 96.8 F L Pulse Rate 109 H 102 H Respiratory Rate 18 18 Blood Pressure 101/49 L 110/50 L Pulse Oximetry 97 100 100 04/06/21 12:19 Temperature 96.4 F L Pulse Rate 104 H Respiratory Rate 16 Blood Pressure 106/48 L Pulse Oximetry 97 Intake/Output Intake/Output: Intake & Output 04/03/21 04/04/21 04/05/21 04/06/21 23:59 23:59 23:59 23:59 Intake Total 870 021 7259 660 Output Total 135 20 120 Balance 244 274 3066 660 Meds/Results Medications: Active Medications Generic Name Dose Route Start Last Admin Trade Name Freq PRN Reason Stop Dose Admin Enoxaparin Sodium 30 mg 03/22/21 15:40 04/06/21 07:53 Enoxaparin 30 Mg/0.3 Ml Syringe SUB-Q 30 mg DAILY LIVIER Administration Micafungin Sodium 100 mg/ 100 mls @ 100 mls/hr 03/24/21 09:00 04/06/21 12:39 Sodium Chloride IVPB 04/07/21 08:59 Infused DAILY LIVIER Infusion Ampicillin Sodium/Sulbactam Sodium 1.5 gm in 50 mls @ 100 mls/hr 03/24/21 11:00 04/06/21 09:23 Unasyn 1.5 Gm/Ns 50 Ml IVPB 04/07/21 10:59 Infused Q12HR LIVIER Infusion Vancomycin HCl 750 mg in 250 mls @ 250 mls/hr 04/03/21 18:00 04/05/21 11:09 Vancomycin 750 Mg/D5w 250 Ml IVPB Infused Q36H LIVIER Infusion Lidocaine/Diphenhydr/Alum/Mg/Simeth 5 ml 03/30/21 09:06 Magnes & Alum Hyd/Simeth/Diphenh
[2021-04-06 14:00] VITALS: BP 110/57; PULSE 109; RESP 16; TEMP 36.1; O2SAT 98
[2021-04-06 14:10] LABS: Hematocrit 28.2 % (37.0-47.0); Hemoglobin 8.7 g/dL (12.0-15.0); Mean Corpuscular HGB Conc 30.9 g/dl (32-36); Mean Corpuscular Hemoglobin 28.1 pg (26-34); Mean Platelet Volume 9.1 fl (7.4-10.4); Platelet Count Result 270 k/mm3 (150-375); Red Cell Distribution Width 20.3 % (11.5-14.5); White Blood Count 15.9 K/mm3 (4.5-10.0)
[2021-04-06 14:20] LABS: Anion Gap 6 mmol/L (8-16); Blood Urea Nitrogen 35 mg/dL (7-17); Calcium 8.6 mg/dL (8.4-10.2); Carbon Dioxide 17 mmol/L (22-30); Chloride 111 mmol/L (98-107); Estimated Glomerular Filt Rate 28; Glucose 95 mg/dL (65-110); Sodium 134 mmol/L (137-145)
--- NOTE | 2021-04-06 16:05 | ECG_ITS ---
Measurements Intervals [place] Rate: 114 P: 78 NM: 159 QRS: 78 QRSD: 84 T: 87 QT: 318 QTc: 439 Interpretive Statements SINUS TACHYCARDIA VENTRICULAR COUPLET T WAVE ABNORMALITY IN ANTERIOR LEADS- CONSIDER ISCHEMIA BASELINE WANDER- V1-V3 ABNORMAL ECG Electronically Signed On 04-06-2021 19:57:20 PERSON INVESTIGATOR by Marito Evans D.O.
--- NOTE | 2021-04-06 16:07 | P.PNIM_ITS ---
Progress Note: A&P Assessment and Plan (1) Postoperative intra-abdominal abscess: Code(s): T81.43XA - Infection following a procedure, organ and space surgical site, initial encounter Status: Acute Assessment and Plan: S/p Tamara's procedure on 02/25/22 complicated by large psoas abscess requiring drainage who presented with increased swelling and drainage of her left lateral abdomen * CT abdomen/pelvis on presentation showed large abscess involving the left iliopsoas muscle and left pericolic gutter which tracked to the medial left pelvis and left proximal thigh * Underwent CT-guided abscess catheter placement of the left iliopsoas abscess and left pelvic abscess on 03/21 * Appreciate general surgery consultation * Abscess cultures on 03/21/2021 with moderate growth of Lexii albicans. 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 * current antibiotic regimen of ampicillin/micafungin/vancomycin will continue per Gen. Surgeon Dr. West's orders. * General surgery also added scheduled flushes for the percutaneous drains x2. Perc drain volume output diminishing despite flushing drains twice daily and despite the CT scan showing abscess not improved. * Repeat CT abd/pelvis at some point to re-evaluate for drain removal. * white count has progressively been going up, from 12.6 now up to 15.4 to 15.9. No fevers evident. This is may be related to the osteomyelitis or to a resistant bacteria developing from the abscess or effusions or due to the scheduled flushes for the percutaneous drains per Gen. Surgery Dr. West. * checking blood cultures/UA/Urine cultures. (2) Severe muscle deconditioning: Code(s): R29.898 - Other symptoms and signs involving the musculoskeletal system Status: Acute Assessment and Plan: Patient is very weak related to her acute illness * She had been refusing PT/OT earlier in admission. Encouraged to participate. Seems to be improving now * Fall precautions implemented * Continue turning/repositioning schedule * She will need SNF prior to discharge. Care coordination following to help arrange placement * Will need to continue PT and OT. * due for discharge perhaps tomorrow to custodial facility for rehab, continued monitoring and maintenance of drains, and continued antibiotic therapy. (3) Hypokalemia: Code(s): E87.6 - Hypokalemia Status: Acute Assessment and Plan: Potassium is 4.0 today * Continue to monitor BMP * magnesium was 1.6 yesterday morning, replenished with 2 gm IV mag. * yet heart rate is remains rapid today * started on PO mag * checking an EKG * Will repeat Mag level in the morning. * Potassium 4.0 today, replenished yesterday (4) Lower extremity edema: Code(s): R60.0 - Localized edema Status: Acute Assessment and Plan: Resolved. Likely related to IV fluids and decreased mobility. * Venous Doppler negative for DVT * Continue treatment plan as above * Elevate extremities * Good response with lasix and albumin infusions. Albumin discontinued 2/5. Will discontinue lasix at this time as patient is euvolemic. Continue to monitor volume status closely. (5) Hypoxia: Code(s): R09.02 - Hypoxemi
--- NOTE | 2021-04-06 16:07 | PM.IMPN ---
Progress Note: A&P Assessment and Plan (1) Postoperative intra-abdominal abscess: Code(s): T81.43XA - Infection following a procedure, organ and space surgical site, initial encounter Status: Acute Assessment and Plan: S/p Tamara's procedure on 02/25/22 complicated by large psoas abscess requiring drainage who presented with increased swelling and drainage of her left lateral abdomen CT abdomen/pelvis on presentation showed large abscess involving the left iliopsoas muscle and left pericolic gutter which tracked to the medial left pelvis and left proximal thigh Underwent CT-guided abscess catheter placement of the left iliopsoas abscess and left pelvic abscess on 03/21 Appreciate general surgery consultation Abscess cultures on 03/21/2021 with moderate growth of Lexii albicans. 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 current antibiotic regimen of ampicillin/micafungin/vancomycin will continue per Gen. Surgeon Dr. West's orders. General surgery also added scheduled flushes for the percutaneous drains x2. Perc drain volume output diminishing despite flushing drains twice daily and despite the CT scan showing abscess not improved. Repeat CT abd/pelvis at some point to re-evaluate for drain removal. white count has progressively been going up, from 12.6 now up to 15.4 to 15.9. No fevers evident. This is may be related to the osteomyelitis or to a resistant bacteria developing from the abscess or effusions or due to the scheduled flushes for the percutaneous drains per Gen. Surgery Dr. West. checking blood cultures/UA/Urine cultures. (2) Severe muscle deconditioning: Code(s): R29.898 - Other symptoms and signs involving the musculoskeletal system Status: Acute Assessment and Plan: Patient is very weak related to her acute illness She had been refusing PT/OT earlier in admission. Encouraged to participate. Seems to be improving now Fall precautions implemented Continue turning/repositioning schedule She will need SNF prior to discharge. Care coordination following to help arrange placement Will need to continue PT and OT. due for discharge [facility], continued monitoring and maintenance of drains, and continued antibiotic therapy. (3) Hypokalemia: Code(s): E87.6 - Hypokalemia Status: Acute Assessment and Plan: Potassium is 4.0 today Continue to monitor BMP magnesium was 1.6 yesterday morning, replenished with 2 gm IV mag. yet heart rate is remains rapid today started on PO mag checking an EKG Will repeat Mag level in the morning. Potassium 4.0 today, replenished yesterday (4) Lower extremity edema: Code(s): R60.0 - Localized edema Status: Acute Assessment and Plan: Resolved. Likely related to IV fluids and decreased mobility. Venous Doppler negative for DVT Continue treatment plan as above Elevate extremities Good response with lasix and albumin infusions. Albumin discontinued 2/5. Will discontinue lasix at this time as patient is euvolemic. Continue to monitor volume status closely. (5) Hypoxia: Code(s): R09.02 - Hypoxemia Status: Acute Assessment and Plan: Resolved. Maintaining adequate oxygen saturations on room air Likely due to inaccurate SpO2 readings for finger pulse oximeter and temporal monitoring should be continued (6) Acute kidney injury: Code(s): N17.9 - Acute kidney failure, unspecified Status: Acute Assessment and Plan: Serum creatinine slightly el
[2021-04-06 20:00] VITALS: PULSE 105; RESP 16; O2SAT 93
[2021-04-06] MEDS: PANTOPRAZOLE 40 MG TABLET PO (20:45)
[2021-04-06 20:52] VITALS: O2SAT 93
[2021-04-06 21:35] VITALS: BP 103/57; PULSE 105; RESP 16; TEMP 36.2; O2SAT 93
[2021-04-07 04:34] VITALS: BP 102/52; PULSE 89; RESP 16; TEMP 36.2; O2SAT 94
[2021-04-07 05:28] LABS: Basophils Absolute Auto 0.1 K/mm3 (0.0-0.1); Basophils Percent Auto 0.8 % (0.2-1.2); Eosinophils Absolute Auto 1.4 K/mm3 (0-0.3); Eosinophils Percent Auto 8.7 % (0-4.4); Hematocrit 25.8 % (37.0-47.0); Hemoglobin 8.1 g/dL (12.0-15.0); Immature Granulocyte Absolute 0.37 K/mm3 (0.00-0.031); Immature Granulocyte Percent A 2.3 % (0-0.5); Lymphocytes Absolute Auto 2.78 K/mm3 (0.9-3.2); Lymphocytes Percent Auto 17.2 % (18.3-44.2); Mean Corpuscular HGB Conc 31.4 g/dl (32-36); Mean Corpuscular Hemoglobin 28.2 pg (26-34); Mean Corpuscular Volume 89.9 fl (80-100); Mean Platelet Volume 9.3 fl (7.4-10.4); Monocytes Absolute Auto 1.6 K/mm3 (0.1-0.6); Monocytes Percent Auto 9.6 % (2.6-8.5); Neutrophils Percent Auto 61.4 % (45.5-73.1); Platelet Count Result 247 k/mm3 (150-375); Red Blood Count 2.87 M/mm3 (4.2-5.4); Red Cell Distribution Width 20.7 % (11.5-14.5); White Blood Count 16.2 K/mm3 (4.5-10.0)
[2021-04-07 05:38] LABS: Alanine Aminotransferase 11 U/L (4-35); Albumin Level 2.2 g/dL (3.5-5.1); Alkaline Phosphatase 107 U/L (38-126); Anion Gap 4 mmol/L (8-16); Aspartate Amino Transferase 21 U/L (14-36); Bilirubin,Total 0.7 mg/dL (0.2-1.3); Blood Urea Nitrogen 34 mg/dL (7-17); Calcium 8.9 mg/dL (8.4-10.2); Carbon Dioxide 17 mmol/L (22-30); Chloride 113 mmol/L (98-107); Estimated Glomerular Filt Rate 28; Glucose 93 mg/dL (65-110); Magnesium 2.3 mg/dL (1.6-2.3); Sodium 134 mmol/L (137-145)
[2021-04-07] MEDS: CENTRAL LINE FLUSH 10 ML IV PUSH ×2 (06:16→12:27)
[2021-04-07 06:30] LABS: Anisocytosis 1+ (NORMAL); Hypochromasia 1+ (NORMAL); Ovalocytes 1+ (NORMAL); Platelet Estimate Adequate (Adequate)
[2021-04-07] MEDS: ASPIRIN 81 MG CHEWABLE TABLET PO (08:10)
[2021-04-07] MEDS: ENOXAPARIN 30 MG/0.3 ML SYRINGE SUB-Q (08:10)
[2021-04-07] MEDS: THERAPEUTIC MULTIVITAMINS/MINERALS TAB (*BKC) 1 TABLET PO (08:10)
[2021-04-07] MEDS: CHOLECALCIFEROL 1,000 UNITS TABLET 1000 UNITS PO (08:10)
[2021-04-07] MEDS: PANTOPRAZOLE 40 MG TABLET PO (08:10)
[2021-04-07] MEDS: MAGNESIUM OXIDE 400 MG TABLET PO (08:10)
[2021-04-07] MEDS: ACIDOPHILUS/BULGARICUS CHEWABLE TABLET 1 TABLET PO (08:10)
[2021-04-07] MEDS: AMPICILLIN SULB 1.5 GM/NS 50ML 1.5 GM/50 ML VIAL IVPB (08:15)
[2021-04-07 11:21] VITALS: BP 105/54; PULSE 104; RESP 16; TEMP 36.2; O2SAT 95
[2021-04-07 11:22] LABS: EDCOVIDSCREEN Negative (Negative)
[2021-04-07 14:00] VITALS: BP 108/56; PULSE 99; RESP 16; TEMP 36.3; O2SAT 96
[2021-04-07 14:31] VITALS: O2SAT 94
--- NOTE | 2021-04-07 14:39 | P.DS_ITS ---
DS: Admitting Diagnosis Discharge Date 04/07/2021 Admitting Diagnosis Postop intra-abdominal abscess, lower extremity edema, severe muscle deconditioning, hypokalemia, hypoxia, acute kidney injury, status post Tamara's procedure DS: Discharge Diagnosis Discharge Diagnosis (1) Postoperative intra-abdominal abscess: Code(s): T81.43XA - Infection following a procedure, organ and space surgical site, initial encounter Status: Acute Assessment and Plan: S/p Tamara's procedure on 02/25/22 complicated by large psoas abscess requiring drainage who presented with increased swelling and drainage of her left lateral abdomen * CT abdomen/pelvis on presentation showed large abscess involving the left iliopsoas muscle and left pericolic gutter which tracked to the medial left pelvis and left proximal thigh * Underwent CT-guided abscess catheter placement of the left iliopsoas abscess a nd left pelvic abscess on 03/21 * Appreciate general surgery consultation * Abscess cultures on 03/21/2021 with moderate growth of Lexii albicans. 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 * current antibiotic regimen of ampicillin/micafungin/vancomycin will continue per Gen. Surgeon Dr. West's orders. * General surgery also added scheduled flushes for the percutaneous drains x2. Perc drain volume output diminishing despite flushing drains twice daily and despite the CT scan showing abscess not improved. * Repeat CT abd/pelvis at some point to re-evaluate for drain removal. * white count has progressively been going up, from 12.6 now up to 15.4 to 15.9. No fevers evident. This is may be related to the osteomyelitis or to a resistant bacteria developing from the abscess or effusions or due to the scheduled flushes for the percutaneous drains per Gen. Surgery Dr. West. * checking blood cultures/UA/Urine cultures. (2) Severe muscle deconditioning: Code(s): R29.898 - Other symptoms and signs involving the musculoskeletal system Status: Acute Assessment and Plan: Patient is very weak related to her acute illness * She had been refusing PT/OT earlier in admission. Encouraged to participate. Seems to be improving now * Fall precautions implemented * Continue turning/repositioning schedule * She will need SNF prior to discharge. Care coordination following to help arrange placement * Will need to continue PT and OT. * due for discharge perhaps tomorrow to shelter facility for rehab, continued monitoring and maintenance of drains, and continued antibiotic therapy. (3) Hypokalemia: Code(s): E87.6 - Hypokalemia Status: Acute Assessment and Plan: Potassium is 4.0 today * Continue to monitor BMP * magnesium was 1.6 yesterday morning, replenished with 2 gm IV mag. * yet heart rate is remains rapid today * started on PO mag * checking an EKG * Will repeat Mag level in the morning. * Potassium 4.0 today, replenished yesterday (4) Lower extremity edema: Code(s): R60.0 - Localized edema Status: Acute Assessment and Plan: Resolved. Likely related to IV fluids and decreased mobility. * Venous Doppler negative for DVT * Continue treatment plan as above * Elevate extremiti
--- NOTE | 2021-04-07 14:39 | PM.DS ---
DS: Admitting Diagnosis Discharge Date 04/07/2021 Admitting Diagnosis Postop intra-abdominal abscess, lower extremity edema, severe muscle deconditioning, hypokalemia, hypoxia, acute kidney injury, status post Tamara's procedure DS: Discharge Diagnosis Discharge Diagnosis (1) Postoperative intra-abdominal abscess: Code(s): T81.43XA - Infection following a procedure, organ and space surgical site, initial encounter Status: Acute Assessment and Plan: S/p Tamara's procedure on 02/25/22 complicated by large psoas abscess requiring drainage who presented with increased swelling and drainage of her left lateral abdomen CT abdomen/pelvis on presentation showed large abscess involving the left iliopsoas muscle and left pericolic gutter which tracked to the medial left pelvis and left proximal thigh Underwent CT-guided abscess catheter placement of the left iliopsoas abscess and left pelvic abscess on 03/21 Appreciate general surgery consultation Abscess cultures on 03/21/2021 with moderate growth of Lexii albicans. 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 current antibiotic regimen of ampicillin/micafungin/vancomycin will continue per Gen. Surgeon Dr. West's orders. General surgery also added scheduled flushes for the percutaneous drains x2. Perc drain volume output diminishing despite flushing drains twice daily and despite the CT scan showing abscess not improved. Repeat CT abd/pelvis at some point to re-evaluate for drain removal. white count has progressively been going up, from 12.6 now up to 15.4 to 15.9. No fevers evident. This is may be related to the osteomyelitis or to a resistant bacteria developing from the abscess or effusions or due to the scheduled flushes for the percutaneous drains per Gen. Surgery Dr. West. checking blood cultures/UA/Urine cultures. (2) Severe muscle deconditioning: Code(s): R29.898 - Other symptoms and signs involving the musculoskeletal system Status: Acute Assessment and Plan: Patient is very weak related to her acute illness She had been refusing PT/OT earlier in admission. Encouraged to participate. Seems to be improving now Fall precautions implemented Continue turning/repositioning schedule She will need SNF prior to discharge. Care coordination following to help arrange placement Will need to continue PT and OT. due for discharge perhaps tomorrow to longterm facility for rehab, continued monitoring and maintenance of drains, and continued antibiotic therapy. (3) Hypokalemia: Code(s): E87.6 - Hypokalemia Status: Acute Assessment and Plan: Potassium is 4.0 today Continue to monitor BMP magnesium was 1.6 yesterday morning, replenished with 2 gm IV mag. yet heart rate is remains rapid today started on PO mag checking an EKG Will repeat Mag level in the morning. Potassium 4.0 today, replenished yesterday (4) Lower extremity edema: Code(s): R60.0 - Localized edema Status: Acute Assessment and Plan: Resolved. Likely related to IV fluids and decreased mobility. Venous Doppler negative for DVT Continue treatment plan as above Elevate extremities Good response with lasix and albumin infusions. Albumin discontinued 2/5. Will discontinue lasix at this time as patient is euvolemic. Continue to monitor volume status closely. (5) Hypoxia: Code(s): R09.02 - Hypoxemia Status: Acute Assessment and Plan: Resolved. Maintaining adequate oxygen saturations on room air Likely due to inaccurate SpO2 readin
--- NOTE | 2021-04-07 14:50 | PCPTNOTE ---
Patient declined therapy at this time. Patient was educated on the benefits of therapy however continued to decline stating she was tired. RN states patient is pending discharge this date.
[2021-04-07] MEDS: MICAFUNGIN SODIUM 100 MG in SODIUM CHLORIDE 0.9% IV 100 ML IVPB (15:27)
== END 2021-04-07 18:47 | DRG 862 ==
LOC: ANHED 03-20 00:18 → ANH3MEDSUR 03-20 00:43 → ANH3MED 03-20 02:23
PROVIDERS: Internal Medicine; Nurse Practitioner Adult Health; Nurse Practitioner Family; Physician Assistant; Admitting Provider Internal Medicine; Emergency Provider Emergency Medicine; PCP Internal Medicine; Visit Provider Nurse Practitioner
DX: T81.43XA Infection following a procedure, organ and space surgical site, initial encounter (principal); K68.12 Psoas muscle abscess; N39.0 Urinary tract infection, site not specified; N17.9 Acute kidney failure, unspecified; M86.68 Other chronic osteomyelitis, other site; K51.913 Ulcerative colitis, unspecified with fistula; Z20.822 Contact with and (suspected) exposure to COVID-19; Z93.3 Colostomy status; Z79.82 Long term (current) use of aspirin; Y83.8 Other surgical procedures as the cause of abnormal reaction of the patient, or of later complication, without mention of misadventure at the time of the procedure; Y92.9 Unspecified place or not applicable; R29.898 Other symptoms and signs involving the musculoskeletal system; E87.6 Hypokalemia; R60.0 Localized edema; R09.02 Hypoxemia
CPT/HCPCS: 36415; 36569; 71046; 74176; 74177; 75989; 80048; 80053; 80202; 81001; 82565; 82948; 83605; 83690; 83735; 84100; 84132; 84466; 84478; 85025; 85027; 85610; 85730; 86140; 87040; 87070; 87075; 87077; 87086; 87088; 87106; 87186; 87205; 87426; 93005; 93970; 96361; 96365; 96366; 96367; 96368; 96375; 97110; 97163; 97166; 97530; 97535; 99285; A9270; C1729; C1751; C1769; C9803; G0378; J0295; J1650; J2248; J2543; J3370; J3411; J3475; J3480; J7030; J7040; P9047; Q9967; U0003; U0005